=== PATIENT | male | born 1960 | race Caucasian/White ===

== ENCOUNTER 2019-09-20 12:04 | Outpatient (CLI) | payer MEDICARE, SELFPAY ==
--- NOTE | 2019-09-20 | XR_ITS ---
WS: [id number] LEFT SHOULDER: 3 VIEW(S) TECHNIQUE: Internal and external rotation with Y view. HISTORY: LEFT SHOULDER PAIN COMPARISON: None available. No fracture or dislocation or soft tissue abnormality. Mild narrowing of the AC joint. Partially calcified thoracic aorta. XR/XR shoulder LT min 2V* [id number] IMPRESSION: Mild AC joint arthritis.
== END 2019-09-20 12:05 | disposition home or self-care (01) ==
LOC: RADOUTREAD 14:45
PROVIDERS: Family Provider Family Medicine; Visit Provider Nurse Practitioner Family
DX: Z76.89 Persons encountering health services in other specified circumstances (principal)

== ENCOUNTER 2019-10-30 12:42 | Emergency (ER) | payer MEDICARE, MEDICAID, SELFPAY ==
[2019-10-30 12:48] VITALS: BP 171/81; PULSE 80; RESP 16; TEMP 36.5; O2SAT 96; BMI 34.2
--- NOTE | 2019-10-30 12:57 | CT_ITS ---
WS: [id number] CT HEAD TECHNIQUE: Noncontrast CT of the head obtained from the skullbase to the vertex. CLINICAL INFORMATION: headache COMPARISON: October 30, 2018 DLP: 1057.[address] scans at [facility] use at least one of these dose optimization techniques: automat ed exposure control; mA and/or kV adjustment per patient size (includes targeted exams where dose is matched to clinical indication); or iterative reconstruction. FINDINGS: No evidence of intracranial hemorrhage or mass effect. Ventricular system and basal cisterns are gutierrez nt. Mild small vessel changes with moderate parenchymal volume loss. Chronic lacunar infarct left lat eral basal ganglia. No extra-axial fluid collections. No evidence of mass or mass effect. Normal ruiz -white differentiation. Paranasal sinuses and mastoid air cells are well aerated. .Normal visualized soft tissues. CT/CT head wo con* [id number] IMPRESSION: 1. No evidence of intracranial hemorrhage or mass effect. 2. Mild small vessel changes. Moderate parenchymal volume loss. 3. No acute intracranial findings.
[2019-10-30 13:32] VITALS: O2SAT 96
--- NOTE | 2019-10-30 13:35 | W.ED.GENADLT ---
HPI - General Adult General: Chief complaint: Headache Stated complaint: H/A Time Seen by Provider: 10/30/19 13:24 History of Present Illness: HPI narrative: Patient comes in complaining about a headache today that started last night. Patient was sitting watching TV and just also got a pain that went throughout his head and stayed there. He took ibuprofen did not improve he checked his blood pressure and it was very high and he took a blood pressure medicine his blood pressure came back down. Has a history of migraines that he has been treated on for a long time. States he went to bed woke up with a headache not as bad. Blood pressures been doing better. Patient denies any neurological deficits. Patient does complain about nausea. MD complaint: Headache Onset (ago): hour(s) Location: head Radiation: non-radiation Severity: moderate and similar to prior episodes Severity scale (1-10): 6 Quality: aching Pain Consistency: constant Relieving factors: none Exacerbating factors: other (Light and sound) Associated symptoms: Reports headache(s) and nausea; Deny chest pain, dyspnea or rash Review of Systems Const: Denies: fever, chills or body aches Eyes: Denies: change in vision or blurry vision ENMT: Denies: throat pain or nasal congestion Card: Denies: chest pain or shortness of breath on exertion Resp: Denies: shortness of breath, productive cough or non-productive cough GI: Reports: nausea : Denies: difficulty urinating Musc: Denies: extremity pain Skin/Breast: Denies: rash Neuro: Reports: headache; Denies: numbness in extremities, weakness in extremities or slurred speech Psych: Denies: anxiety or depression Yeison/Lymph: Denies: easy bruising PFSH ED PFSH: Social History Smoking and tobacco status: never smoked Physical Exam Const: COMMON NORMALS: no apparent distress, average body habitus and oriented x3 HENMT: COMMON NORMALS: normocephalic HEAD & SCALP: normal to inspection and normocephalic FACE & SINUS: normal facial exam Eye: COMMON NORMALS: conjunctivae normal GENERAL EYE: normal appearance of both eyes CONJUNCTIVA: Yes conjunctivae normal Neck/C-Spine: COMMON NORMALS: no JVD Chest: COMMONS NORMALS: inspection of chest normal Resp: COMMON NORMALS: normal respiratory effort and clear to auscultation bilaterally AUSCULTATION: clear to auscultation bilaterally Cardio: COMMON NORMALS: no JVD, regular rate and regular rhythm RATE: regular rate RHYTHM: regular rhythm GI: COMMON NORMALS: normal to inspection, nondistended, normoactive bowel sounds Extremity: COMMON NORMALS: normal to inspection and full ROM Neuro: COMMON NORMALS: oriented x3 Course Vital Signs: Vital signs: Vital Signs Temperature 97.7 F 10/30/19 12:48 Pulse Rate 80 10/30/19 12:48 Respiratory Rate 16 10/30/19 12:48 Blood Pressure 171/81 10/30/19 12:48 Pulse Oximetry 96 10/30/19 13:32 MDM - General Adult MDM Narrative: Medical decision making narrative: Written prescription for Zofran 4 mg 1 every 8 hours as needed #10 no refills given for nausea and vomiting patient is take this for migraines and helped him. Lab Data: Labs: Lab Results 10/30/19 10/30/19 10/30/19 Range/Units 13:49 13:49 13:49 WBC 6.2 (4.0-10.0) 10^3/ uL RBC 4.55 (4.1-5.3) 10^6/u L Hgb 11.4 L (11.7-16.6) g/dL Hct 36.4 L (42.0-52.0) % MCV 80.0 (80-94) fL MCH 25.1 L (28.0-34.0) pg MCHC 31.3 (30.0-36.0) g/dL RDW 13.2 (12.1-15.1) % Plt Count 243 (130-400) 10^3/c mm MPV 10.1 (7.4-10.4) fL Neut % (Auto) 53.6 % Lymph % (Auto) 31.6 % [place] % (Auto) 8.4 % Eos % (Auto) 4.8 % Baso % (Auto) 1.1 % Neut # (Auto) 3.3 (1.8-7.7) 10^3/u L Lymph # (Auto) 2.0 (0.8-4.8) 10^3/u L [place] # (Auto) 0.5 (0.2-0.9) 10^3/u L Eos # (Auto) 0.3 (0.0-0.8) 10^3/u L Baso # (Auto) 0.1 (0.0-0.1) 10^3/u L Nucleated RBC % (a uto) 0 % Nucleated RBCs # 0.0 /100WBC PT 13.00 (10.5-13.3) SECO NDS INR 0.95 (0.8-1.2) Sodium 135 L (136-145) mmol/L Potassium 4.4 (3.5-5.1) mmol/L Chloride 96 L (98-107) mmol/L Carbon Dioxide 27 (22-29) mmol/L Anion Gap 16.4 (5-19) BUN 15 (8-23) mg/dL Creatinine 0.6 L (0.7-1.2) mg/dL GFR Calculation 137.0 H (90-130) mL/min Glucose 276 H (65-115) mg/dL Calculated Osmolal ity 286 (285-295) mOsm/k g Calcium 9.5 (8.5-10.5) mg/dL Total Bilirubin 0.2 (0.15-1.2) mg/dL AST 28 (0-40) U/L ALT 27 (0-41) U/L Alkaline Phosphata se 65 (40-130) IU/L Total Protein 7.0 (6.6-8.7) g/dL Albumin 4.0 (3.5-5.2) g/dL Globulin 3.0 (1.3-4.6) g/dL Discharge Plan Discharge Patient Disposition: Home, Self-Care Clinical Impression: Headache Qualifiers: Headache type: other vascular headache Qualified Code(s): G44.1 - Vascular headache, not elsewhere classified Condition: Stable Prescriptions: No Action carvedilol 25 mg tablet 25 mg PO BID RF: 0 benztropine 0.5 mg tablet 0.5 mg PO DAILY RF: 0 glipizide 10 mg tablet 10 mg PO BID RF: 0 isosorbide mononitrate 30 mg tablet extended release 24 hr 30 mg PO DAILY RF: 0 sertraline 100 mg tablet 100 mg PO DAILY RF: 0 pantoprazole 40 mg tablet,delayed release (DR/EC) 40 mg PO DAILY RF: 0 lisinopril 5 mg tablet 5 mg PO DAILY RF: 0 mirtazapine 15 mg tablet 15 mg PO DAILY RF: 0 gabapentin 100 mg capsule 100 mg PO DAILY RF: 0 metformin 500 mg tablet extended release 24 hr 500 mg PO BID RF: 0 risperidone 0.5 mg tablet 0.5 mg PO DAILY RF: 0 nortriptyline 50 mg capsule 50 mg PO DAILY RF: 0 Humalog KwikPen Insulin 100 unit/mL insulin pen See Rx Instructions .ROUTE .COMPLEX RF: 0 rosuvastatin 5 mg tablet 5 mg PO DAILY RF: 0 ProAir RespiClick 90 mcg/actuation aerosol powdr breath activated See Rx Instructions .ROUTE .COMPLEX RF: 0 Discharge Orders: Discharge Order (Routine); Ordered 10/30/19 Ordered By: Shabbir Doyle Referrals: Johnny Vargas MD [Family Provider] - Discharge Diet: Advance as tolerated Discharge Activity: Increase activity as tolerated Patient Instructions: Acute Headache (ED), Chronic Hypertension (ED) Activity Restrictions/Additional Instructions: Follow-up with medical provider as directed. Take medications as prescribed. Return to the ER or your medical provider if condition worsens. Please read and understand discharge instructions. If any questions ask please. Can increase carvedilol to 50 mg twice daily if needed until seen by Dr. Vargas to reassess blood pressure follow-up Dr. Vargas in 1 to 2 weeks. Coding Level of Care Code ED Swaging Machine Operator for Devonte Hamm Exam Comprehensive
[2019-10-30] MEDS: dexamethasone 4 mg/mL INJ IVP (13:56)
[2019-10-30] MEDS: sodium chloride 0.9% 250 ML 500 ML IV (13:56)
[2019-10-30] MEDS: diphenhydrAMINE 50 mg/mL SDV 1mL IVP (13:56)
[2019-10-30] MEDS: ondansetron 2 mg/ML SDV 2 mL 8 MG IVP (13:56)
[2019-10-30 14:04] LABS: Basophils # 0.1 10^3/uL (0.0-0.1); Basophils % 1.1 %; Eosinophils # 0.3 10^3/uL (0.0-0.8); Eosinophils % 4.8 %; Hematocrit 36.4 % (42.0-52.0); Hemoglobin 11.4 g/dL (11.7-16.6); Lymphocytes % 31.6 %; Mean Corpuscular HGB Conc 31.3 g/dL (30.0-36.0); Mean Corpuscular Hemoglobin 25.1 pg (28.0-34.0); Mean Platelet Volume 10.1 fL (7.4-10.4); Monocytes # 0.5 10^3/uL (0.2-0.9); Monocytes % 8.4 %; Neutrophils # 3.3 10^3/uL (1.8-7.7); Neutrophils % 53.6 %; Nucleated Red Blood Cells % 0 %; Platelet Count 243 10^3/cmm (130-400); Red Blood Count 4.55 10^6/uL (4.1-5.3); Red Cell Distribution Width 13.2 % (12.1-15.1); White Blood Count 6.2 10^3/uL (4.0-10.0)
[2019-10-30 14:17] LABS: INR 0.95 (0.8-1.2)
[2019-10-30 14:26] LABS: Alanine Aminotransferase 27 U/L (0-41); Alkaline Phosphatase 65 IU/L (40-130); Anion Gap 16.4 (5-19); Aspartate Amino Transferase 28 U/L (0-40); Blood Urea Nitrogen 15 mg/dL (8-23); Calcium 9.5 mg/dL (8.5-10.5); Carbon Dioxide 27 mmol/L (22-29); Chloride 96 mmol/L (98-107); Glucose 276 mg/dL (65-115); Osmolality Calculated 286 mOsm/kg (285-295); Potassium 4.4 mmol/L (3.5-5.1); Sodium 135 mmol/L (136-145); Total Bilirubin 0.2 mg/dL (0.15-1.2)
[2019-10-30] MEDS: ketorolac 30 mg/mL INJ IM (14:29)
[2019-10-30 15:37] VITALS: BP 166/96; PULSE 68; RESP 17; O2SAT 97
== END 2019-10-30 15:38 | disposition home or self-care (01) ==
PROVIDERS: Emergency Provider Nurse Practitioner Family; Family Provider Family Medicine
DX: R51 Headache (principal)
CPT/HCPCS: 12345; 36415; 70450; 80053; 85025; 85610; 96372; 96374; 96375; 99282; 99283; J1100; J1200; J1885; J2405; J7050

== ENCOUNTER → 2020-03-23 09:04 | Outpatient (BNVA) | payer MEDICARE, MEDICAID, SELFPAY | PROVIDERS: Family Provider Family Medicine; PCP Family Medicine; Visit Provider Internal Medicine Cardiovascular Disease | DX: I10 Essential (primary) hypertension (principal); E11.9 Type 2 diabetes mellitus without complications; G47.33 Obstructive sleep apnea (adult) (pediatric); K21.9 Gastro-esophageal reflux disease without esophagitis; E66.9 Obesity, unspecified | CPT/HCPCS: 80048; 83735; 83880 ==

== ENCOUNTER → 2020-10-23 14:23 | Outpatient (BNVA) | payer MEDICARE, MEDICAID, SELFPAY | PROVIDERS: Family Provider Family Medicine; PCP Family Medicine; Visit Provider Surgery | DX: Z86.010 Personal history of colon polyps (principal); Z11.52 Encounter for screening for COVID-19 | CPT/HCPCS: 87635 ==

== ENCOUNTER 2020-10-27 07:22 | Day surgery (SDC) | payer MEDICARE, MEDICAID, SELFPAY ==
[2020-10-23 13:58] VITALS: BMI 33.2
--- NOTE | 2020-10-27 07:46 | ANES.PREANE2 ---
Pre-Anesthetic Assessment Pre-Anesthetic Assessment: Height/Weight: Height 1.8 m Weight 107.955 kg Preop Diagnosis: screening colonoscopy Proposed Procedure: Operation Date: 10/27/20 09:00 Proposed Procedures p Colonoscopy 71252 z86.010(Not Applicable) - Jorge Li MD Social: Social History: No alcohol and No tobacco Exam: Pre-Anes Outpt Exam: alert, oriented x 3, clear to auscultation bilaterally and regular rate & rhythm (Occasional conducted irregular beats ) Airway: Submandibular: Other (Marginal/receeding mandible) Cervical ROM: Other (limited) MP: 4 Dentition: False History/ROS: No significant history except as noted Pulmonary: Pulmonary: Sleep apnea CV/HEM: CV/HEM: HTN : : None reported Hepatic: Hepatic: None reported GI: GI: GERD Comments: History of Colon CA s/p resection Metabolic: Metabolic: DM Neuropsych: Neuropsych: Anxiety Anesthetic Plan: ASA status: 3 Anesthesia: MAC PFSH Anesthesia PFSH: Medical History (Updated 09/16/20 @ 14:49 by Jorge Li MD) Asthma Mart's palsy Coronary artery disease Diabetes GERD (gastroesophageal reflux disease) History of colon polyps HTN (hypertension) Peripheral neuropathy Surgical History (Updated 09/15/20 @ 16:00 by Jorge Li MD) H/O colonoscopy History of right hemicolectomy Status post right inguinal hernia repair Family History (Updated 09/15/20 @ 15:08 by LEROY Sommer) Other CAD (coronary artery disease) Cancer Hypertension Denies family history of Anesthesia complication Bleeding disorder Social History Smoking and tobacco status: never smoked Alcohol intake: never Data Anesthesia Cardiac Studies: No Data to Display
[2020-10-27 08:01] VITALS: BP 158/73; PULSE 80; RESP 16; TEMP 36.4; O2SAT 98
[2020-10-27] MEDS: sodium chloride 0.9% 1,000 ML 30 ML IV (08:09)
[2020-10-27 08:38] LABS: Glucose Point of Care 180 mg/dL (70-110)
--- NOTE | 2020-10-27 09:35 | W.PM.OPSFHP ---
Same Day Surgery H&P Indication for Procedure/HPI DATE OF PROCEDURE: October 27, 2020 CHIEF COMPLAINT/INDICATIONFOR SURGICAL PROCEDURE: colonoscopy PREOP DIAGNOSIS: screening colonoscopy PLANNED PROCEDRUE: Operation Date: 10/27/20 09:00 Proposed Procedures p Colonoscopy 15167 z86.010(Not Applicable) - Jorge Li MD Medications/Allergies* Home Medications Medication Instructions Recorded Confirmed Type albuterol sulfate [ProAir See Rx Instructions .ROUTE .COMPLEX 10/30/19 10/27/20 History RespiClick] glipizide 10 mg PO BID 10/30/19 10/27/20 History insulin lispro [Humalog KwikPen See Rx Instructions .ROUTE .COMPLEX 10/30/19 10/27/20 History Insulin] isosorbide mononitrate 30 mg PO DAILY 10/30/19 10/27/20 History metformin 500 mg PO BID 10/30/19 10/27/20 History nortriptyline 50 mg PO DAILY 10/30/19 10/27/20 History pantoprazole 40 mg PO DAILY 10/30/19 10/27/20 History sertraline 100 mg PO DAILY 10/30/19 10/27/20 History gabapentin 100 mg capsule 100 mg PO TID cap 11/25/19 10/27/20 History insulin glargine See Rx Instructions .ROUTE .COMPLEX 03/16/20 10/27/20 History lisinopril 20 mg tablet 20 mg PO BID 03/16/20 10/27/20 History rosuvastatin 5 mg tablet 5 mg PO .every other day tab 04/21/20 10/27/20 History hydroxyzine HCl 25 mg PO BID PRN 09/15/20 10/27/20 History Allergies/Adverse Reactions Allergy/AdvReac Type Severity Reaction Status Date / Time alprazolam [From Xanax] Allergy ADR-Anxiety Verified 10/27/20 07:58 aspirin Allergy ALGY-Rash Verified 10/27/20 07:58 fentanyl Allergy ALGY-Rash Verified 10/27/20 07:58 Penicillins Allergy ALGY-Rash Verified 10/27/20 07:58 zolpidem [From Ambien] Allergy ADR-Anxiety Verified 10/27/20 07:58 Current Medications: Generic Name Dose Route Start Last Admin Trade Name Freq PRN Reason Stop Dose Admin Sodium Chloride 1,000 mls @ 30 mls/hr 10/27/20 07:30 10/27/20 08:09 Sodium Chloride 0.9% IV 10/28/20 07:29 30 mls/hr .Q24H LOTUS Administration Pertinent History/Comorbid Conditions* Medical History (Updated 09/16/20 @ 14:49 by Jorge Li MD) Asthma Mart's palsy Coronary artery disease Diabetes GERD (gastroesophageal reflux disease) History of colon polyps HTN (hypertension) Peripheral neuropathy Surgical History (Updated 09/15/20 @ 16:00 by Jorge Li MD) H/O colonoscopy History of right hemicolectomy Status post right inguinal hernia repair Family History (Updated 09/15/20 @ 15:08 by LEROY Sommer) CAD (coronary artery disease) Cancer Hypertension Denies family history of Anesthesia complication Bleeding disorder Social History Smoking and tobacco status: never smoked Alcohol intake: never Pertinent Exam Findings alert, oriented x 3 and regular rate & rhythm Recommendations Surgery/Procedure today Coding Level of Care Code Acute Grinder Operator External Tool for Devonte Hamm
[2020-10-27 10:05] VITALS: BP 120/64; PULSE 73; RESP 16; TEMP 36.4; O2SAT 96
[2020-10-27 10:20] VITALS: BP 113/67; PULSE 71; RESP 16; TEMP 36.6; O2SAT 98
--- NOTE | 2020-10-27 10:24 | P.PCN_ITS ---
PACU note Post-Anesthesia Exam: awake Disposition: discharged
--- NOTE | 2020-10-27 10:24 | PM.PACU ---
PACU note Post-Anesthesia Exam: awake Disposition: discharged
== END 2020-10-27 10:40 | disposition home or self-care (01) ==
PROVIDERS: PCP Family Medicine; Visit Provider Surgery
PROC: 0DJD8ZZ Inspection of Lower Intestinal Tract, Via Natural or Artificial Opening Endoscopic (ICD-10-PCS; CPT 45378; principal; 2020-10-27 09:00)
DX: Z12.11 Encounter for screening for malignant neoplasm of colon (principal); J45.909 Unspecified asthma, uncomplicated; I25.10 Atherosclerotic heart disease of native coronary artery without angina pectoris; K21.9 Gastro-esophageal reflux disease without esophagitis; I10 Essential (primary) hypertension; Z86.010 Personal history of colon polyps; E11.42 Type 2 diabetes mellitus with diabetic polyneuropathy; G47.30 Sleep apnea, unspecified; F41.9 Anxiety disorder, unspecified
CPT/HCPCS: 36416; 45378; 82962; 96360; 96361; J2704; J7030

== ENCOUNTER 2021-02-08 11:18 | Outpatient (CLI) | payer MEDICARE, MEDICAID, SELFPAY ==
[2021-02-08 12:46] LABS: Blood Urea Nitrogen 10 mg/dL (8-23)
--- NOTE | 2021-02-08 13:00 | CT_ITS ---
WS: [id number] CT ABDOMEN PELVIS TECHNIQUE: Contrast-enhanced CT of the abdomen and pelvis with coronal and sagittal reformatted image s. CLINICAL INFORMATION: K43.2 - Incisional hernia without obstruction or gangrene COMPARISON: None. DLP: 1947.[address] scans at [facility] use at least one of these dose optimization techniques: automat ed exposure control; mA and/or kV adjustment per patient size (includes targeted exams where dose is matched to clinical indication); or iterative reconstruction. FINDINGS: Diffuse fatty infiltration the liver. Prior cholecystectomy. Lung bases are well aerated. Normal sple en. Splenic artery calcification. Normal pancreas. Normal portal vein and splenic vein. Adrenal glands are normal. Normal renal parenchymal enhancement. No hydronephrosis. Bilateral renal c ysts largest on the right measuring 4.1 CM. Smaller bilateral renal cysts. Previously described low-attenuation splenic lesion along the undersurface of the spleen not seen tod ay. New enlarged lymph node aortocaval measuring 2.5 x 3.1 x 3.2 CM. This was not present previously. Again seen are prominent lymph nodes along the mesenteric root, which has progressed compared to pre vious with some hazy induration in the central mesentery. This can be seen with sclerosing mesenterit is. Lymphoma is an additional consideration. Bilobed periumbilical hernia with herniated bowel is new compared to previous with a small amount of herniated small bowel. No evidence of obstruction. Hernia mouth measures 4.6 and 4.1 cm. Normal sigmoid colon. No evidence of small or large bowel obstruction. Grade 1 anterolisthesis L5 on S1 with bilateral spondylolysis. This is unchanged. Stable fatty attenuation lesion in the anterior s uperior pelvis likely due to fat necrosis has decreased in size compared to previous. This measures 3 .4 x 2.9 cm today. Pain pump catheter. CT/CT abdomen pelvis w con* [id number] IMPRESSION: 1. Bilobed periumbilical incisional hernia with herniated small bowel. No evid ence of obstruction. 2. Enlarged lymph node along the aortocaval region is new from previous measur ing 2.5 x 3.1 x 3.2 CM. Additional enlarged lymph nodes in the central mesenter y progressed compared to previous with Jen mesentery. Findings are nonspecifi c but can be seen with sclerosing mesenteritis or lymphoma. Consider PET CT for further evaluation. 3. Diffuse fatty infiltration liver. Cholecystectomy clips. 4. Suspected fat necrosis in the anterior superior pelvis has decreased in siz e compared to previous. 5. Grade 1 anterolisthesis L5 on S1 with chronic spondylolysis.
[2021-02-08] MEDS: iodixanol 320 mg/mL 100mL Btl IV (13:02)
[2021-02-08] MEDS: iohexol 300 mg/mL 50 mL Btl PO (13:03)
== END 2021-02-08 11:19 | disposition home or self-care (01) ==
PROVIDERS: Radiology Neuroradiology; PCP Family Medicine; Visit Provider Surgery
DX: K43.2 Incisional hernia without obstruction or gangrene (principal); R59.0 Localized enlarged lymph nodes; K76.0 Fatty (change of) liver, not elsewhere classified; Z90.49 Acquired absence of other specified parts of digestive tract; M47.817 Spondylosis without myelopathy or radiculopathy, lumbosacral region
CPT/HCPCS: 74177; 82565; 84520; Q9967

== ENCOUNTER 2021-02-12 13:03 | Outpatient (CLI) | payer MEDICARE, MEDICAID, SELFPAY ==
--- NOTE | 2021-02-12 13:13 | XR_ITS ---
WS: [id number] Chest 2 views, 02/12/2021 Clinical Data: K43.2 - Incisional hernia without obstruction or gangrene Comparison: PA and lateral chest, 01/22/2019. Findings: No nodules, masses or effusions are seen. The heart is normal. The pulmonary vascularity is not increased. No pneumonia or pneumothorax is seen. The aortic arch and descending aorta shows mild calcification and tortuosity. There are clips in the right upper quadrant from a cholecystectomy. XR/XR chest 2V* [id number] Impression: Atherosclerosis.
== END 2021-02-12 13:04 | disposition home or self-care (01) ==
LOC: RAD 13:09
PROVIDERS: PCP Family Medicine; Visit Provider Surgery
DX: K43.2 Incisional hernia without obstruction or gangrene (principal); I70.90 Unspecified atherosclerosis
CPT/HCPCS: 71046

== ENCOUNTER 2021-02-26 08:43 | Outpatient (CLI) | payer MEDICARE, MEDICAID, SELFPAY ==
--- NOTE | 2021-02-26 08:52 | CT_ITS ---
WS: [id number] CT NECK WITH CONTRAST HISTORY: R59.1 - Generalized enlarged lymph nodes TECHNIQUE: Contiguous 5 mm axial images are performed through the neck with intravenous contrast. Sag ittal and coronal reformats are also submitted. All CT scans at use at least o ne of these dose optimization techniques: automated exposure control; mA and/or kV adjustment per pat ient size (includes targeted exams where dose is matched to clinical indication); or iterative recons truction. CONTRAST: CONTRAST: Visipaque 320; 75 mL IV. DLP: 589.99 mGy.cm COMPARISON: None available. Nasopharynx, oropharynx, hypopharynx and larynx are unremarkable. No soft tissue masses or abnormal e nhancement. Torus tubarius and fossa of Rosenmuller and parapharyngeal fat are normal. Small cervical chain lymph nodes are identified. Normal fatty hilum within these lymph nodes and no e nlargement. Negative thyroid gland. Intraparotid lymph nodes. Very mild anterior wedging of C3. No acute fracture lines. Ankylosis between the C2-3 facet joints. Visualized portions of the skull base demonstrate no abnormalities. Orbits and globes are within norm al limits. No soft tissue masses. No sinus disease. Lung apices are clear. There is extensive circumferential intimal thickening and calcification in the carotid arteries near the bifurcations. Greater than 60% stenosis bilaterally involving the ICAs. CT/CT neck w con* [id number] IMPRESSION: 1. No cervical chain lymphadenopathy. 2. Bilateral extracranial ICA high-grade stenoses. Stenosis estimated at great er than 60%. Recommend dedicated CT angiogram for more specific percent stenose s and evaluation of the carotid arteries.
--- NOTE | 2021-02-26 08:52 | CT_ITS ---
WS: [id number] CT CHEST WITH INTRAVENOUS CONTRAST HISTORY: R59.1 - Generalized enlarged lymph nodes TECHNIQUE: Contiguous 5 mm axial imaging performed on the thorax. Coronal and sagittal reformats are submitted. All CT scans at [facility] use at least one of these dose optimization techniq ues: automated exposure control; mA and/or kV adjustment per patient size (includes targeted exams wh ere dose is matched to clinical indication); or iterative reconstruction. CONTRAST: Visipaque 320; 95 mL IV. DLP: 980.37 mGy.cm COMPARISON: 08/23/2018 Lungs and central airway: Mild pulmonary hyperexpansion. No mass or nodule. No pneumonia. Normal vasc ulature. Subsegmental atelectasis in the RIGHT upper lobe. Pleura: Normal. No pleural effusion. Heart and pericardium: Normal size heart with no pericardial effusion. Mediastinum and [place]: No mediastinum or hilar adenopathy. Vessels: Mild atherosclerosis aorta. Normal size pulmonary artery. Chest wall and lower neck: No soft tissue masses. Upper abdomen: Pain pump generator noted over the LEFT lateral abdominal wall. Incompletely visualize d 2.7 cm cystic mass from the RIGHT kidney has been previously described. Adrenal glands are negative . Hepatic steatosis. Prior cholecystectomy. Similar appearance as on the prior study from 08/23/2018 of the pancreas. Osseous structures: Benign hemangioma at T1 and T4. CT/CT chest w con* [id number] IMPRESSION: 1. No lymphadenopathy within the thorax. 2. No mass or pulmonary nodule. 3. Prior cholecystectomy. 4. Hepatic steatosis.
[2021-02-26] MEDS: iodixanol 320 mg/mL 100mL Btl IV ×2 (09:36→09:37)
== END 2021-02-26 08:44 | disposition home or self-care (01) ==
PROVIDERS: PCP Family Medicine; Visit Provider Surgery
DX: R59.1 Generalized enlarged lymph nodes (principal); I65.23 Occlusion and stenosis of bilateral carotid arteries; Z90.49 Acquired absence of other specified parts of digestive tract; K76.0 Fatty (change of) liver, not elsewhere classified
CPT/HCPCS: 70491; 71260

== ENCOUNTER 2021-03-03 08:12 | Observation (INO) | payer MEDICARE, MEDICAID, SELFPAY ==
[2021-03-03] VITALS (46 sets, daily range): BP systolic 87–160; BP diastolic 50–81; PULSE 74–91; RESP 5–22; TEMP 36.3–36.8; O2SAT 90–96; BMI 32.1
--- NOTE | 2021-03-03 08:49 | ECG_ITS ---
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 Measurements Intervals [place] Rate: 77 P: 36 CA: 160 QRS: 49 QRSD: 91 T: 47 QT: 378 QTc: 428 Interpretive Statements SINUS RHYTHM ST ELEVATION, CONSIDER SEPTAL INJURY [MARKED ST ELEVATION W/O NORMALLY INFLECTED T WAVE IN V1/V2] ACUTE [place] Compared to ECG 01/16/2019 21:36:34 ST (T wave) deviation now present Ventricular premature complex(es) no longer present Electronically Signed On 03-04-2021 23:44:23 CDT by García Raman M.D. [id number] f
--- NOTE | 2021-03-03 08:49 | XR_ITS ---
WS: [id number] Portable AP upright chest, 03/03/2021 Clinical Data: chest pain Comparison: PA and lateral chest, 02/12/2021. Findings: No nodules, masses or effusions are seen. The heart is normal. The pulmonary vascularity is not increased. No pneumonia or pneumothorax is seen. The aortic arch shows minimal calcification and tortuosity. XR/XR chest 1V portable [id number] Impression:Atherosclerosis.
--- NOTE | 2021-03-03 08:49 | ED_ITS ---
HPI - General Adult General: Chief complaint: General Medical Stated complaint: low BP Time Seen by Provider: 03/03/21 08:55 History of Present Illness: HPI narrative: 60-year-old male who presents to the emergency room with complaints of chest pain that began around 5 AM this morning. He gets short of breath with it he still has some aching and discomfort is worse when he stands or walks better when he sits. Patient has a known history of diabetes mellitus history of hypertension. No known history of heart disease he previously had a sestamibi stress test in 2019 and an angiogram in 2013 both of which were reported to him as unremarkable. Onset (ago): hour(s) Location: chest Radiation: back and neck Severity: moderate Quality: aching Pain Consistency: constant Relieving factors: rest Exacerbating factors: movement (Exertion) Associated symptoms: Reports chest pain, dyspnea, nausea and short of breath; Deny confusion, cough, diaphoresis, decreased appetite, fevers/chills, headache(s), malaise, rash, palpitations, seizures, syncope, vomiting or weakness Treatments prior to arrival: none Review of Systems Const: Denies: malaise or diaphoresis ENMT: Denies: throat pain, ear or mastoid pain, nasal discharge or nasal congestion Card: Reports: chest pain; Denies: palpitations or syncope Resp: Reports: dyspnea GI: Reports: nausea; Denies: vomiting : Denies: flank pain, dysuria, urinary frequency or urinary urgency Skin/Breast: Denies: rash Neuro: Denies: headache(s) or confusion [facility] ED PFSH: Medical History Asthma Mart's palsy Coronary artery disease Diabetes GERD (gastroesophageal reflux disease) History of colon polyps HTN (hypertension) Peripheral neuropathy Surgical History H/O colonoscopy (10/27/20) 5 years History of right hemicolectomy Status post right inguinal hernia repair Family History Other CAD (coronary artery disease) Cancer Hypertension Denies family history of Anesthesia complication Bleeding disorder Social History Smoking and tobacco status: never smoked Alcohol intake: never Physical Exam Const: COMMON NORMALS: no acute distress GENERAL APPEARANCE: cooperative and comfortable ORIENTATION/CONSCIOUSNESS: Yes awake, Yes oriented to person, Yes oriented to place and Yes oriented to time HENMT: COMMON NORMALS: normocephalic, atraumatic and hearing grossly normal bilaterally HEAD & SCALP: normocephalic and atraumatic Neck/C-Spine: COMMON NORMALS: no JVD Resp: COMMON NORMALS: normal respiratory effort, No retractions, No use of accessory muscles and clear to auscultation bilaterally AUSCULTATION: clear to auscultation bilaterally Cardio: COMMON NORMALS: no JVD, regular rate, regular rhythm and No murmurs present (Cardio) RATE: regular rate RHYTHM: regular rhythm GI: COMMON NORMALS: Soft to palpation and No hepatosplenomegaly present AUSCULTATION: Yes normoactive bowel sounds PALPATION: Yes Soft to palpation, No Tenderness to palpation present (GI), No Guarding due to palpation present (GI) and Yes No hepatosplenomegaly present Extremity: COMMON NORMALS: normal to inspection, capillary refill normal, no clubbing, cyanosis or edema, no calf tenderness and no pedal edema Neuro: SENSORIUM/ORIENTATION: Yes oriented to person, Yes oriented to place and Yes oriented to time Skin: COMMON NORMALS: no rashes or lesions noted GENERAL SKIN EXAM: no rashes or lesions noted Course Vital Signs: Vital signs: Vital Signs Temperature 98.3 F 03/03/21 08:44 Pulse Rate 77 03/03/21 09:35 Respiratory Rate 17 03/03/21 09:35 Blood Pressure 107/61 03/03/21 09:35 Pulse Oximetry 96 03/03/21 09:35 MDM - General Adult MDM Narrative: Medical decision making narrative: I initially came in and see the patient EKG was done immediately after I seen him there is some ST elevation in V2 has a subtle suggestion of ST elevation in V1 but is not meet criteria V2 does have a millimeter of elevation he has upsloping changes in V3 4 5 and 6. No significant reciprocal changes. Patient is actually having pain he has pain with exertion relief at rest. In 2019 he had a normal sestamibi stress test 2013 he had a normal angiogram. I fax it immediately to Dr. Gan who is on- call for cardiology. We reviewed and discussed the case briefly he is going to come and see the patient in the emergency room he did not want us to activate a STEMI alert. Dr. Gan came and seen the patient in the emergency room and took the patient to the Data Integrity Specialist. Patient was prepped given Plavix and heparin per his recommendation. Lab Data: Attestation: I reviewed the patient's lab results. Labs: Lab Results 03/03/21 03/03/21 03/03/21 Range/Units 08:54 08:54 08:54 WBC 7.4 (4.0-10.0) 10^3/ uL RBC 4.45 (4.1-5.3) 10^6/u L Hgb 11.7 (11.7-16.6) g/dL Hct 36.1 L (42.0-52.0) % MCV 81.1 (80-94) fL MCH 26.3 L (28.0-34.0) pg MCHC 32.4 (30.0-36.0) g/dL RDW 12.4 (12.1-15.1) % Plt Count 275 (130-400) 10^3/c mm MPV 10.3 (7.4-10.4) fL Neut % (Auto) 55.8 % Lymph % (Auto) 29.3 % [place] % (Auto) 8.2 % Eos % (Auto) 4.7 % Baso % (Auto) 1.5 % Neut # (Auto) 4.13 (1.8-7.7) 10^3/u L Lymph # (Auto) 2.2 (0.8-4.8) 10^3/u L [place] # (Auto) 0.6 (0.2-0.9) 10^3/u L Eos # (Auto) 0.4 (0.0-0.8) 10^3/u L Baso # (Auto) 0.1 (0.0-0.1) 10^3/u L Nucleated RBC % (a uto) 0 % Nucleated RBCs # 0.0 /100WBC Sodium 137 (136-145) mmol/L Potassium 4.4 (3.5-5.1) mmol/L Chloride 96 L (98-107) mmol/L Carbon Dioxide 29 (22-29) mmol/L Anion Gap 16.4 (5-19) BUN 9 (8-23) mg/dL Creatinine 0.7 (0.7-1.2) mg/dL GFR Calculation 114.3 (90-130) mL/min Glucose 271 H (65-115) mg/dL Calculated Osmolal ity 292 (285-295) mOsm/k g Calcium 8.0 L (8.5-10.5) mg/dL Total Bilirubin 0.3 (0.15-1.2) mg/dL AST 11 (0-40) U/L ALT 11 (0-41) U/L Alkaline Phosphata se 65 (40-130) IU/L Troponin T Baselin e 16 H (0-15) ng/L Total Protein 5.8 L (6.6-8.7) g/dL Albumin 3.5 (3.5-5.2) g/dL Globulin 2.3 (1.3-4.6) g/dL Discharge Plan Discharge Patient Disposition: Admitted As Inpatient Admit Provider: García Raman Clinical Impression: Chest pain, Obesity, Diabetes, HTN (hypertension) Condition: Stable Coding Level of Care Code ED Radio Division Captain for Chg Fwd Exam Comprehensive
[2021-03-03] MEDS: sodium chloride 0.9% 1,000 ML 999 ML IV (09:01)
[2021-03-03] MEDS: nitroglycerin 1 gm/inch oint Pkt 0.5 INCH TOPICAL (09:01)
[2021-03-03 09:02] LABS: Basophils # 0.1 10^3/uL (0.0-0.1); Basophils % 1.5 %; Eosinophils # 0.4 10^3/uL (0.0-0.8); Eosinophils % 4.7 %; Hematocrit 36.1 % (42.0-52.0); Hemoglobin 11.7 g/dL (11.7-16.6); Lymphocytes # 2.2 10^3/uL (0.8-4.8); Lymphocytes % 29.3 %; Mean Corpuscular HGB Conc 32.4 g/dL (30.0-36.0); Mean Corpuscular Hemoglobin 26.3 pg (28.0-34.0); Mean Corpuscular Volume 81.1 fL (80-94); Mean Platelet Volume 10.3 fL (7.4-10.4); Monocytes # 0.6 10^3/uL (0.2-0.9); Monocytes % 8.2 %; Neutrophils # 4.13 10^3/uL (1.8-7.7); Neutrophils % 55.8 %; Nucleated Red Blood Cells % 0 %; Platelet Count 275 10^3/cmm (130-400); Red Blood Count 4.45 10^6/uL (4.1-5.3); Red Cell Distribution Width 12.4 % (12.1-15.1); White Blood Count 7.4 10^3/uL (4.0-10.0)
[2021-03-03 09:22] LABS: Alanine Aminotransferase 11 U/L (0-41); Albumin Level 3.5 g/dL (3.5-5.2); Alkaline Phosphatase 65 IU/L (40-130); Anion Gap 16.4 (5-19); Aspartate Amino Transferase 11 U/L (0-40); Blood Urea Nitrogen 9 mg/dL (8-23); Carbon Dioxide 29 mmol/L (22-29); Chloride 96 mmol/L (98-107); Globulin 2.3 g/dL (1.3-4.6); Glomerular Filtration Rate 114.3 mL/min (90-130); Glucose 271 mg/dL (65-115); Osmolality Calculated 292 mOsm/kg (285-295); Potassium 4.4 mmol/L (3.5-5.1); Sodium 137 mmol/L (136-145); Total Bilirubin 0.3 mg/dL (0.15-1.2); Total Protein 5.8 g/dL (6.6-8.7)
[2021-03-03 09:23] LABS: Troponin(5th) Baseline 16 ng/L (0-15)
--- NOTE | 2021-03-03 09:27 | XACV_ITS ---
Ht: 180 cm Wt: 104 kg BSA: 2.32 m2 Gender: Male : 1960 Any Known Allergies: Other Exam Priority: Routine Procedure(s): Procedure Description: Diagnostic procedure Procedure Description: Left Heart Catheterization Procedure Description: Left ventriculography Procedure Description: Coronary Angiography Diagnostic Cath Status: Urgent Diagnostic Findings * INDICATION: UNSTABLE ANGINA/DYNAMIC EKG CHANGES. * No disease noted in the Left Main, Left Anterior Descending, Right, or Circumflex coronary arteries. * Coronary angiography shows right dominance. Conclusions 1. Chest pain and dynamic EKG changes likely secondary to coronary artery spasms. 2. No disease noted in the Left Main, Left Anterior Descending, Right, or Circumflex coronary arteries. 3. Normal left ventricular systolic function. Ejection fraction of 65%. Recommendations * Transfer to CSU. * Aggressive risk factor modification. * Outpatient cardiology follow up in 4 weeks. Diagnostic RX Recommendation: medical therapy and/or counseling Anticoagulation: Heparin Ventriculography Ejection Fraction: 65.0 % Pressures Phase:Rest AO : 142 / 70 ( 30 ) @ 8:56:00 AM 98 / 66 ( 78 ) @ 8:57:00 AM LV : 157 / / 23 @ 9:01:00 AM 301 / 145 / 262 @ 9:02:00 AM Clinical Evaluation EBL: 5mL-10mL Procedural Details Pre-Procedure Time Out. Identified patient by full name and date of as verbalized by the patient/guarantor. Does the consent match the physician's order: N/A Emergent; Informed Consent not obtained due to time critical life threat. Accurate & Complete Informed Consent: N/A Emergent; Informed Consent not obtained due to time critical life threat. Inpatient/Outpatient History & Physical on Chart: N/A Emergent; Informed Consent not obtained due to time critical life threat. If H&P is completed, is and addenduem needed: N/A Emergent; Informed Consent not obtained due to time critical life threat; If yes, is the addendum complete: N/A Emergent; Informed Consent not obtained due to time critical life threat. Visualize and Verify Site with Patient/Guarantor: N/A. Relevant Radiology Images available: N/A Emergent; Informed Consent not obtained due to time critical life threat. Pre-op teaching completed and patient verbalized understanding. The risks, benefits, and alternatives of sedation and/or procedure were discussed by physician. The patient agrees to continue. Procedure started. PERRLA. Strong, equal hand feeder catcher bilaterally. Lungs clear x 5 lobes. IV Site on Arrival: 18 gauge in the left forearm. IV Site on Arrival: 20 gauge in the right hand. IV Fluids: 0.9% NaCl at KVO. 0 mL infused prior to cathode washer. Oxygen started at 2liters/min via nasal canula. right groin was prepped with chloroprep then draped in the usual sterile fashion. right radial was prepped with chloroprep then draped in the usual sterile fashion. Physician notified. Physician arrived. Current diagnosis: Unstable angina. Physician scrubbed in. Immediate Pre-Procedure Time Out. Correct Patient: Yes; Correct Procedure: Yes; Correct Site: Yes; Correct Patient Position: Yes; Correct Supplies: Yes; Dried Flammable Prep: Yes; Blood Products Available: No;. Lidocaine 1% infiltrated to the right radial. Arterial access obtained. Baseline sample Acquired. HR: 78 BPM. Equipment: 6F - Radial. ACIST Manifold Kit Model BT 2000. Cardiac Cath Pack. Heparinized Saline (2 units/mL), 1000 mL bag. A 5 italian TIG catheter in over wire. Multiple views taken of left coronary artery. Catheter redirected to the RCA. Multiple views taken of right coronary artery. Catheter out. A 5 italian Angled Pig catheter in over wire. EDP Sample taken: LV 157/1,23; HR: 80 BPM; SpO2: 97%. LV gram performed in ALVARES @ 10 mL/second for a total of 30 mL. EDP Sample taken: LV 301/145,262; HR: 78 BPM; SpO2: 98%. Pullback taken: LV Off; AO Off; Mean: , Peak to Peak: , SEP: ; HR: 78 BPM; SpO2: 98%. Catheter out. A TR Band was successful obtaining hemostatsis at the Right Radial artery insertion site. TR band placed. Hemostasis obtained. Post Procedure: Pulses reassessed and unchanged. PERRLA. Strong, equal hand feeder catcher bilaterally. Medication's Wasted: Lidocaine 1% = 18 mL. Medication's Wasted: Nitro = 49.8 mg. Medication's Wasted: Heparin = 2000 units. Medication's Wasted: Other = fentanyl 100 mcg. Total IV fluids: 37.7 mL. Fluoro: 2:30. Contrast type used: Omnipaque 300 mgI/mL, 500 mL bottle. [id number]. Post-op diagnosis: unstable angina. Complications: none. Estimated blood loss: 5mL-10mL. Procedure completed. Patient transferred by wheelchair to 1st floor. Access Site Site: Right Radial artery Sheath Size: 6 Fr Hemostasis Method: TR Band Hemostasis Success: Successful Procedure Medications Start: 9:46 AM Stop: 9:46 AM Medication: Solu-Medrol (methylprednisolone) Amount: 125 mg Route: I.V. Start: 9:46 AM Stop: 9:46 AM Medication: Benadryl Amount: 50 mg Route: I.V. Start: 9:46 AM Stop: 9:46 AM Medication: Versed Amount: 2 mg Route: I.V. Start: 9:55 AM Stop: 9:55 AM Medication: Heparin Amount: 4000 units Route: I.V. Start: 9:56 AM Stop: 9:56 AM Medication: Versed Amount: 1 mg Route: I.V. I, the attending physician, have reviewed and verified all procedure medications. Yes, all medications given per verbal order Report Signatures Finalized by García Raman MD on 03/11/2021 10:52 AM
[2021-03-03] MEDS: clopidogrel 300 mg Tablet PO (09:37)
[2021-03-03] MEDS: heparin 5,000 unit/mL INJ 1 mL 4000 UNIT IVP (09:37)
--- NOTE | 2021-03-03 09:44 | PM.HP ---
Providers/Chief Complaint Admitting Physician: García Raman MD Primary Care Provider: Johnny Vargas MD Chief Complaint: low BP History of Present Illness Guanakito Longo is a 60 year old male with past medical history of hypertension, diabetes mellitus, dyslipidemia, obstructive sleep apnea on CPAP, chronic pain, gastroesophageal reflux disease, history of chronic venous insufficiency and history of varicose veins and multiple other medical problems who presented to ER with 4-5 hours of severe chest pain. It is substernal, radiated to the neck. He is currently having chest pain. EKG showed borderline ST elevation in the inferior leads transiently. Given his ongoing chest pain and ekg changes, we will proceed with emergent cardiac catheterization. Patient has noted significantly low blood pressure readings today. Review of Systems Const: Denies: malaise or diaphoresis Eyes: Denies: change in vision ENMT: Denies: throat pain, ear or mastoid pain, nasal discharge or nasal congestion Card: Reports: chest pain; Denies: palpitations or syncope Resp: Reports: dyspnea GI: Reports: nausea; Denies: vomiting : Denies: flank pain, dysuria, urinary frequency or urinary urgency Skin/Breast: Denies: rash Neuro: Denies: headache(s) or confusion Medications/Allergies Home Medications Medication Instructions Recorded Confirmed Last Taken Type ProAir RespiClick 1 - 2 inh INHALATION Q4H PRN 10/30/19 03/03/21 10/26/20 History glipizide 10 mg PO BID 10/30/19 03/03/21 03/02/21 History isosorbide mononitrate 30 mg PO BEDTIME 10/30/19 03/03/21 03/02/21 History metformin 1,000 mg PO BID 10/30/19 03/03/21 03/02/21 History nortriptyline 50 mg PO BEDTIME 10/30/19 03/03/21 03/02/21 History pantoprazole 40 mg PO DAILY 10/30/19 03/03/21 10/26/20 History sertraline 100 mg PO QAM 10/30/19 03/03/21 03/02/21 History gabapentin 100 mg capsule 200 mg PO TID cap 11/25/19 03/03/21 10/26/20 History lisinopril 20 mg tablet 20 mg PO BID 03/16/20 03/03/21 03/02/21 History rosuvastatin 5 mg tablet 5 mg PO .every other day tab 04/21/20 03/03/21 03/02/21 History carvedilol 25 mg PO BID 03/03/21 03/03/21 03/02/21 History clopidogrel 75 mg PO BEDTIME 03/03/21 03/03/21 03/02/21 History furosemide 20 mg PO DAILY PRN 03/03/21 03/03/21 03/02/21 History hydroxyzine HCl 50 mg PO BID PRN 03/03/21 03/03/21 03/02/21 History ibuprofen 800 mg PO PRN 03/03/21 03/03/21 Unknown History insulin glargine [Lantus Solostar 53 unit SUBCUT BEDTIME 03/03/21 03/03/21 03/02/21 History U-100 Insulin] insulin lispro See Rx Instructions .ROUTE .COMPLEX 03/03/21 03/03/21 03/03/21 06:00 History 20 units multivitamin 1 tab PO DAILY 03/03/21 03/03/21 Unknown History Allergies Allergy/AdvReac Type Severity Reaction Status Date / Time Iodinated Contrast Media Allergy Unknown ALGY-Hives Verified 03/03/21 09:34 adhesive tape Allergy ALGY-Rash Verified 03/03/21 09:33 alprazolam [From Xanax] Allergy ADR-Anxiety Verified 03/03/21 09:33 aspirin Allergy ALGY-Rash Verified 03/03/21 09:33 fentanyl Allergy ALGY-Rash Verified 03/03/21 09:33 Penicillins Allergy ALGY-Rash Verified 03/03/21 09:33 zolpidem [From Ambien] Allergy ADR-Anxiety Verified 03/03/21 09:33 PFSH Acute PFSH: Medical History Asthma Mart's palsy Coronary artery disease Diabetes GERD (gastroesophageal reflux disease) History of colon polyps HTN (hypertension) Peripheral neuropathy Surgical History H/O colonoscopy (10/27/20) 5 years History of right hemicolectomy Status post right inguinal hernia repair Family History Other CAD (coronary artery disease) Cancer Hypertension Denies family history of Anesthesia complication Bleeding disorder Social History Smoking and tobacco status: never smoked Alcohol intake: never Vitals/I&O/Wt Last Vital Signs Temp 98.3 F 03/03/21 08:44 Pulse 77 03/03/21 09:35 Resp 17 03/03/21 09:35 BP 107/61 03/03/21 09:35 Pulse Ox 96 03/03/21 09:35 Weight last 48 hrs Weight 230 lb Physical Exam Const: COMMON NORMALS: patient oriented x3 and alert HENMT: COMMON NORMALS: normocephalic Eye: COMMON NORMALS: Equal, round and reactive pupils present Resp: COMMON NORMALS: normal respiratory effort and clear to auscultation bilaterally Cardio: COMMON NORMALS: regular rate, regular rhythm, S1 normal heart sound present and S2 normal heart sound present GI: COMMON NORMALS: Normal to inspection, nondistended, normoactive bowel sounds present Skin: COMMON NORMALS: no rashes or lesions noted Data : 03/03/21 08:54 03/03/21 08:54 A&P Assessment and plan (1) Unstable angina: Status: Acute (2) Diabetes: Status: Acute (3) HTN (hypertension): Status: Acute (4) GERD (gastroesophageal reflux disease): Status: Acute (5) NEDRA (obstructive sleep apnea): Status: Acute (6) Obesity: Status: Acute (7) Abdominal lymphadenopathy: Status: Acute Patient is describing typical chest pain symptoms with dynamic EKG changes. We will proceed with emergent cardiac catheterization with possible percutaneous coronary intervention. Aspirin, plavix and heparin given Order echocardiogram We will monitor his BP in the hospital to adjust BP meds Attestations Medical Necessity Statement*: Care expected to cross 2 midnights. Patient presented with unstable angina and may require coronary intervention Coding Level of Care Code Acute Chair Inspector for [facility] Fwd Diagnoses Unstable angina I20.0 Diabetes E11.9 HTN (hypertension) I10 GERD (gastroesophageal reflux disease) K21.9 NEDRA (obstructive sleep apnea) G47.33 Obesity E66.9 Abdominal lymphadenopathy R59.0
--- NOTE | 2021-03-03 10:49 | ECG_ITS ---
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 Measurements Intervals [place] Rate: 79 P: 35 AR: 156 QRS: 32 QRSD: 99 T: 42 QT: 382 QTc: 440 Interpretive Statements SINUS RHYTHM POSSIBLE RIGHT VENTRICULAR CONDUCTION DELAY [RSR (QR) IN V1/V2] Compared to ECG 03/03/2021 09:20:27 ST (T wave) deviation no longer present Electronically Signed On 03-03-2021 21:57:10 CDT by Sammie Reece M.D. [id number]
--- NOTE | 2021-03-03 13:00 | PC.NURSE ---
spoke with Dr rangel with patient concerns to be able to use home cpap device in hospital telephone instructions received to place order for home cpap use
--- NOTE | 2021-03-03 14:49 | ECG_ITS ---
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 Measurements Intervals [place] Rate: 79 P: 30 GA: 153 QRS: 45 QRSD: 96 T: 41 QT: 394 QTc: 452 Interpretive Statements SINUS RHYTHM WITH OCCASIONAL SUPRAVENTRICULAR PREMATURE COMPLEXES ST ELEVATION, CONSIDER SEPTAL INJURY [MARKED ST ELEVATION W/O NORMALLY INFLECTED T WAVE IN V1/V2] ACUTE AR Compared to ECG 03/03/2021 08:58:32 No significant changes Electronically Signed On 03-04-2021 23:54:03 CDT by García Raman M.D. [id number]
[2021-03-03 16:48] LABS: Glucose Point of Care 452 mg/dL (70-110)
[2021-03-03] MEDS: gabapentin 100 mg Capsule 200 MG PO ×2 (16:55→21:53)
--- NOTE | 2021-03-03 18:33 | ECG_ITS ---
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 Measurements Intervals [place] Rate: 87 P: 4 AK: 141 QRS: 20 QRSD: 98 T: 25 QT: 371 QTc: 448 Interpretive Statements SINUS RHYTHM Compared to ECG 03/03/2021 13:38:23 No significant changes Electronically Signed On 03-03-2021 21:36:16 CDT by Sammie Reece M.D. [id number]
[2021-03-03] MEDS: lisinopril 20 mg Tablet PO (18:37)
[2021-03-03 21:28] LABS: Glucose Point of Care 437 mg/dL (70-110)
[2021-03-03] MEDS: hyDROXYzine 25 mg Capsule 50 MG PO (21:53)
[2021-03-03] MEDS: insulin glargine 100 units/1 mL 53 UNIT SUBCUT (21:53)
[2021-03-03] MEDS: morphine 4 mg/mL SDV 1 mL 2 MG IVP (21:58)
[2021-03-03] MEDS: clopidogrel 75 mg Tablet PO (22:09)
[2021-03-03] MEDS: nortriptyline 25 mg Capsule 50 MG PO (22:09)
[2021-03-04 04:00] VITALS: BP 143/78; PULSE 87; RESP 14; TEMP 36.8; O2SAT 96
[2021-03-04 05:45] VITALS: PULSE 84
[2021-03-04 05:46] LABS: Basophils % 0.2 %; Eosinophils % 0.1 %; Hematocrit 36.3 % (42.0-52.0); Hemoglobin 11.6 g/dL (11.7-16.6); Lymphocytes # 1.2 10^3/uL (0.8-4.8); Lymphocytes % 11.3 %; Mean Corpuscular Hemoglobin 26.5 pg (28.0-34.0); Mean Corpuscular Volume 83.1 fL (80-94); Mean Platelet Volume 10.4 fL (7.4-10.4); Monocytes # 0.6 10^3/uL (0.2-0.9); Monocytes % 5.8 %; Neutrophils # 8.66 10^3/uL (1.8-7.7); Neutrophils % 82.2 %; Nucleated Red Blood Cells % 0 %; Platelet Count 252 10^3/cmm (130-400); Red Blood Count 4.37 10^6/uL (4.1-5.3); Red Cell Distribution Width 12.5 % (12.1-15.1); White Blood Count 10.5 10^3/uL (4.0-10.0)
[2021-03-04 06:04] LABS: Anion Gap 14.2 (5-19); Blood Urea Nitrogen 15 mg/dL (8-23); Carbon Dioxide 26 mmol/L (22-29); Chloride 98 mmol/L (98-107); Glomerular Filtration Rate 168.5 mL/min (90-130); Glucose 299 mg/dL (65-115); Osmolality Calculated 288 mOsm/kg (285-295); Potassium 5.2 mmol/L (3.5-5.1); Sodium 133 mmol/L (136-145)
[2021-03-04] MEDS: sertraline 100 mg Tablet PO (06:13)
[2021-03-04 06:47] LABS: Glucose Point of Care 316 mg/dL (70-110)
[2021-03-04 08:00] VITALS: BP 133/59; PULSE 85; RESP 12; O2SAT 95
[2021-03-04] MEDS: gabapentin 100 mg Capsule 200 MG PO (08:18)
[2021-03-04] MEDS: atorvastatin 40 mg Tablet 20 MG PO (08:18)
[2021-03-04] MEDS: lisinopril 20 mg Tablet PO (08:19)
[2021-03-04] MEDS: pantoprazole DR 40 mg Tablet PO (08:20)
--- NOTE | 2021-03-04 10:32 | PC.CHAP ---
Pastoral Care Encounter/Spiritual Assessment Type of Contact [] Declined varnisher visit [] Patient/Family/Request visit [] Outpatient visit [] Follow-up visit [] Physician referral [] Code/Alert [] Routine visit [] Staff referral [] Actively dying [] Patient sleeping [] Family support [] [] Out of room [] Palliative care [] [] Receiving care in room [] Pre-surgical visit [] Trauma [] Long length of stay [] ICU visit [x] Other: Isolation covid Relational/Emotional Strength [] Patient feels connected with others/family/visitors/staff [] Distress [] Loneliness/isolation [] Abandonment Spirituality of Patient [] Person of Melany [] Attends Adventism of their Melany [] Believes in Prayer [] Reads Bible or Amish materials [] There are Spiritual issues to be addressed Golf Tournament Consultant Interventions [] Prayer [] Active listening [] Non-anxious presence [] Spiritual/emotional support [] Crisis/trauma care [] Spiritual counseling [] Bereavement support [] Provided bereavement packet [] Provided Bible/devotional materials [] Provided toy/stuffed animal, coloring book to patient or family member [] Provided Communion [] Anointing/[place] [] Salvation [] Completed spiritual assessment [] Other: Impact on Illness or Injury [] Angry [] Fearful [] Anxious [] Often cries [] Exhaustion [] Unable to work [] Unable to attend rastafari [] Unable to walk/stand [] Unable to read [] Unable to drive [] Unable to eat/drink [] Unable to sleep [] Unable to be with family [] Patient intubated [] Other: Summary Isolation covid Time spent with patient 5 mins
[2021-03-04 10:51] LABS: Glucose Point of Care 403 mg/dL (70-110)
--- NOTE | 2021-03-04 11:43 | P.DS_ITS ---
Discharge Providers Date of Admission: 03/03/21 10:23 Date of Discharge: March 04, 2021 Attending Provider at Admission: García Raman M.D Attending Provider at Discharge: García Raman M.D Primary Care Provider: Johnny Vargas MD Diagnoses at Discharge Discharge Diagnosis (1) Unstable angina: Status: Resolved (2) Diabetes: Status: Acute (3) HTN (hypertension): Status: Acute (4) GERD (gastroesophageal reflux disease): Status: Acute (5) NEDRA (obstructive sleep apnea): Status: Acute (6) Obesity: Status: Acute (7) Abdominal lymphadenopathy: Status: Acute Reason for Visit Reason for Visit: low BP Brief History: 60 year old male with past medical history of hypertension, diabetes mellitus, dyslipidemia, obstructive sleep apnea on CPAP, chronic pain, gastroesophageal reflux disease, history of chronic venous insufficiency and history of varicose veins and multiple other medical problems who presented to ER with 4-5 hours of severe chest pain. It is substernal, radiated to the neck. He is currently having chest pain. EKG showed borderline ST elevation in the inferior leads transiently. He also had hypotension according to his mother before coming to the hospital. Hospital Course Hospital Course 60 year old male with past medical history of hypertension, diabetes mellitus, dyslipidemia, obstructive sleep apnea on CPAP, chronic pain, gastroesophageal reflux disease, history of chronic venous insufficiency and history of varicose veins and multiple other medical problems who presented to ER with 4-5 hours of severe chest pain. It is substernal, radiated to the neck. He is currently having chest pain. EKG showed borderline ST elevation in the inferior leads transiently. He also had hypotension according to his mother before coming to the hospital. He was emergently taken to the cardiac [facility]. Coronary angiogram did not reveal any significant coronary artery disease. Echo showed normal LV systolic function. Patient stayed in the hospital overnight. He did have a hyperglycemia secondary to Solu-Medrol that he needed for iodine allergy prophylaxis.It improved on day of discharge. Patient was noted to be hypotensive on a few occasions and even at home he has been staying hypotensive at times. We decreased his Coreg dose from 25 mg twice daily to 12.5 mg twice daily. Patient was discharged in a stable condition. Physical Exam Const: COMMON NORMALS: patient oriented x3 and alert HENMT: COMMON NORMALS: normocephalic Eye: COMMON NORMALS: Equal, round and reactive pupils present Chest: COMMONS NORMALS: normal inspection of the chest Resp: COMMON NORMALS: normal respiratory effort and clear to auscultation bilaterally Cardio: COMMON NORMALS: regular rate, regular rhythm, S1 normal heart sound present and S2 normal heart sound present GI: COMMON NORMALS: Normal to inspection, nondistended, normoactive bowel sounds present : COMMON NORMALS: Yes no CVA tenderness BLADDER/KIDNEY EXAM: Yes no CVA tenderness Back/Pelvis: COMMON NORMALS: no CVA tenderness Skin: COMMON NORMALS: no rashes or lesions noted Discharge Data Data Completed and Pending: Completed Studies During Hospitalization Category Date Time Status XR chest 1V melissa ble [id number] Stat Exams 03/03/21 08:49 Completed Pending at discharge Category Date Time Status [employer] request for service Urgent Exams 03/03/21 09:27 Taken CV. echo complete * [id number] Routine Ultrasound 03/04/21 21:54 Taken Labs from last 24 hours 03/04/21 03/04/21 03/04/21 10:48 06:44 05:28 WBC RBC Hgb Hct MCV MCH MCHC RDW Plt Count MPV Neut % (Auto) Lymph % (Auto) [place] % (Auto) Eos % (Auto) Baso % (Auto) Neut # (Auto) Lymph # (Auto) [place] # (Auto) Eos # (Auto) Baso # (Auto) Nucleated RBC % (a uto) Nucleated RBCs # Sodium 133 L Potassium 5.2 H Chloride 98 Carbon Dioxide 26 Anion Gap 14.2 BUN 15 Creatinine 0.5 L GFR Calculation 168.5 H Glucose 299 H POC Glucose 403 H 316 H Calculated Osmolal ity 288 Calcium 8.0 L 03/04/21 03/03/21 03/03/21 05:28 21:25 16:30 WBC 10.5 H RBC 4.37 Hgb 11.6 L Hct 36.3 L MCV 83.1 MCH 26.5 L MCHC 32.0 RDW 12.5 Plt Count 252 MPV 10.4 Neut % (Auto) 82.2 Lymph % (Auto) 11.3 [place] % (Auto) 5.8 Eos % (Auto) 0.1 Baso % (Auto) 0.2 Neut # (Auto) 8.66 H Lymph # (Auto) 1.2 [place] # (Auto) 0.6 Eos # (Auto) 0.0 Baso # (Auto) 0.0 Nucleated RBC % (a uto) 0 Nucleated RBCs # 0.0 Sodium Potassium Chloride Carbon Dioxide Anion Gap BUN Creatinine GFR Calculation Glucose POC Glucose 437 H 452 H Calculated Osmolal ity Calcium Vitals: Last Vital Signs Temp 98.2 F 03/04/21 04:00 Pulse 85 03/04/21 08:00 Resp 12 03/04/21 08:00 BP 133/59 03/04/21 08:00 Pulse Ox 95 03/04/21 08:00 Discharge Plan Discharge Patient Disposition: Home Condition: Stable Prescriptions: Continued lisinopril 20 mg tablet 20 mg PO BID RF: 0 glipizide 10 mg tablet 10 mg PO BID RF: 0 isosorbide mononitrate 30 mg tablet extended release 24 hr 30 mg PO BEDTIME RF: 0 sertraline 100 mg tablet 100 mg PO QAM RF: 0 pantoprazole 40 mg tablet,delayed release (DR/EC) 40 mg PO DAILY RF: 0 nortriptyline 50 mg capsule 50 mg PO BEDTIME RF: 0 ProAir RespiClick 90 mcg/actuation aerosol powdr breath activated 1 - 2 inh inhalation Q4H PRN (Reason: Shortness Of Breath) RF: 0 gabapentin 100 mg capsule 200 mg PO TID RF: 0 rosuvastatin 5 mg tablet 5 mg PO .every other day RF: 0 multivitamin Tablet 1 tab PO DAILY RF: 0 hydroxyzine HCl 50 mg tablet 50 mg PO BID PRN (Reason: Anxiety) RF: 0 clopidogrel 75 mg tablet 75 mg PO BEDTIME RF: 0 ibuprofen 200 mg Tablet 800 mg PO PRN RF: 0 insulin lispro 100 unit/mL insulin pen See Rx Instructions .ROUTE .COMPLEX RF: 0 Lantus Solostar U-100 Insulin 100 unit/mL (3 mL) insulin pen 53 unit SUBCUT BEDTIME RF: 0 furosemide 20 mg tablet 20 mg PO DAILY PRN (Reason: Edema) RF: 0 Changed carvedilol 25 mg tablet 12.5 mg PO BID Qty: 0 RF: 0 Held metformin 500 mg tablet extended release 24 hr 1,000 mg PO BID RF: 0 Hold Instructions: Resume on 03/06/21. Discharge Orders: Discharge Order (Routine); Ordered 03/04/21 Ordered By: García Raman Referrals: Mahogany Dickerson FNP [Nurse Practitioner] - 03/11/21 10:45 am (You have a post procedure followup with PETER Avelar at [facility] on March 11 at 10:45am) Sammie Reece MD [Physician] - 04/07/21 2:00 pm (You have a cardiology followup with Dr. Reece at [facility] on April 07 at 2:00pm) Discharge Diet: Diabetic Discharge Activity: Increase activity as tolerated Patient Instructions: Left Heart Catheterization (DC), Right Heart Catheterization (DC), Opioid Safety Activity Restrictions/Additional Instructions: Please do not lift more than 5 pounds of weight for the next 5 days Discharge Attestations Time Spent in Discharge Care*: greater than 30 min Quality Metrics Clinical Quality Measures During this hospital stay, did patient experience: None Coding Level of Care Code Acute Chg FW DC note Diagnoses Unstable angina I20.0 Diabetes E11.9 HTN (hypertension) I10 GERD (gastroesophageal reflux disease) K21.9 NEDRA (obstructive sleep apnea) G47.33 Obesity E66.9 Abdominal lymphadenopathy R59.0
[2021-03-04 11:53] VITALS: BP 133/67; PULSE 83; RESP 13; TEMP 36.7; O2SAT 96
[2021-03-04 13:46] VITALS: BP 133/67; PULSE 83; RESP 13; TEMP 36.7; O2SAT 96
--- NOTE | 2021-03-04 21:54 | USCV_ITS ---
Guanakito Longo Age: 60 Gender: M : 1960 Exam Date: 03/04/2021 11:22 Ordering Phys: García Raman M.D ([email or web address]) Technologist: Kathy Hooker Exam Location: [facility] [place]: STEMI BP: 133 / 59 HR: 85 Rhythm: Sinus Technical Quality: Fair MEASUREMENTS (Male / Female) Normal Values 2D ECHO LV Diastolic Diameter PLAX 4.0 cm 4.2 - 5.9 / 3.9 - 5.3 cm LV Systolic Diameter PLAX 2.5 cm LV Chamber Size 2.7 cm IVS Diastolic Thickness 1.3 cm 0.6 - 1.0 / 0.6 - 0.9 cm IVS Systolic Thickness 2.0 cm LVPW Diastolic Thickness 1.2 cm 0.6 - 1.0 / 0.6 - 0.9 cm LVPW Systolic Thickness 1.5 cm RV Chamber Size 3.3 cm LVOT Diameter 2.0 cm LV Ejection Fraction 2D Teich 68.1 % LV Ejection Fraction MOD 2C 53.5 % LV Ejection Fraction 2C AL 52.1 % LA Diameter 3.1 cm LA Width 2.7 cm LA Height 3.7 cm RA Width 2.5 cm RA Height 3.9 cm Aorta at Sinotubular Diameter 2.6 cm M-MODE Aortic Annulus Diameter 2.9 cm LA Ao Ratio MM 1.3 DOPPLER AV Peak Velocity 227.0 cm/s LVOT Peak Velocity 113.7 cm/s AV Area Cont Eq vti 2.1 cm squared AV Area Cont Eq pk 1.6 cm squared MV Area PHT 2.9 cm squared Mitral E to A Ratio 1.1 MV E' Velocity 60.0 cm/s Mitral E to MV E' Ratio 12.2 Mitral E to LV E' Lateral Ratio 11.0 Mitral E to LV E' Septal Ratio 13.9 TR Peak Velocity 173.3 cm/s TR Peak Gradient 12.0 mmHg TR Mean Velocity 127.8 cm/s TR Mean Gradient 7.7 mmHg TR Velocity Time Integral 46.7 cm TV Peak E Velocity 105.0 cm/s Right Atrial Pressure 3.0 mmHg Pulmonary Artery Systolic Pressu 15.0 mmHg PV Peak Velocity 81.0 cm/s RV Acceleration Time 0.2 s RV Ejection Time 0.4 s RV AcT/ET 0.6 FINDINGS Left Ventricle Normal left ventricular size. LV systolic function is normal with EF of 55-60%. No regional wall motion abnormalities. Diastolic function is normal Right Ventricle The right ventricle is normal in size and function. Right Atrium The right atrium is normal in size. Left Atrium The left atrium is normal in size. Mitral Valve Structurally normal mitral valve without significant stenosis or prolapse. There is no mitral regurgitation. Aortic Valve Not well visualized. No significant stenosis. There is no aortic regurgitation. Tricuspid Valve Not well visualized. Insufficient TR jet to calculate RVSP Pulmonic Valve Not well visualized Pericardium Normal pericardium without effusion. Aorta Normal ascending aorta dimension. CONCLUSIONS This is limited quality study because of poor ultrasonic windows. LV systolic function is normal with EF of 55-60% Diastolic function is normal Valvular structures are not well visualized however, no gross abnormalities Compared to prior echocardiogram from 11/22/2017, no significant changes are noted. García Raman MD (Electronically Signed) Final Date: 11 March 2021 10:41 S
== END 2021-03-04 14:23 | disposition home or self-care (01) ==
LOC: ER 08:23 → CCL 09:34 → CSU 10:24
PROVIDERS: Admitting Provider Internal Medicine; Emergency Provider Family Medicine; PCP Family Medicine; Visit Provider Internal Medicine
DX: I25.110 Atherosclerotic heart disease of native coronary artery with unstable angina pectoris (principal); E11.42 Type 2 diabetes mellitus with diabetic polyneuropathy; I10 Essential (primary) hypertension; K21.9 Gastro-esophageal reflux disease without esophagitis; G47.33 Obstructive sleep apnea (adult) (pediatric); E66.9 Obesity, unspecified; R59.0 Localized enlarged lymph nodes; Z68.32 Body mass index [BMI] 32.0-32.9, adult; Z79.4 Long term (current) use of insulin; Z90.49 Acquired absence of other specified parts of digestive tract
CPT/HCPCS: 36415; 36416; 71045; 80048; 80053; 82962; 84484; 85025; 93005; 93306; 93452; 96361; 96372; 96374; 96375; 99285; C1769; C1887; C1894; G0378; J1200; J1644; J1815 ×2; J2250; J2270; J2930; J3010; J3490; J7030; Q9967

== ENCOUNTER 2021-03-11 13:36 | Observation (INO) | payer MEDICARE, MEDICAID, SELFPAY ==
[2021-03-11] VITALS (8 sets, daily range): BP systolic 118–162; BP diastolic 62–73; PULSE 67–93; RESP 16–20; TEMP 36.4; O2SAT 95–99; BMI 32.9
--- NOTE | 2021-03-11 16:25 | CTR_ITS ---
PROCEDURE INFORMATION: Exam: CT Abdomen And Pelvis With Contrast Exam date and time: 03/11/2021 4:25 PM Age: 60 years old Clinical indication: Nausea; Abdominal pain; Prior surgery; Surgery type: Colon, appy, gb, morphine pump; Additional info: Abd pain TECHNIQUE: Imaging protocol: Computed tomography of the abdomen and pelvis with contrast. Radiation optimization: All CT scans at this facility use at least one of these dose optimization techniques: automated exposure control; mA and/or kV adjustment per patient size (includes targeted exams where dose is matched to clinical indication); or iterative reconstruction. Contrast material: VISI 320; Contrast volume: 95 ml; Contrast route: INTRAVENOUS (IV); COMPARISON: CT abdomen pelvis w con* [id number] 02/08/2021 1:03 PM RADIATION DOSE METRICS: Total DLP (mGy-cm): 1927.53 FINDINGS: Tubes, catheters and devices: Infusion pump in the left flank region with leads in the lumbar spinal canal. Liver: Normal. No mass. Gallbladder and bile ducts: Cholecystectomy. Pneumobilia, consistent with prior sphincterotomy. Pancreas: Normal. No ductal dilation. Spleen: Normal. No splenomegaly. Adrenal glands: Normal. No mass. Kidneys and ureters: Fluid density cysts in both kidneys, Hounsfield units less than 20. No follow-up imaging is recommended. 2 mm right and 2 mm left nonobstructing renal calculi. No ureteral calculus or hydronephrosis. Stomach and bowel: Partial resection of the proximal colon. The stomach and small bowel are unremarkable. No obstruction. Anterior laparotomy scar with small insertional hernias containing fat and nonobstructed loops of small bowel. Appendix: The appendix is absent. Intraperitoneal space: Stable region of fat necrosis or scarring in the lower anterior mesentery, consistent with prior surgery. Vasculature: Arterial calcifications. No aneurysm. Lymph nodes: Stable 3.0 cm retroperitoneal lymph node. Stable subcentimeter mesenteric lymph nodes. Urinary bladder: Unremarkable as visualized. Reproductive: Calcifications in a small prostate. Bones/joints: Chronic L5 pars fractures with grade 1 anterolisthesis. No acute fracture. Soft tissues: Unremarkable. Lungs: Multiple tiny parenchymal calcifications in the posterior lower lobes, unchanged. CT/CT abdomen pelvis w con* [id number] IMPRESSION: 1. No acute abnormality identified in the abdomen or pelvis. 2. Stable 3.0 cm retroperitoneal lymph node. This may be reactive but a neoplastic process such as lymphoma cannot be excluded. 3. Nonobstructing renal calculi. COMMENTS: Consistent with the [employer]'s Incidental Findings Committee white paper (J Am Moise Radiol 2018): Any incidental renal lesion less than 1 cm or classified as too small to characterize, or any incidental cystic renal lesion characterized as simple-appearing, is likely benign. No follow-up imaging is recommended for these lesions per consensus recommendations based on imaging criteria. Radiation Dose CTDIVOL = (mGy): DLP = 1927.53 (mGy-cm)
--- NOTE | 2021-03-11 16:38 | ED_ITS ---
Documented by User: Edenilson Fairchild DO 03/15/21 03:15 HPI - Abdominal Pain General: Chief Complaint: Abdominal Pain Stated Complaint: ABD PAIN/SENT BY PCP Time Seen by Provider: 03/11/21 15:55 History of Present Illness: HPI narrative: 60-year-old male presents emergency room complaining of right lower quadrant abdominal pain. He has a history of colon cancer and colon resection he recently had a colonoscopy which was normal. He also had a CT of the abdomen which showed a periaortic lymph node that was enlarged but there was no definitive diagnosis made to this point. That CT was done last month. Today presents with right lower quadrant abdominal pain that seems to be worsening is not any vomiting or diarrhea no hematochezia no hematemesis, cramps no dysuria urgency or frequency. MD elicited complaint: abdominal pain Onset (ago): hour(s) Pain Consistency: intermittent and colicky Location: RLQ Severity: moderate Quality: cramping Radiation: none Exacerbating factors: nothing Relieving factors: nothing Associated Symptoms: Reports bloating, GI cramping, nausea and poor appetite; Denies anorexia, belching, change in bowel habits, change in stool character, chills, coffee ground emesis, constipation, diarrhea, dyspepsia, dysuria, excessive flatus, fever(s), heartburn, hematochezia, hematuria, hematemesis, fecal incontinence, loose stools, melena, syncope and vomiting Review of Systems Const: Denies: fever(s) or chills ENMT: Denies: throat pain, ear or mastoid pain, nasal discharge or nasal congestion Card: Denies: syncope Resp: Denies: dyspnea, productive cough or non-productive cough GI: Reports: nausea, bloating and GI cramping; Denies: vomiting, hematemesis, coffee ground emesis, heartburn, diarrhea, constipation, belching, excessive flatus, fecal incontinence, change in bowel habits, change in stool character, hematochezia or melena : Denies: dysuria or hematuria Skin/Breast: Denies: rash or pruritus PFS ED PFSH: Medical History Asthma Mart's palsy Coronary artery disease Diabetes GERD (gastroesophageal reflux disease) History of colon polyps HTN (hypertension) Peripheral neuropathy Surgical History H/O colonoscopy (10/27/20) 5 years History of right hemicolectomy Status post right inguinal hernia repair Family History Other CAD (coronary artery disease) Cancer Hypertension Denies family history of Anesthesia complication Bleeding disorder Social History Alcohol intake: never Physical Exam Const: COMMON NORMALS: no acute distress GENERAL APPEARANCE: cooperative and comfortable ORIENTATION/CONSCIOUSNESS: Yes awake, Yes oriented to person, Yes oriented to place and Yes oriented to time HENMT: COMMON NORMALS: normocephalic, atraumatic and hearing grossly normal bilaterally HEAD & SCALP: normocephalic and atraumatic Neck/C-Spine: COMMON NORMALS: no JVD Resp: COMMON NORMALS: normal respiratory effort, No retractions, No use of accessory muscles and clear to auscultation bilaterally AUSCULTATION: clear to auscultation bilaterally Cardio: COMMON NORMALS: no JVD, regular rate, regular rhythm and No murmurs present (Cardio) RATE: regular rate RHYTHM: regular rhythm GI: COMMON NORMALS: Soft to palpation and No hepatosplenomegaly present AUSCULTATION: Yes normoactive bowel sounds PALPATION: Yes Soft to palpation, No Tenderness to palpation present (GI), No Guarding due to palpation present (GI) and Yes No hepatosplenomegaly present Extremity: COMMON NORMALS: normal to inspection, capillary refill normal, no clubbing, cyanosis or edema, no calf tenderness and no pedal edema Neuro: SENSORIUM/ORIENTATION: Yes oriented to person, Yes oriented to place and Yes oriented to time Skin: COMMON NORMALS: no rashes or lesions noted GENERAL SKIN EXAM: no rashes or lesions noted Course Vital Signs: Vital signs: Vital Signs Temperature 98.1 F 03/13/21 15:00 Pulse Rate 86 03/13/21 15:00 Respiratory Rate 18 03/13/21 15:00 Blood Pressure 181/72 03/13/21 15:00 Pulse Oximetry 90 03/13/21 15:00 MDM - Abdominal Pain MDM Narrative: Medical decision making narrative: Care turned over to Dr. Vincent at change of shift please see his notes for final diagnosis and disposition Lab Data: Labs: Lab Results 03/11/21 03/11/21 03/11/21 Range/Units 17:05 17:13 17:13 WBC 9.9 (4.0-10.0) 10^3/ uL RBC 4.54 (4.1-5.3) 10^6/u L Hgb 11.9 (11.7-16.6) g/dL Hct 37.3 L (42.0-52.0) % MCV 82.2 (80-94) fL MCH 26.2 L (28.0-34.0) pg MCHC 31.9 (30.0-36.0) g/dL RDW 12.6 (12.1-15.1) % Plt Count 265 (130-400) 10^3/c mm MPV 10.3 (7.4-10.4) fL Neut % (Auto) 56.2 % Lymph % (Auto) 33.1 % [place] % (Auto) 6.3 % Eos % (Auto) 3.0 % Baso % (Auto) 1.1 % Neut # (Auto) 5.58 (1.8-7.7) 10^3/u L Lymph # (Auto) 3.3 (0.8-4.8) 10^3/u L [place] # (Auto) 0.6 (0.2-0.9) 10^3/u L Eos # (Auto) 0.3 (0.0-0.8) 10^3/u L Baso # (Auto) 0.1 (0.0-0.1) 10^3/u L Nucleated RBC % (a uto) 0 % Nucleated RBCs # 0.0 /100WBC Sodium 134 L (136-145) mmol/L Potassium 4.3 (3.5-5.1) mmol/L Chloride 94 L (98-107) mmol/L Carbon Dioxide 26 (22-29) mmol/L Anion Gap 18.3 (5-19) BUN 11 (8-23) mg/dL Creatinine 0.6 L (0.7-1.2) mg/dL GFR Calculation 136.5 H (90-130) mL/min Glucose 305 H (65-115) mg/dL Calculated Osmolal ity 289 (285-295) mOsm/k g Lactic Acid (0.5-2.2) mmol/L Calcium 8.5 (8.5-10.5) mg/dL Total Bilirubin 0.2 (0.15-1.2) mg/dL AST 17 (0-40) U/L ALT 14 (0-41) U/L Alkaline Phosphata se 63 (40-130) IU/L Lactate Dehydrogen ase (135-225) U/L Creatine Kinase 37 L (39-308) U/L Total Protein 5.9 L (6.6-8.7) g/dL Albumin 3.5 (3.5-5.2) g/dL Globulin 2.4 (1.3-4.6) g/dL Lipase 37 (13-60) U/L Urine Color Yellow (Yellow) Urine Appearance Clear (CLEAR) Urine pH 5 (5-7) Ur Specific Gravit y 1.020 (1.005-1.030) Urine Protein Neg (Negative) Urine Glucose (UA) 2+ (Normal) Urine Ketones Negative (Negative) Urine Blood Neg (Negative) Urine Nitrate Negative (Negative) Urine Bilirubin Neg (Negative) Urine Urobilinogen Norm (Negative) mg/dL Ur Leukocyte Lauren ase Negative (Negative) 03/11/21 03/11/21 Range/Units 17:13 18:40 WBC (4.0-10.0) 10^3/ uL RBC (4.1-5.3) 10^6/u L Hgb (11.7-16.6) g/dL Hct (42.0-52.0) % MCV (80-94) fL MCH (28.0-34.0) pg MCHC (30.0-36.0) g/dL RDW (12.1-15.1) % Plt Count (130-400) 10^3/c mm MPV (7.4-10.4) fL Neut % (Auto) % Lymph % (Auto) % [place] % (Auto) % Eos % (Auto) % Baso % (Auto) % Neut # (Auto) (1.8-7.7) 10^3/u L Lymph # (Auto) (0.8-4.8) 10^3/u L [place] # (Auto) (0.2-0.9) 10^3/u L Eos # (Auto) (0.0-0.8) 10^3/u L Baso # (Auto) (0.0-0.1) 10^3/u L Nucleated RBC % (a uto) % Nucleated RBCs # /100WBC Sodium (136-145) mmol/L Potassium (3.5-5.1) mmol/L Chloride (98-107) mmol/L Carbon Dioxide (22-29) mmol/L Anion Gap (5-19) BUN (8-23) mg/dL Creatinine (0.7-1.2) mg/dL GFR Calculation (90-130) mL/min Glucose (65-115) mg/dL Calculated Osmolal ity (285-295) mOsm/k g Lactic Acid 3.6 H (0.5-2.2) mmol/L Calcium (8.5-10.5) mg/dL Total Bilirubin (0.15-1.2) mg/dL AST (0-40) U/L ALT (0-41) U/L Alkaline Phosphata se (40-130) IU/L Lactate Dehydrogen ase 96 L (135-225) U/L Creatine Kinase (39-308) U/L Total Protein (6.6-8.7) g/dL Albumin (3.5-5.2) g/dL Globulin (1.3-4.6) g/dL Lipase (13-60) U/L Urine Color (Yellow) Urine Appearance (CLEAR) Urine pH (5-7) Ur Specific Gravit y (1.005-1.030) Urine Protein (Negative) Urine Glucose (UA) (Normal) Urine Ketones (Negative) Urine Blood (Negative) Urine Nitrate (Negative) Urine Bilirubin (Negative) Urine Urobilinogen (Negative) mg/dL Ur Leukocyte Lauren ase (Negative) Discharge Plan Discharge Patient Disposition: Placed in Observation Admit Provider: Octavio Ross Clinical Impression: Abdominal pain, Diabetes, Elevated lactic acid level, Enlarged lymph node Discharge Diet: Advance as tolerated and Clear Liquid Discharge Activity: Increase activity as tolerated Coding Level of Care Code ED Clinical Staff Pharmacist for g Fwd Exam Comprehensive Documented by User: Stephen Vincent MD 03/11/21 20:28 HPI - Abdominal Pain General: Chief Complaint: Abdominal Pain Stated Complaint: ABD PAIN/SENT BY PCP Time Seen by Provider: 03/11/21 15:55 PFSH ED PFSH: Medical History Asthma Mart's palsy Coronary artery disease Diabetes GERD (gastroesophageal reflux disease) History of colon polyps HTN (hypertension) Peripheral neuropathy Surgical History H/O colonoscopy (10/27/20) 5 years History of right hemicolectomy Status post right inguinal hernia repair Family History Other CAD (coronary artery disease) Cancer Hypertension Denies family history of Anesthesia complication Bleeding disorder Social History Alcohol intake: never Course Reevaluation(s): Reevaluation #1: I did discuss at length with patient and family about concerns of abdominal pain with elevated lactate. Patient also has no enlarged lymph node. Patient is agreeable to admission to the hospital for further evaluation. Time: 20:26 Consultations: Consultation #1: I did discuss at length with . We did discuss options and concerns for possible bowel ischemia with elevated lactic acid lactate levels in light of patient's abdominal pain and age. He is agreeable to keep the patient in the hospital for further evaluation. He will see patient write additional orders. Time: 20:27 Vital Signs: Vital signs: Vital Signs Temperature 98.1 F 03/13/21 15:00 Pulse Rate 86 03/13/21 15:00 Respiratory Rate 18 03/13/21 15:00 Blood Pressure 181/72 03/13/21 15:00 Pulse Oximetry 90 03/13/21 15:00 MDM - Abdominal Pain MDM Narrative: Medical decision making narrative: I did discuss at length with . We did discuss options and concerns for possible bowel ischemia with elevated lactic acid lactate levels in light of patient's abdominal pain and age. He is agreeable to keep the patient in the hospital for further evaluation. He will see patient write additional orders. Differential Diagnosis: Differential diagnosis abdominal pain: Likely abdominal pain, acute appendicitis, calculus of kidney, constipation, diverticulitis, endometriosis, gastroenteritis, pancreatitis and small bowel obstruction Medical Records: Attestation: I reviewed the patient's medical records. Lab Data: Attestation: I reviewed the patient's lab results. Labs: Lab Results 03/11/21 03/11/21 03/11/21 Range/Units 17:05 17:13 17:13 WBC 9.9 (4.0-10.0) 10^3/ uL RBC 4.54 (4.1-5.3) 10^6/u L Hgb 11.9 (11.7-16.6) g/dL Hct 37.3 L (42.0-52.0) % MCV 82.2 (80-94) fL MCH 26.2 L (28.0-34.0) pg MCHC 31.9 (30.0-36.0) g/dL RDW 12.6 (12.1-15.1) % Plt Count 265 (130-400) 10^3/c mm MPV 10.3 (7.4-10.4) fL Neut % (Auto) 56.2 % Lymph % (Auto) 33.1 % [place] % (Auto) 6.3 % Eos % (Auto) 3.0 % Baso % (Auto) 1.1 % Neut # (Auto) 5.58 (1.8-7.7) 10^3/u L Lymph # (Auto) 3.3 (0.8-4.8) 10^3/u L [place] # (Auto) 0.6 (0.2-0.9) 10^3/u L Eos # (Auto) 0.3 (0.0-0.8) 10^3/u L Baso # (Auto) 0.1 (0.0-0.1) 10^3/u L Nucleated RBC % (a uto) 0 % Nucleated RBCs # 0.0 /100WBC Sodium 134 L (136-145) mmol/L Potassium 4.3 (3.5-5.1) mmol/L Chloride 94 L (98-107) mmol/L Carbon Dioxide 26 (22-29) mmol/L Anion Gap 18.3 (5-19) BUN 11 (8-23) mg/dL Creatinine 0.6 L (0.7-1.2) mg/dL GFR Calculation 136.5 H (90-130) mL/min Glucose 305 H (65-115) mg/dL Calculated Osmolal ity 289 (285-295) mOsm/k g Lactic Acid (0.5-2.2) mmol/L Calcium 8.5 (8.5-10.5) mg/dL Total Bilirubin 0.2 (0.15-1.2) mg/dL AST 17 (0-40) U/L ALT 14 (0-41) U/L Alkaline Phosphata se 63 (40-130) IU/L Lactate Dehydrogen ase (135-225) U/L Creatine Kinase 37 L (39-308) U/L Total Protein 5.9 L (6.6-8.7) g/dL Albumin 3.5 (3.5-5.2) g/dL Globulin 2.4 (1.3-4.6) g/dL Lipase 37 (13-60) U/L Urine Color Yellow (Yellow) Urine Appearance Clear (CLEAR) Urine pH 5 (5-7) Ur Specific Gravit y 1.020 (1.005-1.030) Urine Protein Neg (Negative) Urine Glucose (UA) 2+ (Normal) Urine Ketones Negative (Negative) Urine Blood Neg (Negative) Urine Nitrate Negative (Negative) Urine Bilirubin Neg (Negative) Urine Urobilinogen Norm (Negative) mg/dL Ur Leukocyte Lauren ase Negative (Negative) 03/11/21 03/11/21 Range/Units 17:13 18:40 WBC (4.0-10.0) 10^3/ uL RBC (4.1-5.3) 10^6/u L Hgb (11.7-16.6) g/dL Hct (42.0-52.0) % MCV (80-94) fL MCH (28.0-34.0) pg MCHC (30.0-36.0) g/dL RDW (12.1-15.1) % Plt Count (130-400) 10^3/c mm MPV (7.4-10.4) fL Neut % (Auto) % Lymph % (Auto) % [place] % (Auto) % Eos % (Auto) % Baso % (Auto) % Neut # (Auto) (1.8-7.7) 10^3/u L Lymph # (Auto) (0.8-4.8) 10^3/u L [place] # (Auto) (0.2-0.9) 10^3/u L Eos # (Auto) (0.0-0.8) 10^3/u L Baso # (Auto) (0.0-0.1) 10^3/u L Nucleated RBC % (a uto) % Nucleated RBCs # /100WBC Sodium (136-145) mmol/L Potassium (3.5-5.1) mmol/L Chloride (98-107) mmol/L Carbon Dioxide (22-29) mmol/L Anion Gap (5-19) BUN (8-23) mg/dL Creatinine (0.7-1.2) mg/dL GFR Calculation (90-130) mL/min Glucose (65-115) mg/dL Calculated Osmolal ity (285-295) mOsm/k g Lactic Acid 3.6 H (0.5-2.2) mmol/L Calcium (8.5-10.5) mg/dL Total Bilirubin (0.15-1.2) mg/dL AST (0-40) U/L ALT (0-41) U/L Alkaline Phosphata se (40-130) IU/L Lactate Dehydrogen ase 96 L (135-225) U/L Creatine Kinase (39-308) U/L Total Protein (6.6-8.7) g/dL Albumin (3.5-5.2) g/dL Globulin (1.3-4.6) g/dL Lipase (13-60) U/L Urine Color (Yellow) Urine Appearance (CLEAR) Urine pH (5-7) Ur Specific Gravit y (1.005-1.030) Urine Protein (Negative) Urine Glucose (UA) (Normal) Urine Ketones (Negative) Urine Blood (Negative) Urine Nitrate (Negative) Urine Bilirubin (Negative) Urine Urobilinogen (Negative) mg/dL Ur Leukocyte Lauren ase (Negative) Imaging Data ^: CT Abd/Pel: Attestation: I personally reviewed and interpreted this imaging study as follows: Radiologist's impression: IMPRESSION: 1. No acute abnormality identified in the abdomen or pelvis. 2. Stable 3.0 cm retroperitoneal lymph node. This may be reactive but a neoplastic process such as lymphoma cannot be excluded. 3. Nonobstructing renal calculi. Discharge Plan Discharge Patient Disposition: Placed in Observation Admit Provider: Octavio Ross Clinical Impression: Abdominal pain, Diabetes, Elevated lactic acid level, Enlarged lymph node Discharge Diet: Advance as tolerated and Clear Liquid Discharge Activity: Increase activity as tolerated Coding Level of Care Code ED Clinical Staff Pharmacist for Chg Fwd Exam Comprehensive
[2021-03-11 17:21] LABS: Basophils # 0.1 10^3/uL (0.0-0.1); Basophils % 1.1 %; Eosinophils # 0.3 10^3/uL (0.0-0.8); Hematocrit 37.3 % (42.0-52.0); Hemoglobin 11.9 g/dL (11.7-16.6); Lymphocytes # 3.3 10^3/uL (0.8-4.8); Lymphocytes % 33.1 %; Mean Corpuscular HGB Conc 31.9 g/dL (30.0-36.0); Mean Corpuscular Hemoglobin 26.2 pg (28.0-34.0); Mean Corpuscular Volume 82.2 fL (80-94); Mean Platelet Volume 10.3 fL (7.4-10.4); Monocytes # 0.6 10^3/uL (0.2-0.9); Monocytes % 6.3 %; Neutrophils # 5.58 10^3/uL (1.8-7.7); Neutrophils % 56.2 %; Nucleated Red Blood Cells % 0 %; Platelet Count 265 10^3/cmm (130-400); Red Blood Count 4.54 10^6/uL (4.1-5.3); Red Cell Distribution Width 12.6 % (12.1-15.1); White Blood Count 9.9 10^3/uL (4.0-10.0)
[2021-03-11] MEDS: diphenhydrAMINE 50 mg/mL SDV 1mL IVP (17:36)
[2021-03-11] MEDS: hydrocortisone 100 mg/2 mL SDV IVP (17:36)
[2021-03-11 17:59] LABS: Alanine Aminotransferase 14 U/L (0-41); Albumin Level 3.5 g/dL (3.5-5.2); Alkaline Phosphatase 63 IU/L (40-130); Anion Gap 18.3 (5-19); Aspartate Amino Transferase 17 U/L (0-40); Blood Urea Nitrogen 11 mg/dL (8-23); Calcium 8.5 mg/dL (8.5-10.5); Carbon Dioxide 26 mmol/L (22-29); Chloride 94 mmol/L (98-107); Creatine Phosphokinase 37 U/L (39-308); Globulin 2.4 g/dL (1.3-4.6); Glomerular Filtration Rate 136.5 mL/min (90-130); Glucose 305 mg/dL (65-115); Lipase 37 U/L (13-60); Osmolality Calculated 289 mOsm/kg (285-295); Potassium 4.3 mmol/L (3.5-5.1); Sodium 134 mmol/L (136-145); Total Bilirubin 0.2 mg/dL (0.15-1.2); Total Protein 5.9 g/dL (6.6-8.7)
[2021-03-11] MEDS: iodixanol 320 mg/mL 100mL Btl IV (18:07)
[2021-03-11 18:21] LABS: Add Urine Microscopic? NO; Charge for UA Resulting for Rev
[2021-03-11 18:26] LABS: Bilirubin Urine Neg (Negative); Blood Urine Neg (Negative); Glucose Urine UA 2+ (Normal); Ketones Urine Negative (Negative); Leukocyte Esterase Urine Negative (Negative); Nitrate Urine Negative (Negative); Protein Urine Neg (Negative); Urine Appearance Clear (CLEAR); Urine Color Yellow (Yellow); Urobilinogen Urine Norm (Negative); pH Urine 5 (5-7)
[2021-03-11 19:12] LABS: Lactic Sepsis W/Reflex 3.6 mmol/L (0.5-2.2)
[2021-03-11] MEDS: sodium chloride 0.9% 500 ML IV (19:26)
[2021-03-11] MEDS: morphine 4 mg/mL SDV 1 mL 2 MG IVP (19:43)
[2021-03-11] MEDS: ondansetron 2 mg/ML SDV 2 mL 4 MG IVP (19:43)
[2021-03-11 20:08] LABS: Lactate Dehydrogenase 96 U/L (135-225)
[2021-03-11 20:34] LABS: Reflex Lactate Order REFLEX LACTIC ORDERD
[2021-03-11 21:32] LABS: Lactic Acid level (Lactate) 2.7 mmol/L (0.5-2.2)
--- NOTE | 2021-03-11 21:36 | P.HP_ITS ---
Providers/Chief Complaint Primary Care Provider: Johnny Vargas MD Chief Complaint: ABD PAIN/SENT BY PCP History of Present Illness 60-year-old male with past medical history significant for hypertension, dyslipidemia, diabetes mellitus, gastroesophageal reflux disease, obstructive sleep apnea on CPAP, chronic venous insufficiency, peripheral neuropathy, colon cancer status post right hemicolectomy who presented to the hospital with abdominal pain.Patient stated that this has been ongoing for the past month. Associated with nausea however no emesis. Was seen by surgery for this in the past and noted to have incisional hernia.Denied constipation. No bloody bowel movements. No fever, chills. Denies chest pain or shortness of breath. Noted a poor appetite with decreased oral intake. Laboratory workup on arrival showed a WBC of 9.9, hemoglobin of 11.9, hematocrit 37.3 and a platelet count of 265. Sodium 134, potassium 4.3, chloride 94, bicarb 26, BUN 11 and creatinine of 0.6. LFTs were within normal limits. Creatinine kinase of 37. LDH of 96. Lactic acid of 3.6. Vital signs showed a blood pressure 127/62, heart rate of 71, respiratory rate of 18, temperature of 97.5? with oxygen saturation of 97% on room air. CT of abdomen pelvis was performed which did not show any evidence of acute intra-abdominal pathology. Noted to have a stable 3.0 cm retroperitoneal lymph node and nonobstructive renal calculi. Patient was given 500 cc bolus, morphine 2 mg IV x1, hydrocortisone 100 mg IV x1, and admitted to the hospital. Review of Systems General: Reports: 10 or more systems reviewed and unremarkable except in HPI and below Medications/Allergies Home Medications Medication Instructions Recorded Confirmed Last Taken Type ProAir RespiClick 1 - 2 inh INHALATION Q4H PRN 10/30/19 03/11/21 03/10/21 History glipizide 10 mg PO BID 10/30/19 03/11/21 03/11/21 History isosorbide mononitrate 30 mg PO BEDTIME 10/30/19 03/11/21 03/10/21 History metformin 1,000 mg PO BID 10/30/19 03/11/21 03/11/21 History nortriptyline 50 mg PO BEDTIME 10/30/19 03/11/21 03/10/21 History pantoprazole 40 mg PO DAILY 10/30/19 03/11/21 03/11/21 History sertraline 100 mg PO DAILY 10/30/19 03/11/21 03/11/21 History gabapentin 100 mg capsule 200 mg PO TID cap 11/25/19 03/11/21 03/11/21 History rosuvastatin 5 mg tablet 5 mg PO Q2D tab 04/21/20 03/11/21 03/10/21 History Lantus Solostar U-100 Insulin 53 unit SUBCUT BEDTIME 03/03/21 03/11/21 03/10/21 History clopidogrel 75 mg PO BEDTIME 03/03/21 03/11/21 03/10/21 History furosemide 20 mg PO DAILY PRN 03/03/21 03/11/21 03/11/21 History hydroxyzine HCl 50 mg PO BID PRN 03/03/21 03/11/21 03/10/21 History ibuprofen 800 mg PO PRN 03/03/21 03/11/21 03/10/21 History insulin lispro See Rx Instructions .ROUTE .COMPLEX 03/03/21 03/11/21 03/11/21 History multivitamin 1 tab PO DAILY 03/03/21 03/11/21 03/11/21 History carvedilol 12.5 mg PO BID #0 tab 03/04/21 03/11/21 03/09/21 Rx lisinopril 20 mg tablet 10 mg PO BID tab 03/11/21 03/11/21 03/11/21 History Allergies Allergy/AdvReac Type Severity Reaction Status Date / Time Iodinated Contrast Media Allergy Unknown ALGY-Hives Verified 03/11/21 11:00 adhesive tape Allergy ALGY-Rash Verified 03/11/21 11:00 alprazolam [From Xanax] Allergy ADR-Anxiety Verified 03/11/21 11:00 aspirin Allergy ALGY-Rash Verified 03/11/21 11:00 fentanyl Allergy ALGY-Rash Verified 03/11/21 11:00 Penicillins Allergy ALGY-Rash Verified 03/11/21 11:00 zolpidem [From Ambien] Allergy ADR-Anxiety Verified 03/11/21 11:00 PFSH Acute PFSH: Medical History Asthma Mart's palsy Coronary artery disease Diabetes GERD (gastroesophageal reflux disease) History of colon polyps HTN (hypertension) Peripheral neuropathy Surgical History H/O colonoscopy (10/27/20) 5 years History of right hemicolectomy Status post right inguinal hernia repair Family History Other CAD (coronary artery disease) Cancer Hypertension Denies family history of Anesthesia complication Bleeding disorder Social History Alcohol intake: never Vitals/I&O/Wt Last Vital Signs Temp 97.5 F L 03/11/21 13:48 Pulse 71 03/11/21 19:27 Resp 18 03/11/21 19:43 BP 127/62 03/11/21 19:27 Pulse Ox 97 03/11/21 19:43 Weight last 48 hrs Weight 107.048 kg Physical Exam Narrative: EXAM NARRATIVE: General- alert awake HEENT- grossly unremarkable CVS- normal sinus rhythm Chest- nonlabored respiration Abdomen mild tenderness to palpation diffusely Extremities- no edema Data : 03/11/21 17:13 03/11/21 17:13 A&P Assessment and plan (1) Abdominal pain: Possibly due to prior incisional hernia -no evidence of incarceration CT abdomen pelvis- no acute abnormality May consider General surgery consultation Clear liquid diet -NPO benign Status: Acute (2) Elevated lactic acid level: Concern for possible ischemic colitis however no evidence on CT Denied bloody bowel movements Continue IV fluids at 75 cc/hour Repeat lactic acid in a.m. Status: Acute (3) HTN (hypertension): verify home meds and resume Status: Acute (4) Diabetes: sliding scale insulin Status: Acute (5) GERD (gastroesophageal reflux disease): PPI Status: Acute (6) NEDRA (obstructive sleep apnea): CPAP q.h.s. Status: Acute Attestations Medical Necessity Statement*: anticipate less than 2 midnight stay in hospital for evaluation and treatment of abdominal pain with lactic acidosis Time Spent in Patient Care: Greater than 35 minutes Coding Level of Care Code Acute [place] [facility] for [facility] Fwd Diagnoses Abdominal pain R10.9 Elevated lactic acid level R79.89 HTN (hypertension) I10 Diabetes E11.9 GERD (gastroesophageal reflux disease) K21.9 NEDRA (obstructive sleep apnea) G47.33
[2021-03-11] MEDS: heparin 5,000 unit/mL INJ 1 mL 5000 UNIT SUBCUT (21:53)
[2021-03-11] MEDS: sodium chloride 0.9% 1,000 ML 75 ML IV (21:53)
[2021-03-11] MEDS: atorvastatin 40 mg Tablet 20 MG PO (23:48)
[2021-03-11] MEDS: HYDROcodone-acetaminophen 5-325 mg Tablet 1 TAB PO (23:49)
[2021-03-12] VITALS (9 sets, daily range): BP systolic 125–149; BP diastolic 65–82; PULSE 85–89; RESP 16; TEMP 36.2–37; O2SAT 94–97
[2021-03-12] MEDS: morphine 4 mg/mL SDV 1 mL 2 MG IVP ×3 (00:55→09:17)
[2021-03-12] MEDS: ondansetron 2 mg/ML SDV 2 mL 4 MG IVP ×2 (00:58→09:17)
[2021-03-12 06:41] LABS: Glucose Point of Care 204 mg/dL (70-110)
[2021-03-12 08:45] LABS: Basophils # 0.1 10^3/uL (0.0-0.1); Basophils % 1.2 %; Eosinophils # 0.1 10^3/uL (0.0-0.8); Eosinophils % 1.8 %; Hematocrit 34.9 % (42.0-52.0); Hemoglobin 11.1 g/dL (11.7-16.6); Lymphocytes % 38.2 %; Mean Corpuscular HGB Conc 31.8 g/dL (30.0-36.0); Mean Corpuscular Hemoglobin 26.2 pg (28.0-34.0); Mean Corpuscular Volume 82.3 fL (80-94); Mean Platelet Volume 10.2 fL (7.4-10.4); Monocytes # 0.5 10^3/uL (0.2-0.9); Monocytes % 6.7 %; Neutrophils % 51.7 %; Nucleated Red Blood Cells % 0 %; Platelet Count 258 10^3/cmm (130-400); Red Blood Count 4.24 10^6/uL (4.1-5.3); Red Cell Distribution Width 12.5 % (12.1-15.1); White Blood Count 7.7 10^3/uL (4.0-10.0)
[2021-03-12 09:06] LABS: Lactic Sepsis W/Reflex 2.4 mmol/L (0.5-2.2)
[2021-03-12 09:07] LABS: Alanine Aminotransferase 13 U/L (0-41); Albumin Level 3.3 g/dL (3.5-5.2); Alkaline Phosphatase 55 IU/L (40-130); Anion Gap 15.1 (5-19); Aspartate Amino Transferase 13 U/L (0-40); Blood Urea Nitrogen 10 mg/dL (8-23); Calcium 7.8 mg/dL (8.5-10.5); Carbon Dioxide 27 mmol/L (22-29); Chloride 98 mmol/L (98-107); Globulin 2.6 g/dL (1.3-4.6); Glomerular Filtration Rate 168.5 mL/min (90-130); Glucose 190 mg/dL (65-115); Osmolality Calculated 286 mOsm/kg (285-295); Potassium 4.1 mmol/L (3.5-5.1); Sodium 136 mmol/L (136-145); Total Bilirubin 0.3 mg/dL (0.15-1.2); Total Protein 5.9 g/dL (6.6-8.7)
[2021-03-12] MEDS: gabapentin 100 mg Capsule 200 MG PO ×3 (09:16→21:34)
[2021-03-12] MEDS: heparin 5,000 unit/mL INJ 1 mL 5000 UNIT SUBCUT ×2 (09:16→21:32)
[2021-03-12] MEDS: sertraline 100 mg Tablet PO (09:16)
[2021-03-12] MEDS: pantoprazole DR 40 mg Tablet PO (09:16)
[2021-03-12 10:17] LABS: Reflex Lactate Order REFLEX LACTIC ORDERD
[2021-03-12] MEDS: TRAMadol 50 mg Tablet PO ×2 (11:15→21:41)
[2021-03-12] MEDS: sodium chloride 0.9% 1,000 ML 75 ML IV (11:16)
--- NOTE | 2021-03-12 11:17 | PC.NURSE ---
Morphine Pump Patient reports having an implanted morphine pump. He states that it is filled about every three months and it was filled last month. Dr. Iglesias at the pain clinic in [place] is who manages this pump. Patient unsure of the dosage administered through pump. Notified physician of pain pump.
[2021-03-12 11:30] LABS: Glucose Point of Care 145 mg/dL (70-110)
[2021-03-12 12:20] LABS: Lactic Acid level (Lactate) 1.5 mmol/L (0.5-2.2)
[2021-03-12 13:50] LABS: Glucose Point of Care 126 mg/dL (70-110)
[2021-03-12 17:09] LABS: Glucose Point of Care 162 mg/dL (70-110)
--- NOTE | 2021-03-12 18:24 | PC.NURSE ---
Shift Summary Patient complained of pain early in shift, medicated per orders, and no complaints otherwise. Patient did endorse that he has implanted morphine pump. Was allowed clear liquid with dinner, took medications orally with sip of water per verbal orders of Dr. Knott. Patient to be NPO for 12 hours prior to ultrasound.
--- NOTE | 2021-03-12 19:08 | PC.NURSE ---
Fall Patient's reports that she fell in room and hurt her back. This nurse offered to take her to ER to be assessed, to which she declines. Updated charge nurse and supervisor tan room of floor as well.
--- NOTE | 2021-03-12 20:03 | P.PN_ITS ---
Subjective Subjective: Interval history: He still having abdominal pain 5/10, about mid lower abdomen, slightly towards the right not very well localized. He has had some symptoms for about a month, but more severe pain is a more recent development from just the other day. He is feeling hungry. He is having a headache, but he states also has history of chronic migraines. He denies cough, shortness of breath, muscle aches, chills. He has had no nausea or vomiting. No diarrhea. Vitals/I&O/Wt Last Vital Signs Temp 98.2 F 03/12/21 19:35 Pulse 89 03/12/21 19:35 Resp 16 03/12/21 19:35 BP 146/70 03/12/21 19:35 Pulse Ox 94 03/12/21 19:35 03/12/21 03/12/21 03/12/21 06:59 14:59 22:59 Intake Total 500 / 500 1150 / 1150 Output Total 700 / 700 550 / 550 Balance -200 / -200 600 / 600 Weight last 48 hrs Weight 107.048 kg Physical Exam Const: COMMON NORMALS: no acute distress and patient oriented x3 HENMT: COMMON NORMALS: oropharynx normal Neck/C-Spine: COMMON NORMALS: no JVD Resp: COMMON NORMALS: normal respiratory effort and clear to auscultation bilaterally AUSCULTATION: clear to auscultation bilaterally Cardio: COMMON NORMALS: no JVD, regular rhythm, S1 normal heart sound present, S2 normal heart sound present and No murmurs present (Cardio) RHYTHM: regular rhythm HEART SOUNDS: S1 normal heart sound present and S2 normal heart sound present GI: COMMON NORMALS: Normal to inspection, nondistended, normoactive bowel sounds present and Soft to palpation PALPATION: Yes Soft to palpation and Yes Tenderness to palpation present (GI) (lower mid and RLQ) Extremity: COMMON NORMALS: no joint enlargement and no pedal edema Neuro: COMMON NORMALS: patient oriented x3 and moves all extremities Skin: COMMON NORMALS: no rashes or lesions noted GENERAL SKIN EXAM: no rashes or lesions noted Data : 03/12/21 08:08 03/12/21 08:08 A&P Assessment and plan (1) Abdominal pain: Persistent abdominal pain, 5/10 currently. Localized in the lower abdomen mid and somewhat to the right. Not particularly well localized. He does report history of pancreatitis, although discussed with him lipase currently is normal. He has history of incisional hernia, small incisional hernia noted on CT containing fat and nonobstructed loops of small bowel. Lactic acidosis rec hecked and has resolved with gentlest hydration. Discussed with him additional considerations for his pain. Discussed with him noted pneumobilia, but he does report with history of pancreatitis, chol ecystitis many years ago, this would be anticipated. He has no symptoms in right upper quadrant. Liver parameters are entirely normal. Discussed with him lower possibility of bowel ischemia, although this also seems likely with resolution of lactic acidosis, lack of other abnormal symptoms. He is also not appearing septic/toxic. We are obtaining additional assessment by SMA duplex ultrasound. He does report some discomfort with eating recently, although it is not consistent. Previously no discomfort with food either. Discussed with him lower possibility of Metformin induced lactic acidosis with abdominal discomfort. However, again given lactic acidosis with resolution, abdominal tenderness/pain persistent, this seems also less likely. Hold metformin for now. Continue gentle IV hydration. Discussed also finding of stable region of fat necrosis or scarring in the lower anterior mesentery noted on CT. 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 Discussed this is not a common condition, associated with inflammation. We requested CRP. Given buildup over a month, this appears to be the most likely explanation of his symptoms as we are otherwise not seeing bowel obstruction, signs of bowel ischemia. He is wanting to try some oral intake, and so prior to changing to n.p.o. for ultrasound in the morning, he will have clear liquids for dinner. He will let us know if he is having any intolerance. Discussed with him in case we are not seeing further evidence of low-grade bowel ischemia, if he is tolerating oral intake, and no other concerning developments, consideration may be given to trial of treatment for mesenteric panniculitis. Discussed with him there is no set recommendation for treatment. We discussed various agents including steroids, NSAIDs, azathioprine, cyclophosphamide, thalidomide and others. Discussed colchicine, and he would be agreeable to trial of colchicine to see if it may help his symptoms if we are not coming up with any additional concerning findings. Discussed with him also finding of stable retroperitoneal lymph node. He does report some night sweats. He is going to be evaluated by Dr. Apple in office with regards to this. There has been no change in size from CT abdomen pelvis from a month ago. Status: Acute (2) Elevated lactic acid level: Resolved. As above. Continue IV fluids at 75 cc/hour No sign of liver cirrhosis on imaging. Status: Acute (3) HTN (hypertension): verify home meds and resume Status: Acute (4) Diabetes: Sliding scale insulin Status: Acute (5) GERD (gastroesophageal reflux disease): PPI Status: Acute (6) NEDRA (obstructive sleep apnea): CPAP q.h.s. Status: Acute Attestations Medical Necessity Statement*: Continue hospitalization for additional assessment of persistent abdominal pain, lactic acidosis at presentation. 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
[2021-03-12 21:47] LABS: Glucose Point of Care 185 mg/dL (70-110)
[2021-03-13] VITALS: BP 159/85; PULSE 91; RESP 14; TEMP 36.4; O2SAT 97
[2021-03-13] MEDS: sodium chloride 0.9% 1,000 ML 75 ML IV ×2 (00:17→11:31)
[2021-03-13 02:16] LABS: Glucose Point of Care 290 mg/dL (70-110)
[2021-03-13 04:00] VITALS: BP 160/79; PULSE 95; RESP 16; TEMP 37.1; O2SAT 97
[2021-03-13 06:12] LABS: Glucose Point of Care 221 mg/dL (70-110)
--- NOTE | 2021-03-13 07:00 | USR_ITS ---
PROCEDURE INFORMATION: Exam: US Abdomen; Limited Exam date and time: 03/13/2021 7:00 AM Age: 60 years old Clinical indication: Abdominal pain; Patient HX: Surgery history: Colon resection, cholecystectomy, appendectomy; Additional info: Mesenteric vessels, (too gassy for sma/ mesenteric exam) TECHNIQUE: Imaging protocol: US abdomen. Real time ultrasound with image documentation. Limited exam focused on the region of clinical interest. COMPARISON: US [facility] Abdomen 04/05/2019 9:08 AM FINDINGS: Targeted ultrasound was performed for evaluation of the mesenteric vessels. Very limited exam due to overlying bowel gas. The aorta and mesenteric arteries are are essentially not visualized, not significant for evaluation of patency or size. US/US abdomen limited 30400 IMPRESSION: Limited/inconclusive exam, as discussed in detail above.
[2021-03-13 07:30] LABS: Basophils # 0.1 10^3/uL (0.0-0.1); Basophils % 0.9 %; Eosinophils # 0.1 10^3/uL (0.0-0.8); Eosinophils % 1.2 %; Hematocrit 36.5 % (42.0-52.0); Hemoglobin 11.6 g/dL (11.7-16.6); Lymphocytes # 1.8 10^3/uL (0.8-4.8); Mean Corpuscular HGB Conc 31.8 g/dL (30.0-36.0); Mean Corpuscular Hemoglobin 26.5 pg (28.0-34.0); Mean Corpuscular Volume 83.5 fL (80-94); Monocytes # 0.4 10^3/uL (0.2-0.9); Monocytes % 5.7 %; Neutrophils # 4.19 10^3/uL (1.8-7.7); Neutrophils % 64.7 %; Nucleated Red Blood Cells % 0 %; Platelet Count 222 10^3/cmm (130-400); Red Blood Count 4.37 10^6/uL (4.1-5.3); Red Cell Distribution Width 12.2 % (12.1-15.1); White Blood Count 6.5 10^3/uL (4.0-10.0)
[2021-03-13 07:47] LABS: Alanine Aminotransferase 17 U/L (0-41); Albumin Level 3.2 g/dL (3.5-5.2); Alkaline Phosphatase 61 IU/L (40-130); Anion Gap 14.3 (5-19); Aspartate Amino Transferase 15 U/L (0-40); Blood Urea Nitrogen 6 mg/dL (8-23); Calcium 7.5 mg/dL (8.5-10.5); Carbon Dioxide 25 mmol/L (22-29); Chloride 100 mmol/L (98-107); Globulin 2.5 g/dL (1.3-4.6); Glucose 225 mg/dL (65-115); Osmolality Calculated 285 mOsm/kg (285-295); Potassium 4.3 mmol/L (3.5-5.1); Sodium 135 mmol/L (136-145); Total Bilirubin 0.3 mg/dL (0.15-1.2); Total Protein 5.7 g/dL (6.6-8.7)
[2021-03-13 08:00] VITALS: BP 167/73; PULSE 82; RESP 18; TEMP 37.4; O2SAT 93
[2021-03-13] MEDS: sertraline 100 mg Tablet PO (08:41)
[2021-03-13] MEDS: gabapentin 100 mg Capsule 200 MG PO ×2 (08:42→14:11)
[2021-03-13] MEDS: pantoprazole DR 40 mg Tablet PO (08:42)
[2021-03-13] MEDS: heparin 5,000 unit/mL INJ 1 mL 5000 UNIT SUBCUT (08:45)
[2021-03-13 11:16] LABS: Glucose Point of Care 186 mg/dL (70-110)
[2021-03-13] MEDS: TRAMadol 50 mg Tablet PO (11:34)
[2021-03-13 12:00] VITALS: BP 181/72; PULSE 86; RESP 18; TEMP 36.7; O2SAT 90
--- NOTE | 2021-03-13 14:00 | P.DS_ITS ---
Discharge Providers Date of Admission: 03/11/21 20:28 Date of Discharge: March 13, 2021 Attending Provider at Admission: Octavio Ross Attending Provider at Discharge: Ambrosio Knott Primary Care Provider: Johnny Vargas MD Diagnoses at Discharge Discharge Diagnosis (1) Abdominal pain: Status: Acute (2) Elevated lactic acid level: Status: Acute (3) HTN (hypertension): Status: Acute (4) Diabetes: Status: Acute (5) GERD (gastroesophageal reflux disease): Status: Acute (6) NEDRA (obstructive sleep apnea): Status: Acute Reason for Visit Reason for Visit: ABD PAIN/SENT BY PCP Hospital Course Hospital Course Very pleasant 60-year-old gentleman with history of diabetes, HTN, HLD, GERD, history of pancreatitis, history of pancreatic insufficiency, history of cholecystectomy, ERCP, NEDRA on CPAP, venous insufficiency, peripheral neuropathy, history of colon cancer status post right hemicolectomy with abdominal hernia follow-up with general surgery, as well as with retroperitoneal lymph node pending additional evaluation with oncology, was observed in the hospital due to abdominal pain, located in the central lower abdomen at the center and slightly to the right of midline. He has had pain for about a month, and last several days preceding admission pain has been getting worse. On presentation noted to have lactic acidosis, lactic acid 3.6, which resolved with gentle hydration down to 1.5. He was assessed by CT abdomen pelvis with finding of no acute abnormality, stable 3 cm retroperitoneal lymph node, nonobstructing renal calculi. Also reported pneumobilia, corresponding to his history of cholecystectomy and ERCP secondary to recurrent pancreatitis many years ago. Also noted anterior laparotomy scar with small incisional hernias containing fat and nonobstructed loops of small bowel. Imaging also noted stable region of fat necrosis or scarring in the lower anterior mesentery consistent with prior surgery. He was initially maintained on bowel rest, subsequently tolerated trial of clear liquids. He had normal bowel movement in the hospital. He has remained afebrile, without leukocytosis. Has shown no signs of hypotension, or other toxic symptoms to suggest sepsis. He has had some ongoing mild to moderate abdominal pain in the described location. He does take NSAIDs at home, and does report occasional discomfort in the epigastrium, although not currently. Has not taken ibuprofen for several days. He was continued on PPI. Encouraged for now to discontinue ibuprofen. His lipase was normal. He does describe having soft/loose stools, greasy, floating in the toilet, with pieces of undigested food. He used to take pancrelipase in the past, but this was discontinued previously as he was told he no longer needed it. Due to malabsorption, he will be started on additionally on pancrelipase at this time. We discussed with him additional causes. He does not appear to have symptoms or signs of acute bowel ischemia. Duplex ultrasound of mesenteric vessels was obtained to assess more closely for possible bowel angina with chronic ischemia, however, was a poor quality study. He was observed in the hospital additional night, during which time his vital signs and condition did not change. His pain overall is better. He is tolerating oral intake. There does not appear to be any obstruction as per imaging and symptoms. As per discussion he does not appear to have acute bowel ischemia and we discussed the seriousness of this condition. We discussed with him possibility of a degree of chronic bowel ischemia, although symptoms are not entirely suggestive. He is agreeable to pursue additional imaging by CT angiogram of abdomen pelvis early next week. He is referred for this. We also discussed with him finding of fat necrosis/scarring in the mesentery. 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 Discussed that we would like to rule out some of the additional conditions first with additional imaging. He is also asked to follow-up with his surgeon. We discussed regarding deconditionin g, as well as that there is no set recommended treatment. A number of different medications have been used in the past which we had discussed. He is considering a course of therapy with colchicine, which sometimes has been used up to 6 months until resolution of symptoms. He is given prescription for this, although was not initiated until he additionally discussed this the condition with his primary provider and surgeon. He knows to seek medical care in case of any worsening of his condition, any progression of abdominal pain, any other concerning GI symptoms that may indicate bowel obstruction or ischemia. On the lower chance that his lactic acidosis may have been related to Metformin, this medication is asked to be discontinued. Physical Exam Const: COMMON NORMALS: no acute distress and patient oriented x3 HENMT: COMMON NORMALS: oropharynx normal Neck/C-Spine: COMMON NORMALS: no JVD Resp: COMMON NORMALS: normal respiratory effort and clear to auscultation bilaterally AUSCULTATION: clear to auscultation bilaterally Cardio: COMMON NORMALS: no JVD, regular rhythm, S1 normal heart sound present, S2 normal heart sound present and No murmurs present (Cardio) RHYTHM: regular rhythm HEART SOUNDS: S1 normal heart sound present and S2 normal heart sound present GI: COMMON NORMALS: Normal to inspection, nondistended, normoactive bowel sounds present and Soft to palpation PALPATION: Yes Soft to palpation and Yes Tenderness to palpation present (GI) (mild lower mid and RLQ) Extremity: COMMON NORMALS: no joint enlargement and no pedal edema Neuro: COMMON NORMALS: patient oriented x3 and moves all extremities Skin: COMMON NORMALS: no rashes or lesions noted GENERAL SKIN EXAM: no rashes or lesions noted Discharge Data Data Completed and Pending: Completed Studies During Hospitalization Category Date Time Status CT abdomen pelvis w con* [id number] Stat Cat Scan 03/11/21 16:25 Completed [place] abdomen lim[place] d [id number] Routine Ultrasound 03/13/21 07:00 Completed Pending at discharge Category Date Time Status Complete Blood Co unt w/Auto AM LABS Lab 03/14/21 04:00 Ordered Comprehensive Met abolic Panel AM LA BS Lab 03/14/21 04:00 Ordered Labs from last 24 hours 03/13/21 03/13/21 03/13/21 11:12 07:15 07:15 WBC 6.5 RBC 4.37 Hgb 11.6 L Hct 36.5 L MCV 83.5 MCH 26.5 L MCHC 31.8 RDW 12.2 Plt Count 222 MPV 10.0 Neut % (Auto) 64.7 Lymph % (Auto) 27.0 Grainger % (Auto) 5.7 Eos % (Auto) 1.2 Baso % (Auto) 0.9 Neut # (Auto) 4.19 Lymph # (Auto) 1.8 Grainger # (Auto) 0.4 Eos # (Auto) 0.1 Baso # (Auto) 0.1 Nucleated RBC % (a uto) 0 Nucleated RBCs # 0.0 Sodium 135 L Potassium 4.3 Chloride 100 Carbon Dioxide 25 Anion Gap 14.3 BUN 6 L Creatinine 0.4 L GFR Calculation 218.0 H Glucose 225 H POC Glucose 186 H Calculated Osmolal ity 285 Calcium 7.5 L Total Bilirubin 0.3 AST 15 ALT 17 Alkaline Phosphata se 61 C-Reactive Protein Total Protein 5.7 L Albumin 3.2 L Globulin 2.5 03/13/21 03/12/21 03/12/21 06:00 21:39 16:59 WBC RBC Hgb Hct MCV MCH MCHC RDW Plt Count MPV Neut % (Auto) Lymph % (Auto) Grainger % (Auto) Eos % (Auto) Baso % (Auto) Neut # (Auto) Lymph # (Auto) Grainger # (Auto) Eos # (Auto) Baso # (Auto) Nucleated RBC % (a uto) Nucleated RBCs # Sodium Potassium Chloride Carbon Dioxide Anion Gap BUN Creatinine GFR Calculation Glucose POC Glucose 221 H 185 H 162 H Calculated Osmolal ity Calcium Total Bilirubin AST ALT Alkaline Phosphata se C-Reactive Protein Total Protein Albumin Globulin 03/12/21 03/11/21 08:08 22:56 WBC RBC Hgb Hct MCV MCH MCHC RDW Plt Count MPV Neut % (Auto) Lymph % (Auto) Grainger % (Auto) Eos % (Auto) Baso % (Auto) Neut # (Auto) Lymph # (Auto) Grainger # (Auto) Eos # (Auto) Baso # (Auto) Nucleated RBC % (a uto) Nucleated RBCs # Sodium Potassium Chloride Carbon Dioxide Anion Gap BUN Creatinine GFR Calculation Glucose POC Glucose 290 H Calculated Osmolal ity Calcium Total Bilirubin AST ALT Alkaline Phosphata se C-Reactive Protein 10.0 H Total Protein Albumin Globulin Vitals: Last Vital Signs Temp 98.1 F 03/13/21 12:00 Pulse 86 03/13/21 12:00 Resp 18 03/13/21 12:00 BP 181/72 03/13/21 12:00 Pulse Ox 90 03/13/21 12:00 Discharge Plan Discharge Patient Disposition: Home Condition: Stable Prescriptions: New colchicine 0.6 mg tablet 0.9 mg PO DAILY Qty: 45 RF: 6 Creon 36,000-114,000- 180,000 unit capsule,delayed release(DR/EC) 2 cap PO TID Qty: 90 RF: 3 Continued lisinopril 20 mg tablet 10 mg PO BID RF: 0 glipizide 10 mg tablet 10 mg PO BID RF: 0 isosorbide mononitrate 30 mg tablet extended release 24 hr 30 mg PO BEDTIME RF: 0 sertraline 100 mg tablet 100 mg PO DAILY RF: 0 nortriptyline 50 mg capsule 50 mg PO BEDTIME RF: 0 ProAir RespiClick 90 mcg/actuation aerosol powdr breath activated 1 - 2 inh inhalation Q4H PRN (Reason: Shortness Of Breath) RF: 0 gabapentin 100 mg capsule 200 mg PO TID RF: 0 rosuvastatin 5 mg tablet 5 mg PO Q2D RF: 0 multivitamin Tablet 1 tab PO DAILY RF: 0 hydroxyzine HCl 50 mg tablet 50 mg PO BID PRN (Reason: Anxiety) RF: 0 clopidogrel 75 mg tablet 75 mg PO BEDTIME RF: 0 insulin lispro 100 unit/mL insulin pen See Rx Instructions .ROUTE .COMPLEX RF: 0 Lantus Solostar U-100 Insulin 100 unit/mL (3 mL) insulin pen 53 unit SUBCUT BEDTIME RF: 0 furosemide 20 mg tablet 20 mg PO DAILY PRN (Reason: Edema) RF: 0 carvedilol 25 mg tablet 12.5 mg PO BID Qty: 0 RF: 0 Hold Instructions: hypotension Changed pantoprazole 40 mg tablet,delayed release (DR/EC) 40 mg PO BIDWM 60 Days Qty: 0 RF: 0 Discontinued metformin 500 mg tablet extended release 24 hr 1,000 mg PO BID RF: 0 Hold Instructions: Resume on 03/06/21. ibuprofen 200 mg Tablet 800 mg PO PRN RF: 0 Discharge Orders: Discharge Order (Routine); Ordered 03/13/21 Ordered By: Ambrosio Knott Other Ambulatory Orders: CT angio abdomen pelvis [id number] (Routine) Timeframe: 2 Days Facility: [facility] - Location: [facility] Ordered By: Ambrosio Knott Referrals: Jorge Li MD [Physician] - 1 week Johnny Vargas MD [Primary Care Provider] - 4-7 days Discharge Diet: Advance as tolerated and Clear Liquid Discharge Activity: Increase activity as tolerated Patient Instructions: Colchicine (By mouth), Pancrelipase (By mouth) Activity Restrictions/Additional Instructions: Advance diet slowly from clear liquids. Please stop Metformin, in case your symptoms are related to Metformin induced lactic acidosis. Lactic acid level elevation noted on presentation has resolved. Please follow-up with surgery in office with regards to hernia. There is a possibility that your pain is related to mesenteric panniculitis. CRP is noted moderately elevated. You are given prescription for colchicine therapy, sometimes this may be given for up to 6 months. Please discuss with your primary doctor as well as surgeon regarding this therapy. Please have your primary doctor following up your blood counts to ensure there is no bone marrow suppression. Please follow-up with CT angiogram of your abdomen next week to assess for any chronic narrowing of the blood vessels supplying your intestines. Please follow-up with oncology in office with regards to retroperitoneal lymph node which is enlarged, although we are not thinking that your abdominal symptoms are related to it currently. Please resume taking pancrelipase due to pancreatic insufficiency. Take 72,000 unit lipase just before meals, half of that dose with snacks. Please discuss with your primary doctor and surgery doctor regarding noted air in bile ducts incidentally noted on CT of the abdomen pelvis, possibly related to your prior ERCP. In case you experience severe abdominal pain, vomiting, fever, inability to have bowel movements, or other concerning symptoms, please seek medical attention. Discharge Attestations Time Spent in Discharge Care*: greater than 30 min Quality Metrics Clinical Quality Measures During this hospital stay, did patient experience: None Coding Level of Care Code Acute Chg FW DC note Diagnoses Abdominal pain R10.9 Elevated lactic acid level R79.89 HTN (hypertension) I10 Diabetes E11.9 GERD (gastroesophageal reflux disease) K21.9 NEDRA (obstructive sleep apnea) G47.33
[2021-03-13 15:00] VITALS: BP 181/72; PULSE 86; RESP 18; TEMP 36.7; O2SAT 90
== END 2021-03-13 15:01 | disposition home or self-care (01) ==
LOC: ER 20:28 → MEDSURG 22:12
PROVIDERS: Admitting Provider Hospitalist; Emergency Provider Family Medicine; PCP Family Medicine; Visit Provider Internal Medicine
DX: R10.9 Unspecified abdominal pain (principal); R79.89 Other specified abnormal findings of blood chemistry; I10 Essential (primary) hypertension; K21.9 Gastro-esophageal reflux disease without esophagitis; G47.33 Obstructive sleep apnea (adult) (pediatric); E78.5 Hyperlipidemia, unspecified; Z90.49 Acquired absence of other specified parts of digestive tract; Z79.4 Long term (current) use of insulin; I25.10 Atherosclerotic heart disease of native coronary artery without angina pectoris; E11.42 Type 2 diabetes mellitus with diabetic polyneuropathy; Z82.49 Family history of ischemic heart disease and other diseases of the circulatory system; Z83.3 Family history of diabetes mellitus
CPT/HCPCS: 36415; 36416; 74177; 76705; 80048; 80053; 81003; 82550; 82962; 83605; 83615; 83690; 85025; 86140; 96361; 96372; 96374; 96375; 96376; 99285; G0378; J1200; J1644; J1720; J1815; J2270; J2405; J7030; J7040; Q9967

== ENCOUNTER 2021-03-16 12:24 | Outpatient (CLI) | payer MEDICARE, MEDICAID, SELFPAY ==
[2021-03-16 13:26] LABS: Basophils # 0.1 10^3/uL (0.0-0.1); Basophils % 1.1 %; Eosinophils # 0.3 10^3/uL (0.0-0.8); Eosinophils % 4.9 %; Hemoglobin 11.5 g/dL (11.7-16.6); Lymphocytes # 1.9 10^3/uL (0.8-4.8); Lymphocytes % 29.9 %; Mean Corpuscular HGB Conc 31.9 g/dL (30.0-36.0); Mean Corpuscular Hemoglobin 26.1 pg (28.0-34.0); Mean Corpuscular Volume 81.8 fL (80-94); Monocytes # 0.5 10^3/uL (0.2-0.9); Monocytes % 7.1 %; Neutrophils # 3.65 10^3/uL (1.8-7.7); Neutrophils % 56.2 %; Nucleated Red Blood Cells % 0 %; Platelet Count 285 10^3/cmm (130-400); Red Cell Distribution Width 12.3 % (12.1-15.1); White Blood Count 6.5 10^3/uL (4.0-10.0)
[2021-03-16 13:57] LABS: Alanine Aminotransferase 15 U/L (0-41); Albumin Level 3.3 g/dL (3.5-5.2); Alkaline Phosphatase 62 IU/L (40-130); Anion Gap 16.1 (5-19); Aspartate Amino Transferase 13 U/L (0-40); Blood Urea Nitrogen 3 mg/dL (8-23); Calcium 8.1 mg/dL (8.5-10.5); Carbon Dioxide 26 mmol/L (22-29); Chloride 96 mmol/L (98-107); Globulin 2.8 g/dL (1.3-4.6); Glucose 295 mg/dL (65-115); Lactate Dehydrogenase 76 U/L (135-225); Osmolality Calculated 285 mOsm/kg (285-295); Potassium 4.1 mmol/L (3.5-5.1); Sodium 134 mmol/L (136-145); Total Bilirubin 0.3 mg/dL (0.15-1.2); Total Protein 6.1 g/dL (6.6-8.7)
--- NOTE | 2021-03-16 15:22 | ONC CON_ITS ---
Dr. Apple New Patient Note Patient: Guanakito Longo Unit #: [id number]: [id number] Dicatated By: Maria M Apple M.D.Date of Visit: Mar 16, 2021 Onc MED New Patient/Consult Referring Physician: Dr. VITALIY RODNEY M.D. History of Present Illness: Mr. Guanakito Longo, is a 60-year-old gentleman with a history of chronic epigastric pain due to chronic pancreatitis for which he has morphine pump placed in, also has history of right hemicolectomy for colon polyps, patient was recently evaluated by surgery for abdominal pain due to hernia around the incision so CT scan of abdomen pelvis was ordered which was done on March 11, 2021 which showed no acute abnormality seen in abdomen pelvis, stable 3 cm retroperitoneal lymph node and nonobstructive renal calculi, CT scan of neck and chest done on February 26, 2021 showed no cervical lymphadenopathy or mediastinal lymphadenopathy or pulmonary mass. His CT scan of abdomen pelvis done on March 29, 2019 showed numerous enlarged mesenteric lymph nodes along the mesenteric root, were present on the prior exam done in August 2018, largest being 12 mm, findings are nonspecific but suspicious for mesenteric adenitis. Minimal edema involving pancreatic head with trace inflammatory stranding. Interval enlargement of low-attenuation lesion in the undersurface of spleen measuring 16 mm compared to 8 mm in August 2018, no mention of retroperitoneal lymph node. Patient denies any weight loss rather weight gain, denies any recurrent fever but off and on night sweats, patient is also diabetic. Denies any peripheral lymphadenopathy denies any abdominal fullness. Denies any hematuria or dysuria denies any melena or hematochezia, denies any hemoptysis or hematemesis denies any jaundice, Denies smoking or alcohol use Past Medical History: Mr. Longo's medical history consists of asthma, Mart's palsy, coronary artery disease, gastroesophageal reflux disease, history of colon polyps, hypertension, peripheral neuropathy, and type II diabetes. Past Surgical History: Mr. Longo's surgical/procedural history consists of appendectomy, cholecystectomy, colonoscopy, hernia repair - inguinal, PAIN PUMP IMPLANTATION, right hemicolectomy, covid vaccine #2 in 2020, and covid vaccine #1 in 2020. Medications: Albuterol Sulfate (108 (90 base) mcg/act) Aerosol Powder, Breath Activated Inhalation 8x/d PRN, Carvedilol (12.5 mg) Tablet Oral b.i.d., Clopidogrel Bisulfate (75 mg) Tablet Oral at bedtime, Daily Multiple Vitamins Tablet Oral daily, Furosemide (20 mg) Tablet Oral daily, Gabapentin (100 mg) Capsule Oral t.i.d., glipiZIDE (10 mg) Tablet Oral b.i.d., hydrOXYzine HCl (50 mg) Tablet Oral b.i.d. PRN, Ibuprofen Tablet Oral PRN, Insulin Lispro (1 Unit Dial) Subcutaneous, Isosorbide Mononitrate ER (30 mg) Tablet SR 24 HR Oral at bedtime, Lantus SoloStar 53 Units Subcutaneous at bedtime, Lisinopril (20 mg) Tablet Oral b.i.d., Nortriptyline HCl (50 mg) Capsule Oral at bedtime, Pantoprazole Sodium (40 mg) Tablet, enteric coated Oral daily, Rosuvastatin Calcium Tablet Oral, Sertraline HCl (100 mg) Tablet Oral daily Allergies: ALPRAZolam, Aspirin, fentaNYL, Iodinated Contrast Media, Penicillins, and Zolpidem Tartrate. Social History: Mr. Longo is single. Mr. Longo has never smoked. He has no history of drinking. Family History: Mr. Longo's mother is alive. Mr. Longo has 3 brothers: 3 alive. Review Of Symptoms: Review of Systems is not available for this patient. Vital Signs: Performed on Mar 16, 2021 14:37: 5, 4, 33.03 (HIGH), 2.27 sq.m, 71 in, 95 % (LOW), 87 /min, 18 /min, 131/81 mm(hg), 97.6 F (LOW), and 236.8 lbs (HIGH). Performance Status: 0 - Fully active, able to carry on all predisease activities without restrictions. (ECOG) Physical Examination: ENMT - No visible edema rash or cyanosis, Or cervical or axillary lymphadenopathy, Respiratory - Lungs are clear to auscultation, Cardiovascular - Regular rate and rhythm of heart, Abdomen - Soft, bowel sounds present, Extremities - Trace edema bilaterally. Lab/Imaging: Most recent lab results are not available for this patient. Impression: Solitary retroperitoneal lymph node size about [address] scan of abdomen pelvis done on March 11, 2021, etiology unclear could be lymphoproliferative disorder versus reactive versus germ cell tumor versus other primary CT scan of neck chest done on February 26, 2021 showed no evidence of cervical or mediastinal lymphadenopathy or other mass History of chronic pancreatitis/epigastric pain, now has morphine pump for more than 20 years Diabetes Abdominal incisional hernia History of multiple colon polyps status post colonoscopy multiple times status post right hemicolectomy for colon polyp Plan: Discussed with patient regarding his labs white blood count 6.5 hemoglobin 11.5 hematocrit 36 platelets 285,000 CMP within normal limit except glucose 295, LDL 76 Clinically, patient is doing well with no new signs symptoms, no B symptoms except off-and-on night sweats which could be due to recurrent hypoglycemia or lymphoproliferative disorder but less likely or underlying infection. As far as incidental finding of solitary retroperitoneal lymph node is concerned, etiology could be due to lymphoproliferative disorder, reactive, germ cell tumor, other primary. His CT scan of abdomen done in March 2019 showed no evidence of retroperitoneal lymphadenopathy but mesenteric lymphadenopathy consistent with mesenteric adenitis. As per patient earlier this year he went to [facility] for his morphine pump fill up, at that time CT scan of abdomen was done, and at that time nobody mention about mass in his retroperitoneal area. At this point will obtain CT scan of abdomen pelvis done in [facility] in recent past if that shows retroperitoneal mass and when compared to recently done CT scan of chest abdomen pelvis shows no change in size or any new lymphadenopathy, then will consider follow-up CT scan of abdomen pelvis in 2 months and monitor retroperitoneal mass for change in size. On the other hand if CT scan done in [facility] showed no retroperitoneal mass or lymphadenopathy, then will consider CT PET scan and if it shows uptake in retroperitoneal lymph node, then will consider CT-guided biopsy. Mild anemia, will monitor Signed By: Maria M Apple M.D. <<Signature on File>>
== END 2021-03-16 12:25 | disposition home or self-care (01) ==
PROVIDERS: PCP Family Medicine; Visit Provider Internal Medicine Hematology & Oncology
DX: R59.0 Localized enlarged lymph nodes (principal); K86.1 Other chronic pancreatitis; E11.9 Type 2 diabetes mellitus without complications; K43.2 Incisional hernia without obstruction or gangrene; Z86.010 Personal history of colon polyps; Z79.899 Other long term (current) drug therapy
CPT/HCPCS: 36415; 80053; 83615; 85025; 99204

== ENCOUNTER 2021-03-22 13:42 | Outpatient (CLI) | payer MEDICARE, MEDICAID, SELFPAY ==
--- NOTE | 2021-03-22 13:53 | CT_ITS ---
WS: [id number] CTA ABDOMEN PELVIS TECHNIQUE: Noncontrast plus contrast enhanced CTA of the abdominal aorta with coronal and sagittal re formatted images and additional MIP Images. CLINICAL INFORMATION: CHRONIC/WORSE ABDOMINAL PAIN COMPARISON: 03/11/2021 and 02/08/2021 DLP: [id number] scans at [facility] use at least one of these dose optimization techniques: automat ed exposure control; mA and/or kV adjustment per patient size (includes targeted exams where dose is matched to clinical indication); or iterative reconstruction. FINDINGS: Lung bases are well aerated. Celiac and SMA are patent. Mild to moderate stenosis at the SMA origin w ith calcification. SMA remains patent. Renal arteries are patent. Inferior mesenteric artery is paten t. Moderate aortic calcification. No aneurysm. Biiliac calcification. Diffuse fatty infiltration the liver. Cholecystectomy clips. Fluid distended stomach with air-fluid l evels. No evidence of high-grade small or large bowel obstruction. Stable 2.9 x 2.9 cm aortocaval lym ph node. Adrenal glands are normal. No hydronephrosis in either kidney. Bilateral renal cysts. Bilobe d Periumbilical hernias containing herniated loops of nonobstructed small bowel is unchanged in appea timothy. Fat necrosis in the upper pelvis is unchanged. Sigmoid constipation. Grade 1 anterolisthesis L 5 on S1 with chronic spondylolysis. No other significant changes from previous. CT/CT angio abdomen pelvis 61826 IMPRESSION: 1. Celiac and SMA are patent. ERICA is patent. Mild to moderate stenosis at the SMA origin without evidence of flow-limiting stenosis. 2. Normal caliber abdominal aorta. 3. Aortic calcification. 4. No other significant changes from previous. 5. Diffuse fatty infiltration the liver. 6. Sigmoid constipation. 7. Stable enlarged aortocaval lymph node measuring 2.9 x 2.9 CCM. 8. Stable fat necrosis in the upper pelvis. 9. Stable bilobed periumbilical hernia containing loops of small bowel without evidence of obstruction.
[2021-03-22] MEDS: iodixanol 320 mg/mL 100mL Btl IV (14:27)
--- NOTE | 2021-04-02 13:24 | PC.SOCIAL ---
patient called to follow up on CT scan done on 03/22/[address] Vargas office and request he follow up with patient after review. Asked patient to discuss results with primary care provider and let him know results were faxed. Confirmation received that fax was sent successfully. Patient will be seeing Dr Apple as well. Both Dr Vargas and Dr Apple have access to our EHR.
== END 2021-03-22 13:43 | disposition home or self-care (01) ==
PROVIDERS: PCP Family Medicine; Visit Provider Internal Medicine
DX: R10.9 Unspecified abdominal pain (principal); K42.9 Umbilical hernia without obstruction or gangrene; M79.89 Other specified soft tissue disorders; R59.9 Enlarged lymph nodes, unspecified; K59.00 Constipation, unspecified; I70.0 Atherosclerosis of aorta
CPT/HCPCS: 74174

== ENCOUNTER 2021-04-28 14:35 | Outpatient (CLI) | payer MEDICARE, MEDICAID, SELFPAY ==
[2021-04-28 15:36] LABS: Basophils # 0.1 10^3/uL (0.0-0.1); Basophils % 1.3 %; Eosinophils # 0.3 10^3/uL (0.0-0.8); Eosinophils % 4.8 %; Hematocrit 37.6 % (42.0-52.0); Lymphocytes # 2.1 10^3/uL (0.8-4.8); Lymphocytes % 32.7 %; Mean Corpuscular HGB Conc 31.9 g/dL (30.0-36.0); Mean Corpuscular Volume 81.4 fl (80-94); Mean Platelet Volume 9.9 fL (7.4-10.4); Monocytes # 0.4 10^3/uL (0.2-0.9); Monocytes % 5.9 %; Neutrophils # 3.51 10^3/uL (1.8-7.7); Neutrophils % 54.8 %; Nucleated Red Blood Cells % 0 %; Platelet Count 291 10^3/cmm (130-400); Red Blood Count 4.62 10^6/uL (4.1-5.3); Red Cell Distribution Width 12.4 % (12.1-15.1); White Blood Count 6.4 10^3/uL (4.0-10.0)
[2021-04-28 16:18] LABS: Alanine Aminotransferase 16 U/L (0-41); Albumin Level 3.8 g/dL (3.5-5.2); Alkaline Phosphatase 75 IU/L (40-130); Anion Gap 17.2 (5-19); Aspartate Amino Transferase 19 U/L (0-40); Blood Urea Nitrogen 9 mg/dL (8-23); Calcium 9.1 mg/dL (8.5-10.5); Carbon Dioxide 27 mmol/L (22-29); Chloride 92 mmol/L (98-107); Globulin 3.1 g/dL (1.3-4.6); Glomerular Filtration Rate 136.5 mL/min (90-130); Glucose 293 mg/dL (65-115); Osmolality Calculated 283 mOsm/kg (285-295); Potassium 4.2 mmol/L (3.5-5.1); Sodium 132 mmol/L (136-145); Total Bilirubin 0.2 mg/dL (0.15-1.2); Total Protein 6.9 g/dL (6.6-8.7)
== END 2021-04-28 14:36 | disposition home or self-care (01) ==
LOC: ONCMED 14:44
PROVIDERS: PCP Family Medicine; Visit Provider Internal Medicine Hematology & Oncology
DX: R10.9 Unspecified abdominal pain (principal); Z79.899 Other long term (current) drug therapy
CPT/HCPCS: 36415; 80053; 85025

== ENCOUNTER 2021-04-29 05:59 | Outpatient (CLI) | payer MEDICARE, MEDICAID, SELFPAY ==
--- NOTE | 2021-04-30 08:59 | ONC FU_ITS ---
Dr. Apple follow up note Patient: Guanakito Longo Unit #: [id number]: [id number] Dicatated By: Maria M Apple M.D.Date of Visit:Apr 29, 2021 Onc Med Follow-up/Prog Note History of Present Illness: Mr. Guanakito Longo, is a 60-year-old gentleman with a history of chronic epigastric pain due to chronic pancreatitis for which he has morphine pump placed in, also has history of right hemicolectomy for colon polyps, patient was recently evaluated by surgery for abdominal pain due to hernia around the incision so CT scan of abdomen pelvis was ordered which was done on March 11, 2021 which showed no acute abnormality seen in abdomen pelvis, stable 3 cm retroperitoneal lymph node and nonobstructive renal calculi, CT scan of neck and chest done on February 26, 2021 showed no cervical lymphadenopathy or mediastinal lymphadenopathy or pulmonary mass. His CT scan of abdomen pelvis done on March 29, 2019 showed numerous enlarged mesenteric lymph nodes along the mesenteric root, were present on the prior exam done in August 2018, largest being 12 mm, findings are nonspecific but suspicious for mesenteric adenitis. Minimal edema involving pancreatic head with trace inflammatory stranding. Interval enlargement of low-attenuation lesion in the undersurface of spleen measuring 16 mm compared to 8 mm in August 2018, no mention of retroperitoneal lymph node. Patient denies any weight loss rather weight gain, denies any recurrent fever but off and on night sweats, patient is also diabetic. Denies any peripheral lymphadenopathy denies any abdominal fullness. Denies any hematuria or dysuria denies any melena or hematochezia, denies any hemoptysis or hematemesis denies any jaundice, Denies smoking or alcohol use CT PET scan done on April 13, 2021 shows mesenteric and retroperitoneal lymphadenopathy, dominant lymph node in retroperitoneal size about 3 cm with SUV of 7.85. A cluster of hypermetabolic mesenteric lymph nodes with SUV of 5.78 no hypermetabolic lymph node noted within the pelvis but there is a predominantly fat attenuation lesion within the upper pelvis has peripheral groundglass-like soft tissue attenuation size about 5.5 x 4.6 cm with peripheral enhancement with SUV of 3.4 could be acute inflammation or lymphoma or liposarcoma. No mediastinal lymphadenopathy Ventral abdominal hernia Came for follow-up, denies any specific complaints, no night sweats, no weight loss, no recurrent fever, no peripheral lymphadenopathy, no generalized weakness and fatigue, patient is awaiting ventral abdominal hernia repair, Medications: Albuterol Sulfate (108 (90 base) mcg/act) Aerosol Powder, Breath Activated Inhalation 8x/d PRN, Carvedilol (12.5 mg) Tablet Oral b.i.d., Clopidogrel Bisulfate (75 mg) Tablet Oral at bedtime, Daily Multiple Vitamins Tablet Oral daily, Furosemide (20 mg) Tablet Oral daily, Gabapentin (100 mg) Capsule Oral t.i.d., glipiZIDE (10 mg) Tablet Oral b.i.d., hydrOXYzine HCl (50 mg) Tablet Oral b.i.d. PRN, Ibuprofen Tablet Oral PRN, Insulin Lispro (1 Unit Dial) Subcutaneous, Isosorbide Mononitrate ER (30 mg) Tablet SR 24 HR Oral at bedtime, Lantus SoloStar 53 Units Subcutaneous at bedtime, Lisinopril (20 mg) Tablet Oral b.i.d., Nortriptyline HCl (50 mg) Capsule Oral at bedtime, Pantoprazole Sodium (40 mg) Tablet, enteric coated Oral daily, Rosuvastatin Calcium Tablet Oral, Sertraline HCl (100 mg) Tablet Oral daily Allergies: ALPRAZolam, Aspirin, fentaNYL, Iodinated Contrast Media, Penicillins, and Zolpidem Tartrate. Review of Systems: Review of Systems is not available for this patient. Vital Signs: Performed on Apr 29, 2021 10:39 Height - 71.00 in Weight - 236.0 lbs (LOW) BSA - 2.26 sq.m BMI - 32.92 (HIGH) Temperature - 97.2 F (LOW) Pulse - 96 /min Respiration - 18 /min BP - 148/81 mm(hg) (HIGH) O2 Sat - 99 % Pain - 5 Performance Status: 0 - Fully active, able to carry on all predisease activities without restrictions. (ECOG) Physical Examination: ENMT - No mouth sores, no thrush, no cervical lymphadenopathy, Respiratory - Lungs are clear to auscultation, Cardiovascular - Regular rate and rhythm of heart, Abdomen - Soft, bowel sounds present, Extremities - No visible edema. Lab/Imaging: Most recent lab results are not available for this patient. Impression: Solitary retroperitoneal lymph node size about [address] scan of abdomen pelvis done on March 11, 2021, etiology unclear could be lymphoproliferative disorder versus reactive versus germ cell tumor versus other primary CT scan of neck chest done on February 26, 2021 showed no evidence of cervical or mediastinal lymphadenopathy or other mass CT PET scan done on April 13, 2021 shows mesenteric and retroperitoneal lymphadenopathy, dominant lymph node in retroperitoneal size about 3 cm with SUV of 7.85. A cluster of hypermetabolic mesenteric lymph nodes with SUV of 5.78 no hypermetabolic lymph node noted within the pelvis but there is a predominantly fat attenuation lesion within the upper pelvis has peripheral groundglass-like soft tissue attenuation size about 5.5 x 4.6 cm with peripheral enhancement with SUV of 3.4 could be acute inflammation or lymphoma or liposarcoma. No mediastinal lymphadenopathy Ventral abdominal hernia History of chronic pancreatitis/epigastric pain, now has morphine pump for more than 20 years Diabetes Abdominal incisional hernia History of multiple colon polyps status post colonoscopy multiple times status post right hemicolectomy for colon polyp Plan: Discussed with patient regarding his labs white blood count 6.4 hemoglobin 12 g hematocrit 37.6 platelets 291,000 CMP within normal limits except glucose 293 CT PET scan done on April 13, 2021 shows mesenteric and retroperitoneal lymphadenopathy, dominant lymph node in retroperitoneal size about 3 cm with SUV of 7.85. A cluster of hypermetabolic mesenteric lymph nodes with SUV of 5.78 no hypermetabolic lymph node noted within the pelvis but there is a predominantly fat attenuation lesion within the upper pelvis has peripheral groundglass-like soft tissue attenuation size about 5.5 x 4.6 cm with peripheral enhancement with SUV of 3.4 could be acute inflammation or lymphoma or liposarcoma. No mediastinal lymphadenopathy Ventral abdominal hernia Clinically, patient doing well with no new signs symptom, no B symptoms his lab work-up is within normal range except hyperglycemia, as far as retroperitoneal/mesenteric lymphadenopathy is concerned seen on CT scan and CT PET scan is a concern, it appears patient may have lymphoproliferative disorder like lymphoma probably low-grade but patient has no symptoms and lab work-up is within normal range, At this point, as ventral abdominal hernia repair is under consideration, if possible, at that time retroperitoneal lymph node or mesenteric lymph node can be biopsied, will discuss with Dr. Li on the other hand if it is difficult technically or more invasive in that case we can follow him with a follow-up CT scan in 3 months and if there is a change in size of existing lymph nodes or appearance of new lymphadenopathy, or patient develops B symptoms, may consider lymph node biopsy. We will also request Dr. Li to get biopsy from upper pelvic mass seen on CT PET scan again it could be lipoma or inflammatory or lymphoma as mentioned in CT PET scan report. Patient will return to clinic in 3 months with CBC CMP LDH and CT scan of abdomen pelvis unless retroperitoneal or mesenteric lymph node biopsy is done or soft tissue mass in upper pelvis shows abnormality then we will see him earlier Signed By: Maria M Apple M.D. <<Signature on File>>
== END 2021-04-29 06:00 | disposition home or self-care (01) ==
PROVIDERS: PCP Family Medicine; Visit Provider Internal Medicine Hematology & Oncology
DX: K43.9 Ventral hernia without obstruction or gangrene (principal); E11.9 Type 2 diabetes mellitus without complications; Z86.010 Personal history of colon polyps; Z79.899 Other long term (current) drug therapy; Z79.4 Long term (current) use of insulin
CPT/HCPCS: 99214

== ENCOUNTER → 2021-04-30 09:58 | Outpatient (BNVA) | payer MEDICARE, MEDICAID, SELFPAY | PROVIDERS: PCP Family Medicine; Visit Provider Surgery | DX: Z20.822 Contact with and (suspected) exposure to COVID-19 (principal) | CPT/HCPCS: 87635 ==

== ENCOUNTER 2021-05-06 18:22 | Observation (INO) | payer MEDICARE, MEDICAID, SELFPAY ==
[2021-05-05 09:35] VITALS: BMI 32.9
[2021-05-06] VITALS (24 sets, daily range): BP systolic 134–193; BP diastolic 62–81; PULSE 82–97; RESP 15–23; TEMP 36.3–37.2; O2SAT 88–99
--- NOTE | 2021-05-06 10:54 | W.PM.OPSFHP ---
Same Day Surgery H&P Indication for Procedure/HPI DATE OF PROCEDURE: May 06, 2021 CHIEF COMPLAINT/INDICATIONFOR SURGICAL PROCEDURE: incisional hernia repair PREOP DIAGNOSIS: incisional hernia PLANNED PROCEDRUE: Operation Date: 05/06/21 12:00 Proposed Procedures p Laparoscopic Incisional Hernia Repair w/ Mesh 54784 K43.2(Not Applicable) - Jorge Li MD Medications/Allergies* Home Medications Medication Instructions Recorded Confirmed Type ProAir RespiClick 1 - 2 inh INHALATION Q4H PRN 10/30/19 05/05/21 History glipizide 10 mg PO BID 10/30/19 05/05/21 History isosorbide mononitrate 30 mg PO BEDTIME 10/30/19 05/05/21 History nortriptyline 50 mg PO BEDTIME 10/30/19 05/05/21 History sertraline 100 mg PO DAILY 10/30/19 05/05/21 History gabapentin 100 mg capsule 200 mg PO TID cap 11/25/19 05/05/21 History rosuvastatin 5 mg tablet 5 mg PO Q2D tab 04/21/20 05/05/21 History clopidogrel 75 mg PO BEDTIME 03/03/21 05/05/21 History furosemide 20 mg PO DAILY PRN 03/03/21 05/05/21 History hydroxyzine HCl 50 mg PO BID PRN 03/03/21 05/05/21 History insulin lispro See Rx Instructions .ROUTE .COMPLEX 03/03/21 05/05/21 History multivitamin 1 tab PO DAILY 03/03/21 05/05/21 History insulin glargine 100 unit/mL (3 50 unit SUBCUT BEDTIME ml 04/07/21 05/05/21 History mL) subcutaneous pen Allergies/Adverse Reactions Allergy/AdvReac Type Severity Reaction Status Date / Time Iodinated Contrast Media Allergy Unknown ALGY-Hives Verified 05/05/21 09:28 adhesive tape Allergy ALGY-Rash Verified 05/05/21 09:28 alprazolam [From Xanax] Allergy ADR-Anxiety Verified 05/05/21 09:28 aspirin Allergy ALGY-Rash Verified 05/05/21 09:28 fentanyl Allergy ALGY-Rash Verified 05/05/21 09:28 Penicillins Allergy ALGY-Rash Verified 05/05/21 09:28 zolpidem [From Ambien] Allergy ADR-Anxiety Verified 05/05/21 09:28 Pertinent History/Comorbid Conditions* Medical History (Updated 04/09/21 @ 07:51 by Sammie Reece MD) Asthma Mart's palsy Coronary artery disease Diabetes Diabetes GERD (gastroesophageal reflux disease) History of colon polyps HTN (hypertension) NEDRA (obstructive sleep apnea) Peripheral neuropathy Surgical History (Updated 10/27/20 @ 10:03 by Jorge Li MD) H/O colonoscopy (10/27/20) 5 years History of right hemicolectomy Status post right inguinal hernia repair Family History (Updated 09/15/20 @ 15:08 by LEROY Sommer) CAD (coronary artery disease) Cancer Hypertension Denies family history of Anesthesia complication Bleeding disorder Social History Alcohol intake: never Pertinent Exam Findings alert, oriented x 3 and regular rate & rhythm Recommendations Surgery/Procedure today Coding Level of Care Code Acute Commutator Inspector for Devonte Hamm
[2021-05-06] MEDS: sodium chloride 0.9% 1,000 ML 30 ML IV (11:20)
[2021-05-06 11:21] LABS: Glucose Point of Care 245 mg/dL (70-110)
[2021-05-06] MEDS: insulin regular-human 100 units/1 mL 10 UNIT IVP (11:41)
[2021-05-06] MEDS: HYDROmorphone 1 mg/mL INJ 1 mL 0.5 MG IVP ×3 (11:57→15:34)
--- NOTE | 2021-05-06 12:07 | ANES.PREANE2 ---
Pre-Anesthetic Assessment Pre-Anesthetic Assessment: Height/Weight: Height 1.8 m Weight 107.048 kg Temp Pulse Resp BP Pulse Ox 97.3 F L 82 18 157/79 97 05/06/21 10:45 05/06/21 10:45 05/06/21 11:57 05/06/21 10:45 05/06/21 11:57 Preop Diagnosis: incisional hernia Proposed Procedure: Operation Date: 05/06/21 12:00 Proposed Procedures p Laparoscopic Incisional Hernia Repair w/ Mesh 27582 K43.2(Not Applicable) - Jorge Li MD Was Beta Asha taken within 24 hours: N/A Was Clonidine taken within 24 hours: N/A Last intake: Intake Last Liquid Date 05/05/21 Last Liquid Time 23:55 Last Solid Date 05/05/21 Last Solid Time 21:00 Social: Social History: No alcohol and No tobacco Exam: Pre-Anes Outpt Exam: alert, oriented x 3, clear to auscultation bilaterally and regular rate & rhythm Airway: Submandibular: WNL Cervical ROM: WNL MP: 2 Dentition: False CV/HEM: CV/HEM: HTN GI: GI: GERD Metabolic: Metabolic: DM and Morbid obesity Musc/skel: Musc/skel: Lower Back Pain Comments: Chronic pain/opioid--pain pump Neuropsych: Neuropsych: Anxiety Anesthetic Plan: ASA status: 3 Anesthesia: General Risk of > 500 ml blood loss (7ml/kg in children): No Meds/Allergies Current Medications: Current Medications Generic Name Dose Route Start Last Admin Trade Name Freq PRN Reason Stop Dose Admin Sodium Chloride 1,000 mls @ 30 ml s/hr 05/06/21 10:45 05/06/21 11:20 Sodium Chloride 0.9% IV 05/07/21 10:44 30 mls/hr .Q24H LOTUS Administration PFSH Anesthesia PFSH: Medical History Asthma Mart's palsy Coronary artery disease Diabetes Diabetes GERD (gastroesophageal reflux disease) History of colon polyps HTN (hypertension) NEDRA (obstructive sleep apnea) Peripheral neuropathy Surgical History H/O colonoscopy (10/27/20) 5 years History of right hemicolectomy Status post right inguinal hernia repair Family History Other CAD (coronary artery disease) Cancer Hypertension Denies family history of Anesthesia complication Bleeding disorder Social History Alcohol intake: never Data Anesthesia Other Labs: Laboratory Results - last 48 hr 05/06/21 11:18 POC Glucose 245 H Cardiac Studies: Echocardiogram 03/04/21
[2021-05-06] MEDS: vancomycin 1,000 MG in sodium chloride 0.9% 250 ML 250 MG IV (12:37)
[2021-05-06 12:38] LABS: Glucose Point of Care 199 mg/dL (70-110)
--- NOTE | 2021-05-06 15:00 | P.OP_ITS ---
Operative Report Date of procedure: May 06, 2021 Pre-op Diagnosis: 1. Incisional hernia status post right hemicolectomy 2. Abdominal lymphadenopathy Post-op Diagnosis: 1. Incisional hernia status post right hemicolectomy with [place] cheese defects measuring 15 x 7 cm 2. Abdominal lymphadenopathy 3. 8 x 7 cm abdominal wall mass Procedure Done: 1. Laparoscopic lysis of adhesions 2. Laparoscopic repair of incisional hernia with proceed mesh measuring 25 x 20 cm 3. Excision of intra-abdominal mass Specimens removed/disposition: Intra-abdominal mass Surgeon: Jorge Li Anesthesia: General Condition: stable Disposition: PACU Procedure: The patient was taken to the Operating Room and was intubated under general anesthesia after the antibiotic had been administered. The abdomen was prepped and draped in a sterile manner. Using a 15 blade, a 2-cm incision was made in the left upper quadrant in the anterior axillary line and pneumoperitoneum was created using Verres needle. A 10 mm Ehsan port was placed and 15 mm of pneumoperitoneum was created after a 10 mm 30? scope had been introduced. 5 mm port was placed at the level of the umbilicus under direct visualization. The small bowel and the omentum was adherent to the abdominal wall in the right, left upper quadrant and midline. Using LigaSure and laparoscopic scissors lysis of adhesions was performed for 1 hour to take down the multiple small bowel loops as well as colon adherent to the abdominal wall as well as the omentum until all the hernia defects on the anterior abdominal wall was identified. There were multiple [place] cheese defects along the prior laparotomy scar and the total length of the defect measured 15 x 7 cm. This was marked using spinal needle. On the inferior aspect of the palm laparotomy scar there was a mass adherent to the abdominal wall which measured about 8 x 7 cm. This was taken down from adjacent omental additions as well as abdominal wall using LigaSure. 25 x 20 cm Proceed mesh was selected and 4 separate 2-0 Westby-Ed sutures were placed at the 4 corners of the mesh. Grannie needle was passed through the stab incisions and used to grasp the free ends of the Westby-De sutures which were then used to pull the mesh up against the abdominal wall; 5 mm SecurStraps were placed 1 cm apart along the edge of the mesh to hold it against the abdominal wall. At the end of this, it was noted that the mesh was well positioned over the hernial defect. 20 cc of saline mixed with 20cc of Exparel mixed with 20cc of 0.5% Marcaine was infiltrated in the midclavicular line under laparoscopic visualization for a TAP block. The intra-abdominal mass was placed within an Endo Catch bag. All ports were removed under direct visualization and there was no bleeding noted from the port sites. The left upper quadrant incision was extended using electrocautery and the mass was removed. The internal oblique muscles were approximated using running 3-0 Vicryl suture and external oblique aponeurosis was approximated at this port site using figure of eight 0 Vicryl sutures. The subcutaneous tissue was approximated using 3-0 Vicryl sutures. The skin at all 5 port sites was closed using subcuticular 4-0 Monocryl suture. The stab incisions and the port sites were covered with Dermabond. Abdominal binder was placed at the end of the procedure and the patient was extubated and transferred to recovery room in stable condition..
--- NOTE | 2021-05-06 15:32 | SUR.PHASEI ---
1509 PT AWAKES TO VOICE ON ARRIVAL TO PACU PT MOANS AND HOLDS ABD, VSS ABD LARGE WITH 4 SITES WITH DERMABOND AND 4 NEEDLE SITES ABD BINDER IN PLACE, IV PATENT SEE PAIN MED GIVEN BY PNEUMATIC DRUM SANDER AT BEDSIDE, PT SATS UP TO 95% WITH 8L MASK 1524 AWAKES AND C/O OF SEVERY PAIN OF 10 HOB UP SLIGHTLY, PT ALERT AND ORIENTED SEE PAIN MED GIVEN
--- NOTE | 2021-05-06 15:41 | SUR.PHASEI ---
PT STILL COMPLAINS OF PAIN OF 10 SEE MEDS REPEATED, VSS ABD REMAINS SOFT WITH DRESSING D/I
[2021-05-06] MEDS: oxyCODONE-APAP 5-325 mg Tablet 1 TAB PO ×2 (16:27→23:20)
--- NOTE | 2021-05-06 16:47 | ANE.PACU2 ---
Inpatient post-anesthesia follow up: Airway intact: Yes Vital signs: Temperature 99 F Pulse Rate 87 Respiratory Rate 20 Blood Pressure 171/66 Pulse Oximetry 95 Oxygen Delivery Me thod Nasal Cannula Oxygen Flow Rate 3 Fraction of Inspir ed Oxygen Hydration adequate: Yes Nausea and vomiting: No Pain level: 4 Mental status: Baseline
--- NOTE | 2021-05-06 17:13 | SUR.PHASEII ---
1630: patient crying. patient states he does not think he can go home like this. States his pain is 10/10. patients elderly mother is only person at home with him to help him, also states she does not think she can care for him by herself. call in to for admit orders. 1700: bed requested for patient on floor. geraldine parmar says the floor is not taking any more patients until animal trainer. 1710: repositioned patient. head of bed raised slightly.
--- NOTE | 2021-05-06 17:54 | SUR.PHASEII ---
1754: patient off nasal cannula for room air trial. O2 drops to 88-90% on room air.
--- NOTE | 2021-05-06 18:16 | SUR.PHASEII ---
report called to zakiya. will take patient to room 276 soon.
--- NOTE | 2021-05-06 18:56 | SUR.PHASEII ---
1840: patient transported to [facility]. patient on 2l o2, abd binder in place. patient awake and alert. transferred from [facility] to floor bed by slide board with help from holly.
[2021-05-06 19:00] LABS: Glucose Point of Care 314 mg/dL (70-110)
[2021-05-06] MEDS: sennosides-docusate Tablet 1 TAB PO (19:40)
[2021-05-06] MEDS: atorvastatin 40 mg Tablet 20 MG PO (19:40)
[2021-05-06] MEDS: pantoprazole DR 40 mg Tablet PO (19:40)
[2021-05-06] MEDS: lisinopril 10 mg Tablet PO (19:40)
[2021-05-06] MEDS: ketorolac 30 mg/mL INJ 15 MG IVP (19:40)
[2021-05-06] MEDS: lactated ringers 1,000 ML 100 ML IV (19:41)
[2021-05-06] MEDS: isosorbide mononitrate ER 30 mg Tablet PO (20:18)
[2021-05-06] MEDS: clopidogrel 75 mg Tablet PO (20:18)
[2021-05-06] MEDS: gabapentin 100 mg Capsule 200 MG PO (20:18)
[2021-05-06 21:09] LABS: Glucose Point of Care 316 mg/dL (70-110)
[2021-05-07] VITALS (9 sets, daily range): BP systolic 101–129; BP diastolic 55–68; PULSE 84–95; RESP 16–18; TEMP 36.6–36.9; O2SAT 93–98
[2021-05-07] MEDS: ketorolac 30 mg/mL INJ 15 MG IVP ×3 (00:07→12:25)
[2021-05-07 02:55] LABS: Basophils % 0.3 %; Eosinophils % 0.1 %; Hematocrit 33.7 % (42.0-52.0); Hemoglobin 10.6 g/dL (11.7-16.6); Lymphocytes # 1.1 10^3/uL (0.8-4.8); Lymphocytes % 11.3 %; Mean Corpuscular HGB Conc 31.5 g/dL (30.0-36.0); Mean Corpuscular Hemoglobin 25.9 pg (28.0-34.0); Mean Corpuscular Volume 82.4 fl (80-94); Mean Platelet Volume 9.4 fL (7.4-10.4); Monocytes # 0.8 10^3/uL (0.2-0.9); Monocytes % 9.1 %; Neutrophils # 7.31 10^3/uL (1.8-7.7); Neutrophils % 78.9 %; Nucleated Red Blood Cells % 0 %; Platelet Count 293 10^3/cmm (130-400); Red Blood Count 4.09 10^6/uL (4.1-5.3); Red Cell Distribution Width 12.9 % (12.1-15.1); White Blood Count 9.3 10^3/uL (4.0-10.0)
[2021-05-07 03:18] LABS: Anion Gap 13.5 (5-19); Blood Urea Nitrogen 13 mg/dL (8-23); Calcium 7.7 mg/dL (8.5-10.5); Carbon Dioxide 27 mmol/L (22-29); Chloride 97 mmol/L (98-107); Glomerular Filtration Rate 136.5 mL/min (90-130); Glucose 285 mg/dL (65-115); Osmolality Calculated 284 mOsm/kg (285-295); Potassium 5.5 mmol/L (3.5-5.1); Sodium 132 mmol/L (136-145)
[2021-05-07] MEDS: morphine 4 mg/mL SDV 1 mL 3 MG IVP ×2 (04:40→10:58)
[2021-05-07] MEDS: lactated ringers 1,000 ML 100 ML IV (05:48)
--- NOTE | 2021-05-07 06:25 | PC.NURSE ---
Patient AAOx4, calm and pleasant, c/o pain throughout night relieved by oral and IV pain medications per OCT. Abdomen remains distended and tender. No new events. Patient OOBTC and sitting up to use urinal. Abd binder in place, incisions clean and dry with glue intact. Report and handoff to oncoming nurse at shift change.
[2021-05-07 06:38] LABS: Glucose Point of Care 269 mg/dL (70-110)
[2021-05-07] MEDS: colchicine 0.6 mg Tablet 0.9 MG PO (08:34)
[2021-05-07] MEDS: sennosides-docusate Tablet 1 TAB PO (08:35)
[2021-05-07] MEDS: gabapentin 100 mg Capsule 200 MG PO (08:35)
[2021-05-07] MEDS: sertraline 100 mg Tablet PO (08:35)
[2021-05-07] MEDS: pantoprazole DR 40 mg Tablet PO (08:36)
[2021-05-07] MEDS: lisinopril 10 mg Tablet PO (08:36)
[2021-05-07] MEDS: oxyCODONE-APAP 5-325 mg Tablet 1 TAB PO (08:40)
[2021-05-07 11:16] LABS: Glucose Point of Care 313 mg/dL (70-110)
--- NOTE | 2021-05-07 13:27 | PM.DCS ---
Discharge Providers Date of Admission: 05/06/21 18:22 Date of Discharge: May 07, 2021 Attending Provider at Admission: Jorge Li MD Attending Provider at Discharge: Jorge Li MD Primary Care Provider: Johnny Vargas MD Reason for Visit Reason for Visit: lap poss open incisional hernia Hospital Course Hospital Course This is a 60-year-old male who underwent laparoscopic repair of incisional hernia. Patient had significant pain postprocedure and was admitted overnight for pain control. This morning his vital signs are stable, he is ambulating, his pain is controlled with oral pain medications. His incision is clean dry and intact. Physical Exam Narrative: EXAM NARRATIVE: Abdomen: Soft, tender, nondistended, incision clean dry and intact Discharge Data Data Completed and Pending: Pending at discharge Category Date Time Status ES surgery / GI i mages Routine Exams 05/06/21 10:47 Taken Pathology: Surgic al [PTH] Routine Pth 05/06/21 15:13 Received Labs from last 24 hours 05/07/21 05/07/21 05/07/21 11:14 06:24 02:40 WBC RBC Hgb Hct MCV MCH MCHC RDW Plt Count MPV Neut % (Auto) Lymph % (Auto) Villalba % (Auto) Eos % (Auto) Baso % (Auto) Neut # (Auto) Lymph # (Auto) Villalba # (Auto) Eos # (Auto) Baso # (Auto) Nucleated RBC % (a uto) Nucleated RBCs # Sodium 132 L Potassium 5.5 H Chloride 97 L Carbon Dioxide 27 Anion Gap 13.5 BUN 13 Creatinine 0.6 L GFR Calculation 136.5 H Glucose 285 H POC Glucose 313 H 269 H Calculated Osmolal ity 284 L Calcium 7.7 L 05/07/21 05/06/21 05/06/21 02:40 21:02 18:54 WBC 9.3 RBC 4.09 L Hgb 10.6 L Hct 33.7 L MCV 82.4 MCH 25.9 L MCHC 31.5 RDW 12.9 Plt Count 293 MPV 9.4 Neut % (Auto) 78.9 Lymph % (Auto) 11.3 Villalba % (Auto) 9.1 Eos % (Auto) 0.1 Baso % (Auto) 0.3 Neut # (Auto) 7.31 Lymph # (Auto) 1.1 Villalba # (Auto) 0.8 Eos # (Auto) 0.0 Baso # (Auto) 0.0 Nucleated RBC % (a uto) 0 Nucleated RBCs # 0.0 Sodium Potassium Chloride Carbon Dioxide Anion Gap BUN Creatinine GFR Calculation Glucose POC Glucose 316 H 314 H Calculated Osmolal ity Calcium Vitals: Last Vital Signs Temp 97.8 F 05/07/21 11:23 Pulse 91 05/07/21 11:23 Resp 16 05/07/21 11:23 BP 108/55 05/07/21 11:23 Pulse Ox 93 05/07/21 11:23 Discharge Plan Discharge Patient Disposition: Home Condition: Stable Prescriptions: New Zofran 4 mg tablet 4 mg PO Q6H PRN (Reason: nausea and vomiting) Qty: 20 RF: 0 Senna with Docusate Sodium 8.6-50 mg tablet 1 tab-cap PO BID Qty: 30 RF: 0 Percocet 5-325 mg tablet 1 tab PO Q6H PRN (Reason: pain) Qty: 20 RF: 0 Continued tramadol 50 mg tablet 50 mg PO Q8H PRN (Reason: pain) Qty: 30 RF: 0 lisinopril 10 mg tablet 10 mg PO BID Qty: 180 RF: 2 glipizide 10 mg tablet 10 mg PO BID RF: 0 isosorbide mononitrate 30 mg tablet extended release 24 hr 30 mg PO BEDTIME RF: 0 sertraline 100 mg tablet 100 mg PO DAILY RF: 0 nortriptyline 50 mg capsule 50 mg PO BEDTIME RF: 0 ProAir RespiClick 90 mcg/actuation aerosol powdr breath activated 1 - 2 inh inhalation Q4H PRN (Reason: Shortness Of Breath) RF: 0 gabapentin 100 mg capsule 200 mg PO TID RF: 0 rosuvastatin 5 mg tablet 5 mg PO Q2D RF: 0 multivitamin Tablet 1 tab PO DAILY RF: 0 hydroxyzine HCl 50 mg tablet 50 mg PO BID PRN (Reason: Anxiety) RF: 0 insulin lispro 100 unit/mL insulin pen See Rx Instructions .ROUTE .COMPLEX RF: 0 furosemide 20 mg tablet 20 mg PO DAILY PRN (Reason: Edema) RF: 0 Lantus Solostar U-100 Insulin 100 unit/mL (3 mL) insulin pen 50 unit SUBCUT BEDTIME RF: 0 pantoprazole 40 mg tablet,delayed release (DR/EC) 40 mg PO BIDWM 60 Days Qty: 0 RF: 0 colchicine 0.6 mg tablet 0.9 mg PO DAILY Qty: 45 RF: 6 Creon 36,000-114,000- 180,000 unit capsule,delayed release(DR/EC) 2 cap PO TID Qty: 90 RF: 3 Held clopidogrel 75 mg tablet 75 mg PO BEDTIME RF: 0 Hold Instructions: Resume on 05/09/21. Discharge Orders: Discharge Order (Routine); Ordered 05/07/21 Ordered By: Jorge Li Other Ambulatory Orders: DME: Walker (Order) Location: None Selected Ordered By: Jorge Li Referrals: Jorge Li MD [Physician] - 05/21/21 9:15 am Activity Restrictions/Additional Instructions: Diet Advance to normal diet as tolerated, increase fluid intake as much as possible. Activity Avoid strenuous activity for 2 weeks but continue with daily activities including walking as tolerated. Do not lift more than 10 pounds for 2 weeks Return to work/school You can return to work/ school whenever you feel ready as long as you don?t have to lift more than 10 pounds at work. If you have paperwork that needs to be completed for time off from work, please contact my office Driving You can resume driving once you stop using narcotic pain medications, and transition to non-opioid pain medications like Tylenol, Motrin, Aleve, etc. Medications Pain Take opioid pain medications as prescribed and transition to non-opioid pain medications like Tylenol, Motrin, Aleve etc. over the next few days. The goal of the pain medications is to make the pain bearable and not to be pain free since you recently had surgery. Resume all home medications after surgery as per the medication reconciliation list Nausea Nausea is common after surgery, take nausea medications as needed and stay on a liquid bland diet until nausea resolves. Constipation The combination of surgery, anesthesia and pain medications can result in constipation. Take stool softeners as prescribed. If you do not have a bowel movement in 3 days, please take an [id number] laxative like MiraLAX to address the constipation. Shower It is ok to shower but avoid getting the wound wet for 48 hours after surgery. Do not soak in bathtub, swimming pool or hot tub for 2 weeks. Wound care If glue has been used on your incisions after surgery, the glue on the incision will peel slowly over the next two weeks. The stitches used are dissolvable and will not need to be removed. Do not apply antibiotics or other medications on the incision Problems with the wound: you can develop some redness around the incision from bruising after surgery. If there is increasing pain, redness, tenderness around the incision with or without drainage, please contact my office to rule out an infection. Sometimes the skin at the incisions can separate, resulting in reopening of the wound. Cover the wound with antibiotic cream and sterile dressings and contact my office. Contact physician Call the office at [phone] during office hours or go the Emergency Room ?Fever to 100.4 or greater ?Shaking chills ?Pain that increases over time ?Redness, warmth, or pus draining from incision sites ?Persistent nausea or inability to take in liquids Discharge Attestations Time Spent in Discharge Care*: less than 30 min Quality Metrics Clinical Quality Measures During this hospital stay, did patient experience: None Coding Level of Care Code Acute Noel JORGE VORA note
--- NOTE | 2021-05-07 15:13 | PC.NURSE ---
patient verbalizes understanding of discharge instructions, home medications, and follow up appointments.
--- NOTE | 2021-05-10 12:18 | PC.SOCIAL ---
discharge follow up made. spoke with patient. new medications picked up from the pharmacy and patient is taking as prescribed. denies nausea. patient reports pain medications aren't working as well as he would like, advised patient to add motrin to see if that would help with pain control. patient is aware of follow up appointment with Dr. Li. Patient is advancing diet as tolerated. went over lifting restrictions and wound care.
== END 2021-05-07 15:14 | disposition home or self-care (01) ==
LOC: MEDSURG 18:24
PROVIDERS: Admitting Provider Surgery; PCP Family Medicine; Visit Provider Surgery
PROC: 0WQF4ZZ Repair Abdominal Wall, Percutaneous Endoscopic Approach (ICD-10-PCS; CPT 22901; principal; 2021-05-06 12:00)
DX: K43.2 Incisional hernia without obstruction or gangrene (principal); Z90.49 Acquired absence of other specified parts of digestive tract; Z98.890 Other specified postprocedural states; R59.0 Localized enlarged lymph nodes; R19.00 Intra-abdominal and pelvic swelling, mass and lump, unspecified site
CPT/HCPCS: 22901; 49654; 36415; 36416; 80048; 82962; 85025; 88302; 94664; 96365; 96372; 97161; 97530; C9290; G0378; J1100; J1170; J1815; J1885; J2270; J2405; J2704; J2710; J3010; J3370; J3490; J7030; J7050

== ENCOUNTER 2021-07-28 11:53 | Outpatient (CLI) | payer MEDICARE, MEDICAID, SELFPAY ==
--- NOTE | 2021-07-28 12:02 | CT_ITS ---
WS: [id number] CT HEAD TECHNIQUE: Noncontrast and contrast-enhanced CT of the head. CLINICAL INFORMATION: R 6TH NERVE PALSY COMPARISON: October 30, 2019 DLP: 1465.[address] scans at [facility] use at least one of these dose optimization techniques: automated e xposure control; mA and/or kV adjustment per patient size (includes targeted exams where dose is matc hed to clinical indication); or iterative reconstruction. FINDINGS: No evidence of intracranial hemorrhage or mass effect. Ventricular system and basal cisterns are gutierrez nt. Chronic lacunar infarcts left basal ganglia unchanged. Mild small vessel changes. Moderate parenc hymal volume loss unchanged. No abnormal intracranial enhancement. No enhancing lesions. Paranasal sinuses and mastoid air cells well aerated. CT/CT head wo/w con [id number] IMPRESSION: 1. No evidence of abnormal intracranial enhancement. 2. Mild small vessel changes with moderate parenchymal volume loss unchanged. 3. Tiny chronic lacunar infarct left lateral basal ganglia unchanged. 4. No other significant findings and no significant changes from previous.
[2021-07-28] MEDS: iodixanol 320 mg/mL 100mL Btl IV (12:52)
== END 2021-07-28 11:54 | disposition home or self-care (01) ==
LOC: RAD 11:54
PROVIDERS: PCP Family Medicine; Visit Provider Family Medicine
DX: H49.21 Sixth [abducent] nerve palsy, right eye (principal); H53.2 Diplopia; I63.9 Cerebral infarction, unspecified
CPT/HCPCS: 70470

== ENCOUNTER 2021-07-30 09:10 | Outpatient (CLI) | payer MEDICARE, MEDICAID, SELFPAY ==
--- NOTE | 2021-07-30 09:17 | CT_ITS ---
WS: [id number] Exam: CT abdomen pelvis w con* [id number] Date/Time of Exam: 07/30/2021 9:22 AM Reason For Exam: LOCALIZED ENLARGED LYMPH NODES DLP: 1192.[address] scans at [facility] use at least one of these dose optimization techniques: automated e xposure control; mA and/or kV adjustment per patient size (includes targeted exams where dose is matc hed to clinical indication); or iterative reconstruction. Comparison 03/22/2021. Lower lung zones are clear. Fatty liver noted. The stomach is distended with fluid and food debris. T he spleen and pancreas are unremarkable. Stable appearing enlarged anterior periaortic lymph node is identified. This measures approximately 3.2 x 3 cm. No other lymphadenopathy in the abdomen or pelvis . Normal adrenal glands. Bilateral renal cysts are noted. There may be a pinpoint nonobstructing ston e in the right kidney. No renal obstruction. The abdominal aorta is normal in caliber. The portal vei n and IVC are patent. Small bowel loops are normal in caliber. Moderate amount retained stool in the colon. No other large bowel abnormality seen. No sign of acute appendix. There are 2 small central ve ntral hernias noted. One of the hernias contains a single loop of unobstructed bowel. There is a new small left-sided ventral hernia containing omental fat. No mass or adenopathy in the pelvis. Intact urinary bladder. No destructive bone lesions are seen. A neurostimulator pack is noted along the left flank region with leads extending into the thoracic spinal canal. CT/CT abdomen pelvis w con* [id number] IMPRESSION: 1. Stable-appearing single enlarged anterior periaortic lymph node. No new lymp hadenopathy or mass in the abdomen or pelvis. 2. Total of 3 small ventral hernias. See above discussion. 3. Constipation, fatty liver, renal cysts.
[2021-07-30] MEDS: iodixanol 320 mg/mL 100mL Btl IV (11:16)
[2021-07-30] MEDS: iohexol 300 mg/mL 50 mL Btl PO (11:17)
== END 2021-07-30 09:11 | disposition home or self-care (01) ==
PROVIDERS: PCP Family Medicine; Visit Provider Internal Medicine Hematology & Oncology
DX: R59.0 Localized enlarged lymph nodes (principal); K59.00 Constipation, unspecified; K76.0 Fatty (change of) liver, not elsewhere classified; Q61.02 Congenital multiple renal cysts; K43.9 Ventral hernia without obstruction or gangrene
CPT/HCPCS: 74177; Q9967

== ENCOUNTER 2021-08-02 14:49 | Outpatient (CLI) | payer MEDICARE, MEDICAID, SELFPAY ==
[2021-08-02 15:29] LABS: Basophils # 0.1 10^3/uL (0.0-0.1); Basophils % 0.8 %; Eosinophils # 0.5 10^3/uL (0.0-0.8); Eosinophils % 6.5 %; Hematocrit 35.8 % (42.0-52.0); Hemoglobin 11.4 g/dL (11.7-16.6); Lymphocytes # 2.2 10^3/uL (0.8-4.8); Lymphocytes % 28.4 %; Mean Corpuscular HGB Conc 31.8 g/dL (30.0-36.0); Mean Corpuscular Hemoglobin 25.5 pg (28.0-34.0); Mean Corpuscular Volume 80.1 fl (80-94); Mean Platelet Volume 9.8 fL (7.4-10.4); Monocytes # 0.5 10^3/uL (0.2-0.9); Monocytes % 6.1 %; Neutrophils # 4.42 10^3/uL (1.8-7.7); Neutrophils % 57.8 %; Nucleated Red Blood Cells % 0 %; Platelet Count 308 10^3/cmm (130-400); Red Blood Count 4.47 10^6/uL (4.1-5.3); Red Cell Distribution Width 13.1 % (12.1-15.1); White Blood Count 7.7 10^3/uL (4.0-10.0)
[2021-08-02 15:40] LABS: Alanine Aminotransferase 17 U/L (0-41); Albumin Level 3.7 g/dL (3.5-5.2); Alkaline Phosphatase 56 IU/L (40-130); Aspartate Amino Transferase 12 U/L (0-40); Blood Urea Nitrogen 12 mg/dL (8-23); Calcium 8.8 mg/dL (8.5-10.5); Carbon Dioxide 25 mmol/L (22-29); Chloride 94 mmol/L (98-107); Globulin 2.5 g/dL (1.3-4.6); Glomerular Filtration Rate 168.5 mL/min (90-130); Glucose 233 mg/dL (65-115); Lactate Dehydrogenase 73 U/L (135-225); Osmolality Calculated 279 mOsm/kg (285-295); Sodium 131 mmol/L (136-145); Total Bilirubin 0.2 mg/dL (0.15-1.2); Total Protein 6.2 g/dL (6.6-8.7)
--- NOTE | 2021-08-02 17:01 | ONC FU_ITS ---
Dr. Apple follow up note Patient: Guanakito Longo Unit #: [id number]: [id number] Dicatated By: Maria M Apple M.D.Date of Visit:Aug 02, 2021 Onc Med Follow-up/Prog Note History of Present Illness: Mr. Guanakito Longo, is a 60-year-old gentleman with a history of chronic epigastric pain due to chronic pancreatitis for which he has morphine pump placed in, also has history of right hemicolectomy for colon polyps, patient was recently evaluated by surgery for abdominal pain due to hernia around the incision so CT scan of abdomen pelvis was ordered which was done on March 11, 2021 which showed no acute abnormality seen in abdomen pelvis, stable 3 cm retroperitoneal lymph node and nonobstructive renal calculi, CT scan of neck and chest done on February 26, 2021 showed no cervical lymphadenopathy or mediastinal lymphadenopathy or pulmonary mass. His CT scan of abdomen pelvis done on March 29, 2019 showed numerous enlarged mesenteric lymph nodes along the mesenteric root, were present on the prior exam done in August 2018, largest being 12 mm, findings are nonspecific but suspicious for mesenteric adenitis. Minimal edema involving pancreatic head with trace inflammatory stranding. Interval enlargement of low-attenuation lesion in the undersurface of spleen measuring 16 mm compared to 8 mm in August 2018, no mention of retroperitoneal lymph node. Patient denies any weight loss rather weight gain, denies any recurrent fever but off and on night sweats, patient is also diabetic. Denies any peripheral lymphadenopathy denies any abdominal fullness. Denies any hematuria or dysuria denies any melena or hematochezia, denies any hemoptysis or hematemesis denies any jaundice, Denies smoking or alcohol use CT PET scan done on April 13, 2021 shows mesenteric and retroperitoneal lymphadenopathy, dominant lymph node in retroperitoneal size about 3 cm with SUV of 7.85. A cluster of hypermetabolic mesenteric lymph nodes with SUV of 5.78 no hypermetabolic lymph node noted within the pelvis but there is a predominantly fat attenuation lesion within the upper pelvis has peripheral groundglass-like soft tissue attenuation size about 5.5 x 4.6 cm with peripheral enhancement with SUV of 3.4 could be acute inflammation or lymphoma or liposarcoma. No mediastinal lymphadenopathy Ventral abdominal hernia Follow-up CT scan of the abdomen pelvis done on July 30, 2021 shows stable appearing single enlarged anterior periaortic lymph node. Size about 3.2 x 3 cm, no new lymphadenopathy or mass in abdominal pelvis. Came for follow-up, denies any specific complaints, no fever chills, no nausea or vomiting, no diarrhea constipation, no night sweats, no weight loss, no peripheral lymphadenopathy, no recurrent fever, no abdominal fullness, no abdominal pain Medications: Albuterol Sulfate (108 (90 base) mcg/act) Aerosol Powder, Breath Activated Inhalation 8x/d PRN, Carvedilol (12.5 mg) Tablet Oral b.i.d., Clopidogrel Bisulfate (75 mg) Tablet Oral at bedtime, Daily Multiple Vitamins Tablet Oral daily, Furosemide (20 mg) Tablet Oral daily, Gabapentin (100 mg) Capsule Oral t.i.d., glipiZIDE (10 mg) Tablet Oral b.i.d., hydrOXYzine HCl (50 mg) Tablet Oral b.i.d. PRN, Ibuprofen Tablet Oral PRN, Insulin Lispro (1 Unit Dial) Subcutaneous, Isosorbide Mononitrate ER (30 mg) Tablet SR 24 HR Oral at bedtime, Lantus SoloStar 53 Units Subcutaneous at bedtime, Lisinopril (20 mg) Tablet Oral b.i.d., Nortriptyline HCl (50 mg) Capsule Oral at bedtime, Pantoprazole Sodium (40 mg) Tablet, enteric coated Oral daily, Rosuvastatin Calcium Tablet Oral, Sertraline HCl (100 mg) Tablet Oral daily Allergies: ALPRAZolam, Aspirin, fentaNYL, Iodinated Contrast Media, Penicillins, and Zolpidem Tartrate. Review of Systems: Review of Systems is not available for this patient. Vital Signs: Performed on Aug 02, 2021 16:38 Height - 71.00 in Weight - 239.2 lbs (HIGH) BSA - 2.28 sq.m BMI - 33.36 (HIGH) Temperature - 97.3 F (LOW) Pulse - 83 /min Respiration - 18 /min BP - 160/81 mm(hg) (HIGH) O2 Sat - 97 % Pain - 0 Fatigue - 6 Performance Status: 0 - Fully active, able to carry on all predisease activities without restrictions. (ECOG) Physical Examination: ENMT - No mouth sores, no thrush, no jaundice, No peripheral lymphadenopathy, Respiratory - Lungs are clear to auscultation, Cardiovascular - Regular rate and rhythm of heart, Abdomen - Soft, bowel sounds present, Extremities - No visible edema. Lab/Imaging: Most recent lab results are not available for this patient. Impression: Solitary retroperitoneal lymph node size about [address] scan of abdomen pelvis done on March 11, 2021, etiology unclear could be lymphoproliferative disorder versus reactive versus germ cell tumor versus other primary CT scan of neck chest done on February 26, 2021 showed no evidence of cervical or mediastinal lymphadenopathy or other mass History of chronic pancreatitis/epigastric pain, now has morphine pump for more than 20 years Diabetes Abdominal incisional hernia History of multiple colon polyps status post colonoscopy multiple times status post right hemicolectomy for colon polyp Plan: Discussed with patient regarding his labs white blood count 7.7 hemoglobin 11.4 g compared to 12 g earlier medical 35.8 platelets 308,000 CMP within normal limits, except sodium 131 and LDH 73 and follow-up CT scan of abdomen pelvis done on July 30, 2021 shows stable appearing single and large anterior periaortic lymph node, site 3.2 x 3 cm and no new lymphadenopathy or mass identified. Clinically, patient is doing well with no new signs symptoms, no B symptoms, his lab work-up is within normal ranges LDH is also within normal range his follow-up CT scan of abdomen pelvis shows no change in single large anterior periaortic lymph node and no new lymphadenopathy seen, At this point, we will continue to monitor and he will return to clinic in 6 months with CBC CMP, LDH and follow-up CT scan of abdomen pelvis. Patient was advised to call us in case he has recurrent night sweats, or weight loss or recurrent fever without obvious infection or peripheral lymphadenopathy or abdominal fullness or pain. Signed By: Maria M Apple M.D. <<Signature on File>>
== END 2021-08-02 14:50 | disposition home or self-care (01) ==
LOC: ONCMED 14:52
PROVIDERS: PCP Family Medicine; Visit Provider Internal Medicine Hematology & Oncology
DX: R59.0 Localized enlarged lymph nodes (principal); E11.9 Type 2 diabetes mellitus without complications; K43.2 Incisional hernia without obstruction or gangrene; Z86.010 Personal history of colon polyps; Z86.39 Personal history of other endocrine, nutritional and metabolic disease; Z79.899 Other long term (current) drug therapy; Z96.89 Presence of other specified functional implants
CPT/HCPCS: 36415; 80053; 83615; 85025; 99214

== ENCOUNTER → 2021-10-26 13:39 | Outpatient (BNVA) | payer MEDICARE, MEDICAID, SELFPAY | PROVIDERS: PCP Family Medicine; Visit Provider Surgery | DX: Z20.822 Contact with and (suspected) exposure to COVID-19 (principal) | CPT/HCPCS: 87635 ==

== ENCOUNTER 2021-11-01 08:57 | Day surgery (SDC) | payer MEDICARE, MEDICAID, SELFPAY ==
[2021-10-29 13:13] VITALS: BMI 32.8
[2021-11-01] VITALS (11 sets, daily range): BP systolic 155–185; BP diastolic 58–82; PULSE 79–90; RESP 12–20; TEMP 36.2–37.2; O2SAT 90–100
--- NOTE | 2021-11-01 09:06 | W.PM.OPSFHP ---
Same Day Surgery H&P Indication for Procedure/HPI DATE OF PROCEDURE: November 01, 2021 CHIEF COMPLAINT/INDICATIONFOR SURGICAL PROCEDURE: incisional heria repair PREOP DIAGNOSIS: incisional hernia PLANNED PROCEDURE: Operation Date: 11/01/21 11:05 Proposed Procedures p Open Incisional Hernia Repair [id number](Not Applicable) - Jorge Li MD Medications/Allergies* Home Medications Medication Instructions Recorded Confirmed Type albuterol sulfate 90 mcg/actuation 1 - 2 inh INHALATION Q4H PRN 10/30/19 10/29/21 History breath activated powder inhaler (ProAir RespiClick) glipizide 10 mg tablet 10 mg PO BID 10/30/19 10/29/21 History isosorbide mononitrate 30 mg 30 mg PO BEDTIME 10/30/19 10/29/21 History tablet,extended release 24 hr nortriptyline 50 mg capsule 50 mg PO BEDTIME 10/30/19 10/29/21 History sertraline 100 mg tablet 100 mg PO DAILY 10/30/19 10/29/21 History gabapentin 100 mg capsule 200 mg PO TID cap 11/25/19 10/29/21 History rosuvastatin 5 mg tablet 5 mg PO Q2D tab 04/21/20 10/29/21 History clopidogrel 75 mg tablet 75 mg PO BEDTIME 03/03/21 10/29/21 History furosemide 20 mg tablet 20 mg PO DAILY PRN 03/03/21 10/29/21 History hydroxyzine HCl 50 mg tablet 50 mg PO BID PRN 03/03/21 10/29/21 History insulin lispro 100 unit/mL See Rx Instructions .ROUTE .COMPLEX 03/03/21 10/29/21 History subcutaneous pen multivitamin 1 tab PO DAILY 03/03/21 10/29/21 History Morphine pain pump CONTINUOUS INTRATHECAL INFUSION 06/09/21 10/22/21 History insulin glargine 100 unit/mL (3 57 unit SUBCUT BEDTIME ml 08/25/21 10/29/21 History mL) subcutaneous pen (Lantus Solostar U-100 Insulin) Allergies/Adverse Reactions Allergy/AdvReac Type Severity Reaction Status Date / Time Iodinated Contrast Media Allergy Unknown ALGY-Hives Verified 10/29/21 13:05 adhesive tape Allergy ALGY-Rash Verified 10/29/21 13:05 alprazolam [From Xanax] Allergy ADR-Anxiety Verified 10/29/21 13:05 aspirin Allergy ALGY-Rash Verified 10/29/21 13:05 fentanyl Allergy ALGY-Rash Verified 10/29/21 13:05 Penicillins Allergy ALGY-Rash Verified 10/29/21 13:05 zolpidem [From Ambien] Allergy ADR-Anxiety Verified 10/29/21 13:05 Pertinent History/Comorbid Conditions* Medical History (Updated 04/09/21 @ 07:51 by Sammie Reece MD) Asthma Mart's palsy Coronary artery disease Diabetes Diabetes GERD (gastroesophageal reflux disease) History of colon polyps HTN (hypertension) NEDRA (obstructive sleep apnea) Peripheral neuropathy Surgical History (Updated 10/22/21 @ 15:38 by Jorge Li MD) H/O colonoscopy (10/27/20) 5 years History of esophagogastroduodenoscopy History of incisional hernia repair (05/06/21) With excision of abdominal wall mass History of right hemicolectomy Status post right inguinal hernia repair Family History (Updated 09/15/20 @ 15:08 by Mari Barker RN) CAD (coronary artery disease) Cancer Hypertension Denies family history of Anesthesia complication Bleeding disorder Social History Smoking and tobacco status: never smoked Alcohol intake: never Pertinent Exam Findings alert, oriented x 3 and regular rate & rhythm Recommendations Surgery/Procedure today Coding Level of Care Code Acute Hematology Oncology Consultant for Devonte Hamm
[2021-11-01] MEDS: sodium chloride 0.9% 1,000 ML 30 ML IV (09:37)
[2021-11-01 09:50] LABS: Glucose Point of Care 255 mg/dL (70-110)
[2021-11-01] MEDS: vancomycin 1,000 MG in sodium chloride 0.9% 250 ML 250 MG IV (09:54)
[2021-11-01] MEDS: insulin regular-human 100 units/1 mL 10 UNIT IVP (10:00)
--- NOTE | 2021-11-01 10:06 | ANES.PREANE2 ---
Pre-Anesthetic Assessment Height/Weight: Height 1.8 m Weight 106.594 kg Temp Pulse Resp BP Pulse Ox 98.0 F 83 16 168/82 96 11/01/21 09:15 11/01/21 09:15 11/01/21 09:15 11/01/21 09:15 11/01/21 09:15 Preop Diagnosis: incisional hernia Operation Date: 11/01/21 11:05 Proposed Procedures p Open Incisional Hernia Repair [id number](Not Applicable) - Jorge Li MD Familial anesthetic complications: None Was Beta Asha taken within 24 hours: N/A Was Clonidine taken within 24 hours: N/A Last intake: Intake Last Liquid Date 10/31/21 Last Liquid Time 23:00 Last Solid Date 10/31/21 Last Solid Time 23:00 Social No alcohol and No tobacco Exam alert, oriented x 3, clear to auscultation bilaterally and regular rate & rhythm Airway Mallampati: Class II Dentition: false Pulmonary Sleep Apnea (cpap) CV/HEM Hypertension GI Gastroesophageal Reflux Disease Metabolic Diabetes Mellitus [facility] chronic pain Anesthetic Plan ASA status: 3 Anesthesia: General Medications/Allergies Home Medications Medication Instructions Recorded Confirmed Last Taken Type albuterol sulfate 90 mcg/actuation 1 - 2 inh INHALATION Q4H PRN 10/30/19 10/29/21 03/10/21 History breath activated powder inhaler (ProAir RespiClick) glipizide 10 mg tablet 10 mg PO BID 10/30/19 11/01/21 10/31/21 History isosorbide mononitrate 30 mg 30 mg PO BEDTIME 10/30/19 11/01/21 10/30/21 History tablet,extended release 24 hr nortriptyline 50 mg capsule 50 mg PO BEDTIME 10/30/19 11/01/21 10/30/21 History sertraline 100 mg tablet 100 mg PO DAILY 10/30/19 10/29/21 05/05/21 History gabapentin 100 mg capsule 200 mg PO TID cap 11/25/19 11/01/21 10/31/21 History rosuvastatin 5 mg tablet 5 mg PO Q2D tab 04/21/20 10/29/21 05/05/21 History clopidogrel 75 mg tablet 75 mg PO BEDTIME 03/03/21 11/01/21 10/26/21 History furosemide 20 mg tablet 20 mg PO DAILY PRN 03/03/21 11/01/21 10/31/21 History hydroxyzine HCl 50 mg tablet 50 mg PO BID PRN 03/03/21 11/01/21 10/30/21 History insulin lispro 100 unit/mL See Rx Instructions .ROUTE .COMPLEX 03/03/21 11/01/21 10/31/21 20:00 History subcutaneous pen multivitamin 1 tab PO DAILY 03/03/21 11/01/21 10/31/21 History pvodfw-[id number]-eztuvpg 2 cap PO TID #90 cap 03/13/21 11/01/21 10/31/21 Rx 36,000-114,000-180,000 unit capsule,delay rel (Creon) pantoprazole 40 mg tablet,delayed 40 mg PO BIDWM 60 Days #0 tab 03/13/21 10/29/21 05/05/21 Rx release lisinopril 10 mg tablet 10 mg PO BID #180 tab 04/07/21 11/01/21 11/01/21 07:30 Rx ondansetron HCl 4 mg tablet 4 mg PO Q6H PRN #20 tab 05/06/21 11/01/21 1 Week Ago Rx (Zofran) ~10/25/21 sennosides 8.6 mg-docusate sodium 1 tab-cap PO BID #30 tab 05/06/21 10/29/21 Unknown Rx 50 mg tablet (Senna with Docusate Sodium) Morphine pain pump CONTINUOUS INTRATHECAL INFUSION 06/09/21 10/22/21 11/01/21 History insulin glargine 100 unit/mL (3 57 unit SUBCUT BEDTIME ml 08/25/21 11/01/21 10/31/21 23:00 History mL) subcutaneous pen (Lantus 26 Solostar U-100 Insulin) hydrocodone 5 mg-acetaminophen 325 1 tab PO Q6H PRN #20 tab 11/01/21 Unknown Rx mg tablet Allergies Allergy/AdvReac Type Severity Reaction Status Date / Time Iodinated Contrast Media Allergy Unknown ALGY-Hives Verified 10/29/21 13:05 adhesive tape Allergy ALGY-Rash Verified 10/29/21 13:05 aspirin Allergy ALGY-Rash Verified 10/29/21 13:05 fentanyl Allergy ALGY-Rash, Verified 11/01/21 09:15 vomit Penicillins Allergy ALGY-Rash, Verified 11/01/21 09:15 breathing difficulty alprazolam [From Xanax] AdvReac ADR-Anxiety Verified 11/01/21 09:15 zolpidem [From Ambien] AdvReac ADR-Anxiety Verified 11/01/21 09:15 Current Medications Generic Name Dose Route Start Last Admin Trade Name Freq PRN Reason Stop Dose Admin Sodium Chloride 1,000 mls @ 30 mls/hr 11/01/21 09:15 11/01/21 09:37 Sodium Chloride 0.9% IV 11/02/21 09:14 30 mls/hr .Q24H LOTUS Administration PFSH Anesthesia Medical History Asthma Mart's palsy Coronary artery disease Diabetes Diabetes GERD (gastroesophageal reflux disease) History of colon polyps HTN (hypertension) NEDRA (obstructive sleep apnea) Peripheral neuropathy Surgical History (Updated 11/01/21 @ 10:06 by Jorge Li MD) H/O colonoscopy (10/27/20) 5 years History of esophagogastroduodenoscopy History of incisional hernia repair (05/06/21) With excision of abdominal wall mass History of incisional hernia repair (11/01/21) open with mesh History of right hemicolectomy Status post right inguinal hernia repair Family History Other CAD (coronary artery disease) Cancer Hypertension Denies family history of Anesthesia complication Bleeding disorder Social History Smoking and tobacco status: never smoked Alcohol intake: never Data Anesthesia Cardiac Studies: Echocardiogram 03/04/21
[2021-11-01 10:37] LABS: Glucose Point of Care 212 mg/dL (70-110)
[2021-11-01 10:59] LABS: Potassium 4.1 mmol/L (3.5-5.1)
--- NOTE | 2021-11-01 12:46 | PM.OP ---
Operative Report Date of procedure: November 01, 2021 Pre-op diagnosis: Port site incarcerated incisional hernia in the left upper quadrant Post-op diagnosis: Port site incarcerated incisional hernia in the left upper quadrant containing omentum Procedure done: Open repair of incarcerated incisional hernia with placement of preperitoneal 4.[address] mesh Pathology: none sent Surgeon: Jorge Li Anesthesia: General Condition: stable Disposition: PACU Procedure: The patient was taken to the operating room and intubated under general anesthesia after IV antibiotic had been administered. The abdomen was prepped and draped in a sterile manner. Using a 15 blade a 5 cm incision was made over the existing scar in the left upper quadrant, subcutaneous tissue was divided using electrocautery. The hernia sac was dissected free from the surrounding subcutaneous tissues using electrocautery and the omentum within the hernia sac was reduced. The defect measured about 5 x 3 cm. A 4.[address] mesh was introduced into the preperitoneal space and secured with 0 Vicryl suture. The external oblique aponeurosis was closed using interrupted #1 Prolene suture. The subcutaneous tissues were approximated using running 3-0 Vicryl suture and skin was closed using a running subcuticular 4-0 Monocryl suture and Dermabond. 20 cc of 0.5% Marcaine was infiltrated around the incision. The patient was extubated and transferred recovery room in stable condition.
[2021-11-01] MEDS: HYDROmorphone 1 mg/mL INJ 1 mL 0.5 MG IVP (12:53)
[2021-11-01] MEDS: ondansetron 2 mg/ML SDV 2 mL 4 MG IVP (13:40)
--- NOTE | 2021-11-01 13:48 | ANE.PACU2 ---
Inpatient post-anesthesia follow up: Airway intact: Yes Vital signs: Temperature 97.2 F Pulse Rate 79 Respiratory Rate 16 Blood Pressure 185/82 Pulse Oximetry 90 Oxygen Delivery Me thod Room Air Oxygen Flow Rate 3 Fraction of Inspir ed Oxygen Hydration adequate: Yes Nausea and vomiting: No Pain level: 3 Mental status: Baseline
[2021-11-01] MEDS: HYDROcodone-acetaminophen 5-325 mg Tablet 1 TAB PO (13:59)
== END 2021-11-01 14:50 | disposition home or self-care (01) ==
PROVIDERS: Anesthesiology; PCP Family Medicine; Visit Provider Surgery
PROC: (CPT 49561; principal; 2021-11-01 10:55)
DX: K43.0 Incisional hernia with obstruction, without gangrene (principal); I10 Essential (primary) hypertension; G47.30 Sleep apnea, unspecified; K21.9 Gastro-esophageal reflux disease without esophagitis; G89.29 Other chronic pain; Z79.4 Long term (current) use of insulin; J45.909 Unspecified asthma, uncomplicated; I25.10 Atherosclerotic heart disease of native coronary artery without angina pectoris; G47.33 Obstructive sleep apnea (adult) (pediatric); E11.42 Type 2 diabetes mellitus with diabetic polyneuropathy
CPT/HCPCS: 49561; 49568; 36416; 82962; 84132; J1100; J1170; J1200; J1815; J2250; J2405; J2704; J3010; J3370; J3490; J7030; J7050

== ENCOUNTER → 2021-12-14 10:58 | Outpatient (BNVA) | payer MEDICARE, MEDICAID, SELFPAY | PROVIDERS: PCP Family Medicine; Visit Provider Surgery | DX: Z98.890 Other specified postprocedural states (principal); Z87.19 Personal history of other diseases of the digestive system ==

== ENCOUNTER → 2022-02-15 07:53 | Outpatient (BNVA) | payer MEDICARE, MEDICAID, SELFPAY | PROVIDERS: PCP Family Medicine; Visit Provider Podiatrist Foot & Ankle Surgery | DX: E11.42 Type 2 diabetes mellitus with diabetic polyneuropathy (principal); L60.3 Nail dystrophy; M20.41 Other hammer toe(s) (acquired), right foot; M20.42 Other hammer toe(s) (acquired), left foot; M21.41 Flat foot [pes planus] (acquired), right foot; M21.42 Flat foot [pes planus] (acquired), left foot; Z79.4 Long term (current) use of insulin | CPT/HCPCS: 11721; 99203; 99204 ==

== ENCOUNTER 2022-03-04 14:21 | Outpatient (CLI) | payer MEDICARE, MEDICAID, SELFPAY ==
--- NOTE | 2022-03-04 15:01 | CT_ITS ---
WS: [id number] CT ABDOMEN PELVIS TECHNIQUE: Noncontrast CT of the abdomen and pelvis with coronal and sagittal reformatted images. CLINICAL INFORMATION: LOCALIZED ENLARGED LYMPH NODES COMPARISON: CT abdomen pelvis 07/30/2021 and 04/13/2021 PET/CT DLP: 1317.[address] scans at [facility] use at least one of these dose optimization techniques: automated e xposure control; mA and/or kV adjustment per patient size (includes targeted exams where dose is matc hed to clinical indication); or iterative reconstruction. FINDINGS: Lung bases are well aerated. Previously described preaortic lymph node has decreased in size today me asuring 1.4 x 1.5 cm compared to 3.2 x 2.5 cm previous. No other lymphadenopathy. Noncontrast liver is normal. Cholecystectomy clips. Normal noncontrast spleen. Normal GE junction. Ad renal glands are normal. Splenic artery calcification. Adrenal glands are normal. No hydronephrosis i n either kidney. RIGHT renal cyst measuring 4.4 CM. No hydronephrosis in either kidney. Normal caliber abdominal aorta. Aortic calcification. Fat-containing LEFT lateral ventral abdominal w all hernia with herniated omental fat. Induration in this area is new from previous likely representi ng an omental infarct. This area measures approximately 3.7 CM. Previously described umbilical and pe riumbilical hernia are otherwise unchanged. Grade 1 anterolisthesis L5 on S1 with chronic spondylolysis. Partially visualized spinal stimulator. CT/CT abdomen pelvis wo con [id number] IMPRESSION: 1. Previously described preaortic lymph node is decreased in size today measur ing 1.5 x 1.4 CM. No other lymphadenopathy. 2. Prior cholecystectomy. 3. Bilateral renal cysts largest in the RIGHT measuring 4.4 CM. 4. LEFT lateral ventral abdominal wall spigelian hernia containing omental fat with small amount of fluid. Associated induration in this area today suspiciou s for omental infarct or fat necrosis may be due to interval repair. Recommend correlation with LEFT abdominal pain. 5. Previously described umbilical and periumbilical hernias are similar in srini earance. 6. Grade 1 anterolisthesis L5 on S1 with bilateral spondylolysis.
[2022-03-04] MEDS: barium sulfate 450 mL Oral Susp PO (16:06)
== END 2022-03-04 14:22 | disposition home or self-care (01) ==
PROVIDERS: PCP Family Medicine; Visit Provider Internal Medicine Hematology & Oncology
DX: R59.0 Localized enlarged lymph nodes (principal); Z90.49 Acquired absence of other specified parts of digestive tract; Q61.02 Congenital multiple renal cysts; K43.9 Ventral hernia without obstruction or gangrene
CPT/HCPCS: 74176

== ENCOUNTER 2022-03-07 12:16 | Oncology outpatient (recurring) (ONCR) | payer MEDICARE, MEDICAID, SELFPAY ==
[2022-03-07 13:05] LABS: Basophils # 0.1 10^3/uL (0.0-0.1); Eosinophils # 0.2 10^3/uL (0.0-0.8); Eosinophils % 3.2 %; Hemoglobin 11.6 g/dL (11.7-16.6); Lymphocytes # 1.8 10^3/uL (0.8-4.8); Lymphocytes % 24.3 %; Mean Corpuscular HGB Conc 34.1 g/dL (30.0-36.0); Mean Corpuscular Hemoglobin 26.5 pg (28.0-34.0); Mean Corpuscular Volume 77.6 fl (80-94); Mean Platelet Volume 10.4 fL (7.4-10.4); Monocytes # 0.4 10^3/uL (0.2-0.9); Monocytes % 4.9 %; Neutrophils # 4.77 10^3/uL (1.8-7.7); Neutrophils % 66.2 %; Nucleated Red Blood Cells % 0 %; Platelet Count 274 10^3/cmm (130-400); Red Blood Count 4.38 10^6/uL (4.1-5.3); Red Cell Distribution Width 12.5 % (12.1-15.1); White Blood Count 7.2 10^3/uL (4.0-10.0)
[2022-03-07 14:52] LABS: Alanine Aminotransferase 12 U/L (0-41); Albumin Level 3.8 g/dL (3.5-5.2); Alkaline Phosphatase 68 IU/L (40-130); Anion Gap 15.3 (5-19); Aspartate Amino Transferase 12 U/L (0-40); Blood Urea Nitrogen 11 mg/dL (8-23); Calcium 9.1 mg/dL (8.5-10.5); Carbon Dioxide 27 mmol/L (22-29); Chloride 99 mmol/L (98-107); Globulin 2.7 g/dL (1.3-4.6); Glomerular Filtration Rate 167.9 mL/min (90-130); Glucose 195 mg/dL (65-115); Lactate Dehydrogenase 56 U/L (135-225); Osmolality Calculated 289 mOsm/kg (285-295); Potassium 4.3 mmol/L (3.5-5.1); Sodium 137 mmol/L (136-145); Total Bilirubin 0.3 mg/dL (0.15-1.2); Total Protein 6.5 g/dL (6.6-8.7)
== END 2022-03-20 23:59 | disposition home or self-care (01) ==
PROVIDERS: Internal Medicine Hematology & Oncology; PCP Family Medicine; Visit Provider Nurse Practitioner Family
DX: R59.0 Localized enlarged lymph nodes (principal); Z87.19 Personal history of other diseases of the digestive system; G89.29 Other chronic pain; R10.13 Epigastric pain; Z79.891 Long term (current) use of opiate analgesic; E11.9 Type 2 diabetes mellitus without complications; K43.2 Incisional hernia without obstruction or gangrene; Z86.010 Personal history of colon polyps; Z90.49 Acquired absence of other specified parts of digestive tract
CPT/HCPCS: 36415; 80053; 83615; 85025; 99214

== ENCOUNTER → 2022-03-15 08:37 | Outpatient (BNVA) | payer MEDICARE, MEDICAID, SELFPAY | PROVIDERS: PCP Family Medicine; Visit Provider Surgery | DX: Z98.890 Other specified postprocedural states (principal); Z87.19 Personal history of other diseases of the digestive system | CPT/HCPCS: 99214 ==

== ENCOUNTER → 2022-04-15 11:12 | Outpatient (BNVA) | payer MEDICARE, MEDICAID, SELFPAY | PROVIDERS: PCP Family Medicine; Visit Provider Internal Medicine Cardiovascular Disease | DX: I10 Essential (primary) hypertension (principal); E11.9 Type 2 diabetes mellitus without complications; Z79.84 Long term (current) use of oral hypoglycemic drugs | CPT/HCPCS: 99214 ==

== ENCOUNTER → 2022-05-24 10:08 | Outpatient (BNVA) | payer MEDICARE, SELFPAY | PROVIDERS: PCP Family Medicine; Visit Provider Podiatrist Foot & Ankle Surgery | DX: E11.42 Type 2 diabetes mellitus with diabetic polyneuropathy (principal); L60.3 Nail dystrophy; M20.41 Other hammer toe(s) (acquired), right foot; M20.42 Other hammer toe(s) (acquired), left foot; M21.41 Flat foot [pes planus] (acquired), right foot; Z79.4 Long term (current) use of insulin; M21.42 Flat foot [pes planus] (acquired), left foot | CPT/HCPCS: 11721 ==

== ENCOUNTER 2022-08-02 14:08 | Emergency (ER) | payer MEDICARE, MEDICAID, SELFPAY ==
[2022-08-02] VITALS (8 sets, daily range): BP systolic 133–139; BP diastolic 68–72; PULSE 76–87; RESP 13–17; TEMP 36.5; O2SAT 93–98; BMI 34.2
--- NOTE | 2022-08-02 15:02 | XR_ITS ---
WS: [id number] Portable AP upright chest, 08/02/2022 Clinical Data: ams Comparison: Portable chest, 03/03/2021 Findings: No nodules, masses or effusions are seen. The heart is normal. The pulmonary vascularity is not increased. No pneumonia or pneumothorax is seen. The aortic arch shows mild tortuosity Monitor l lauri are on the chest wall. XR/XR chest 1V portable [id number] Impression: Atherosclerosis.
--- NOTE | 2022-08-02 15:04 | CTR_ITS ---
PROCEDURE INFORMATION: Exam: CT Head Without Contrast Exam date and time: 08/02/2022 3:43 PM Age: 61 years old Clinical indication: Altered mental status/memory loss; Confusion or disorientation; Additional info: AMS TECHNIQUE: Imaging protocol: Computed tomography of the head without contrast. Radiation optimization: All CT scans at this facility use at least one of these dose optimization techniques: automated exposure control; mA and/or kV adjustment per patient size (includes targeted exams where dose is matched to clinical indication); or iterative reconstruction. COMPARISON: CT head wo/w con [id number] 07/28/2021 12:52 PM RADIATION DOSE METRICS: Total DLP (mGy-cm): 1313.88 FINDINGS: Brain: Normal. No hemorrhage. No space-occupying masses or areas of mass effect. No edema or midline shift. Evidence of cerebral volume loss with prominence of cortical sulci, unchanged. Cerebral ventricles: No ventriculomegaly or interval changes. Paranasal sinuses: Visualized sinuses are unremarkable. No fluid levels. Mastoid air cells: Visualized mastoid air cells are well aerated. Bones/joints: Unremarkable. Soft tissues: Unremarkable. CT/CT head wo con* [id number] IMPRESSION: No acute intracranial abnormalities.
--- NOTE | 2022-08-02 15:40 | W.ED.NEUROSD ---
HPI - Neuro Symptoms/Deficit General: Chief Complaint: Neuro Symptoms/Deficit Stated Complaint: Slurred speech, confusion, dizziness Time Seen by Provider: 08/02/22 15:40 Source: patient Mode of arrival: ambulatory History of Present Illness: 61-year-old male presents emergency room complaining of weakness difficulty walking confusion and generally malaise. Is been going on for the last couple of weeks. He has had this before and had acute kidney injury is concerned about a recurrence of this. He has not had any fever sweats or chills. No difficulty speech swallowing or vision. Onset (ago): week(s) (1) Location: speech, dysarthria, ataxia and altered History of same: Yes Severity: mild Relieving factors: none Exacerbating factors: none Associated symptoms: Deny chest pain, cough, diaphoresis, fevers/chills, headache(s), anorexia, malaise, nausea, seizures, short of breath, syncope, tingling, vertigo, vomiting or weakness Treatments Prior to Arrival: none Review of Systems Const: Denies: fever(s), chills, malaise or diaphoresis ENMT: Denies: throat pain, ear or mastoid pain, nasal discharge or nasal congestion Card: Denies: chest pain or syncope Resp: Denies: dyspnea, productive cough or non-productive cough GI: Denies: abdominal pain, nausea or vomiting : Denies: flank pain, dysuria, urinary frequency or urinary urgency Musc: Denies: neck pain or back pain Skin/Breast: Denies: rash or pruritus Neuro: Denies: headache(s) or vertigo PFSH ED PFSH: Medical History Asthma Mart's palsy Coronary artery disease Diabetes Diabetes GERD (gastroesophageal reflux disease) History of colon polyps HTN (hypertension) NEDRA (obstructive sleep apnea) Peripheral neuropathy Surgical History H/O colonoscopy (10/27/20) 5 years History of esophagogastroduodenoscopy History of incisional hernia repair (05/06/21) With excision of abdominal wall mass History of incisional hernia repair (11/01/21) open with mesh History of right hemicolectomy Status post right inguinal hernia repair Family History Other CAD (coronary artery disease) Cancer Hypertension Denies family history of Anesthesia complication Bleeding disorder Social History Smoking and tobacco status: never smoked Alcohol intake: never Physical Exam Const: COMMON NORMALS: no acute distress GENERAL APPEARANCE: cooperative and comfortable ORIENTATION/CONSCIOUSNESS: Yes awake, Yes oriented to person, Yes oriented to place and Yes oriented to time HENMT: COMMON NORMALS: normocephalic, atraumatic and hearing grossly normal bilaterally HEAD & SCALP: normocephalic and atraumatic Resp: COMMON NORMALS: normal respiratory effort, No retractions, No use of accessory muscles and clear to auscultation bilaterally AUSCULTATION: clear to auscultation bilaterally Cardio: COMMON NORMALS: regular rate, regular rhythm and No murmurs present (Cardio) RATE: regular rate RHYTHM: regular rhythm GI: COMMON NORMALS: Soft to palpation and No hepatosplenomegaly present AUSCULTATION: Yes normoactive bowel sounds PALPATION: Yes Soft to palpation, No Tenderness to palpation present (GI), No Guarding due to palpation present (GI) and Yes No hepatosplenomegaly present Extremity: COMMON NORMALS: normal to inspection, capillary refill normal, no clubbing, cyanosis or edema, no calf tenderness and no pedal edema Neuro: SENSORIUM/ORIENTATION: Yes oriented to person, Yes oriented to place and Yes oriented to time Skin: COMMON NORMALS: no rashes or lesions noted GENERAL SKIN EXAM: no rashes or lesions noted Course Vital Signs: Vital signs: Vital Signs Temperature 97.7 F 08/02/22 14:15 Pulse Rate 77 08/02/22 17:45 Respiratory Rate 13 08/02/22 16:45 Blood Pressure 133/68 08/02/22 17:45 Pulse Oximetry 96 08/02/22 17:45 Oxygen Delivery Me thod 08/02/22 16:26 MDM - Neuro Symptoms/Deficit Medical Decision Making Patient has NIH score of 0 at this point. He does have a pain pump that may be contributing to this he has had problems with it in the past he has a follow-up appointment scheduled with the pain clinic to evaluate this. At this point he does not have anything acute to require admission he does have some cognitive and memory losses this may be also due to the chronic narcotic use. Overall neurologically and is equator noted definitively positive findings we will discharge patient home have him follow-up with his primary care and pain clinics. Medical Records I reviewed the patient's medical records. Lab Data I reviewed the patient's lab results. 08/02/22 16:10 08/02/22 16:10 Radiology Impressions Chest X-Ray 08/02/22 15:02 Impression: Atherosclerosis. Head CT 08/02/22 15:04 IMPRESSION: No acute intracranial abnormalities. Laboratory Results WBC 6.8 10^3/uL (4.0-10.0) 08/02/22 16:10 RBC 3.97 10^6/uL (4.1-5.3) L 08/02/22 16:10 Hgb 10.4 g/dL (11.7-16.6) L 08/02/22 16:10 Hct 32.7 % (42.0-52.0) L 08/02/22 16:10 MCV 82.4 fl (80-94) 08/02/22 16:10 MCH 26.2 pg (28.0-34.0) L 08/02/22 16:10 MCHC 31.8 g/dL (30.0-36.0) 08/02/22 16:10 RDW 13.6 % (12.1-15.1) 08/02/22 16:10 Plt Count 215 10^3/cmm (130-400) 08/02/22 16:10 MPV 9.6 fL (7.4-10.4) 08/02/22 16:10 Neut % (Auto) 57.4 % 08/02/22 16:10 Lymph % (Auto) 30.0 % 08/02/22 16:10 [place] % (Auto) 6.9 % 08/02/22 16:10 Eos % (Auto) 4.7 % 08/02/22 16:10 Baso % (Auto) 0.9 % 08/02/22 16:10 Neut # (Auto) 3.90 10^3/uL (1.8-7.7) 08/02/22 16:10 Lymph # (Auto) 2.0 10^3/uL (0.8-4.8) 08/02/22 16:10 [place] # (Auto) 0.5 10^3/uL (0.2-0.9) 08/02/22 16:10 Eos # (Auto) 0.3 10^3/uL (0.0-0.8) 08/02/22 16:10 Baso # (Auto) 0.1 10^3/uL (0.0-0.1) 08/02/22 16:10 Nucleated RBC % (auto) 0 % 08/02/22 16:10 Nucleated RBCs # 0.0 /100WBC 08/02/22 16:10 Sodium 139 mmol/L (136-145) 08/02/22 16:10 Potassium 4.2 mmol/L (3.5-5.1) 08/02/22 16:10 Chloride 103 mmol/L (98-107) 08/02/22 16:10 Carbon Dioxide 25 mmol/L (22-29) 08/02/22 16:10 Anion Gap 15.2 (5-19) 08/02/22 16:10 BUN 12 mg/dL (8-23) 08/02/22 16:10 Creatinine 0.6 mg/dL (0.7-1.2) L 08/02/22 16:10 GFR Calculation 136.1 mL/min (90-130) H 08/02/22 16:10 Glucose 126 mg/dL (65-115) H 08/02/22 16:10 Calculated Osmolality 289 mOsm/kg (285-295) 08/02/22 16:10 Calcium 8.6 mg/dL (8.5-10.5) 08/02/22 16:10 Total Bilirubin 0.2 mg/dL (0.15-1.2) 08/02/22 16:10 AST 14 U/L (0-40) 08/02/22 16:10 ALT 14 U/L (0-41) 08/02/22 16:10 Alkaline Phosphatase 60 U/L (40-130) 08/02/22 16:10 Ammonia 44 umol/L (16-60) 08/02/22 16:10 Total Protein 6.0 g/dL (6.6-8.7) L 08/02/22 16:10 Albumin 3.6 g/dL (3.5-5.2) 08/02/22 16:10 Globulin 2.4 g/dL (1.3-4.6) 08/02/22 16:10 TSH 0.82 uIU/mL (0.27-4.20) 08/02/22 16:10 Urine Color Yellow (Yellow) 08/02/22 17:20 Urine Appearance Clear (CLEAR) 08/02/22 17:20 Urine pH 5 (5-7) 08/02/22 17:20 Ur Specific [place] 1.015 (1.005-1.030) 08/02/22 17:20 Urine Protein Neg (Negative) 08/02/22 17:20 Urine Glucose (UA) Norm (Normal) 08/02/22 17:20 Urine Ketones Negative (Negative) 08/02/22 17:20 Urine Blood Neg (Negative) 08/02/22 17:20 Urine Nitrate Negative (Negative) 08/02/22 17:20 Urine Bilirubin Neg (Negative) 08/02/22 17:20 Urine Urobilinogen Norm mg/dL (Negative) 08/02/22 17:20 Ur Leukocyte Esterase Negative (Negative) 08/02/22 17:20 Salicylates < 0.3 mg/dL (3-10) L 08/02/22 16:10 Urine Opiates Screen Positive ng/mL (Negative) H 08/02/22 17:20 Acetaminophen < 5.0 ug/mL (10-30) L 08/02/22 16:10 Ur Barbiturates Screen Negative ng/mL (Negative) 08/02/22 17:20 Ur Phencyclidine Scrn Negative ng/mL (Negative) 08/02/22 17:20 Ur Amphetamines Screen Negative ng/mL (Negative) 08/02/22 17:20 U Benzodiazepines Scrn Negative ng/mL (Negative) 08/02/22 17:20 Urine Cocaine Screen Negative ng/mL (Negative) 08/02/22 17:20 U Marijuana (THC) Screen Negative ng/mL (Negative) 08/02/22 17:20 Ethyl Alcohol < 10 mg/dL (0-10) 08/02/22 16:10 Discharge Plan Discharge Patient Disposition: Home Clinical Impression: Memory deficit Condition: Stable Prescriptions: No Action Morphine pain pump See Rx Instructions .ROUTE .COMPLEX Rx Instructions: via continuous intrathecal infusion as directed (DME) Diabetic Shoes with 3 sets of insoles See Rx Instructions .Route .MEDSUPPLY Qty: 1 0RF Rx Instructions: As directed by HOME lisinopril 10 mg tablet 10 mg PO BID Qty: 180 2RF furosemide 20 mg tablet 20 mg PO DAILY PRN (Reason: Edema) Qty: 100 3RF glipizide 10 mg tablet 10 mg PO BID isosorbide mononitrate 30 mg tablet extended release 24 hr 30 mg PO BEDTIME sertraline 100 mg tablet 100 mg PO DAILY nortriptyline 50 mg capsule 50 mg PO BEDTIME ProAir RespiClick 90 mcg/actuation aerosol powdr breath activated 1 - 2 inh inhalation Q4H PRN (Reason: Shortness Of Breath) gabapentin 100 mg capsule 200 mg PO TID rosuvastatin 5 mg tablet 5 mg PO Q2D multivitamin Tablet 1 tab PO DAILY hydroxyzine HCl 50 mg tablet 50 mg PO BID PRN (Reason: Anxiety) clopidogrel 75 mg tablet 75 mg PO BEDTIME Hold Instructions: Resume on 05/09/21. insulin lispro 100 unit/mL insulin pen See Rx Instructions .ROUTE .COMPLEX Rx Instructions: INJECT 20 UNITS WITH MEALS PLUS LOW DOSE SLIDING SCALE MAX OF 87 UNITS PER DAY. Lantus Solostar U-100 Insulin 100 unit/mL (3 mL) insulin pen 57 unit SUBCUT BEDTIME Creon 36,000-114,000- 180,000 unit capsule,delayed release(DR/EC) 2 cap PO TID Qty: 90 3RF Rx Instructions: administer with meals. 1 cap if snacks docusate sodium [Colace] 100 mg capsule 100 mg PO BID Qty: 30 0RF Senna with Docusate Sodium 8.6-50 mg tablet 1 tab-cap PO BID PRN (Reason: Constipation) pantoprazole 40 mg tablet,delayed release (DR/EC) 40 mg PO BID clonidine HCl 0.1 mg tablet 0.1 mg PO Q8H PRN (Reason: Blood Pressure) fluoxetine 20 mg tablet 20 mg PO DAILY metformin 500 mg tablet extended release 24 hr 1,000 mg PO BID Discharge Orders: Discharge ED (Routine); Ordered 08/02/22 Ordered By: Edenilson Fairchild Referrals: Johnny Vargas MD [Primary Care Provider] - Discharge Diet: Usual diet Discharge Activity: Resume usual activity Patient Instructions: Opioid Safety, Pain Management Activity Restrictions/Additional Instructions: You are seen today for memory deficit and confusion. Your CT of your head is unremarkable your neuro exam was normal. We will make arrangements for you to have an outpatient MRI and follow-up with neurology. Coding Level of Care Code ED [place] Apprentice for Devonte Hamm
--- NOTE | 2022-08-02 15:55 | ECG_ITS ---
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 Measurements Intervals [place] Rate: 80 P: 35 IA: 172 QRS: 14 QRSD: 105 T: 5 QT: 371 QTc: 428 Interpretive Statements SINUS RHYTHM POSSIBLE RIGHT VENTRICULAR CONDUCTION DELAY [RSR (QR) IN V1/V2] Compared to ECG 03/03/2021 18:35:21 No significant changes Electronically Signed On 08-03-2022 0:04:35 BLIND STITCH MACHINE OPERATOR by Rhys Yusuf M.D. [id number]
[2022-08-02 16:18] LABS: Basophils # 0.1 10^3/uL (0.0-0.1); Basophils % 0.9 %; Eosinophils # 0.3 10^3/uL (0.0-0.8); Eosinophils % 4.7 %; Hematocrit 32.7 % (42.0-52.0); Hemoglobin 10.4 g/dL (11.7-16.6); Mean Corpuscular HGB Conc 31.8 g/dL (30.0-36.0); Mean Corpuscular Hemoglobin 26.2 pg (28.0-34.0); Mean Corpuscular Volume 82.4 fl (80-94); Mean Platelet Volume 9.6 fL (7.4-10.4); Monocytes # 0.5 10^3/uL (0.2-0.9); Monocytes % 6.9 %; Neutrophils % 57.4 %; Nucleated Red Blood Cells % 0 %; Platelet Count 215 10^3/cmm (130-400); Red Blood Count 3.97 10^6/uL (4.1-5.3); Red Cell Distribution Width 13.6 % (12.1-15.1); White Blood Count 6.8 10^3/uL (4.0-10.0)
[2022-08-02 16:37] LABS: Ammonia 44 umol/L (16-60)
[2022-08-02 16:50] LABS: Alanine Aminotransferase 14 U/L (0-41); Albumin Level 3.6 g/dL (3.5-5.2); Alkaline Phosphatase 60 U/L (40-130); Anion Gap 15.2 (5-19); Aspartate Amino Transferase 14 U/L (0-40); Blood Urea Nitrogen 12 mg/dL (8-23); Calcium 8.6 mg/dL (8.5-10.5); Carbon Dioxide 25 mmol/L (22-29); Chloride 103 mmol/L (98-107); Creatinine Clr Calc Pharmacy 159.7607; Globulin 2.4 g/dL (1.3-4.6); Glomerular Filtration Rate 136.1 mL/min (90-130); Glucose 126 mg/dL (65-115); Osmolality Calculated 289 mOsm/kg (285-295); Potassium 4.2 mmol/L (3.5-5.1); Sodium 139 mmol/L (136-145); Thyroid Stimulating Hormone 0.82 uIU/mL (0.27-4.20); Total Bilirubin 0.2 mg/dL (0.15-1.2)
[2022-08-02 16:56] LABS: Acetaminophen < 5.0 ug/mL (10-30); Alcohol Level < 10 mg/dL (0-10); Salicylate < 0.3 mg/dL (3-10)
[2022-08-02 17:37] LABS: Add Urine Microscopic? NO; Charge for UA Resulting for Rev
[2022-08-02 17:45] LABS: Bilirubin Urine Neg (Negative); Blood Urine Neg (Negative); Glucose Urine UA Norm (Normal); Ketones Urine Negative (Negative); Leukocyte Esterase Urine Negative (Negative); Nitrate Urine Negative (Negative); Protein Urine Neg (Negative); Specific Gravity, Urine 1.015 (1.005-1.030); Urine Appearance Clear (CLEAR); Urine Color Yellow (Yellow); Urobilinogen Urine Norm (Negative); pH Urine 5 (5-7)
[2022-08-02 17:51] LABS: Amphetamines Screen Urine Negative (Negative); Barbiturates Screen Urine Negative (Negative); Benzodiazepines Screen Urine Negative (Negative); Cocaine Screen Urine Negative (Negative); Opiate Screen Urine Positive (Negative); PCP Screen Urine Negative (Negative); THC Screen Urine Negative (Negative)
--- NOTE | 2022-08-03 14:58 | DCPLANNER ---
Addendum entered by Yareli Morrow 11/07/22 08:32: Patient had a follow up appointment scheduled with neurology - patient did attend appointment. Addendum entered by Yareli Morrow 08/09/22 12:55: Patient has a follow up appointment scheduled for September at 11:[address] Melvin at neurology. Clinic will call patient with appointment information. Original Note: ct manager had message to schedule an outpatient MRI for patient. ct manager faxed signed order to centralized scheduling, who will call patient with appointment information. ct manager sent patients primary care physician notification that an MRI was ordered from the ER physician. ct manager had message to schedule a follow up appointment for patient with neurology. ct manager sent patients information to the front office staff at neurology. Patients information will be printed and reviewed. Clinic will call patient with appointment information.
== END 2022-08-02 18:14 | disposition home or self-care (01) ==
PROVIDERS: Emergency Medicine; Emergency Provider Family Medicine; PCP Family Medicine
DX: R41.3 Other amnesia (principal); Z79.84 Long term (current) use of oral hypoglycemic drugs; Z79.02 Long term (current) use of antithrombotics/antiplatelets; Z79.4 Long term (current) use of insulin; I25.10 Atherosclerotic heart disease of native coronary artery without angina pectoris; E11.9 Type 2 diabetes mellitus without complications; I10 Essential (primary) hypertension
CPT/HCPCS: 70450; 71045; 80053; 80306; 80307; 81003; 82140; 84443; 85025; 93005; 99285

== ENCOUNTER → 2022-09-27 10:53 | Outpatient (BNVA) | payer MEDICARE, MEDICAID, SELFPAY | PROVIDERS: PCP Family Medicine; Visit Provider Podiatrist Foot & Ankle Surgery | DX: E11.8 Type 2 diabetes mellitus with unspecified complications (principal); E11.42 Type 2 diabetes mellitus with diabetic polyneuropathy; L60.3 Nail dystrophy; M20.41 Other hammer toe(s) (acquired), right foot; M20.42 Other hammer toe(s) (acquired), left foot; Z79.4 Long term (current) use of insulin; Z79.84 Long term (current) use of oral hypoglycemic drugs; M21.40 Flat foot [pes planus] (acquired), unspecified foot | CPT/HCPCS: 11721 ==

== ENCOUNTER → 2022-09-29 10:48 | Outpatient (BNVA) | payer MEDICARE, MEDICAID, SELFPAY | PROVIDERS: PCP Family Medicine; Visit Provider Specialist | DX: R41.3 Other amnesia (principal); R56.9 Unspecified convulsions; G43.901 Migraine, unspecified, not intractable, with status migrainosus; Z96.89 Presence of other specified functional implants; Z79.891 Long term (current) use of opiate analgesic; E11.42 Type 2 diabetes mellitus with diabetic polyneuropathy; Z79.4 Long term (current) use of insulin; Z79.84 Long term (current) use of oral hypoglycemic drugs | CPT/HCPCS: 99204 ==

== ENCOUNTER 2022-10-28 11:13 | Outpatient (CLI) | payer MEDICARE, MEDICAID, SELFPAY ==
--- NOTE | 2022-10-28 11:30 | CT_ITS ---
WS: [id number] CT ABDOMEN PELVIS TECHNIQUE: Noncontrast CT of the abdomen and pelvis with coronal and sagittal reformatted images. CLINICAL INFORMATION: Follow up COMPARISON: CT March 04, 2022 DLP: 1103.[address] scans at [facility] use at least one of these dose optimization techniques: automated e xposure control; mA and/or kV adjustment per patient size (includes targeted exams where dose is matc hed to clinical indication); or iterative reconstruction. FINDINGS: Lung bases are well aerated. Hepatomegaly. Noncontrast liver otherwise normal. Cholecystect jose clips. Noncontrast spleen is normal. Normal GE junction. Adrenal glands are normal. No hydronephr osis in either kidney. RIGHT renal exophytic cortical cyst measuring 4.5 cm is unchanged. Small LEFT renal cyst.Previously described preaortic lymph node is unchanged measuring 1.5 x 1.4 cm. Normal sigmoid colon. No evidence of high-grade small or large bowel obstruction. Splenic artery calc ification. Normal caliber abdominal aorta. Aortic calcification. Fat-containing LEFT lateral ventral abdominal wall hernia with herniated omental fat. Slightly improv ed previously described omental infarct or fat necrosis in this area. Previously described umbilical and periumbilical hernias are otherwise unchanged. Grade 1 anterolisthesis L5 on S1 with chronic spon dylolysis. Partially visualized spinal stimulator. Prominent lymph nodes along the mesenteric root with slight haziness in the central mesenteric fat co mpatible with Bushra mesentery. This can be seen with sclerosing mesenteritis and has been associate d with lymphoma. This is similar to the prior studies.. CT/CT abdomen pelvis wo con [id number] IMPRESSION: 1. Previously described preaortic lymph node is unchanged today measuring 1.5 x 1.4 CM. 2. Stable bushra mesentery with a few prominent mesenteric lymph nodes along th e mesenteric root 3. Prior cholecystectomy. 4. Stable bilateral renal cysts largest exophytic RIGHT cortical measuring 4.4 CM. 5. LEFT lateral ventral abdominal wall spigelian hernia containing omental fat with small amount of induration likely omental infarct or fat necrosis slightl y decreased compared to previous. No herniated bowel. 6. Previously described umbilical and periumbilical hernias are similar in srini earance 7. Grade 1 anterolisthesis L5 on S1 with bilateral spondylolysis.
== END 2022-10-28 11:14 | disposition home or self-care (01) ==
LOC: RAD 11:17
PROVIDERS: PCP Family Medicine; Visit Provider Internal Medicine Hematology & Oncology
DX: G43.711 Chronic migraine without aura, intractable, with status migrainosus (principal); G31.84 Mild cognitive impairment of uncertain or unknown etiology; R56.9 Unspecified convulsions; R59.0 Localized enlarged lymph nodes; M47.817 Spondylosis without myelopathy or radiculopathy, lumbosacral region; K42.9 Umbilical hernia without obstruction or gangrene; K43.9 Ventral hernia without obstruction or gangrene; Q61.02 Congenital multiple renal cysts; Z90.49 Acquired absence of other specified parts of digestive tract
CPT/HCPCS: 74176; 99213

== ENCOUNTER → 2022-11-01 12:45 | Outpatient (BNVA) | payer MEDICARE, MEDICAID, SELFPAY | PROVIDERS: PCP Family Medicine; Visit Provider Specialist | DX: G31.84 Mild cognitive impairment of uncertain or unknown etiology (principal); R56.9 Unspecified convulsions | CPT/HCPCS: 95812; 95816 ==

== ENCOUNTER 2022-11-07 13:57 | Oncology outpatient (recurring) (ONCR) | payer MEDICARE, MEDICAID, SELFPAY ==
[2022-11-07 14:38] LABS: Basophils # 0.1 10^3/uL (0.0-0.1); Basophils % 0.7 %; Eosinophils # 0.4 10^3/uL (0.0-0.8); Hemoglobin 10.9 g/dL (11.7-16.6); Lymphocytes # 2.4 10^3/uL (0.8-4.8); Lymphocytes % 29.8 %; Mean Corpuscular HGB Conc 31.1 g/dL (30.0-36.0); Mean Corpuscular Volume 83.3 fl (80-94); Mean Platelet Volume 9.6 fL (7.4-10.4); Monocytes # 0.6 10^3/uL (0.2-0.9); Monocytes % 7.7 %; Neutrophils # 4.51 10^3/uL (1.8-7.7); Neutrophils % 56.3 %; Nucleated Red Blood Cells % 0 %; Platelet Count 249 10^3/cmm (130-400); Red Cell Distribution Width 13.7 % (12.1-15.1)
[2022-11-07 14:53] LABS: Alanine Aminotransferase 14 U/L (0-41); Albumin Level 3.8 g/dL (3.5-5.2); Alkaline Phosphatase 54 U/L (40-130); Aspartate Amino Transferase 14 U/L (0-40); Blood Urea Nitrogen 19 mg/dL (8-23); Calcium 8.6 mg/dL (8.5-10.5); Carbon Dioxide 30 mmol/L (22-29); Chloride 96 mmol/L (98-107); Globulin 2.5 g/dL (1.3-4.6); Glomerular Filtration Rate 113.5 mL/min (90-130); Glucose 215 mg/dL (65-115); Osmolality Calculated 291 mOsm/kg (285-295); Sodium 136 mmol/L (136-145); Total Bilirubin 0.3 mg/dL (0.15-1.2); Total Protein 6.3 g/dL (6.6-8.7)
[2022-11-07 15:09] LABS: Anion Gap 14.5 (5-19); Lactate Dehydrogenase 99 U/L (135-225); Potassium 4.5 mmol/L (3.5-5.1)
[2022-11-08 10:37] LABS: Ferritin 46 ng/mL (30-400); Iron 45 ug/dL (59-158); Percent Saturation 12.7 % (20-50); Total Iron Binding Capacity 353 mcg/dl; Unsaturated Iron Binding 308 ug/dL (112-347)
== END 2022-11-18 23:59 | disposition home or self-care (01) ==
LOC: ONCMED 13:57
PROVIDERS: PCP Family Medicine; Visit Provider Internal Medicine Hematology & Oncology
DX: R59.0 Localized enlarged lymph nodes (principal); K43.9 Ventral hernia without obstruction or gangrene
CPT/HCPCS: 80053; 82728; 83540; 83550; 83615; 85025; 99214

== ENCOUNTER → 2022-12-13 13:42 | Outpatient (BNVA) | payer MEDICARE, MEDICAID, SELFPAY | PROVIDERS: PCP Family Medicine; Visit Provider Podiatrist Foot & Ankle Surgery | DX: E11.8 Type 2 diabetes mellitus with unspecified complications (principal); E11.42 Type 2 diabetes mellitus with diabetic polyneuropathy; L60.3 Nail dystrophy; M20.41 Other hammer toe(s) (acquired), right foot; M20.42 Other hammer toe(s) (acquired), left foot; M21.41 Flat foot [pes planus] (acquired), right foot; M21.42 Flat foot [pes planus] (acquired), left foot; L84 Corns and callosities; Z79.84 Long term (current) use of oral hypoglycemic drugs; Z79.4 Long term (current) use of insulin | CPT/HCPCS: 11055; 11721 ==

== ENCOUNTER 2022-12-22 11:42 | Oncology outpatient (recurring) (ONCR) | payer MEDICARE, MEDICAID, SELFPAY ==
[2022-12-22 12:00] LABS: Basophils # 0.1 10^3/uL (0.0-0.1); Eosinophils # 0.3 10^3/uL (0.0-0.8); Eosinophils % 3.8 %; Hemoglobin 10.4 g/dL (11.7-16.6); Lymphocytes # 2.3 10^3/uL (0.8-4.8); Lymphocytes % 32.7 %; Mean Corpuscular HGB Conc 31.5 g/dL (30.0-36.0); Mean Corpuscular Hemoglobin 26.7 pg (28.0-34.0); Mean Corpuscular Volume 84.6 fl (80-94); Mean Platelet Volume 9.7 fL (7.4-10.4); Monocytes # 0.5 10^3/uL (0.2-0.9); Monocytes % 7.1 %; Neutrophils # 3.93 10^3/uL (1.8-7.7); Neutrophils % 54.8 %; Nucleated Red Blood Cells % 0 %; Platelet Count 246 10^3/cmm (130-400); Red Cell Distribution Width 13.1 % (12.1-15.1); White Blood Count 7.2 10^3/uL (4.0-10.0)
[2022-12-22 12:15] LABS: Ferritin 67 ng/mL (30-400); Iron 38 ug/dL (59-158); Percent Saturation 11.4 % (20-50); Total Iron Binding Capacity 333 mcg/dl; Unsaturated Iron Binding 295 ug/dL (112-347)
== END 2023-01-18 23:59 | disposition home or self-care (01) ==
PROVIDERS: PCP Family Medicine; Visit Provider Internal Medicine Hematology & Oncology
DX: D50.9 Iron deficiency anemia, unspecified (principal); R59.0 Localized enlarged lymph nodes; Z87.19 Personal history of other diseases of the digestive system; Z79.891 Long term (current) use of opiate analgesic; Z86.010 Personal history of colon polyps; Z90.49 Acquired absence of other specified parts of digestive tract; K43.9 Ventral hernia without obstruction or gangrene; G89.29 Other chronic pain; R10.13 Epigastric pain; E11.9 Type 2 diabetes mellitus without complications; K43.2 Incisional hernia without obstruction or gangrene
CPT/HCPCS: 36415; 82728; 83540; 83550; 85025; 99213

== ENCOUNTER → 2023-01-04 10:02 | Outpatient (BNVA) | payer MEDICARE, MEDICAID, SELFPAY | PROVIDERS: PCP Family Medicine; Visit Provider Specialist | DX: G31.84 Mild cognitive impairment of uncertain or unknown etiology (principal); G43.711 Chronic migraine without aura, intractable, with status migrainosus; R59.0 Localized enlarged lymph nodes; D50.9 Iron deficiency anemia, unspecified; R11.0 Nausea | CPT/HCPCS: 99214 ==

== ENCOUNTER → 2023-01-13 09:52 | Outpatient (BNVA) | payer MEDICARE, MEDICAID, SELFPAY | PROVIDERS: PCP Family Medicine; Visit Provider Internal Medicine Cardiovascular Disease | DX: I10 Essential (primary) hypertension (principal); E11.9 Type 2 diabetes mellitus without complications; Z79.4 Long term (current) use of insulin | CPT/HCPCS: 99214 ==

== ENCOUNTER 2023-01-30 14:00 | Oncology outpatient (recurring) (ONCR) | payer MEDICARE, MEDICAID, SELFPAY ==
[2023-01-19] MEDS: iron sucrose 200 MG in sodium chloride 0.9% (100 ml) 100 ML 220 MG IV (14:51)
[2023-01-19] MEDS: sodium chloride 0.9% 250 ML 100 ML IV (14:51)
[2023-01-19 15:45] VITALS: BP 143/72; PULSE 85; TEMP 37; O2SAT 96
[2023-01-23 14:00] VITALS: BP 109/53; PULSE 79; RESP 16; TEMP 36.6; O2SAT 95
[2023-01-23] MEDS: sodium chloride 0.9% 250 ML 75 ML IV (14:22)
[2023-01-23] MEDS: iron sucrose 200 MG in sodium chloride 0.9% (100 ml) 100 ML 220 MG IV (14:23)
[2023-01-23 14:31] VITALS: BP 157/94; PULSE 75; RESP 16; TEMP 35.6; O2SAT 100
[2023-01-23 15:00] VITALS: BP 125/65; PULSE 81; RESP 20; TEMP 36; O2SAT 98
[2023-01-25 14:30] VITALS: BP 172/77; PULSE 90; RESP 16; TEMP 36.8; O2SAT 98
[2023-01-25] MEDS: iron sucrose 200 MG in sodium chloride 0.9% (100 ml) 100 ML 220 MG IV (14:30)
[2023-01-25] MEDS: sodium chloride 0.9% 250 ML 75 ML IV (14:30)
[2023-01-25 15:30] VITALS: BP 148/72; PULSE 83; RESP 16; TEMP 36.9; O2SAT 95
[2023-01-27 09:50] VITALS: BP 133/67; PULSE 84; RESP 18; TEMP 36.8; O2SAT 97
[2023-01-27 10:13] LABS: Basophils # 0.1 10^3/uL (0.0-0.1); Basophils % 0.7 %; Eosinophils # 0.4 10^3/uL (0.0-0.8); Eosinophils % 4.7 %; Hematocrit 32.6 % (42.0-52.0); Hemoglobin 10.1 g/dL (11.7-16.6); Lymphocytes # 2.1 10^3/uL (0.8-4.8); Lymphocytes % 28.4 %; Mean Corpuscular Hemoglobin 26.4 pg (28.0-34.0); Mean Corpuscular Volume 85.1 fl (80-94); Mean Platelet Volume 9.7 fL (7.4-10.4); Monocytes # 0.5 10^3/uL (0.2-0.9); Monocytes % 7.2 %; Neutrophils # 4.29 10^3/uL (1.8-7.7); Neutrophils % 58.1 %; Nucleated Red Blood Cells % 0 %; Platelet Count 222 10^3/cmm (130-400); Red Blood Count 3.83 10^6/uL (4.1-5.3); Red Cell Distribution Width 13.8 % (12.1-15.1); White Blood Count 7.4 10^3/uL (4.0-10.0)
[2023-01-27] MEDS: sodium chloride 0.9% 250 ML 75 ML IV (10:17)
[2023-01-27] MEDS: iron sucrose 200 MG in sodium chloride 0.9% (100 ml) 100 ML 220 MG IV (10:18)
[2023-01-27 10:39] LABS: Ferritin 352 ng/mL (30-400); Iron 35 ug/dL (59-158); Percent Saturation 12.5 % (20-50); Total Iron Binding Capacity 280 mcg/dl; Unsaturated Iron Binding 245 ug/dL (112-347)
[2023-01-27 11:15] VITALS: BP 173/68; PULSE 85; RESP 16; TEMP 36.9; O2SAT 96
[2023-01-30 14:00] VITALS: BP 166/71; PULSE 89; RESP 16; TEMP 36.7; O2SAT 96
[2023-01-30] MEDS: iron sucrose 200 MG in sodium chloride 0.9% (100 ml) 100 ML 220 MG IV (14:23)
[2023-01-30 15:03] VITALS: BP 164/76; PULSE 91; RESP 16; TEMP 36.9; O2SAT 96
== END 2023-02-17 23:59 | disposition home or self-care (01) ==
PROVIDERS: Nurse Practitioner Family; PCP Family Medicine; Visit Provider Internal Medicine Hematology & Oncology
DX: D50.9 Iron deficiency anemia, unspecified (principal)
CPT/HCPCS: 82728; 83540; 83550; 85025; 96365; J1756; J7050

== ENCOUNTER 2023-02-28 09:49 | Oncology outpatient (recurring) (ONCR) | payer MEDICARE, MEDICAID, SELFPAY ==
[2023-02-28 10:17] VITALS: BP 166/79; PULSE 87; RESP 16; TEMP 36.6; O2SAT 95
[2023-02-28 10:27] LABS: Basophils # 0.1 10^3/uL (0.0-0.1); Basophils % 1.2 %; Eosinophils # 0.4 10^3/uL (0.0-0.8); Eosinophils % 5.1 %; Hematocrit 34.1 % (42.0-52.0); Lymphocytes # 2.1 10^3/uL (0.8-4.8); Lymphocytes % 28.9 %; Mean Corpuscular HGB Conc 32.3 g/dL (30.0-36.0); Mean Corpuscular Hemoglobin 26.5 pg (28.0-34.0); Mean Corpuscular Volume 82.2 fl (80-94); Mean Platelet Volume 9.3 fL (7.4-10.4); Monocytes # 0.5 10^3/uL (0.2-0.9); Monocytes % 6.9 %; Neutrophils # 4.15 10^3/uL (1.8-7.7); Neutrophils % 57.5 %; Nucleated Red Blood Cells % 0 %; Platelet Count 245 10^3/cmm (130-400); Red Blood Count 4.15 10^6/uL (4.1-5.3); Red Cell Distribution Width 13.8 % (12.1-15.1); White Blood Count 7.2 10^3/uL (4.0-10.0)
[2023-02-28 10:55] LABS: Ferritin 326 ng/mL (30-400); Iron 45 ug/dL (59-158); Percent Saturation 15.8 % (20-50); Total Iron Binding Capacity 284 mcg/dl; Unsaturated Iron Binding 239 ug/dL (112-347)
== END 2023-03-20 23:59 | disposition home or self-care (01) ==
PROVIDERS: PCP Family Medicine; Visit Provider Internal Medicine Hematology & Oncology
DX: D50.9 Iron deficiency anemia, unspecified (principal); R59.0 Localized enlarged lymph nodes; Z86.010 Personal history of colon polyps; Z79.899 Other long term (current) drug therapy
CPT/HCPCS: 36415; 82728; 83540; 83550; 85025; 99214

== ENCOUNTER → 2023-03-13 12:59 | Outpatient (BNVA) | payer MEDICARE, MEDICAID, SELFPAY | PROVIDERS: PCP Family Medicine; Visit Provider Podiatrist Foot & Ankle Surgery | DX: E11.8 Type 2 diabetes mellitus with unspecified complications (principal); E11.42 Type 2 diabetes mellitus with diabetic polyneuropathy; L60.3 Nail dystrophy; M20.41 Other hammer toe(s) (acquired), right foot; M20.42 Other hammer toe(s) (acquired), left foot; L84 Corns and callosities; M21.41 Flat foot [pes planus] (acquired), right foot; M21.42 Flat foot [pes planus] (acquired), left foot; Z79.4 Long term (current) use of insulin; Z79.84 Long term (current) use of oral hypoglycemic drugs | CPT/HCPCS: 11055; 11721 ==

== ENCOUNTER → 2023-03-16 07:37 | Outpatient (BNVA) | payer MEDICARE, MEDICAID, SELFPAY | PROVIDERS: PCP Family Medicine; Referring Provider Family Medicine; Visit Provider Specialist | DX: R56.9 Unspecified convulsions (principal); R41.3 Other amnesia | CPT/HCPCS: 95812; 95816 ==

== ENCOUNTER → 2023-03-21 10:50 | Outpatient (BNVA) | payer MEDICARE, MEDICAID, SELFPAY | PROVIDERS: PCP Family Medicine; Visit Provider Internal Medicine Cardiovascular Disease | DX: R55 Syncope and collapse (principal); I47.29 Other ventricular tachycardia; R00.1 Bradycardia, unspecified | CPT/HCPCS: 93270 ==

== ENCOUNTER → 2023-04-14 11:06 | Outpatient (BNVA) | payer MEDICARE, MEDICAID, SELFPAY | PROVIDERS: PCP Family Medicine; Visit Provider Nurse Practitioner Family | DX: I11.0 Hypertensive heart disease with heart failure (principal); I50.9 Heart failure, unspecified; I47.29 Other ventricular tachycardia | CPT/HCPCS: 36415; 80048; 83880; 99214 ==

== ENCOUNTER 2023-04-17 13:37 | Outpatient (CLI) | payer MEDICARE, MEDICAID, SELFPAY ==
--- NOTE | 2023-04-17 13:45 | USCV_ITS ---
Guanakito Longo Age: 62 Gender: M : 1960 Exam Date: 04/17/2023 14:05 Ordering Phys: Mahogany Dickerson Technologist: Deborah Vidal Exam Location: [facility] [place] Indication: non sustainedd v tach, SOB BP: 130 / 64 HR: 79 Rhythm: Sinus Technical Quality: Fair MEASUREMENTS (Male / Female) Normal Values 2D ECHO LV Diastolic Diameter PLAX 4.4 cm 4.2 - 5.9 / 3.9 - 5.3 cm LV Systolic Diameter PLAX 3.3 cm IVS Diastolic Thickness 0.8 cm 0.6 - 1.0 / 0.6 - 0.9 cm IVS Systolic Thickness 1.4 cm LVPW Diastolic Thickness 1.1 cm 0.6 - 1.0 / 0.6 - 0.9 cm LVPW Systolic Thickness 0.7 cm LVOT Diameter 2.0 cm LV Ejection Fraction 2D Teich 50.7 % LV Ejection Fraction MOD 2C 39.1 % LV Ejection Fraction 2C AL 39.4 % LA Diameter 4.2 cm LA Width 3.7 cm LA Height 5.2 cm RA Width 3.3 cm Aorta at Sinotubular Diameter 2.6 cm IVC Diameter 1.1 cm M-MODE Aortic Annulus Diameter 2.8 cm LA Ao Ratio MM 1.4 MV E Point Septal Separation 0.4 cm DOPPLER AV Peak Velocity 227.0 cm/s LVOT Peak Velocity 113.0 cm/s AV Area Cont Eq vti 2.2 cm squared AV Area Cont Eq pk 1.6 cm squared MV Peak Velocity 120.0 cm/s MV Area PHT 2.3 cm squared Mitral E to A Ratio 0.9 MV E' Velocity 54.0 cm/s Mitral E to MV E' Ratio 13.8 Mitral E to LV E' Lateral Ratio 13.8 Mitral E to LV E' Septal Ratio 13.8 TR Peak Velocity 133.8 cm/s TR Peak Gradient 7.2 mmHg Right Atrial Pressure 5.0 mmHg Pulmonary Artery Systolic Pressu 12.2 mmHg PV Peak Velocity 119.0 cm/s RV Acceleration Time 0.2 s RV Ejection Time 0.3 s RV AcT/ET 0.6 FINDINGS Left Ventricle Normal left ventricular size and systolic function, EF 65 %. No regional wall motion abnormalities. Grade I/IV diastolic dysfunction (abnormal relaxation filling pattern), normal to mildly elevated filling pressures. Right Ventricle The right ventricle is normal in size and function. Right Atrium The right atrium is normal in size. Left Atrium Mildly increased left atrial size. Mitral Valve Mild mitral annular calcification. Aortic Valve Thickened aortic valve. Tricuspid Valve No gross abnormalities noted Pulmonic Valve Pulmonic valve not well visualized. Pericardium Normal pericardium without effusion. Aorta Normal ascending aorta dimension. IVC Normal inferior vena cava. CONCLUSIONS Normal left ventricular size and systolic function, EF 65 %. No regional wall motion abnormalities. Grade I/IV diastolic dysfunction (abnormal relaxation filling pattern), normal to mildly elevated filling pressures. Mildly increased left atrial size. Mild mitral annular calcification. Thickened aortic valve. There is no pericardial effusion. There are no intracardiac masses. Compared to the study from 03/04/2021, there may not be a significant change Dr Rhys Yusuf MD [facility] (Electronically Signed) Final Date: 19 April 2023 10:01 S
== END 2023-04-17 13:38 | disposition home or self-care (01) ==
PROVIDERS: PCP Family Medicine; Visit Provider Nurse Practitioner Family
DX: I50.9 Heart failure, unspecified (principal); I47.29 Other ventricular tachycardia; R06.02 Shortness of breath; I51.89 Other ill-defined heart diseases; I51.7 Cardiomegaly; I34.81 Nonrheumatic mitral (valve) annulus calcification; I35.8 Other nonrheumatic aortic valve disorders
CPT/HCPCS: 36415; 80048; 83880; 93306

== ENCOUNTER 2023-05-01 09:04 | Outpatient (CLI) | payer MEDICARE, MEDICAID, SELFPAY ==
--- NOTE | 2023-05-01 09:00 | CT_ITS ---
WS: [id number] CT CHEST, ABDOMEN AND PELVIS WITH CONTRAST HISTORY: Follow-up colon cancer TECHNIQUE: Contiguous 5 mm axial imaging performed through the chest, abdomen and pelvis with IV cont rast, oral contrast has been provided. Coronal and sagittal reformats chest. Coronal and sagittal ref ormats through the abdomen and pelvis. All CT scans at [facility] use at least one of these d ose optimization techniques: automated exposure control; mA and/or kV adjustment per patient size (in cludes targeted exams where dose is matched to clinical indication); or iterative reconstruction. CONTRAST: Omnipaque 350; 100 mL IV. Patient premedicated. IV contrast allergy. DLP: 3034.10 mGy.cm COMPARISON: 10/28/2022, 03/04/[address]: No pulmonary mass or nodule. No pneumonia. No mediastinal or hilar adenopathy. Normal size heart. Mild atherosclerosis aorta. Mild gynecomastia. No destructive bone lesions. Abdomen CT: Normal liver. No metastatic disease. Normal portal vein. Prior cholecystectomy. No bile d uct dilatation. Normal pancreas. No pancreatic duct dilatation. Spleen is measuring 13.9 cm in length . No adrenal mass. Bilateral renal cysts. The largest associated with the RIGHT kidney measures 4.9 x 4.4 cm. No solid mass. Moderate atherosclerotic plaque abdominal aorta. Heavy calcification at the o rigin of the celiac axis and SMA. Component of stenosis likely involving the SMA. Stomach is well distended with oral contrast. Mild soft tissue thickening at the antrum and stomach i s probably peristalsis. No obstructive pattern. Prior appendectomy. Tortuous colon from constipation. Mild central mesenteric tethering and misting with a few small lymph nodes is similar to the prior [facility]. Associated preaortic lymph node at 10 mm is stable. Small mesenteric lymph nodes have slightly i mproved. There is less central mesenteric stranding. Again noted is a stable LEFT spigelian hernia. No herniation of GI tract. No adenopathy. No ascites. Pelvic CT: No free fluid. Negative urinary bladder. Pain pump within the LEFT lateral abdominal wall. IMPRESSION: 1. No evidence for metastatic disease to the lungs, liver or adrenal glands. 2. Prior cholecystectomy and appendectomy. 3. LEFT lateral abdominal wall spigelian hernia, stable. 4. No ascites or adenopathy. 5. Central mesenteric misting with lymph nodes and a preaortic lymph node has slightly improved. Lymp h nodes have slightly decreased in size.
[2023-05-01] MEDS: iohexol 350 mg/mL 500 mL Btl (per mL) PO (09:44)
[2023-05-01] MEDS: iohexol 350 mg/mL 500 mL Btl (per mL) IV (11:17)
== END 2023-05-01 09:05 | disposition home or self-care (01) ==
PROVIDERS: PCP Family Medicine; Visit Provider Internal Medicine Hematology & Oncology
DX: R59.0 Localized enlarged lymph nodes (principal); Q61.02 Congenital multiple renal cysts; K43.9 Ventral hernia without obstruction or gangrene
CPT/HCPCS: 71260; 74177; Q9967

== ENCOUNTER 2023-05-03 11:37 | Oncology outpatient (recurring) (ONCR) | payer MEDICARE, MEDICAID, SELFPAY ==
[2023-05-03 11:49] VITALS: BP 156/73; PULSE 88; RESP 18; TEMP 36.3; O2SAT 95
[2023-05-03 12:05] LABS: Basophils # 0.1 10^3/uL (0.0-0.1); Basophils % 1.2 %; Eosinophils # 0.3 10^3/uL (0.0-0.8); Eosinophils % 3.5 %; Hematocrit 37.8 % (37-53); Lymphocytes # 2.8 10^3/uL (0.8-4.8); Mean Corpuscular HGB Conc 32.5 g/dL (30-55); Mean Corpuscular Hemoglobin 27.2 pg (27-33); Mean Corpuscular Volume 83.4 fl (82-101); Mean Platelet Volume 9.6 fL (7.4-10.4); Monocytes # 0.6 10^3/uL (0.2-0.9); Monocytes % 7.2 %; Neutrophils # 4.44 10^3/uL (1.8-7.7); Neutrophils % 53.5 %; Nucleated Red Blood Cells % 0 %; Platelet Count 276 10^3/cmm (157-399); Red Blood Count 4.53 10^6/uL (3.85-5.65); Red Cell Distribution Width 13.2 % (12.1-15.1)
[2023-05-03 12:23] LABS: Alanine Aminotransferase 13 U/L (0-41); Albumin Level 3.7 g/dL (3.5-5.2); Alkaline Phosphatase 64 U/L (40-130); Anion Gap 13.8 (5-19); Aspartate Amino Transferase 15 U/L (0-40); Blood Urea Nitrogen 24 mg/dL (8-23); Calcium 8.8 mg/dL (8.5-10.5); Carbon Dioxide 27 mmol/L (22-29); Chloride 98 mmol/L (98-107); Ferritin 222 ng/mL (30-400); Globulin 3.1 g/dL (1.3-4.6); Glomerular Filtration Rate 113.5 mL/min (90-130); Glucose 264 mg/dL (65-115); Iron 41 ug/dL (59-158); Osmolality Calculated 293 mOsm/kg (285-295); Potassium 3.8 mmol/L (3.5-5.1); Sodium 135 mmol/L (136-145); Total Bilirubin 0.3 mg/dL (0.15-1.2); Total Iron Binding Capacity 291 mcg/dl; Total Protein 6.8 g/dL (6.6-8.7); Unsaturated Iron Binding 250 ug/dL (112-347)
== END 2023-05-20 23:59 | disposition home or self-care (01) ==
PROVIDERS: Internal Medicine Medical Oncology; PCP Family Medicine; Visit Provider Internal Medicine Hematology & Oncology
DX: D50.9 Iron deficiency anemia, unspecified (principal); R59.0 Localized enlarged lymph nodes
CPT/HCPCS: 36415; 80053; 82728; 83540; 83550; 85025; 99215

== ENCOUNTER 2023-05-05 09:29 | Outpatient (CLI) | payer MEDICARE, MEDICAID, SELFPAY ==
--- NOTE | 2023-05-05 | ECG_ITS ---
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 Interpretive Statements NAME OF STUDY: LEXISCAN SESTAMIBI STRESS TEST INDICATION: New onset chf. nsvt, PROCEDURE: At the baseline, the EKG revealed normal sinus rhythm with a features of right ventricular conduction delay. The baseline heart was 73 bpm with a blood pressue of 160/71 mm of Hg Lexiscan was infused over a period of 20 seconds. A total of 0.4 milligrams of Lexiscan was infused. The stress phase was continued for a total of 5 minutes. Heart rate at the end of the stress phase was 86 bpm with a blood pressure 195/90 mm of Hg. The EKG at the peak infusion revealed no significant changes. Sestamibi was injected 20 seconds after the Lexiscan infusion. Heart rate at the end of the recovery phase was 82 bpm with a blood pressure of 170/78 mm of Hg. CONCLUSION: 1. No significant EKG changes with the LexiScan infusion 2. No LexiScan induced chest pain or cardiac arrhythmia 3. Normal blood pressure and heart rate response 4. Sestamibi/sestamibi perfusion scan pending; see separate report. Electronically Signed On 05-06-2023 18:59:15 CDT by Rhys Yusuf M.D. [id number]
[2023-05-05 10:10] VITALS: BMI 34.4
--- NOTE | 2023-05-05 10:11 | NMCV_ITS ---
NM hermila perf SPECT r/s* [id number] Guanakito Longo Age: 62 Gender: M : 1960 Exam Date: 05/05/2023 11:13 Ordering Phys: Mahogany Dickerson Technologist: MINI Harvey Exam Location: [facility] Indications: HEART FAILURE, VENTRICULAR TACHYCARDIA STRESS TEST Please [facility] IMAGE PROTOCOL Rest/Stress 1 Lexiscan Day Radiopharmaceutical Dose (mCi) Administration Site Administered by Rest: Tc-99m 11.0 IV MINI Harvey Sestamibi Stress:Tc-99m 33.0 IV MINI Suarez Sestamibi Rest: 05-May-2023 60 Discovery 630 Stress: 05-May-2023 30 Discovery 630 0.4mg Lexiscan. Supine position only as patient was unable to lay prone. SPECT RESULTS Technical Quality: Excellent Raw Data Analysis: Normal Image Corrections: No attenuation or motion correction applied Summed Stress Score: 1 Summed Rest Score: 0 Summed Difference Score: 1 PERFUSION FINDINGS Myocardial perfusion imaging revealing a very small area of slightly decreased tracer uptake in the apical inferior wall region with no significant reversibility. FUNCTIONAL RESULTS (calculated via Gated SPECT) Stress Image LV EF (%): 88 Stress EDV (mL):84 TID: 0.98 Stress ESV (mL):10 FUNCTIONAL FINDINGS: Segmental wall motion analysis revealing no gross wall motion abnormalities IMPRESSIONS 1. Myocardial perfusion imaging revealing a small area of slightly decreased persistent tracer uptake in the apical inferior region, most likely a present attenuation artifact. 2. Normal LV ejection fraction of 88%. 3. LV wall motion analysis revealing no gross wall motion abnormalities. 4. Normal LV volume Low probability for coronary ischemia, based on the above findings Compared to the study from 08/24/2018, there may not be a significant change. Dr Rhys Yusuf MD [facility] (Electronically Signed) Final Date: 05 May 2023 18:21 S
[2023-05-05] MEDS: regadenoson 0.4 Mg/5 ml Syringe IVP (11:50)
[2023-05-05] MEDS: ondansetron 2 mg/ML SDV 2 mL 4 MG IVP (12:02)
[2023-05-05 12:10] VITALS: BP 170/78; PULSE 83
== END 2023-05-05 09:30 | disposition home or self-care (01) ==
LOC: CDL 09:30
PROVIDERS: PCP Family Medicine; Visit Provider Nurse Practitioner Family
DX: I50.9 Heart failure, unspecified (principal); I47.29 Other ventricular tachycardia
CPT/HCPCS: 36415; 78452; 93017; 96374; 96375; 99214; A9500; J2405; J2785

== ENCOUNTER → 2023-05-08 12:47 | Outpatient (BNVA) | payer MEDICARE, MEDICAID, SELFPAY | PROVIDERS: PCP Family Medicine; Referring Provider Internal Medicine Medical Oncology; Visit Provider Surgery | DX: K46.9 Unspecified abdominal hernia without obstruction or gangrene (principal) | CPT/HCPCS: 99203; 99214 ==

== ENCOUNTER → 2023-05-19 10:57 | Outpatient (BNVA) | payer MEDICARE, MEDICAID, SELFPAY | PROVIDERS: PCP Family Medicine; Visit Provider Nurse Practitioner Family | DX: I50.9 Heart failure, unspecified (principal); I87.2 Venous insufficiency (chronic) (peripheral) | CPT/HCPCS: 99214 ==

== ENCOUNTER 2023-06-02 12:57 | Outpatient (CLI) | payer MEDICARE, MEDICAID, SELFPAY ==
--- NOTE | 2023-06-02 13:00 | USCV_ITS ---
Guanakito Longo Age: 62 Gender: M : 1960 Exam Date: 06/02/2023 14:01 Ordering Phys: Mahogany Dickerson Technologist: CT [place] [facility] [place]: HISTORY: PROCEDURES: FINDINGS: The veins were found to be easily compressible with spontaneous blood flow. Non pulsatile flow pattern. No significant venous reflux were noted on the right side On the left side, venous reflux were noted at the proximal , mid and below-knee segments of the greater saphenous vein. The reflux time was 1.06, 1.23 and 3.67 seconds respectively. There venous diameter at these levels were 0.37, 0.44 and 0.33 respectively. The venous segments were at 1.6, 1.3 and 1.08 cm deep ,respectively from the surface. CONCLUSIONS 1. No significant venous reflux evidence of deep vein thrombosis, in the above-mentioned identifiable veins. 2. Significant venous reflux of greater than 500 ms were noted at the proximal, mid and below-knee segments of the greater saphenous vein on the left side. The reflux time, venous dimensions and depth from the surface are as mentioned above. 3. No significant venous reflux on the right side. Dr Rhys Yusuf MD [facility] (Electronically Signed) Final Date: 02 June 2023 20:19 S
== END 2023-06-02 12:58 | disposition home or self-care (01) ==
LOC: RAD 12:57
PROVIDERS: PCP Family Medicine; Visit Provider Nurse Practitioner Family
DX: I87.2 Venous insufficiency (chronic) (peripheral) (principal)
CPT/HCPCS: 93970

== ENCOUNTER → 2023-06-19 10:38 | Outpatient (BNVA) | payer MEDICARE, MEDICAID, SELFPAY | PROVIDERS: PCP Family Medicine; Visit Provider Podiatrist Foot & Ankle Surgery | DX: E11.42 Type 2 diabetes mellitus with diabetic polyneuropathy (principal); L60.3 Nail dystrophy; L84 Corns and callosities; Z79.4 Long term (current) use of insulin; Z79.84 Long term (current) use of oral hypoglycemic drugs | CPT/HCPCS: 11055; 11721 ==

== ENCOUNTER → 2023-07-04 10:13 | Outpatient (BNVA) | payer MEDICARE, MEDICAID, SELFPAY | PROVIDERS: PCP Family Medicine; Visit Provider Specialist | DX: G31.84 Mild cognitive impairment of uncertain or unknown etiology (principal); G43.901 Migraine, unspecified, not intractable, with status migrainosus | CPT/HCPCS: 96116; 99203; 99214 ==

== ENCOUNTER 2023-07-07 08:54 | Oncology outpatient (recurring) (ONCR) | payer MEDICARE, MEDICAID, SELFPAY ==
[2023-07-07 09:12] LABS: Basophils # 0.1 10^3/uL (0.0-0.1); Basophils % 1.2 %; Eosinophils # 0.3 10^3/uL (0.0-0.8); Eosinophils % 4.6 %; Lymphocytes % 33.6 %; Mean Corpuscular HGB Conc 32.1 g/dL (30-55); Mean Corpuscular Volume 84.2 fl (82-101); Mean Platelet Volume 9.9 fL (7.4-10.4); Monocytes # 0.5 10^3/uL (0.2-0.9); Monocytes % 7.6 %; Neutrophils # 3.11 10^3/uL (1.8-7.7); Neutrophils % 52.8 %; Nucleated Red Blood Cells % 0 %; Platelet Count 245 10^3/cmm (157-399); Red Blood Count 4.63 10^6/uL (3.85-5.65); Red Cell Distribution Width 12.4 % (12.1-15.1); White Blood Count 5.89 10^3/uL (3.29-11.43)
[2023-07-07 09:24] VITALS: BP 173/72; PULSE 84; RESP 16; TEMP 36.7; O2SAT 95
[2023-07-07 09:30] LABS: Ferritin 184 ng/mL (30-400); Iron 48 ug/dL (59-158); Percent Saturation 16.3 % (20-50); Total Iron Binding Capacity 294 mcg/dl; Unsaturated Iron Binding 246 ug/dL (112-347)
== END 2023-07-20 23:59 | disposition home or self-care (01) ==
PROVIDERS: Internal Medicine Medical Oncology; PCP Family Medicine; Visit Provider Internal Medicine Medical Oncology
DX: D50.9 Iron deficiency anemia, unspecified (principal); R59.0 Localized enlarged lymph nodes; K40.90 Unilateral inguinal hernia, without obstruction or gangrene, not specified as recurrent; Z98.890 Other specified postprocedural states; Z87.19 Personal history of other diseases of the digestive system; Z79.899 Other long term (current) drug therapy
CPT/HCPCS: 36415; 82728; 83540; 83550; 85025; 99214

== ENCOUNTER 2023-07-17 20:00 | Outpatient (CLI) | payer MEDICARE, MEDICAID, SELFPAY | END 2023-07-17 20:01 | disposition home or self-care (01) | LOC: SLEEP 07-18 09:03 | PROVIDERS: PCP Family Medicine; Visit Provider Family Medicine | DX: G47.33 Obstructive sleep apnea (adult) (pediatric) (principal); G47.10 Hypersomnia, unspecified | CPT/HCPCS: 95811 ==

== ENCOUNTER 2023-08-01 05:56 | Day surgery (SDC) | payer MEDICARE, MEDICAID, SELFPAY ==
--- NOTE | 2023-08-01 06:27 | USCV_ITS ---
Guanakito Longo Age: 62 Gender: M : 1960 Exam Date: 08/01/2023 07:20 Ordering Phys: Magdi Diaz MD (Andy) ([email or web address]) Technologist: William Thompson [place] [facility] [place]ication: venous insuff PROCEDURES: The distance of the catheter tip to the inferior epigastric vein was measured. FINDINGS: The catheter tip was found to be 3.04 cm from the inferior epigastric vein The saphenofemoral junction was found to be patent CONCLUSIONS 1. Patent inferior epigastric vein 2. The 3.046 cm from the catheter tip was found to be 3.04 cm from the inferior epigastric vein 3. The saphenofemoral junction appears to be patent Dr Rhys Yusuf MD [facility] (Electronically Signed) Final Date: 01 August 2023 13:13 S
[2023-08-01 06:32] VITALS: BP 148/88; PULSE 78; RESP 18; TEMP 36.1; O2SAT 97; BMI 35.1
--- NOTE | 2023-08-01 06:35 | W.PM.OPSUD ---
Surgery/Procedure H&P Update DATE OF PROCEDURE: August 01, 2023 DATE H&P PERFORMED: 07/04/23 H&P UPDATE INFORMATION: I have reviewed H&P completed within last 30 days, I have examined patient prior to procedure and Changes to prior documentation as noted here CHANGES TO PREVIOUS DOCUMENTATION: Mr. Longo was concerned about anxiety with procedure. I did discuss that we frequent utilize oral diazepam though I had noted anxiety with Xanax. He states this was more associated with with possible sleepwalking . He does not describe any rash or breathing difficulties with anxiolytics and did request diazepam. I also carefully discussed with him that even with successful RF catheter ablation of the left greater saphenous vein, long-term compression would still be beneficial and he still may have further varicose issues which may require future interventions. He stated understanding and wishes to proceed. PREOP DIAGNOSIS: Left greater saphenous vein insufficiency PLANNED PROCEDURE: Operation Date: 08/01/23 07:00 Proposed Procedures p venous ablation left leg [id number],I83.813(Left) - Magdi Diaz MD
[2023-08-01] MEDS: diazePAM 5 mg Tablet 10 MG PO (06:42)
[2023-08-01 06:56] LABS: Glucose Point of Care 209 mg/dL (70-110)
[2023-08-01] MEDS: lidocaine 1% INJ 10 mL (per mL) 2 ML INTRADERMA (07:35)
--- NOTE | 2023-08-01 08:15 | P.OP_ITS ---
Operative Report Date of procedure: August 01, 2023 Pre-op diagnosis: Left greater saphenous vein reflux Post-op diagnosis: same Procedure done: Radiofrequency ablation left greater saphenous vein Implants: None Pathology: none sent Surgeon: Magdi Diaz MD Anesthesia: Local Complications: None Condition: stable Disposition: same day Brief History: Mr. Longo is a pleasant 62-year-old gentleman referred to our service for longstanding bilateral lower extremity edema left greater than right and documented venous incompetence with reflux. He does have improvement with compression. Symptoms have been longstanding. Due to his symptomatology and documented reflux by duplex, left greater saphenous vein ablation has been recommended. Rationale for this was carefully discussed. Details and risks of procedure were Reviewed. Appropriate consents have been reviewed and signed. Procedure: The insufficient left greater saphenous vein was verified by ultrasound and diagrammed on the overlying skin. The varicose tributary veins and suitable access sites were identified and mapped. The affected left lower extremity was prepped and draped in the usual sterile fashion. Appropriate timeout was completed and confirmed by all members present. Mr. Longo was placed in reverse Trendelenburg position. Tumescent was instilled in the skin overlying the access site for local anesthesia. The vein was accessed in the proximal left lower leg using ultrasound guidance. Using the Seldinger technique, a guidewire was introduced through the needle, which was then exchanged over the guidewire for a 7F sheath. The RF catheter was placed on the sterile field, flushed and wiped down, prepared, and connected by a sterile cable. The patient was placed in Trendelenburg position. After RF catheter position was verified by ultrasound, tumescent anesthesia was infiltrated, under ultrasound guidance, precisely into the perivenous compartment along the entire length of vein. After the RF catheter position was again confirmed with ultrasound imaging, and under direct external compression along the length of the heating element, RF energy was applied. The vein was segmentally ablated until the treatment length is completed. Device temperature was maintained at 120 +/- degrees C with an initial power level of 40W dropping to below 20W for each treatment. Total vein length treated was 40 cm. Vein diameter was 0.4 cm. Total cycles of RF was 40. Ablation time was 5 minutes and 22 seconds Repeat ultrasound of the left greater saphenous veinwas performed, confirming successful treatment. Confirmation of the inferior epigastric vein was confirme d. The catheter and sheath were withdrawn and hemostasis established with direct pressure. After assuring hemostasis, the skin incision over the saphenous vein was closed with a bandage and graduated compression stocking was applied from the level of the foot to the most proximal length of the thigh. I did chromosomal disorders counselor with his mother at completion of the procedure.
[2023-08-01 08:23] VITALS: BP 126/61; PULSE 77; RESP 18; TEMP 36.4; O2SAT 95
[2023-08-01 08:40] VITALS: BP 114/58; PULSE 79; RESP 18; O2SAT 99
[2023-08-01 09:00] VITALS: BP 119/65; PULSE 74; RESP 18; O2SAT 96
== END 2023-08-01 09:30 | disposition home or self-care (01) ==
PROVIDERS: PCP Family Medicine; Visit Provider Thoracic Surgery (Cardiothoracic Vascular Surgery)
DX: I83.813 Varicose veins of bilateral lower extremities with pain (principal)
CPT/HCPCS: 36416; 36475; 82962; C1887; J7040

== ENCOUNTER 2023-08-08 11:32 | Outpatient (CLI) | payer MEDICARE, MEDICAID, SELFPAY ==
--- NOTE | 2023-08-08 12:00 | USCV_ITS ---
Guanakito Longo Age: 62 Gender: M : 1960 Exam Date: 08/08/2023 11:53 Ordering Phys: Magdi Diaz MD (Andy) ([email or web address] [place] Technologist: MERRY [place] [facility] [place]ication: S/P LEFT GSV ABLATION DONE 1WK AGO HISTORY: S/P LEFT GSV ABLATION DONE 1 WEEK AGO PROCEDURES: Venous duplex imaging was performed in only the left lower extremity. The following venous structures were evaluated: common femoral vein, profunda vein, proximal portion of the greater saphenous vein, superficial femoral vein, and the popliteal vein. In addition, the posterior tibial and peroneal trunk were evaluated. Serial compression, augmentation maneuvers, and spectral Doppler flow evaluation were performed. FINDINGS: No evidence of DVT seen in any vessel visualized at this time. Left GSV compressible 1.6cm from the JX. Non-compressible prox- knee. Surgical site at [facility] CONCLUSIONS No evidence of left lower extremity DVT. Left GSV compressible 1.6cm from junction GSV ablation non compressible extending from proximal to the knee Artie Rivera MD (Electronically Signed) Final Date: 08 August 2023 16:23 S
== END 2023-08-08 11:33 | disposition home or self-care (01) ==
LOC: RAD 11:32
PROVIDERS: PCP Family Medicine; Visit Provider Thoracic Surgery (Cardiothoracic Vascular Surgery)
DX: I83.813 Varicose veins of bilateral lower extremities with pain; Z98.890 Other specified postprocedural states
CPT/HCPCS: 93971

== ENCOUNTER → 2023-08-24 08:44 | Outpatient (BNVA) | payer MEDICARE, MEDICAID, SELFPAY | PROVIDERS: PCP Family Medicine; Visit Provider Thoracic Surgery (Cardiothoracic Vascular Surgery) | DX: I87.2 Venous insufficiency (chronic) (peripheral) (principal) | CPT/HCPCS: 99212 ==

== ENCOUNTER 2023-09-25 12:42 | Oncology outpatient (recurring) (ONCR) | payer MEDICARE, MEDICAID, SELFPAY ==
[2023-09-25 13:16] LABS: Basophils # 0.1 10^3/uL (0.0-0.1); Basophils % 1.1 %; Eosinophils # 0.3 10^3/uL (0.0-0.8); Lymphocytes # 1.9 10^3/uL (0.8-4.8); Lymphocytes % 35.4 %; Mean Corpuscular HGB Conc 33.2 g/dL (30-55); Mean Corpuscular Hemoglobin 27.2 pg (27-33); Mean Corpuscular Volume 81.7 fl (82-101); Monocytes # 0.3 10^3/uL (0.2-0.9); Monocytes % 6.5 %; Neutrophils % 51.6 %; Nucleated Red Blood Cells % 0 %; Platelet Count 227 10^3/cmm (157-399); Red Blood Count 4.53 10^6/uL (3.85-5.65); Red Cell Distribution Width 12.3 % (12.1-15.1); White Blood Count 5.23 10^3/uL (3.29-11.43)
[2023-09-25 13:36] LABS: Alanine Aminotransferase 13 U/L (0-41); Albumin Level 3.8 g/dL (3.5-5.2); Alkaline Phosphatase 67 U/L (40-130); Anion Gap 16.1 (5-19); Aspartate Amino Transferase 11 U/L (0-40); Blood Urea Nitrogen 16 mg/dL (8-23); Calcium 8.8 mg/dL (8.5-10.5); Carbon Dioxide 23 mmol/L (22-29); Chloride 97 mmol/L (98-107); Ferritin 200 ng/mL (30-400); Globulin 3.3 g/dL (1.3-4.6); Glomerular Filtration Rate 135.2 mL/min (90-130); Glucose 408 mg/dL (65-115); Iron 81 ug/dL (59-158); Lactate Dehydrogenase 63 U/L (135-225); Osmolality Calculated 292 mOsm/kg (285-295); Percent Saturation 29.4 % (20-50); Potassium 4.1 mmol/L (3.5-5.1); Sodium 132 mmol/L (136-145); Total Bilirubin 0.3 mg/dL (0.15-1.2); Total Iron Binding Capacity 275 mcg/dl; Total Protein 7.1 g/dL (6.6-8.7); Unsaturated Iron Binding 194 ug/dL (112-347)
== END 2023-10-19 23:59 | disposition home or self-care (01) ==
PROVIDERS: PCP Family Medicine; Visit Provider Internal Medicine Medical Oncology
DX: D50.9 Iron deficiency anemia, unspecified (principal); Z79.899 Other long term (current) drug therapy
CPT/HCPCS: 36415; 80053; 82728; 83540; 83550; 83615; 85025; 99214

== ENCOUNTER → 2023-10-17 09:29 | Outpatient (BNVA) | payer MEDICARE, MEDICAID, SELFPAY | PROVIDERS: PCP Family Medicine; Visit Provider Podiatrist Foot & Ankle Surgery | DX: E11.42 Type 2 diabetes mellitus with diabetic polyneuropathy (principal); L60.3 Nail dystrophy; L84 Corns and callosities; Z79.84 Long term (current) use of oral hypoglycemic drugs; Z79.4 Long term (current) use of insulin | CPT/HCPCS: 11055; 11721 ==

== ENCOUNTER → 2023-10-23 13:32 | Outpatient (BNVA) | payer MEDICARE, MEDICAID, SELFPAY | PROVIDERS: PCP Family Medicine; Visit Provider Thoracic Surgery (Cardiothoracic Vascular Surgery) | DX: I87.2 Venous insufficiency (chronic) (peripheral) (principal) | CPT/HCPCS: 99024 ==

== ENCOUNTER → 2023-11-07 08:56 | Outpatient (BNVA) | payer MEDICARE, MEDICAID, SELFPAY | PROVIDERS: PCP Family Medicine; Referring Provider Family Medicine; Visit Provider Specialist | DX: G47.10 Hypersomnia, unspecified (principal); G43.901 Migraine, unspecified, not intractable, with status migrainosus; R41.3 Other amnesia; R56.9 Unspecified convulsions | CPT/HCPCS: 99214 ==

== ENCOUNTER 2023-11-28 13:55 | Outpatient (CLI) | payer MEDICARE, MEDICAID, SELFPAY ==
--- NOTE | 2023-11-28 14:06 | CT_ITS ---
WS: [id number] CT ABDOMEN AND PELVIS WITH CONTRAST HISTORY: CHRONIC pancreatitis, history of colon cancer. TECHNIQUE: Imaging performed of the abdomen and pelvis with IV contrast. Single phase imaging of the abdomen. Coronal and sagittal reformats are submitted. All CT scans at [facility] use at [address] one of these dose optimization techniques: automated exposure control; mA and/or kV adjustment per patient size (includes targeted exams where dose is matched to clinical indication); or iterative re construction. IV CONTRAST: Omnipaque 350; 100 mL IV. Oral contrast: None. DLP: 869.56 mGy.cm COMPARISON: PET/CT 04/13/2021, prior CT abdomen and pelvis 05/01/2023 and 10/28/2022 Lower thorax: Lung bases are clear. Heart is normal size. No hiatal hernia. Liver/biliary system: Normal size with no intrahepatic dilatation. Gallbladder: Prior cholecystectomy. Normal common bile duct at 8.9 mm. Pancreas: Mildly atrophic pancreas. There is air within the pancreatic duct. There is no evidence for acute pancreatitis. The pancreatic duct appears mildly ectatic. Pancreatic head is poorly visualized due to the adjacent soft tissue structures. Spleen: Normal size spleen. No mass or infarct. Adrenal glands: Normal. Right kidney: Normal size kidney. Large exophytic cyst measures 4.3 x 4.8 cm. There is a smaller mild ly complex cyst from the medial kidney measuring 1.1 x 0.9 cm. Similar in size to the prior study. Left kidney: Mildly complex cyst from the medial kidney has slightly increased in size since 3. Hounsfield units are slightly elevated. Cyst measures 2.4 x 1.7 cm. Aorta: Moderate atherosclerosis with no aneurysm. Lymphadenopathy: No increase in size of the preaortic lymph node just below the SMA. Lymph node measu res 0.9 cm in diameter. Free fluid: None. GI tract: Stomach is markedly distended with fluid. There is a nodular soft tissue component near the pylorus and proximal duodenum. There is a protrusion of soft tissue into the lumen of the pylorus. V ct poor differentiation between the pancreatic head and this nodular component extending into the st omach and the duodenum. This area needs to be further evaluated for a possible obstructing neoplasm. Mild wall thickening measures up to 1.3 cm. The nodular component inseparable from the pancreatic hea d and extending into the lumen of the duodenum and stomach is 1.9 x 1.6 cm. Abdominal wall: Mild thinning of the abdominal wall musculature. LEFT lateral abdominal wall hernia c ontaining fat. Pelvis: No free fluid or adenopathy within the pelvis. Negative urinary bladder. Bones: Grade 1 anterolisthesis of L5. Bilateral pars defects at L5. IMPRESSION: 1. Marked fluid distention of the stomach. There is a lobulated soft tissue mass in the region of th e pylorus and proximal duodenum which is inseparable from the pancreatic head. With the distended sto mach this may be an obstructing mass causing outlet obstruction. This area needs to be further evalua shayy by endoscopy. The nodular component extending into the lumen of the pylorus is 1.9 x 1.6 cm. 2. Pancreatic head is poorly defined due to the adjacent soft tissue structures. There is air within the pancreatic duct. May be reflux of air related to the cholecystectomy. No pneumobilia. 3. Bilateral renal cystic masses. Low-attenuation mass from the medial lower pole LEFT kidney is not a simple cyst. This can be followed up on additional imaging studies. This would not likely be visua lized by ultrasound. 4. Prior cholecystectomy and appendectomy. 5. No new or increasing adenopathy. 6. LEFT lateral abdominal wall Spigelian hernia. 7. Grade 1 anterolisthesis of L5 with bilateral spondylolysis. Notified Johnny Vargas MD at 11/29/2023 8:27 AM.
[2023-11-28] MEDS: iohexol 350 mg/mL 500 mL Btl (per mL) IV (15:14)
== END 2023-11-28 13:56 | disposition home or self-care (01) ==
LOC: RAD 13:55
PROVIDERS: PCP Family Medicine; Visit Provider Family Medicine
DX: K86.1 Other chronic pancreatitis (principal); N28.89 Other specified disorders of kidney and ureter; K43.9 Ventral hernia without obstruction or gangrene; M43.16 Spondylolisthesis, lumbar region; M47.816 Spondylosis without myelopathy or radiculopathy, lumbar region
CPT/HCPCS: 74177; Q9967

== ENCOUNTER 2023-12-11 02:32 | Emergency (ER) | payer MEDICARE, MEDICAID, SELFPAY ==
[2023-12-11 02:36] VITALS: BP 176/83; PULSE 93; RESP 16; TEMP 36.7; O2SAT 96; BMI 34.0
--- NOTE | 2023-12-11 02:45 | ED_ITS ---
HPI - Recheck/Abnormal Lab/Rx 2 General: Chief Complaint: Recheck/Abnormal Lab/Rx Stated Complaint: Low blood sugar, took 2 doses of insulin Time Seen by Provider: 12/11/23 02:36 History of Present Illness: Patient presents to the ER after accidentally taking double of his insulin. Patient said he took his normal dose of 50 units of Lantus and 25 units of short acting then he fell asleep when he woke up he forgot that he took his earlier dose so he took a dose again. Patient said his sugars dropping even with him trying to eat as many sandwiches and cookies and drink sugary drinks. He said dropped about 30 points in the last 10 minutes and his monitors been going off is dropping fast. Patient has no other complaints at this time. Patient is also on glipizide twice daily. Review of Systems 2 General: Reports: 10 or more systems reviewed and unremarkable except in HPI and below PFSH ED 2 PFSH: Medical History Chronic venous insufficiency Diabetes History of colon polyps NEDRA (obstructive sleep apnea) Coronary artery disease HTN (hypertension) Diabetes Peripheral neuropathy Asthma GERD (gastroesophageal reflux disease) Mart's palsy Surgical History History of incisional hernia repair (11/01/21) open with mesh History of esophagogastroduodenoscopy History of incisional hernia repair (05/06/21) With excision of abdominal wall mass Status post right inguinal hernia repair History of right hemicolectomy H/O colonoscopy (10/27/20) 5 years Family History Other CAD (coronary artery disease) Cancer Hypertension Denies family history of Anesthesia complication Bleeding disorder Social History Smoking and tobacco/nicotine status: never used tobacco/nicotine Alcohol intake: never Substance/Drug Use: never Physical Exam 2 Const: COMMON NORMALS: no acute distress, average body habitus, patient oriented x3, no limitations, healthy appearing, alert and well nourished HENMT: COMMON NORMALS: normocephalic, atraumatic, hearing grossly normal bilaterally, external ears normal, Normal external nose present, moist oral mucous membranes and oropharynx normal HEAD & SCALP: normocephalic and atraumatic NOSE: Normal external nose present EXTERNAL EAR: Yes external ears normal Neck/C-Spine: COMMON NORMALS: no JVD Chest: COMMONS NORMALS: normal inspection of the chest and normal palpation of entire chest wall Resp: COMMON NORMALS: normal respiratory effort, No retractions, No use of accessory muscles and clear to auscultation bilaterally AUSCULTATION: clear to auscultation bilaterally Cardio: COMMON NORMALS: no JVD, regular rate, regular rhythm, S1 normal heart sound present, S2 normal heart sound present, No gallops present (Cardio), No clicks present (Cardio), No murmurs present (Cardio) and No rub (Cardio) R ATE: regular rate RHYTHM: regular rhythm HEART SOUNDS: S1 normal heart sound present and S2 normal heart sound present GI: COMMON NORMALS: Normal to inspection, nondistended, normoactive bowel sounds present, Soft to palpation, non-tender, No hepatosplenomegaly present and no masses PALPATION: Yes Soft to palpation and Yes No hepatosplenomegaly present Neuro: COMMON NORMALS: patient oriented x3 SENSORIUM/ORIENTATION: Yes alert Course 2 Vital Signs: Vital signs: Vital Signs Temperature 98.0 F 12/11/23 02:36 Pulse Rate 89 12/11/23 04:03 Respiratory Rate 16 12/11/23 04:03 Blood Pressure 145/70 12/11/23 04:03 Pulse Oximetry 96 12/11/23 04:03 Oxygen Delivery Me thod Room Air 12/11/23 02:36 MDM - Recheck/Abnormal Lab/Rx Medical Decision Making Patient accidentally double dosed his insulin. When patient arrived he had already gorge himself for not being able to eat anymore. His blood sugar is 153, he was given 250 mL of D10 and had patient had serial Accu-Cheks, he stabilized at about 250 and then 1 hour later he was about to 60. Patient does have a continuous glucose monitor that he wears. Patient will be discharged home. Differential Diagnosis Unlikely encounter for medication refill, encounter for wound recheck, encounter for recheck of burn, encounter for removal of sutures or warfarin-induced coagulopathy Medical Records I reviewed the patient's medical records. Lab Data I reviewed the patient's lab results. 12/11/23 02:55 12/11/23 02:55 Laboratory Results WBC 7.93 10^3/uL (3.29-11.43) 12/11/23 02:55 RBC 4.26 10^6/uL (3.85-5.65) 12/11/23 02:55 Hgb 11.90 g/dL (11.27-16.99) 12/11/23 02:55 Hct 35.8 % (37-53) L 12/11/23 02:55 MCV 84.0 fl (82-101) 12/11/23 02:55 MCH 27.9 pg (27-33) 12/11/23 02:55 MCHC 33.2 g/dL (30-55) 12/11/23 02:55 RDW 12.7 % (12.1-15.1) 12/11/23 02:55 Plt Count 267 10^3/cmm (157-399) 12/11/23 02:55 MPV 9.8 fL (7.4-10.4) 12/11/23 02:55 Neut % (Auto) 55.7 % 12/11/23 02:55 Lymph % (Auto) 31.8 % 12/11/23 02:55 Gove % (Auto) 7.2 % 12/11/23 02:55 Eos % (Auto) 3.9 % 12/11/23 02:55 Baso % (Auto) 1.1 % 12/11/23 02:55 Neut # (Auto) 4.42 10^3/uL (1.8-7.7) 12/11/23 02:55 Lymph # (Auto) 2.5 10^3/uL (0.8-4.8) 12/11/23 02:55 Gove # (Auto) 0.6 10^3/uL (0.2-0.9) 12/11/23 02:55 Eos # (Auto) 0.3 10^3/uL (0.0-0.8) 12/11/23 02:55 Baso # (Auto) 0.1 10^3/uL (0.0-0.1) 12/11/23 02:55 Nucleated RBC % (auto) 0 % 12/11/23 02:55 Nucleated RBCs # 0.0 /100WBC 12/11/23 02:55 Sodium 138 mmol/L (136-145) 12/11/23 02:55 Potassium 3.7 mmol/L (3.5-5.1) 12/11/23 02:55 Chloride 104 mmol/L (98-107) 12/11/23 02:55 Carbon Dioxide 23 mmol/L (22-29) 12/11/23 02:55 Anion Gap 14.7 (5-19) 12/11/23 02:55 BUN 14 mg/dL (8-23) 12/11/23 02:55 Creatinine 0.6 mg/dL (0.7-1.2) L 12/11/23 02:55 GFR Calculation 135.2 mL/min (90-130) H 12/11/23 02:55 Glucose 161 mg/dL (65-115) H 12/11/23 02:55 POC Glucose 269 mg/dL (70-110) H 12/11/23 03:31 Calculated Osmolality 290 mOsm/kg (285-295) 12/11/23 02:55 Calcium 8.9 mg/dL (8.5-10.5) 12/11/23 02:55 Total Bilirubin 0.3 mg/dL (0.15-1.2) 12/11/23 02:55 AST 14 U/L (0-40) 12/11/23 02:55 ALT 15 U/L (0-41) 12/11/23 02:55 Alkaline Phosphatase 68 U/L (40-130) 12/11/23 02:55 Total Protein 7.1 g/dL (6.6-8.7) 12/11/23 02:55 Albumin 3.9 g/dL (3.5-5.2) 12/11/23 02:55 Globulin 3.2 g/dL (1.3-4.6) 12/11/23 02:55 No radiology studies performed this visit Discharge Plan Discharge Patient Disposition: Home Clinical Impression: Accidental medication error Qualifiers: Encounter type: initial encounter Qualified Code(s): T50.901A - Poisoning by unspecified drugs, medicaments and biological substances, accidental (unintentional), initial encounter Condition: Stable Prescriptions: No Action Morphine pain pump See Rx Instructions .ROUTE .COMPLEX Rx Instructions: via continuous intrathecal infusion as directed ondansetron HCl 4 mg tablet 4 mg PO Q8H PRN (Reason: Nausea) vitamin B complex [B Complex-Vitamin B12] Tablet 1 tab PO DAILY (DME) Diabetic shoes with Accomodative Insert See Rx Instructions .Route .MEDSUPPLY Qty: 1 0RF Rx Instructions: As directed ferrous sulfate 325 mg (65 mg iron) tablet 325 mg PO DAILY Qty: 30 12RF galantamine 4 mg tablet 4 mg PO BID Qty: 60 3RF Rx Instructions: administer with AM and PM meals 340B Emgality Pen 120 mg/mL pen injector 120 mg SUBCUT Q30D Qty: 1 3RF nortriptyline 25 mg capsule 25 mg PO DAILY Qty: 60 5RF Rx Instructions: 1-2 at night for sleep topiramate 100 mg tablet 100 mg PO DAILY Qty: 90 2RF Rx Instructions: 1/2 - 1 daily lisinopril 10 mg tablet 10 mg PO BID Qty: 180 2RF diphenhydramine HCl 50 mg tablet 50 mg PO .COMPLEX Qty: 1 0RF Rx Instructions: 50 mg orally; 1 hour prior to contrast administration furosemide 20 mg tablet 20 mg PO BID Qty: 180 3RF Rx Instructions: Take 1 tab in AM, 1 tab at 2PM metoprolol tartrate 25 mg tablet 12.5 mg PO BID Qty: 30 1RF glipizide 10 mg tablet 10 mg PO BID isosorbide mononitrate 30 mg tablet extended release 24 hr 30 mg PO BEDTIME sertraline [Zoloft] 100 mg tablet 100 mg PO DAILY ProAir RespiClick 90 mcg/actuation aerosol powdr breath activated 1 - 2 inh inhalation Q4H PRN (Reason: Shortness Of Breath) gabapentin 100 mg capsule 200 mg PO TID rosuvastatin 5 mg tablet 5 mg PO Q2D multivitamin Tablet 1 tab PO DAILY hydroxyzine HCl 50 mg tablet 50 mg PO BID PRN (Reason: Anxiety) clopidogrel [Plavix] 75 mg tablet 75 mg PO BEDTIME Hold Instructions: Resume on 11/04/21. insulin lispro [Humalog KwikPen Insulin] 100 unit/mL insulin pen See Rx Instructions .ROUTE .COMPLEX Rx Instructions: INJECT 20 UNITS WITH MEALS PLUS LOW DOSE SLIDING SCALE MAX OF 87 UNITS PER DAY. Lantus Solostar U-100 Insulin 100 unit/mL (3 mL) insulin pen 57 unit SUBCUT BEDTIME Patient Comments: took 26units at 2000 Creon 36,000-114,000- 180,000 unit capsule,delayed release(DR/EC) 2 cap PO TID Qty: 90 3RF Rx Instructions: administer with meals. 1 cap if snacks docusate sodium [Colace] 100 mg capsule 100 mg PO BID Qty: 30 0RF pantoprazole 40 mg tablet,delayed release (DR/EC) 40 mg PO BID clonidine HCl 0.1 mg tablet 0.1 mg PO Q8H PRN (Reason: Blood Pressure) metformin 500 mg tablet extended release 24 hr 1,000 mg PO BID Discharge Orders: Discharge ED (Routine); Ordered 12/11/23 Ordered By: Arias Bunn Referrals: Johnny Vargas MD [Primary Care Provider] - 1 week Patient Instructions: Medication Safety Activity Restrictions/Additional Instructions: Please keep close tabs on your glucose level. It appears she had been stabilized here in the ER however you did take more of your long-acting medicine than needed so this may be a problem for the next 24 hours. If you get where you cannot control this or feel you need extra help please feel free to return to the ER. 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
[2023-12-11 02:48] LABS: Glucose Point of Care 153 mg/dL (70-110)
[2023-12-11] MEDS: dextrose 10% 250 ML 1000 ML IV (02:54)
[2023-12-11 02:59] LABS: Basophils # 0.1 10^3/uL (0.0-0.1); Basophils % 1.1 %; Eosinophils # 0.3 10^3/uL (0.0-0.8); Eosinophils % 3.9 %; Hematocrit 35.8 % (37-53); Lymphocytes # 2.5 10^3/uL (0.8-4.8); Lymphocytes % 31.8 %; Mean Corpuscular HGB Conc 33.2 g/dL (30-55); Mean Corpuscular Hemoglobin 27.9 pg (27-33); Mean Platelet Volume 9.8 fL (7.4-10.4); Monocytes # 0.6 10^3/uL (0.2-0.9); Monocytes % 7.2 %; Neutrophils # 4.42 10^3/uL (1.8-7.7); Neutrophils % 55.7 %; Nucleated Red Blood Cells % 0 %; Platelet Count 267 10^3/cmm (157-399); Red Blood Count 4.26 10^6/uL (3.85-5.65); Red Cell Distribution Width 12.7 % (12.1-15.1); White Blood Count 7.93 10^3/uL (3.29-11.43)
[2023-12-11 03:02] VITALS: BP 165/82; PULSE 85; RESP 18; O2SAT 95
[2023-12-11] MEDS: ondansetron 2 mg/ML SDV 2 mL 4 MG IVP (03:05)
[2023-12-11 03:21] LABS: Alanine Aminotransferase 15 U/L (0-41); Albumin Level 3.9 g/dL (3.5-5.2); Alkaline Phosphatase 68 U/L (40-130); Anion Gap 14.7 (5-19); Aspartate Amino Transferase 14 U/L (0-40); Blood Urea Nitrogen 14 mg/dL (8-23); Calcium 8.9 mg/dL (8.5-10.5); Carbon Dioxide 23 mmol/L (22-29); Chloride 104 mmol/L (98-107); Creatinine Clr Calc Pharmacy 116.4724; Globulin 3.2 g/dL (1.3-4.6); Glomerular Filtration Rate 135.2 mL/min (90-130); Glucose 161 mg/dL (65-115); Osmolality Calculated 290 mOsm/kg (285-295); Potassium 3.7 mmol/L (3.5-5.1); Sodium 138 mmol/L (136-145); Total Bilirubin 0.3 mg/dL (0.15-1.2); Total Protein 7.1 g/dL (6.6-8.7)
[2023-12-11 03:33] LABS: Glucose Point of Care 269 mg/dL (70-110)
[2023-12-11 03:36] VITALS: BP 138/69; PULSE 92; RESP 19; O2SAT 97
[2023-12-11 04:03] VITALS: BP 145/70; PULSE 89; RESP 16; O2SAT 96
[2023-12-11 04:29] LABS: Glucose Point of Care 286 mg/dL (70-110)
[2023-12-11 04:30] VITALS: BP 145/69; PULSE 85; RESP 14; O2SAT 96
== END 2023-12-11 04:39 | disposition home or self-care (01) ==
PROVIDERS: Emergency Provider Emergency Medicine; PCP Family Medicine
DX: T38.3X1A Poisoning by insulin and oral hypoglycemic [antidiabetic] drugs, accidental (unintentional), initial encounter (principal); Z79.4 Long term (current) use of insulin; Z79.02 Long term (current) use of antithrombotics/antiplatelets; Z79.84 Long term (current) use of oral hypoglycemic drugs; I25.10 Atherosclerotic heart disease of native coronary artery without angina pectoris; I10 Essential (primary) hypertension; E11.42 Type 2 diabetes mellitus with diabetic polyneuropathy
CPT/HCPCS: 36416; 80053; 82962; 85025; 96361; 96374; 99284; J2405; J7799

== ENCOUNTER → 2023-12-20 09:15 | Outpatient (BNVA) | payer MEDICARE, MEDICAID, SELFPAY | PROVIDERS: PCP Family Medicine; Visit Provider Specialist | DX: G43.711 Chronic migraine without aura, intractable, with status migrainosus (principal); G31.84 Mild cognitive impairment of uncertain or unknown etiology | CPT/HCPCS: 99214 ==

== ENCOUNTER → 2024-01-10 13:57 | Outpatient (BNVA) | payer MEDICARE, MEDICAID, SELFPAY | PROVIDERS: PCP Family Medicine; Visit Provider Podiatrist Foot & Ankle Surgery | DX: E11.42 Type 2 diabetes mellitus with diabetic polyneuropathy (principal); L60.3 Nail dystrophy; L84 Corns and callosities; Z79.4 Long term (current) use of insulin; Z79.84 Long term (current) use of oral hypoglycemic drugs | CPT/HCPCS: 11055; 11721 ==

== ENCOUNTER → 2024-02-12 16:38 | Outpatient (BNVA) | payer MEDICARE, SELFPAY | PROVIDERS: PCP Family Medicine; Visit Provider Internal Medicine Cardiovascular Disease | DX: R06.02 Shortness of breath (principal) | CPT/HCPCS: 36415; 80048; 83880; 99215 ==

== ENCOUNTER → 2024-04-10 13:52 | Outpatient (BNVA) | payer MEDICARE, SELFPAY | PROVIDERS: PCP Family Medicine; Visit Provider Podiatrist Foot & Ankle Surgery | DX: E11.42 Type 2 diabetes mellitus with diabetic polyneuropathy (principal); L60.3 Nail dystrophy; L84 Corns and callosities; M21.41 Flat foot [pes planus] (acquired), right foot; M21.42 Flat foot [pes planus] (acquired), left foot; Z79.4 Long term (current) use of insulin; Z79.84 Long term (current) use of oral hypoglycemic drugs | CPT/HCPCS: 11055; 11721 ==

== ENCOUNTER 2024-04-23 14:06 | Emergency (ER) | payer MEDICARE, SELFPAY ==
[2024-04-23] VITALS (7 sets, daily range): BP systolic 150–190; BP diastolic 65–87; PULSE 77–84; RESP 13–17; TEMP 36.5; O2SAT 92–94; BMI 34.4
--- NOTE | 2024-04-23 14:36 | XR_ITS ---
WS: [id number] Examination: XR chest 1V portable [id number] Reason for Exam: chest pain Date: 04/23/2024 Comparison: 04/17/2024 Findings: The heart is not enlarged. The mediastinum is not widened on this rotated film There is no pulmonary edema or pleural effusion. There is no dense consolidation. XR/XR chest 1V portable [id number] IMPRESSION: There is no failure or consolidation seen.
--- NOTE | 2024-04-23 14:36 | CT_ITS ---
WS: [id number] Examination: CT abdomen pelvis wo con [id number] Reason for Exam: upper abdominal pain/vomiting Date: 04/23/2024 Comparison: 11/28/2023 DLP: 1112.[address] scans at [facility] use at least one of these dose optimization techniques: automated e xposure control; mA and/or kV adjustment per patient size (includes targeted exams where dose is matc hed to clinical indication); or iterative reconstruction. Findings: The heart is normal in size. There is coronary artery calcification. There is no pleural effusion. The liver is normal in size. The gallbladder has been removed. Air is seen within the common bile oskar t and left biliary tree which does not appear dilated. The spleen appears normal in size. There is no adrenal mass. There are nonobstructing renal calculi. Bilateral cysts are again identifie d. The aorta is normal in size with extensive atherosclerotic calcification. The pancreas is not grossly enlarged but not well delineated on this noncontrast study.. Air is seen throughout the pancreatic duct. There are L5 pars defects with grade 1 anterolisthesis at L4-5. Pain pump catheters are identified. There is no small bowel obstruction. Surgical changes to the right colon are identified. There is a m oderate stool burden. There is no free air. There is no free fluid. Scattered mesenteric lymph nodes with mild increased density within the mesenteric fat is again noted . There is a stable 43 by 34 x 21 mm soft tissue nodular density identified in a lateral wall hernia. Previous anterior abdominal wall hernia repair is identified with prominent thinning of the musculatu re. CT/CT abdomen pelvis wo con [id number] Impression: Coronary artery calcification is identified. There has been a cholecystectomy. Air is seen within the biliary tree and pancr eatic duct. There are bilateral nonobstructing renal calculi and cysts. There is no small bowel obstruction. There is no free fluid or free air.. Extensive atherosclerosis and vascular calcifications noted. Again a lateral left abdominal wall hernia containing fat is noted. It also con tains a similar-appearing soft tissue nodular density. Scattered mesenteric lymph nodes are identified with bushra mesentery again note d.
--- NOTE | 2024-04-23 14:37 | ED_ITS ---
HPI - Recheck/Abnormal Lab/Rx General: Chief Complaint: Recheck/Abnormal Lab/Rx Stated Complaint: HTN Time Seen by Provider: 04/23/24 14:14 Related Data Home Medications Medication Instructions Recorded Confirmed albuterol sulfate 90 mcg/actuation 1 - 2 inh inhalation Q4H PRN 10/30/19 04/10/24 breath activated powder inhaler Shortness Of Breath (ProAir RespiClick) glipizide 10 mg tablet 10 mg PO BID 10/30/19 04/10/24 isosorbide mononitrate 30 mg 30 mg PO BEDTIME 10/30/19 04/10/24 tablet,extended release 24 hr sertraline 100 mg tablet (Zoloft) 100 mg PO DAILY 10/30/19 04/10/24 gabapentin 100 mg capsule 200 mg PO TID 11/25/19 04/10/24 rosuvastatin 5 mg tablet 5 mg PO Q2D 04/21/20 04/10/24 clopidogrel 75 mg tablet (Plavix) 75 mg PO BEDTIME 03/03/21 04/10/24 hydroxyzine HCl 50 mg tablet 50 mg PO BID PRN Anxiety 03/03/21 04/10/24 insulin lispro 100 unit/mL See Rx Instructions .Route .COMPLEX 03/03/21 04/10/24 subcutaneous pen (Humalog KwikPen (U-100) Insulin) multivitamin 1 tab PO DAILY 03/03/21 04/10/24 Morphine pain pump See Rx Instructions .Route .COMPLEX 06/09/21 04/10/24 insulin glargine 100 unit/mL (3 57 unit SUBCUT BEDTIME 08/25/21 04/10/24 mL) subcutaneous pen (Lantus Solostar U-100 Insulin) clonidine HCl 0.1 mg tablet 0.1 mg PO Q8H PRN Blood Pressure 08/02/22 04/10/24 metformin 500 mg tablet,extended 1,000 mg PO BID 08/02/22 04/10/24 release 24 hr pantoprazole 40 mg tablet,delayed 40 mg PO BID 08/02/22 04/10/24 release vitamin B complex (B 1 tab PO DAILY 12/22/22 04/10/24 Complex-Vitamin B12 tablet) ondansetron HCl 4 mg tablet 4 mg PO Q8H PRN Nausea 05/26/23 08/21/24 Previous Rx's Medication Instructions Recorded [id number] 2 cap PO TID #90 caps 03/13/21 36,000-114,000-180,000 unit capsule,delay rel (Creon) docusate sodium 100 mg capsule 100 mg PO BID #30 caps 11/01/21 (Colace) lisinopril 10 mg tablet 10 mg PO BID #180 tabs 12/06/21 diphenhydramine HCl 50 mg tablet 50 mg PO .COMPLEX allergy symptoms 04/27/23 #1 tab furosemide 20 mg tablet 20 mg PO BID Edema #180 tabs 07/17/23 metoprolol tartrate 25 mg tablet 12.5 mg (1/2 x 25 mg) PO BID #30 08/07/23 tabs ferrous sulfate 325 mg (65 mg 325 mg PO DAILY #30 tabs 09/25/23 iron) tablet nortriptyline 25 mg capsule 25 mg PO DAILY #60 caps 11/07/23 galantamine 4 mg tablet 4 mg PO BID #180 tabs 12/20/23 topiramate 100 mg tablet 100 mg PO DAILY #90 tabs 12/20/23 galcanezumab-gnlm 120 mg/mL See Rx Instructions .Route 02/27/24 subcutaneous pen injector .COMPLEX #1 mL (Emgality Pen) Diabetic shoes with CUSTOM #1 ea 04/10/24 Accomodative Insert Allergies Allergy/AdvReac Type Severity Reaction Status Date / Time Iodinated Contrast Media Allergy Unknown ALGY-Hives Verified 04/10/24 13:58 adhesive tape Allergy ALGY-Rash Verified 04/10/24 13:58 aspirin Allergy ALGY-Rash Verified 04/10/24 13:58 fentanyl Allergy ALGY-Rash, Verified 04/10/24 13:58 vomit Penicillins Allergy ALGY-Rash, Verified 04/10/24 13:58 breathing difficulty alprazolam [From Xanax] AdvReac ADR-Anxiety Verified 04/10/24 13:58 zolpidem [From Ambien] AdvReac ADR-Anxiety Verified 04/10/24 13:58 PFSH ED PFSH: Medical History Chronic venous insufficiency Diabetes History of colon polyps NEDRA (obstructive sleep apnea) Coronary artery disease HTN (hypertension) Diabetes Peripheral neuropathy Asthma GERD (gastroesophageal reflux disease) Mart's palsy Surgical History History of incisional hernia repair (11/01/21) open with mesh History of esophagogastroduodenoscopy History of incisional hernia repair (05/06/21) With excision of abdominal wall mass Status post right inguinal hernia repair History of right hemicolectomy H/O colonoscopy (10/27/20) 5 years Family History Other CAD (coronary artery disease) Cancer Hypertension Denies family history of Anesthesia complication Bleeding disorder Social History Smoking and tobacco/nicotine status: unknown if used tobacco/nicotine Alcohol intake: never Substance/Drug Use: never Course Vital Signs: Vital signs: Vital Signs Temperature 97.7 F 04/23/24 14:13 Pulse Rate 77 04/23/24 14:36 Respiratory Rate 13 04/23/24 14:36 Blood Pressure 160/69 04/23/24 14:36 Pulse Oximetry 94 04/23/24 14:36 Oxygen Delivery Me thod Room Air 04/23/24 14:36 Discharge Plan Discharge Condition: Stable Prescriptions: No Action Morphine pain pump See Rx Instructions .ROUTE .COMPLEX Rx Instructions: via continuous intrathecal infusion as directed ondansetron HCl 4 mg tablet 4 mg PO Q8H PRN (Reason: Nausea) vitamin B complex [B Complex-Vitamin B12] Tablet 1 tab PO DAILY galantamine 4 mg tablet 4 mg PO BID Qty: 180 3RF Rx Instructions: administer with AM and PM meals 340B topiramate 100 mg tablet 100 mg PO DAILY Qty: 90 3RF Rx Instructions: 1/2 - 1 daily (DME) Diabetic shoes with CUSTOM Accomodative Insert See Rx Instructions .Route .MEDSUPPLY Qty: 1 0RF Rx Instructions: As directed by HOME ferrous sulfate 325 mg (65 mg iron) tablet 325 mg PO DAILY Qty: 30 12RF nortriptyline 25 mg capsule 25 mg PO DAILY Qty: 60 5RF Rx Instructions: 1-2 at night for sleep lisinopril 10 mg tablet 10 mg PO BID Qty: 180 2RF diphenhydramine HCl 50 mg tablet 50 mg PO .COMPLEX Qty: 1 0RF Rx Instructions: 50 mg orally; 1 hour prior to contrast administration furosemide 20 mg tablet 20 mg PO BID Qty: 180 3RF Rx Instructions: Take 1 tab in AM, 1 tab at 2PM metoprolol tartrate 25 mg tablet 12.5 mg PO BID Qty: 30 1RF Emgality Pen 120 mg/mL pen injector See Rx Instructions .ROUTE .COMPLEX Qty: 1 3RF Dose Instruction: INJECT 120 MG SUB-Q ONCE Rx Instructions: INJECT 120 MG SUB-Q ONCE glipizide 10 mg tablet 10 mg PO BID isosorbide mononitrate 30 mg tablet extended release 24 hr 30 mg PO BEDTIME sertraline [Zoloft] 100 mg tablet 100 mg PO DAILY ProAir RespiClick 90 mcg/actuation aerosol powdr breath activated 1 - 2 inh inhalation Q4H PRN (Reason: Shortness Of Breath) gabapentin 100 mg capsule 200 mg PO TID rosuvastatin 5 mg tablet 5 mg PO Q2D multivitamin Tablet 1 tab PO DAILY hydroxyzine HCl 50 mg tablet 50 mg PO BID PRN (Reason: Anxiety) clopidogrel [Plavix] 75 mg tablet 75 mg PO BEDTIME Hold Instructions: Resume on 11/04/21. insulin lispro [Humalog KwikPen Insulin] 100 unit/mL insulin pen See Rx Instructions .ROUTE .COMPLEX Rx Instructions: INJECT 20 UNITS WITH MEALS PLUS LOW DOSE SLIDING SCALE MAX OF 87 UNITS PER DAY. Lantus Solostar U-100 Insulin 100 unit/mL (3 mL) insulin pen 57 unit SUBCUT BEDTIME Patient Comments: took 26units at 2000 Creon 36,000-114,000- 180,000 unit capsule,delayed release(DR/EC) 2 cap PO TID Qty: 90 3RF Rx Instructions: administer with meals. 1 cap if snacks docusate sodium [Colace] 100 mg capsule 100 mg PO BID Qty: 30 0RF pantoprazole 40 mg tablet,delayed release (DR/EC) 40 mg PO BID clonidine HCl 0.1 mg tablet 0.1 mg PO Q8H PRN (Reason: Blood Pressure) metformin 500 mg tablet extended release 24 hr 1,000 mg PO BID Referrals: Johnny Vargas MD [Primary Care Provider] - Coding Level of Care Code ED Pleating Supervisor for Noelg Hansel
--- NOTE | 2024-04-23 14:37 | ED_ITS ---
HPI - Abdominal Pain 2 General: Chief Complaint: Recheck/Abnormal Lab/Rx Stated Complaint: HTN Time Seen by Provider: 04/23/24 14:14 Source: patient and family Mode of arrival: EMS Limitations: no limitations History of Present Illness: Patient is a 63-year-old male presents to ED today along with family via EMS for evaluation of not feeling well . PMH significant for diabetes, obstructive sleep apnea, coronary artery disease, hypertension, neuropathy, colon polyp/previous partial colectomy, GERD. Patient states he woke up this morning feeling nauseous and later during the day began vomiting. No hematemesis. States he got dizzy and noticed his blood pressure was yonathan high . He was complaining of mild pain to his upper abdomen and chest but states this has improved since this morning. He is not having any shortness of breath or difficulty breathing. He has not noticed any changes to his bowel movements. Denies poor food exposures. MD elicited complaint: abdominal pain and other (chest pain) Pertinent past history: none Onset (ago): hour(s) Pain Consistency: constant Location: Chest and Epigastric Severity: moderate Radiation: none Migration to: no migration Exacerbating factors: nothing Relieving factors: nothing Associated Symptoms: Reports nausea and vomiting; Denies change in bowel habits, chills, constipation, diarrhea, dysuria, fever(s), hematochezia, hematemesis, melena and syncope Related Data Home Medications Medication Instructions Recorded Confirmed albuterol sulfate 90 mcg/actuation 1 - 2 inh inhalation Q4H PRN 10/30/19 04/10/24 breath activated powder inhaler Shortness Of Breath (ProAir RespiClick) glipizide 10 mg tablet 10 mg PO BID 10/30/19 04/10/24 isosorbide mononitrate 30 mg 30 mg PO BEDTIME 10/30/19 04/10/24 tablet,extended release 24 hr sertraline 100 mg tablet (Zoloft) 100 mg PO DAILY 10/30/19 04/10/24 gabapentin 100 mg capsule 200 mg PO TID 11/25/19 04/10/24 rosuvastatin 5 mg tablet 5 mg PO Q2D 04/21/20 04/10/24 clopidogrel 75 mg tablet (Plavix) 75 mg PO BEDTIME 03/03/21 04/10/24 hydroxyzine HCl 50 mg tablet 50 mg PO BID PRN Anxiety 03/03/21 04/10/24 insulin lispro 100 unit/mL See Rx Instructions .Route .COMPLEX 03/03/21 04/10/24 subcutaneous pen (Humalog KwikPen (U-100) Insulin) multivitamin 1 tab PO DAILY 03/03/21 04/10/24 Morphine pain pump See Rx Instructions .Route .COMPLEX 06/09/21 04/10/24 insulin glargine 100 unit/mL (3 57 unit SUBCUT BEDTIME 08/25/21 04/10/24 mL) subcutaneous pen (Lantus Solostar U-100 Insulin) clonidine HCl 0.1 mg tablet 0.1 mg PO Q8H PRN Blood Pressure 08/02/22 04/10/24 metformin 500 mg tablet,extended 1,000 mg PO BID 08/02/22 04/10/24 release 24 hr pantoprazole 40 mg tablet,delayed 40 mg PO BID 08/02/22 04/10/24 release vitamin B complex (B 1 tab PO DAILY 12/22/22 04/10/24 Complex-Vitamin B12 tablet) ondansetron HCl 4 mg tablet 4 mg PO Q8H PRN Nausea 01/13/23 04/10/24 Previous Rx's Medication Instructions Recorded svfbbj-zjwhpmpi-vwfrkzo 2 cap PO TID #90 caps 03/13/21 36,000-114,000-180,000 unit capsule,delay rel (Creon) docusate sodium 100 mg capsule 100 mg PO BID #30 caps 11/01/21 (Colace) lisinopril 10 mg tablet 10 mg PO BID #180 tabs 12/06/21 diphenhydramine HCl 50 mg tablet 50 mg PO .COMPLEX allergy symptoms 04/27/23 #1 tab furosemide 20 mg tablet 20 mg PO BID Edema #180 tabs 07/17/23 metoprolol tartrate 25 mg tablet 12.5 mg (1/2 x 25 mg) PO BID #30 08/07/23 tabs ferrous sulfate 325 mg (65 mg 325 mg PO DAILY #30 tabs 09/25/23 iron) tablet nortriptyline 25 mg capsule 25 mg PO DAILY #60 caps 11/07/23 galantamine 4 mg tablet 4 mg PO BID #180 tabs 12/20/23 topiramate 100 mg tablet 100 mg PO DAILY #90 tabs 12/20/23 galcanezumab-gnlm 120 mg/mL See Rx Instructions .Route 02/27/24 subcutaneous pen injector .COMPLEX #1 mL (Emgality Pen) Diabetic shoes with CUSTOM #1 ea 04/10/24 Accomodative Insert Allergies Allergy/AdvReac Type Severity Reaction Status Date / Time Iodinated Contrast Media Allergy Unknown ALGY-Hives Verified 04/10/24 13:58 adhesive tape Allergy ALGY-Rash Verified 04/10/24 13:58 aspirin Allergy ALGY-Rash Verified 04/10/24 13:58 fentanyl Allergy ALGY-Rash, Verified 04/10/24 13:58 vomit Penicillins Allergy ALGY-Rash, Verified 04/10/24 13:58 breathing difficulty alprazolam [From Xanax] AdvReac ADR-Anxiety Verified 04/10/24 13:58 zolpidem [From Ambien] AdvReac ADR-Anxiety Verified 04/10/24 13:58 Review of Systems 2 Const: Reports: malaise; Denies: fever(s), chills, body aches or fatigue Eyes: Denies: change in vision or blurry vision Card: Reports: chest pain; Denies: palpitations, irregular heart rhythm, lightheadedness, syncope or dyspnea on exertion Resp: Denies: dyspnea, productive cough or pain on inspiration GI: Reports: abdominal pain, nausea and vomiting; Denies: hematemesis, diarrhea, constipation, change in bowel habits, hematochezia or melena : Denies: flank pain, difficulty urinating, dysuria, urinary urgency or urinary hesitancy Musc: Denies: neck pain, back pain, extremity pain, extremity swelling or joint pain Skin/Breast: Denies: rash Neuro: Denies: headache(s), numbness in extremities, weakness in extremities, sensory changes or dizziness PFSH ED 2 PFSH: Medical History Chronic venous insufficiency Diabetes History of colon polyps NEDRA (obstructive sleep apnea) Coronary artery disease HTN (hypertension) Diabetes Peripheral neuropathy Asthma GERD (gastroesophageal reflux disease) Mart's palsy Surgical History History of incisional hernia repair (11/01/21) open with mesh History of esophagogastroduodenoscopy History of incisional hernia repair (05/06/21) With excision of abdominal wall mass Status post right inguinal hernia repair History of right hemicolectomy H/O colonoscopy (10/27/20) 5 years Family History Other CAD (coronary artery disease) Cancer Hypertension Denies family history of Anesthesia complication Bleeding disorder Social History Smoking and tobacco/nicotine status: unknown if used tobacco/nicotine Alcohol intake: never Substance/Drug Use: never Physical Exam 2 Const: COMMON NORMALS: patient oriented x3, no limitations and alert G ENERAL APPEARANCE: cooperative and ill appearing NUTRITIONAL APPEARANCE: o verweight ORIENTATION/CONSCIOUSNESS: Yes awake, Yes oriented to person, Yes oriented to place and Yes oriented to time HENMT: COMMON NORMALS: normocephalic and atraumatic HEAD & SCALP: normal to inspection, normocephalic and atraumatic Eye: GENERAL EYE: appearance normal, both eyes and all related structures Neck/C-Spine: COMMON NORMALS: full ROM, no lymphadenopathy and no meningeal signs Chest: COMMONS NORMALS: normal inspection of the chest and normal palpation of entire chest wall Resp: COMMON NORMALS: normal respiratory effort and clear to auscultation bilaterally AUSCULTATION: clear to auscultation bilaterally Cardio: COMMON NORMALS: regular rate and regular rhythm RATE: regular rate RHYTHM: regular rhythm GI: COMMON NORMALS: Normal to inspection, nondistended, normoactive bowel sounds present, Soft to palpation, No hepatosplenomegaly present and no masses INSPECTION: Yes normal to inspection PALPATION: Yes Soft to palpation, Yes Tenderness to palpation present (GI) (epigastric) and Yes No hepatosplenomegaly present : COMMON NORMALS: Yes no CVA tenderness BLADDER/KIDNEY EXAM: Yes no CVA tenderness Back/Pelvis: COMMON NORMALS: no CVA tenderness and thoracic and lumbar spine normal to inspection Extremity: GENERAL: Yes normal exam except as noted Neuro: OMAYRA COMA SCALE: document GCS findings Omayra coma scale eye opening: Spontaneous [place] coma scale verbal response: Orientated [place] coma scale motor response: Obey commands Omayra coma scale total score: 15 COMMON NORMALS: patient oriented x3 SENSORIUM/ORIENTATION: Yes alert, Yes oriented to person, Yes oriented to place and Yes oriented to time MENINGEAL SIGNS: Y es no meningeal signs Skin: COMMON NORMALS: no rashes or lesions noted GENERAL SKIN EXAM: no rashes or lesions noted Course 2 Vital Signs: Vital signs: Vital Signs Temperature 97.7 F 04/23/24 14:13 Pulse Rate 80 04/23/24 16:00 Respiratory Rate 17 04/23/24 15:30 Blood Pressure 150/71 04/23/24 16:00 Pulse Oximetry 93 04/23/24 16:00 Oxygen Delivery Me thod Room Air 04/23/24 16:00 MDM - Abdominal Pain Medical Decision Making Patient feels better after nausea medications given here. Blood pressure is down to 150s/70s. Blood work overall is unremarkable. White count is normal. Chemistry overall is unremarkable. Mild elevation to his lactate at 2.5. His baseline troponin is normal. EKG is nonischemic. Serum ketones are negative. CT scan showing multiple incidental findings. COVID PCR obtained and pending at time of discharge. He has follow-up with his PCP Dr. Vargas already scheduled for tomorrow. Return to ED precautions given. Medical Records I reviewed the patient's medical records. Lab Data I reviewed the patient's lab results. 04/23/24 14:56 04/23/24 14:56 Labs/Radiology: Radiology Impressions Abdomen/Pelvis CT 04/23/24 14:36 Impression: Coronary artery calcification is identified. There has been a cholecystectomy. Air is seen within the biliary tree and pancreatic duct. There are bilateral nonobstructing renal calculi and cysts. There is no small bowel obstruction. There is no free fluid or free air.. Extensive atherosclerosis and vascular calcifications noted. Again a lateral left abdominal wall hernia containing fat is noted. It also contains a similar-appearing soft tissue nodular density. Scattered mesenteric lymph nodes are identified with bushra mesentery again noted. Chest X-Ray 04/23/24 14:36 IMPRESSION: There is no failure or consolidation seen. Laboratory Results WBC 7.03 10^3/uL (3.29-11.43) 04/23/24 14:56 RBC 4.31 10^6/uL (3.85-5.65) 04/23/24 14:56 Hgb 11.90 g/dL (11.27-16.99) 04/23/24 14:56 Hct 36.7 % (37-53) L 04/23/24 14:56 MCV 85.2 fl (82-101) 04/23/24 14:56 MCH 27.6 pg (27-33) 04/23/24 14:56 MCHC 32.4 g/dL (30-55) 04/23/24 14:56 RDW 11.9 % (12.1-15.1) L 04/23/24 14:56 Plt Count 206 10^3/cmm (157-399) 04/23/24 14:56 MPV 9.8 fL (7.4-10.4) 04/23/24 14:56 Neut % (Auto) 76.3 % 04/23/24 14:56 Lymph % (Auto) 14.8 % 04/23/24 14:56 [place] % (Auto) 5.7 % 04/23/24 14:56 Eos % (Auto) 1.8 % 04/23/24 14:56 Baso % (Auto) 1.0 % 04/23/24 14:56 Neut # (Auto) 5.36 10^3/uL (1.8-7.7) 04/23/24 14:56 Lymph # (Auto) 1.0 10^3/uL (0.8-4.8) 04/23/24 14:56 [place] # (Auto) 0.4 10^3/uL (0.2-0.9) 04/23/24 14:56 Eos # (Auto) 0.1 10^3/uL (0.0-0.8) 04/23/24 14:56 Baso # (Auto) 0.1 10^3/uL (0.0-0.1) 04/23/24 14:56 Nucleated RBC % (auto) 0 % 04/23/24 14:56 Nucleated RBCs # 0.0 /100WBC 04/23/24 14:56 Sodium 137 mmol/L (136-145) 04/23/24 14:56 Potassium 4.0 mmol/L (3.5-5.1) 04/23/24 14:56 Chloride 97 mmol/L (98-107) L 04/23/24 14:56 Carbon Dioxide 27 mmol/L (22-29) 04/23/24 14:56 Anion Gap 17.0 (5-19) 04/23/24 14:56 BUN 22 mg/dL (8-23) 04/23/24 14:56 Creatinine 0.7 mg/dL (0.7-1.2) 04/23/24 14:56 GFR Calculation 113.2 mL/min (90-130) 04/23/24 14:56 Glucose 177 mg/dL (65-115) H 04/23/24 14:56 Calculated Osmolality 292 mOsm/kg (285-295) 04/23/24 14:56 Lactic Acid 2.5 mmol/L (0.5-2.2) H 04/23/24 14:56 Calcium 9.0 mg/dL (8.5-10.5) 04/23/24 14:56 Total Bilirubin 0.3 mg/dL (0.15-1.2) 04/23/24 14:56 AST 16 U/L (0-40) 04/23/24 14:56 ALT 17 U/L (0-41) 04/23/24 14:56 Alkaline Phosphatase 64 U/L (40-130) 04/23/24 14:56 Troponin T Baseline 15 ng/L (0-15) 04/23/24 14:56 Total Protein 6.9 g/dL (6.6-8.7) 04/23/24 14:56 Albumin 4.0 g/dL (3.5-5.2) 04/23/24 14:56 Globulin 2.9 g/dL (1.3-4.6) 04/23/24 14:56 Serum Ketones Negative (Negative) 04/23/24 14:58 All radiology interpretation(s) finalized by discharge Discharge Plan Discharge Patient Disposition: Home Clinical Impression: Feeling unwell Nausea & vomiting Qualifiers: Vomiting type: unspecified Qualified Code(s): R11.2 - Nausea with vomiting, unspecified Condition: Stable Prescriptions: No Action Morphine pain pump See Rx Instructions .ROUTE .COMPLEX Rx Instructions: via continuous intrathecal infusion as directed ondansetron HCl 4 mg tablet 4 mg PO Q8H PRN (Reason: Nausea) vitamin B complex [B Complex-Vitamin B12] Tablet 1 tab PO DAILY galantamine 4 mg tablet 4 mg PO BID Qty: 180 3RF Rx Instructions: administer with AM and PM meals 340B topiramate 100 mg tablet 100 mg PO DAILY Qty: 90 3RF Rx Instructions: 1/2 - 1 daily (DME) Diabetic shoes with CUSTOM Accomodative Insert See Rx Instructions .Route .MEDSUPPLY Qty: 1 0RF Rx Instructions: As directed by HOME ferrous sulfate 325 mg (65 mg iron) tablet 325 mg PO DAILY Qty: 30 12RF nortriptyline 25 mg capsule 25 mg PO DAILY Qty: 60 5RF Rx Instructions: 1-2 at night for sleep lisinopril 10 mg tablet 10 mg PO BID Qty: 180 2RF diphenhydramine HCl 50 mg tablet 50 mg PO .COMPLEX Qty: 1 0RF Rx Instructions: 50 mg orally; 1 hour prior to contrast administration furosemide 20 mg tablet 20 mg PO BID Qty: 180 3RF Rx Instructions: Take 1 tab in AM, 1 tab at 2PM metoprolol tartrate 25 mg tablet 12.5 mg PO BID Qty: 30 1RF Emgality Pen 120 mg/mL pen injector See Rx Instructions .ROUTE .COMPLEX Qty: 1 3RF Dose Instruction: INJECT 120 MG SUB-Q ONCE Rx Instructions: INJECT 120 MG SUB-Q ONCE glipizide 10 mg tablet 10 mg PO BID isosorbide mononitrate 30 mg tablet extended release 24 hr 30 mg PO BEDTIME sertraline [Zoloft] 100 mg tablet 100 mg PO DAILY ProAir RespiClick 90 mcg/actuation aerosol powdr breath activated 1 - 2 inh inhalation Q4H PRN (Reason: Shortness Of Breath) gabapentin 100 mg capsule 200 mg PO TID rosuvastatin 5 mg tablet 5 mg PO Q2D multivitamin Tablet 1 tab PO DAILY hydroxyzine HCl 50 mg tablet 50 mg PO BID PRN (Reason: Anxiety) clopidogrel [Plavix] 75 mg tablet 75 mg PO BEDTIME Hold Instructions: Resume on 11/04/21. insulin lispro [Humalog KwikPen Insulin] 100 unit/mL insulin pen See Rx Instructions .ROUTE .COMPLEX Rx Instructions: INJECT 20 UNITS WITH MEALS PLUS LOW DOSE SLIDING SCALE MAX OF 87 UNITS PER DAY. Lantus Solostar U-100 Insulin 100 unit/mL (3 mL) insulin pen 57 unit SUBCUT BEDTIME Patient Comments: took 26units at 2000 Creon 36,000-114,000- 180,000 unit capsule,delayed release(DR/EC) 2 cap PO TID Qty: 90 3RF Rx Instructions: administer with meals. 1 cap if snacks docusate sodium [Colace] 100 mg capsule 100 mg PO BID Qty: 30 0RF pantoprazole 40 mg tablet,delayed release (DR/EC) 40 mg PO BID clonidine HCl 0.1 mg tablet 0.1 mg PO Q8H PRN (Reason: Blood Pressure) metformin 500 mg tablet extended release 24 hr 1,000 mg PO BID Discharge Orders: Discharge ED (Routine); Ordered 04/23/24 Ordered By: Malka Cano Referrals: Johnny Vargas MD [Primary Care Provider] - Activity Restrictions/Additional Instructions: As we discussed, please follow-up with Dr. Vargas as scheduled tomorrow. You may return to the emergency department for worsening chest pain, shortness of breath, difficulty breathing, severe abdominal pain, fevers, yellowing to your skin or eyes, severe headache or visual changes, repetitive episodes of vomiting, bloody vomit, or any other concerns you may have. I hope you begin to feel better soon. Coding Level of Care Code ED Cable Strander for Devonte Hamm
[2024-04-23] MEDS: sodium chloride 0.9% 1,000 ML 999 ML IV (14:58)
[2024-04-23] MEDS: ondansetron 2 mg/ML SDV 2 mL 4 MG IVP (14:59)
[2024-04-23 15:04] LABS: Basophils # 0.1 10^3/uL (0.0-0.1); Eosinophils # 0.1 10^3/uL (0.0-0.8); Eosinophils % 1.8 %; Hematocrit 36.7 % (37-53); Lymphocytes % 14.8 %; Mean Corpuscular HGB Conc 32.4 g/dL (30-55); Mean Corpuscular Hemoglobin 27.6 pg (27-33); Mean Corpuscular Volume 85.2 fl (82-101); Mean Platelet Volume 9.8 fL (7.4-10.4); Monocytes # 0.4 10^3/uL (0.2-0.9); Monocytes % 5.7 %; Neutrophils # 5.36 10^3/uL (1.8-7.7); Neutrophils % 76.3 %; Nucleated Red Blood Cells % 0 %; Platelet Count 206 10^3/cmm (157-399); Red Blood Count 4.31 10^6/uL (3.85-5.65); Red Cell Distribution Width 11.9 % (12.1-15.1); White Blood Count 7.03 10^3/uL (3.29-11.43)
[2024-04-23 15:17] LABS: Ketone (Acetest) Serum Negative (Negative)
[2024-04-23 15:25] LABS: Lactic Sepsis W/Reflex 2.5 mmol/L (0.5-2.2)
[2024-04-23 15:26] LABS: Alanine Aminotransferase 17 U/L (0-41); Alkaline Phosphatase 64 U/L (40-130); Aspartate Amino Transferase 16 U/L (0-40); Blood Urea Nitrogen 22 mg/dL (8-23); Carbon Dioxide 27 mmol/L (22-29); Chloride 97 mmol/L (98-107); Creatinine Clr Calc Pharmacy 117.1807; Globulin 2.9 g/dL (1.3-4.6); Glomerular Filtration Rate 113.2 mL/min (90-130); Glucose 177 mg/dL (65-115); Osmolality Calculated 292 mOsm/kg (285-295); Sodium 137 mmol/L (136-145); Total Bilirubin 0.3 mg/dL (0.15-1.2); Total Protein 6.9 g/dL (6.6-8.7)
[2024-04-23] MEDS: enalaprilat 2.5 mg/2 mL SDV 0.625 MG IVP (15:32)
--- NOTE | 2024-04-23 15:34 | ECG_ITS ---
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 Measurements Intervals [place] Rate: 80 P: 31 DC: 161 QRS: 57 QRSD: 134 T: 55 QT: 385 QTc: 445 Interpretive Statements SINUS RHYTHM RIGHT BUNDLE BRANCH BLOCK [120+ ms QRS DURATION, UPRIGHT V1, 40+ ms S IN I/aVL/V4/V5/V6] Compared to ECG 08/02/2022 15:55:55 Right bundle-branch block now present Electronically Signed On 04-23-2024 16:39:56 CDT by García Ramna M.D. [id number]
[2024-04-23 15:47] LABS: Troponin(5th) Baseline 15 ng/L (0-15)
[2024-04-23 16:48] LABS: Reflex Lactate Order REFLEX LACTIC ORDERD
[2024-04-23 18:14] LABS: Adenovirus Not Detected (NOT DETECT); Chlamydia Pneumoniae Not Detected (NOT DETECT); Coronavirus 229E,HKU1,NL63,OC4 Not Detected (NOT DETECT); Human Metapneumovirus Not Detected (NOT DETECT); Human Rhinovirus/Enterovirus Not Detected (NOT DETECT); Influenza A Not Detected (NOT DETECT); Influenza A H1 Not Detected (NOT DETECT); Influenza A H1-2009 Not Detected (NOT DETECT); Influenza A H3 Not Detected (NOT DETECT); Influenza B Not Detected (NOT DETECT); Mycoplasma Pneumoniae Not Detected (NOT DETECT); Parainfluenza Virus Type 1 Not Detected (NOT DETECT); Parainfluenza Virus Type 2 Not Detected (NOT DETECT); Parainfluenza Virus Type 3 Not Detected (NOT DETECT); Parainfluenza Virus Type 4 Not Detected (NOT DETECT); Respiratory Syncytial Virus A Not Detected (NOT DETECT); Respiratory Syncytial Virus B Not Detected (NOT DETECT); SARS-COV-2 Not Detected (NOT DETECT)
== END 2024-04-23 16:39 | disposition home or self-care (01) ==
PROVIDERS: Emergency Provider Physician Assistant; PCP Family Medicine
DX: R11.2 Nausea with vomiting, unspecified (principal); Z79.84 Long term (current) use of oral hypoglycemic drugs; Z79.02 Long term (current) use of antithrombotics/antiplatelets; Z79.4 Long term (current) use of insulin; I25.10 Atherosclerotic heart disease of native coronary artery without angina pectoris; E11.42 Type 2 diabetes mellitus with diabetic polyneuropathy; I10 Essential (primary) hypertension; Z11.52 Encounter for screening for COVID-19
CPT/HCPCS: 71045; 74176; 80053; 82009; 83605; 84484; 85025; 87635; 93005; 96374; 96375; 99285; J2405; J7030

== ENCOUNTER → 2024-05-13 09:08 | Outpatient (BNVA) | payer MEDICARE, SELFPAY | PROVIDERS: PCP Family Medicine; Visit Provider Specialist | DX: G45.9 Transient cerebral ischemic attack, unspecified (principal); I10 Essential (primary) hypertension; G43.711 Chronic migraine without aura, intractable, with status migrainosus; G31.84 Mild cognitive impairment of uncertain or unknown etiology | CPT/HCPCS: 99214 ==

== ENCOUNTER 2024-05-28 13:59 | Outpatient (CLI) | payer MEDICARE, SELFPAY ==
--- NOTE | 2024-05-28 14:04 | USCV_ITS ---
Guanakito Longo Age: 63 Gender: M : 1960 Exam Date: 05/28/2024 14:17 Ordering Phys: Johnny Vargas MD Technologist: MERRY [place] [facility] [place]: [place] BP: 163 / 79 HR: 80 Rhythm: Sinus Technical Quality: Adequate MEASUREMENTS (Male / Female) Normal Values 2D ECHO LV Diastolic Diameter PLAX 4.8 cm 4.2 - 5.9 / 3.9 - 5.3 cm IVS Diastolic Thickness 1.2 cm 0.6 - 1.0 / 0.6 - 0.9 cm IVS Systolic Thickness 2.1 cm LVPW Diastolic Thickness 1.7 cm 0.6 - 1.0 / 0.6 - 0.9 cm LVPW Systolic Thickness 2.4 cm LVOT Diameter 2.0 cm LV Ejection Fraction 2D Teich 62.0 % LV Ejection Fraction MOD 4C 72.6 % LV Ejection Fraction MOD 2C 51.6 % LV Ejection Fraction 2C AL 51.9 % LA Diameter 3.5 cm RA Systolic Volume 4C AL 24.6 ml RA Systolic Volume 4C MOD 23.5 ml LA Sys Volume AL 48.9 cm cubed LA Sys Volume Index AL 20.5 cm cubed/m squared Aorta at Sinotubular Diameter 2.0 cm M-MODE LA Ao Ratio MM 1.1 AV Cusp Separation MM 1.5 cm DOPPLER AV Peak Velocity 240.8 cm/s LVOT Peak Velocity 114.0 cm/s AV Area Cont Eq vti 1.8 cm squared AV Area Cont Eq pk 1.4 cm squared MV Peak Velocity 131.0 cm/s MV Area PHT 2.1 cm squared Mitral E to A Ratio 0.8 TR Peak Velocity 203.0 cm/s TR Peak Gradient 16.5 mmHg TR Mean Velocity 162.0 cm/s TR Mean Gradient 11.2 mmHg TR Velocity Time Integral 61.9 cm TV Peak E Velocity 89.0 cm/s Right Atrial Pressure 3.0 mmHg Pulmonary Artery Systolic Pressu 19.5 mmHg PV Peak Velocity 127.0 cm/s RV Ejection Time 0.3 s FINDINGS Left Ventricle Normal LV size and ejection fraction of 72%.mild left ventricular hypertrophy. Grade I/IV diastolic dysfunction (abnormal relaxation filling pattern), normal to mildly elevated filling pressures. Right Ventricle The right ventricle is normal in size and function. Right Atrium The right atrium is normal in size. Left Atrium The left atrium is normal in size. Mitral Valve No gross abnormalities noted Aortic Valve Mild aortic valve stenosis, mean gradient 13.5 mmHg, ROYAL 1.8 cm squared. Tricuspid Valve Trace tricuspid valve regurgitation. Pulmonic Valve Pulmonic valve not well visualized. Pericardium Normal pericardium without effusion. Aorta Normal ascending aorta dimension. IVC Inferior vena cava not visualized. CONCLUSIONS Normal LV size and ejection fraction of 72%.mild left ventricular hypertrophy. Grade I/IV diastolic dysfunction (abnormal relaxation filling pattern), normal to mildly elevated filling pressures. Mild aortic valve stenosis, mean gradient 13.5 mmHg, ROYAL 1.8 cm squared. Trace tricuspid valve regurgitation. There is no pericardial effusion. There are no intracardiac masses. Compared to the study from 04/17/2023, there is slight worsening of the aortic valve stenosis Dr Rhys Yusuf MD FAC (Electronically Signed) Final Date: 28 May 2024 21:53 S
== END 2024-05-28 14:00 | disposition home or self-care (01) ==
LOC: RAD 14:00
PROVIDERS: PCP Family Medicine; Visit Provider Family Medicine
DX: I50.30 Unspecified diastolic (congestive) heart failure (principal)
CPT/HCPCS: 93306

== ENCOUNTER 2024-06-14 14:43 | Outpatient (CLI) | payer MEDICARE, SELFPAY ==
--- NOTE | 2024-06-14 15:00 | USCV_ITS ---
Guanakito Longo Age: 63 Gender: M : 1960 Exam Date: 06/14/2024 14:59 Ordering Phys: Leena Melvin MD Technologist: USR Exam Location: [facility] [place] Indication: Dizziness Risk Factors: Previous Vascular Surgery: Right Brachial BP: / Left Brachial BP: / Right Left Velocity (cm/s) Spectral Plaque Velocity (cm/s) Spectral Plaque Syst/Diast Broadening Syst/Diast Broadening 153.90/21.20 Prox CCA 120.80/ 13.20 139.80/12.30 Mid CCA 112.80/ 22.90 92.00/ 14.00 Distal CCA 80.10 / 12.60 56.90/ 14.90 Prox ICA 163.90/ 38.40 196.40/47.20 Mid ICA 148.80/ 34.50 141.60/47.40 Distal ICA 114.10/ 24.40 135.90 ECA 164.20 2.10 ICA/CCA 2.00 Antegrade Vertebral Antegrade 52.80/ 12.40 cm/s 66.60/ 15.60 cm/s Tri Subclavian Tri 169.0 135.2 0 0 CONCLUSIONS Right mid ICA stenosis 50-69%. Proximal ICA is patent, Recommend CTA in further evaluation. Moderate atheromatous plaque right carotid bulb/ICA. Left ICA stenosis 50-69%. Moderate atheromatous plaque left carotid bulb/ICA. Intimal thickening in the common carotid arteries and internal carotid arteries bilaterally. Normal antegrade Doppler flow noted in the right vertebral artery. Normal antegrade Doppler flow noted in the left vertebral artery. Artie Rivera MD (Electronically Signed) Final Date: 14 June 2024 16:03 S
== END 2024-06-14 14:44 | disposition home or self-care (01) ==
LOC: RAD 14:43
PROVIDERS: PCP Family Medicine; Visit Provider Specialist
DX: I65.23 Occlusion and stenosis of bilateral carotid arteries (principal); I10 Essential (primary) hypertension
CPT/HCPCS: 93880

== ENCOUNTER → 2024-06-19 13:18 | Outpatient (BNVA) | payer MEDICARE, SELFPAY | PROVIDERS: PCP Family Medicine; Visit Provider Specialist | DX: E11.9 Type 2 diabetes mellitus without complications (principal); I10 Essential (primary) hypertension; G43.711 Chronic migraine without aura, intractable, with status migrainosus; G31.84 Mild cognitive impairment of uncertain or unknown etiology; G45.9 Transient cerebral ischemic attack, unspecified | CPT/HCPCS: 99214 ==

== ENCOUNTER 2024-07-12 14:15 | Emergency (ER) | payer MEDICARE, SELFPAY ==
[2024-07-12] VITALS (8 sets, daily range): BP systolic 160–203; BP diastolic 72–85; PULSE 65–86; RESP 12–20; TEMP 36.6; O2SAT 92–97; BMI 33.7
--- NOTE | 2024-07-12 14:43 | ECG_ITS ---
[facility] Test Date: 2024-07-12 Pat Name: Guanakito Longo Department: Room: Gender: Male Statistical Analyst: : 1960 Requested By: Edenilson Davidson Order Number: [id number] Vladimir MD: García Raman M.D. Measurements Intervals [place] Rate: 69 P: 0 LA: 0 QRS: 25 QRSD: 105 T: 30 QT: 376 QTc: 404 Interpretive Statements SUPRAVENTRICULAR RHYTHM LOW QRS VOLTAGE IN PRECORDIAL LEADS [QRS DEFLECTION < 1.0 mV IN CHEST LEADS] POSSIBLE RIGHT VENTRICULAR CONDUCTION DELAY [RSR (QR) IN V1/V2] ABNORMAL RHYTHM ECG Compared to ECG 04/23/2024 15:34:45 Supraventricular rhythm now present Low QRS voltage now present Sinus rhythm no longer present Right bundle-branch block no longer present Electronically Signed On 07-13-2024 10:22:15 BARGE MASTER by García Raman M.D. [id number]
--- NOTE | 2024-07-12 16:20 | XRR_ITS ---
PROCEDURE INFORMATION: Exam: XR Chest Exam date and time: 07/12/2024 5:25 PM Age: 63 years old Clinical indication: Pain; Chest pressure; Additional info: Chest pain TECHNIQUE: Imaging protocol: Radiologic exam of the chest. Views: 1 view. COMPARISON: CR XR chest 1V portable [id number] 04/23/2024 2:40 PM FINDINGS: Lungs: No infiltrate or consolidation. No pulmonary vascular congestion. Minimal left basilar atelectasis or scar. Pleural spaces: No pleural effusion or pneumothorax. Heart/Mediastinum: No cardiomegaly. Vasculature: Mild calcification thoracic aorta. Bones/joints: Visualized osseous structures show no acute abnormality. XR/XR chest 1V portable [id number] IMPRESSION: Minimal left basilar atelectasis or scar. No acute cardiopulmonary abnormality.
[2024-07-12 16:27] LABS: Basophils # 0.1 10^3/uL (0.0-0.1); Basophils % 0.7 %; Eosinophils # 0.2 10^3/uL (0.0-0.8); Eosinophils % 2.1 %; Hematocrit 37.5 % (37-53); Lymphocytes # 1.4 10^3/uL (0.8-4.8); Lymphocytes % 16.9 %; Mean Corpuscular HGB Conc 32.5 g/dL (30-55); Mean Corpuscular Hemoglobin 27.1 pg (27-33); Mean Corpuscular Volume 83.1 fl (82-101); Mean Platelet Volume 10.8 fL (7.4-10.4); Monocytes # 0.4 10^3/uL (0.2-0.9); Neutrophils # 6.27 10^3/uL (1.8-7.7); Neutrophils % 74.9 %; Nucleated Red Blood Cells % 0 %; Platelet Count 218 10^3/cmm (157-399); Red Blood Count 4.51 10^6/uL (3.85-5.65); Red Cell Distribution Width 12.2 % (12.1-15.1); White Blood Count 8.38 10^3/uL (3.29-11.43)
[2024-07-12 16:40] LABS: Alanine Aminotransferase 9 U/L (0-41); Alkaline Phosphatase 66 U/L (40-130); Aspartate Amino Transferase 11 U/L (0-40); Blood Urea Nitrogen 12 mg/dL (8-23); Calcium 9.1 mg/dL (8.5-10.5); Carbon Dioxide 25 mmol/L (22-29); Chloride 100 mmol/L (98-107); Creatinine Clr Calc Pharmacy 115.9995; Globulin 2.6 g/dL (1.3-4.6); Glomerular Filtration Rate 135.2 mL/min (90-130); Glucose 214 mg/dL (65-115); Lipase 53 U/L (13-60); Osmolality Calculated 292 mOsm/kg (285-295); Sodium 138 mmol/L (136-145); Total Bilirubin 0.4 mg/dL (0.15-1.2); Total Protein 6.6 g/dL (6.6-8.7)
[2024-07-12 16:41] LABS: Troponin(5th) Baseline 15 ng/L (0-15)
[2024-07-12 16:42] LABS: Slide Review Slide Review Perform
--- NOTE | 2024-07-12 17:48 | CTR_ITS ---
PROCEDURE INFORMATION: Exam: CT Abdomen And Pelvis With Contrast Exam date and time: 07/12/2024 6:49 PM Age: 63 years old Clinical indication: Abdominal pain; Prior surgery; Surgery date: 6+ months; Surgery type: Gb. RT hemicolectomy. Appy. Inguinal hernia. Pain pump. Patient HX: C/O epigastric pain. History of recurrent pancreatitis and colon cancer. ; Additional info: Abd pain TECHNIQUE: Imaging protocol: Computed tomography of the abdomen and pelvis with contrast. Radiation optimization: All CT scans at this facility use at least one of these dose optimization techniques: automated exposure control; mA and/or kV adjustment per patient size (includes targeted exams where dose is matched to clinical indication); or iterative reconstruction. Contrast material: OMNI 350; Contrast volume: 80 ml; Contrast route: INTRAVENOUS (IV); COMPARISON: CT abdomen pelvis wo con [id number] 04/23/2024 3:07 PM RADIATION DOSE METRICS: Total DLP (mGy-cm): 1077.04 FINDINGS: Lungs: No infiltrate or effusion is seen within the visualized lung bases. Liver: Mildly prominent. No focal abnormality. Gallbladder and biliary ducts: Previous cholecystectomy. Interval improvement of pneumobilia since prior exam. Mild chronic prominence of the common hepatic/bile duct post cholecystectomy.. Pancreas: Pancreas shows no significant focal enlargement or peripancreatic stranding. Possible air in the pancreatic duct, as suggested with prior exam, though some of the air may be within the duodenum. Spleen: Unremarkable. Adrenal glands: Normal. No mass. Kidneys and ureters: Small nonobstructing renal calculi bilaterally and bilateral renal cyst noted, as seen with prior exam. No ureteral calculus or obstructive uropathy or abnormal perinephric stranding. Stomach and bowel: Postsurgical changes right colon. No small bowel dilatation or obstruction. No significant pericolonic mesenteric stranding. Moderate stool content in the colon. Possible gastric thickening versus some appearance of incomplete distension. Appendix: The appendix is surgically absent. Intraperitoneal space: No free fluid or ascites. No free air. Mild scattered dirty mesenteric fat with prior exam. Vasculature: Atherosclerotic vascular disease with nonaneurysmal abdominal aorta. This includes splenic artery calcification upper left abdomen. Lymph nodes: No significant lymph node enlargement or lymphadenopathy in the periaortic region. Urinary bladder: Unremarkable as visualized. Reproductive: A few small chronic appearing prostate calcifications are seen. Bones/joints: Bone windows demonstrate grade 1 anterolisthesis L5 on S1 and underlying L5 pars defect and degenerative disc disease L5-S1, unchanged with prior exam. Mild spondylotic change lumbar spine otherwise. Soft tissues: Anterolateral left abdominal wall hernia is seen, as noted with prior exam with stable appearing approximately 4 x 3 x 2 cm nodular density within the lateral wall hernia along with mesenteric fat. No bowel content within the hernia. Pain pump with catheters identified, as noted with prior exam. Previous anterior abdominal wall hernia repair as noted with prior exam, with muscular thinning and slight anterior protrusion. This is unchanged with prior exam. CT/CT abdomen pelvis w con* [id number] IMPRESSION: 1. Postsurgical changes of previous cholecystectomy, right hemicolectomy, and appendectomy, as well as previous anterior abdominal wall hernia repair. 2. Anterolateral left abdominal wall hernia of mesenteric fat and soft tissue nodular density as seen with prior exam. No bowel content. 3. Possible gastric thickening with possible component related to incomplete distension. Consider gastritis. 4. Other nonacute or chronic changes with prior exam as noted above.
--- NOTE | 2024-07-12 17:49 | ED_ITS ---
HPI - Abdominal Pain 2 General: Chief Complaint: Abdominal Pain Stated Complaint: pain in middle abd Time Seen by Provider: 07/12/24 17:30 Source: patient Mode of arrival: ambulatory Limitations: no limitations History of Present Illness: 63 yo male that states he has a hx of ch ronic pancreatitis. he states that he started having epigastric abd pain this morning along with n/v. He states the pain is sharp in nature and rates it a 8/10. denies cough and denies fever. Associated Symptoms: Reports nausea and vomiting; Denies chills, diarrhea and fever(s) Related Data Home Medications Medication Instructions Recorded Confirmed albuterol sulfate 90 mcg/actuation 1 - 2 inh inhalation Q4H PRN 10/30/19 06/19/24 breath activated powder inhaler Shortness Of Breath (ProAir RespiClick) glipizide 10 mg tablet 10 mg PO BID 10/30/19 06/19/24 isosorbide mononitrate 30 mg 30 mg PO BEDTIME 10/30/19 06/19/24 tablet,extended release 24 hr sertraline 100 mg tablet (Zoloft) 100 mg PO DAILY 10/30/19 06/19/24 gabapentin 100 mg capsule 200 mg PO TID 11/25/19 06/19/24 rosuvastatin 5 mg tablet 5 mg PO Q2D 04/21/20 06/19/24 clopidogrel 75 mg tablet (Plavix) 75 mg PO BEDTIME 03/03/21 06/19/24 hydroxyzine HCl 50 mg tablet 50 mg PO BID PRN Anxiety 03/03/21 06/19/24 insulin lispro 100 unit/mL See Rx Instructions .Route .COMPLEX 03/03/21 06/19/24 subcutaneous pen (Humalog KwikPen (U-100) Insulin) multivitamin 1 tab PO DAILY 03/03/21 06/19/24 Morphine pain pump See Rx Instructions .Route .COMPLEX 06/09/21 06/19/24 insulin glargine 100 unit/mL (3 57 unit SUBCUT BEDTIME 08/25/21 06/19/24 mL) subcutaneous pen (Lantus Solostar U-100 Insulin) clonidine HCl 0.1 mg tablet 0.1 mg PO Q8H PRN Blood Pressure 08/02/22 06/19/24 metformin 500 mg tablet,extended 1,000 mg PO BID 08/02/22 06/19/24 release 24 hr pantoprazole 40 mg tablet,delayed 40 mg PO BID 08/02/22 06/19/24 release vitamin B complex (B 1 tab PO DAILY 12/22/22 06/19/24 Complex-Vitamin B12 tablet) ondansetron HCl 4 mg tablet 4 mg PO Q8H PRN Nausea 01/13/23 06/19/24 nortriptyline 50 mg capsule mg PO 05/13/24 06/19/24 Previous Rx's Medication Instructions Recorded nuhpiq-epmkgmzq-chmcsem 2 cap PO TID #90 caps 03/13/21 36,000-114,000-180,000 unit capsule,delay rel (Creon) docusate sodium 100 mg capsule 100 mg PO BID #30 caps 11/01/21 (Colace) lisinopril 10 mg tablet 10 mg PO BID #180 tabs 12/06/21 diphenhydramine HCl 50 mg tablet 50 mg PO .COMPLEX allergy symptoms 04/27/23 #1 tab furosemide 20 mg tablet 20 mg PO BID Edema #180 tabs 07/17/23 ferrous sulfate 325 mg (65 mg 325 mg PO DAILY #30 tabs 09/25/23 iron) tablet nortriptyline 25 mg capsule 25 mg PO DAILY #60 caps 11/07/23 Diabetic shoes with CUSTOM #1 ea 04/10/24 Accomodative Insert galantamine 4 mg tablet 4 mg PO BID #180 tabs 05/13/24 galcanezumab-gnlm 120 mg/mL See Rx Instructions .Route 05/13/24 subcutaneous pen injector .COMPLEX #1 mL (Emgality Pen) metoprolol tartrate 25 mg tablet 12.5 mg (1/2 x 25 mg) PO BID #90 06/05/24 tabs hydrocodone 5 mg-acetaminophen 325 1 tab PO Q6H PRN pain #14 tabs 07/12/24 mg tablet ondansetron 4 mg disintegrating 4 mg PO Q6H PRN nausea and 07/12/24 tablet vomiting #14 tabs Allergies Allergy/AdvReac Type Severity Reaction Status Date / Time Iodinated Contrast Media Allergy Unknown ALGY-Hives Verified 06/19/24 13:34 adhesive tape Allergy ALGY-Rash Verified 06/19/24 13:34 aspirin Allergy ALGY-Rash Verified 06/19/24 13:34 fentanyl Allergy ALGY-Rash, Verified 06/19/24 13:34 vomit Penicillins Allergy ALGY-Rash, Verified 06/19/24 13:34 breathing difficulty alprazolam [From Xanax] AdvReac ADR-Anxiety Verified 06/19/24 13:34 zolpidem [From Ambien] AdvReac ADR-Anxiety Verified 06/19/24 13:34 Review of Systems 2 Const: Denies: fever(s), chills, body aches or change in appetite ENMT: Denies: throat pain or dental pain Card: Denies: chest pain Resp: Denies: dyspnea GI: Reports: abdominal pain, nausea and vomiting; Denies: diarrhea Musc: Denies: neck pain or back pain Skin/Breast: Denies: rash Neuro: Denies: headache(s) PFSH ED 2 PFSH: Medical History Chronic venous insufficiency Diabetes History of colon polyps NEDRA (obstructive sleep apnea) Coronary artery disease HTN (hypertension) Diabetes Peripheral neuropathy Asthma GERD (gastroesophageal reflux disease) Mart's palsy Surgical History History of incisional hernia repair (11/01/21) open with mesh History of esophagogastroduodenoscopy History of incisional hernia repair (05/06/21) With excision of abdominal wall mass Status post right inguinal hernia repair History of right hemicolectomy H/O colonoscopy (10/27/20) 5 years Family History Other CAD (coronary artery disease) Cancer Hypertension Denies family history of Anesthesia complication Bleeding disorder Social History Smoking and tobacco/nicotine status: never used tobacco/nicotine Alcohol intake: never Substance/Drug Use: never Physical Exam 2 Const: COMMON NORMALS: no acute distress, patient oriented x3 and healthy appearing HENMT: COMMON NORMALS: normocephalic and atraumatic HEAD & SCALP: n ormocephalic and atraumatic Neck/C-Spine: COMMON NORMALS: full ROM and supple Chest: COMMONS NORMALS: normal inspection of the chest Resp: COMMON NORMALS: normal respiratory effort, No retractions, No use of accessory muscles and clear to auscultation bilaterally AUSCULTATION: clear to auscultation bilaterally Cardio: COMMON NORMALS: regular rate, regular rhythm and No murmurs present (Cardio) RATE: regular rate RHYTHM: regular rhythm GI: COMMON NORMALS: Normal to inspection, nondistended, normoactive bowel sounds present, Soft to palpation and no masses PALPATION: Yes Soft to palpation OTHER: epigastric tenderness Extremity: COMMON NORMALS: normal to inspection and full ROM Neuro: COMMON NORMALS: patient oriented x3, moves all extremities and no focal motor deficits Psych: COMMON NORMALS: mental status grossly normal, Normal thought process present and cooperative THOUGHT PROCESS: Normal thought process present Skin: COMMON NORMALS: no rashes or lesions noted and no wounds GENERAL SKIN EXAM: no rashes or lesions noted Course 2 Vital Signs: Vital signs: Vital Signs Temperature 97.8 F 07/12/24 14:38 Pulse Rate 69 07/12/24 21:29 Respiratory Rate 12 07/12/24 21:29 Blood Pressure 160/73 07/12/24 21:29 Pulse Oximetry 94 07/12/24 21:29 Oxygen Delivery Me thod Room Air 07/12/24 20:58 MDM - Abdominal Pain Medical Decision Making Patient presents with abdominal pain is epigastric in nature CT scans negative blood works normal he stable for discharge is follow-up with PCP return if worsening. Medical Records I reviewed the patient's medical records. Lab Data I reviewed the patient's lab results. 07/12/24 15:50 07/12/24 15:50 Labs/Radiology: Radiology Impressions Chest X-Ray 07/12/24 16:20 IMPRESSION: Minimal left basilar atelectasis or scar. No acute cardiopulmonary abnormality. Abdomen/Pelvis CT 07/12/24 17:48 IMPRESSION: 1. Postsurgical changes of previous cholecystectomy, right hemicolectomy, and appendectomy, as well as previous anterior abdominal wall hernia repair. 2. Anterolateral left abdominal wall hernia of mesenteric fat and soft tissue nodular density as seen with prior exam. No bowel content. 3. Possible gastric thickening with possible component related to incomplete distension. Consider gastritis. 4. Other nonacute or chronic changes with prior exam as noted above. Laboratory Results WBC 8.38 10^3/uL (3.29-11.43) 07/12/24 15:50 RBC 4.51 10^6/uL (3.85-5.65) 07/12/24 15:50 Hgb 12.20 g/dL (11.27-16.99) 07/12/24 15:50 Hct 37.5 % (37-53) 07/12/24 15:50 MCV 83.1 fl (82-101) 07/12/24 15:50 MCH 27.1 pg (27-33) 07/12/24 15:50 MCHC 32.5 g/dL (30-55) 07/12/24 15:50 RDW 12.2 % (12.1-15.1) 07/12/24 15:50 Plt Count 218 10^3/cmm (157-399) 07/12/24 15:50 MPV 10.8 fL (7.4-10.4) H 07/12/24 15:50 Neut % (Auto) 74.9 % 07/12/24 15:50 Lymph % (Auto) 16.9 % 07/12/24 15:50 [place] % (Auto) 5.0 % 07/12/24 15:50 Eos % (Auto) 2.1 % 07/12/24 15:50 Baso % (Auto) 0.7 % 07/12/24 15:50 Neut # (Auto) 6.27 10^3/uL (1.8-7.7) 07/12/24 15:50 Lymph # (Auto) 1.4 10^3/uL (0.8-4.8) 07/12/24 15:50 [place] # (Auto) 0.4 10^3/uL (0.2-0.9) 07/12/24 15:50 Eos # (Auto) 0.2 10^3/uL (0.0-0.8) 07/12/24 15:50 Baso # (Auto) 0.1 10^3/uL (0.0-0.1) 07/12/24 15:50 Nucleated RBC % (auto) 0 % 07/12/24 15:50 Nucleated RBCs # 0.0 /100WBC 07/12/24 15:50 Sodium 138 mmol/L (136-145) 07/12/24 15:50 Potassium 5.0 mmol/L (3.5-5.1) 07/12/24 15:50 Chloride 100 mmol/L (98-107) 07/12/24 15:50 Carbon Dioxide 25 mmol/L (22-29) 07/12/24 15:50 Anion Gap 18.0 (5-19) 07/12/24 15:50 BUN 12 mg/dL (8-23) 07/12/24 15:50 Creatinine 0.6 mg/dL (0.7-1.2) L 07/12/24 15:50 GFR Calculation 135.2 mL/min (90-130) H 07/12/24 15:50 Glucose 214 mg/dL (65-115) H 07/12/24 15:50 Calculated Osmolality 292 mOsm/kg (285-295) 07/12/24 15:50 Calcium 9.1 mg/dL (8.5-10.5) 07/12/24 15:50 Total Bilirubin 0.4 mg/dL (0.15-1.2) 07/12/24 15:50 AST 11 U/L (0-40) 07/12/24 15:50 ALT 9 U/L (0-41) 07/12/24 15:50 Alkaline Phosphatase 66 U/L (40-130) 07/12/24 15:50 Troponin T Baseline 15 ng/L (0-15) 07/12/24 15:50 Troponin T 120 Minute 12.99 ng/L (0-15) 07/12/24 17:48 Delta Troponin T -2.01 ABS# (0-10) L 07/12/24 17:48 Total Protein 6.6 g/dL (6.6-8.7) 07/12/24 15:50 Albumin 4.0 g/dL (3.5-5.2) 07/12/24 15:50 Globulin 2.6 g/dL (1.3-4.6) 07/12/24 15:50 Lipase 53 U/L (13-60) 07/12/24 15:50 All radiology interpretation(s) finalized by discharge Discharge Plan Discharge Patient Disposition: Home Clinical Impression: Abdominal pain Condition: Stable Prescriptions: New hydrocodone-acetaminophen 5-325 mg tablet 1 tab PO Q6H PRN (Reason: pain) Qty: 14 0RF ondansetron 4 mg tablet,disintegrating 4 mg PO Q6H PRN (Reason: nausea and vomiting) Qty: 14 0RF No Action Morphine pain pump See Rx Instructions .ROUTE .COMPLEX Rx Instructions: via continuous intrathecal infusion as directed ondansetron HCl 4 mg tablet 4 mg PO Q8H PRN (Reason: Nausea) vitamin B complex [B Complex-Vitamin B12] Tablet 1 tab PO DAILY nortriptyline 50 mg capsule PO galantamine 4 mg tablet 4 mg PO BID Qty: 180 3RF Rx Instructions: administer with AM and PM meals 340B Emgality Pen 120 mg/mL pen injector See Rx Instructions .ROUTE .COMPLEX Qty: 1 11RF Dose Instruction: INJECT 120 MG SUB-Q ONCE Rx Instructions: INJECT 120 MG SUB-Q ONCE (DME) Diabetic shoes with CUSTOM Accomodative Insert See Rx Instructions .Route .MEDSUPPLY Qty: 1 0RF Rx Instructions: As directed by HOME ferrous sulfate 325 mg (65 mg iron) tablet 325 mg PO DAILY Qty: 30 12RF nortriptyline 25 mg capsule 25 mg PO DAILY Qty: 60 5RF Rx Instructions: 1-2 at night for sleep lisinopril 10 mg tablet 10 mg PO BID Qty: 180 2RF diphenhydramine HCl 50 mg tablet 50 mg PO .COMPLEX Qty: 1 0RF Rx Instructions: 50 mg orally; 1 hour prior to contrast administration furosemide 20 mg tablet 20 mg PO BID Qty: 180 3RF Rx Instructions: Take 1 tab in AM, 1 tab at 2PM metoprolol tartrate 25 mg tablet 12.5 mg PO BID Qty: 90 3RF glipizide 10 mg tablet 10 mg PO BID isosorbide mononitrate 30 mg tablet extended release 24 hr 30 mg PO BEDTIME sertraline [Zoloft] 100 mg tablet 100 mg PO DAILY ProAir RespiClick 90 mcg/actuation aerosol powdr breath activated 1 - 2 inh inhalation Q4H PRN (Reason: Shortness Of Breath) gabapentin 100 mg capsule 200 mg PO TID rosuvastatin 5 mg tablet 5 mg PO Q2D multivitamin Tablet 1 tab PO DAILY hydroxyzine HCl 50 mg tablet 50 mg PO BID PRN (Reason: Anxiety) clopidogrel [Plavix] 75 mg tablet 75 mg PO BEDTIME Hold Instructions: Resume on 05/09/21. insulin lispro [Humalog KwikPen Insulin] 100 unit/mL insulin pen See Rx Instructions .ROUTE .COMPLEX Rx Instructions: INJECT 20 UNITS WITH MEALS PLUS LOW DOSE SLIDING SCALE MAX OF 87 UNITS PER DAY. Lantus Solostar U-100 Insulin 100 unit/mL (3 mL) insulin pen 57 unit SUBCUT BEDTIME Patient Comments: took 26units at 2000 Creon 36,000-114,000- 180,000 unit capsule,delayed release(DR/EC) 2 cap PO TID Qty: 90 3RF Rx Instructions: administer with meals. 1 cap if snacks docusate sodium [Colace] 100 mg capsule 100 mg PO BID Qty: 30 0RF pantoprazole 40 mg tablet,delayed release (DR/EC) 40 mg PO BID clonidine HCl 0.1 mg tablet 0.1 mg PO Q8H PRN (Reason: Blood Pressure) metformin 500 mg tablet extended release 24 hr 1,000 mg PO BID Discharge Orders: Discharge ED (Routine); Ordered 07/12/24 Ordered By: Elisha Hirsch Referrals: Johnny Vargas MD [Primary Care Provider] - 4-7 days Discharge Diet: Advance as tolerated Discharge Activity: Resume usual activity Patient Instructions: Abdominal Pain (ED), Opioid Safety Coding Level of Care Code ED Account Manager 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
[2024-07-12 18:13] LABS: Troponin 5 2HR 12.99 ng/L (0-15)
[2024-07-12 18:17] LABS: Troponin 5 2HR Delta -2.01 ABS# (0-10)
--- NOTE | 2024-07-12 18:20 | ECG_ITS ---
[facility]: 2024-07-12 Pat Name: Guanakito Longo Department: Room: Gender: Male Db2 Dba: : 1960 Requested By: Malka Cano Order Number: [id number] Vladimir MD: García Raman M.D. Measurements Intervals [place] Rate: 62 P: 16 [place]: 193 QRS: 21 QRSD: 116 T: 9 QT: 402 QTc: 411 Interpretive Statements SINUS RHYTHM MODERATE INTRAVENTRICULAR CONDUCTION DELAY [110+ ms QRS DURATION] Compared to ECG 07/12/2024 14:43:17 Intraventricular conduction delay now present Supraventricular rhythm no longer present Electronically Signed On 07-13-2024 10:33:31 ELECTRICIAN STATION ASSISTANT by García Raman M.D. [email or web address]
[2024-07-12] MEDS: ondansetron 2 mg/ML SDV 2 mL 4 MG IVP (18:25)
[2024-07-12] MEDS: morphine 4 mg/mL SDV 1 mL IVP (18:26)
[2024-07-12] MEDS: methylPREDNISolone sod succ 40 mg/mL INJ IVP (18:34)
[2024-07-12] MEDS: diphenhydrAMINE 50 mg/mL SDV 1mL IVP (18:36)
[2024-07-12] MEDS: iohexol 350 mg/mL 500 mL Btl (per mL) IV (18:54)
[2024-07-12] MEDS: HYDROmorphone 1 mg/mL INJ 1 mL 0.5 MG IVP (19:58)
[2024-07-12] MEDS: lidocaine 2% viscous 15 ML, aluminum-mag hydrox-simethicon 30 ML, sucralfate oral liq 1 GM PO (20:00)
--- NOTE | 2024-07-12 20:06 | PC.NURSE ---
PT STATED, I DO HAVE AHX OF PANCREATITIS WITH NO ELEVATED LIPASE LEVELS.
[2024-07-12] MEDS: metoclopramide 5 mg/mL SDV 2 mL IVP (20:57)
== END 2024-07-12 21:31 | disposition home or self-care (01) ==
PROVIDERS: Physician Assistant; Emergency Provider Emergency Medicine; PCP Family Medicine
DX: R10.9 Unspecified abdominal pain (principal); Z79.4 Long term (current) use of insulin; Z79.84 Long term (current) use of oral hypoglycemic drugs; E11.42 Type 2 diabetes mellitus with diabetic polyneuropathy; I10 Essential (primary) hypertension
CPT/HCPCS: 71045; 74177; 80053; 83690; 84484; 85025; 93005; 96374; 96375; 99285; J1171; J1200; J2270; J2405; J2765; J2919

== ENCOUNTER 2024-07-21 01:33 | Emergency (ER) | payer MEDICARE, SELFPAY ==
[2024-07-21 01:38] VITALS: BP 194/66; PULSE 83; RESP 16; TEMP 36.8; O2SAT 94; BMI 33.3
--- NOTE | 2024-07-21 01:40 | XRR_ITS ---
PROCEDURE INFORMATION: Exam: XR Chest Exam date and time: 07/21/2024 1:41 AM Age: 63 years old Clinical indication: Chest pressure; Prior surgery; Surgery date: 6+ months; Surgery type: Gb; Patient HX: C/O chest pain TECHNIQUE: Imaging protocol: Radiologic exam of the chest. Views: 1 view. COMPARISON: CR (CHEST, ) 07/12/2024 5:25 PM FINDINGS: Lungs: Unremarkable. No consolidation. Pleural spaces: Unremarkable. No pleural effusion. No pneumothorax. Heart/Mediastinum: Unremarkable. No cardiomegaly. Bones/joints: Unremarkable. XR/XR chest 1V portable [id number] IMPRESSION: No acute findings.
--- NOTE | 2024-07-21 01:40 | ECG_ITS ---
[facility] Test Date: 2024-07-21 Pat Name: Guanakito Longo Department: Room: Gender: Male Wage And Salary Specialist: : 1960 Requested By: Glynn Velez Order Number: [id number] Vladimir MD: García Raman M.D. Measurements Intervals [place] Rate: 85 P: 46 [place]: 174 QRS: 22 QRSD: 110 T: 16 QT: 341 QTc: 407 Interpretive Statements SINUS RHYTHM INCOMPLETE RIGHT BUNDLE BRANCH BLOCK [90+ ms QRS DURATION, TERMINAL R IN V1/V2, 40+ ms S IN I/aVL/V4/V5/V6] POSSIBLE INFERIOR MYOCARDIAL INFARCTION , PROBABLY OLD [30 ms Q WAVE IN II/aVF] Compared to ECG 07/12/2024 18:20:48 Incomplete right bundle-branch block now present Myocardial infarct finding now present Intraventricular conduction delay no longer present Electronically Signed On 07-21-2024 18:47:47 GOVERNMENT SERVICES PROFESSIONAL by García Raman M.D. [email or web address]
[2024-07-21 02:10] LABS: Basophils # 0.1 10^3/uL (0.0-0.1); Basophils % 0.9 %; Eosinophils # 0.3 10^3/uL (0.0-0.8); Eosinophils % 3.8 %; Hematocrit 35.9 % (37-53); Lymphocytes # 1.9 10^3/uL (0.8-4.8); Lymphocytes % 25.5 %; Mean Corpuscular HGB Conc 32.6 g/dL (30-55); Mean Corpuscular Hemoglobin 27.2 pg (27-33); Mean Corpuscular Volume 83.5 fl (82-101); Mean Platelet Volume 9.9 fL (7.4-10.4); Monocytes # 0.5 10^3/uL (0.2-0.9); Neutrophils # 4.75 10^3/uL (1.8-7.7); Neutrophils % 62.3 %; Nucleated Red Blood Cells % 0 %; Platelet Count 247 10^3/cmm (157-399); White Blood Count 7.62 10^3/uL (3.29-11.43)
[2024-07-21 02:28] LABS: INR 0.98 (0.8-1.2)
[2024-07-21 02:29] LABS: Troponin(5th) Baseline 15 ng/L (0-15)
[2024-07-21 02:37] LABS: Alanine Aminotransferase 12 U/L (0-41); Albumin Level 3.9 g/dL (3.5-5.2); Alkaline Phosphatase 75 U/L (40-130); Anion Gap 17.6 (5-19); Aspartate Amino Transferase 10 U/L (0-40); Blood Urea Nitrogen 14 mg/dL (8-23); Calcium 8.6 mg/dL (8.5-10.5); Carbon Dioxide 25 mmol/L (22-29); Chloride 99 mmol/L (98-107); Creatine Phosphokinase 77 U/L (39-308); Creatinine Clr Calc Pharmacy 115.2911; Globulin 2.5 g/dL (1.3-4.6); Glomerular Filtration Rate 113.2 mL/min (90-130); Glucose 298 mg/dL (65-115); Lipase 43 U/L (13-60); NT Pro B Type Natriuretic Pept 158 pg/mL (0-125); Osmolality Calculated 296 mOsm/kg (285-295); Potassium 4.6 mmol/L (3.5-5.1); Sodium 137 mmol/L (136-145); Total Bilirubin 0.3 mg/dL (0.15-1.2); Total Protein 6.4 g/dL (6.6-8.7)
--- NOTE | 2024-07-21 03:20 | W.ED.CHESTPA ---
HPI - Chest Pain General: Chief Complaint: Chest Pain Stated Complaint: cp Time Seen by Provider: 07/21/24 03:13 History of Present Illness: 63-year-old male with history of pancreatitis. No prior coronary history. He presents with chest discomfort, this started while he was watching TV last evening. He continues. He is nauseated. He did not throw up. No fever. Mild shortness of breath. Pain is improved but still present. Related Data Home Medications Medication Instructions Recorded Confirmed albuterol sulfate 90 mcg/actuation 1 - 2 inh inhalation Q4H PRN 10/30/19 06/19/24 breath activated powder inhaler Shortness Of Breath (ProAir RespiClick) glipizide 10 mg tablet 10 mg PO BID 10/30/19 06/19/24 isosorbide mononitrate 30 mg 30 mg PO BEDTIME 10/30/19 06/19/24 tablet,extended release 24 hr sertraline 100 mg tablet (Zoloft) 100 mg PO DAILY 10/30/19 06/19/24 gabapentin 100 mg capsule 200 mg PO TID 11/25/19 06/19/24 rosuvastatin 5 mg tablet 5 mg PO Q2D 04/21/20 06/19/24 clopidogrel 75 mg tablet (Plavix) 75 mg PO BEDTIME 03/03/21 06/19/24 hydroxyzine HCl 50 mg tablet 50 mg PO BID PRN Anxiety 03/03/21 06/19/24 insulin lispro 100 unit/mL See Rx Instructions .Route .COMPLEX 03/03/21 06/19/24 subcutaneous pen (Humalog KwikPen (U-100) Insulin) multivitamin 1 tab PO DAILY 03/03/21 06/19/24 Morphine pain pump See Rx Instructions .Route .COMPLEX 06/09/21 06/19/24 insulin glargine 100 unit/mL (3 57 unit SUBCUT BEDTIME 08/25/21 06/19/24 mL) subcutaneous pen (Lantus Solostar U-100 Insulin) clonidine HCl 0.1 mg tablet 0.1 mg PO Q8H PRN Blood Pressure 08/02/22 06/19/24 metformin 500 mg tablet,extended 1,000 mg PO BID 08/02/22 06/19/24 release 24 hr pantoprazole 40 mg tablet,delayed 40 mg PO BID 08/02/22 06/19/24 release vitamin B complex (B 1 tab PO DAILY 12/22/22 06/19/24 Complex-Vitamin B12 tablet) ondansetron HCl 4 mg tablet 4 mg PO Q8H PRN Nausea 01/13/23 06/19/24 nortriptyline 50 mg capsule mg PO 05/13/24 06/19/24 Previous Rx's Medication Instructions Recorded xinavp-scfzzryy-advllrg 2 cap PO TID #90 caps 03/13/21 36,000-114,000-180,000 unit capsule,delay rel (Creon) docusate sodium 100 mg capsule 100 mg PO BID #30 caps 11/01/21 (Colace) lisinopril 10 mg tablet 10 mg PO BID #180 tabs 12/06/21 diphenhydramine HCl 50 mg tablet 50 mg PO .COMPLEX allergy symptoms 04/27/23 #1 tab ferrous sulfate 325 mg (65 mg 325 mg PO DAILY #30 tabs 09/25/23 iron) tablet nortriptyline 25 mg capsule 25 mg PO DAILY #60 caps 11/07/23 Diabetic shoes with CUSTOM #1 ea 04/10/24 Accomodative Insert galantamine 4 mg tablet 4 mg PO BID #180 tabs 05/13/24 galcanezumab-gnlm 120 mg/mL See Rx Instructions .Route 05/13/24 subcutaneous pen injector .COMPLEX #1 mL (Emgality Pen) metoprolol tartrate 25 mg tablet 12.5 mg (1/2 x 25 mg) PO BID #90 06/05/24 tabs hydrocodone 5 mg-acetaminophen 325 1 tab PO Q6H PRN pain #14 tabs 07/12/24 mg tablet ondansetron 4 mg disintegrating 4 mg PO Q6H PRN nausea and 07/12/24 tablet vomiting #14 tabs furosemide 20 mg tablet 20 mg PO BID Edema #180 tabs 07/15/24 Allergies Allergy/AdvReac Type Severity Reaction Status Date / Time Iodinated Contrast Media Allergy Unknown ALGY-Hives Verified 06/19/24 13:34 adhesive tape Allergy ALGY-Rash Verified 06/19/24 13:34 aspirin Allergy ALGY-Rash Verified 06/19/24 13:34 fentanyl Allergy ALGY-Rash, Verified 06/19/24 13:34 vomit Penicillins Allergy ALGY-Rash, Verified 06/19/24 13:34 breathing difficulty alprazolam [From Xanax] AdvReac ADR-Anxiety Verified 06/19/24 13:34 zolpidem [From Ambien] AdvReac ADR-Anxiety Verified 06/19/24 13:34 [facility] PFSH: Medical History Chronic venous insufficiency Diabetes History of colon polyps NEDRA (obstructive sleep apnea) Coronary artery disease HTN (hypertension) Diabetes Peripheral neuropathy Asthma GERD (gastroesophageal reflux disease) Mart's palsy Surgical History History of incisional hernia repair (11/01/21) open with mesh History of esophagogastroduodenoscopy History of incisional hernia repair (05/06/21) With excision of abdominal wall mass Status post right inguinal hernia repair History of right hemicolectomy H/O colonoscopy (10/27/20) 5 years Family History Other CAD (coronary artery disease) Cancer Hypertension Denies family history of Anesthesia complication Bleeding disorder Social History Smoking and tobacco/nicotine status: never used tobacco/nicotine Alcohol intake: never Substance/Drug Use: never Physical Exam Const: COMMON NORMALS: no acute distress GENERAL APPEARANCE: cooperative; not ill appearing and not frail appearing HENMT: COMMON NORMALS: normocephalic, atraumatic and Normal external nose present HEAD & SCALP: normocephalic and atraumatic FACE & SINUS: normal facial exam and face symmetric NOSE: Normal external nose present Eye: COMMON NORMALS: Equal, round and reactive pupils present and EOMs intact bilaterally PUPIL: Yes Equal, round and reactive pupils present Neck/C-Spine: GENERAL: Yes trachea midline Chest: CHEST: Yes Symmetrical chest wall rise Resp: COMMON NORMALS: normal respiratory effort, No retractions, No use of accessory muscles and clear to auscultation bilaterally AUSCULTATION: clear to auscultation bilaterally Cardio: COMMON NORMALS: regular rate and regular rhythm RATE: regular rate RHYTHM: regular rhythm GI: COMMON NORMALS: Normal to inspection, nondistended, normoactive bowel sounds present and Soft to palpation PALPATION: Yes Soft to palpation and Yes Tenderness to palpation present (GI) (Epigastric) Extremity: COMMON NORMALS: no pedal edema Neuro: OMAYRA COMA SCALE: document GCS findings Omayra coma scale eye opening: Spontaneous Omayra coma scale verbal response: Orientated Omayra coma scale motor response: Obey commands Burnham coma scale total score: 15 SENSORY EXAM: Yes extremities (intact) Psych: COMMON NORMALS: speech normal SPEECH: Yes normal speech Skin: COMMON NORMALS: no rashes or lesions noted GENERAL SKIN EXAM: no rashes or lesions noted Course Vital Signs: Vital signs: Vital Signs Temperature 98.3 F 07/21/24 01:38 Pulse Rate 70 07/21/24 04:33 Respiratory Rate 18 07/21/24 04:33 Blood Pressure 162/67 07/21/24 04:33 Pulse Oximetry 94 07/21/24 04:33 Oxygen Delivery Me thod Room Air 07/21/24 04:33 MDM - Chest Pain Medical Decision Making Patient with epigastric tenderness on exam. EKG is nonacute. CBC is normal. BMP shows a blood sugar of 298, otherwise normal. Chest x-ray is negative. His lipase is 43. Liver enzymes are normal. Troponin is normal initially at 15. He is given morphine Zofran and GI cocktail with improvement in his discomfort. Second troponin pending. Delta troponin is 0.2. He will be allowed discharge. Lab Data 07/21/24 02:04 07/21/24 02:04 Radiology Impressions Chest X-Ray 07/21/24 01:40 IMPRESSION: No acute findings. Laboratory Results WBC 7.62 10^3/uL (3.29-11.43) 07/21/24 02:04 RBC 4.30 10^6/uL (3.85-5.65) 07/21/24 02:04 Hgb 11.70 g/dL (11.27-16.99) 07/21/24 02:04 Hct 35.9 % (37-53) L 07/21/24 02:04 MCV 83.5 fl (82-101) 07/21/24 02:04 MCH 27.2 pg (27-33) 07/21/24 02:04 MCHC 32.6 g/dL (30-55) 07/21/24 02:04 RDW 12.0 % (12.1-15.1) L 07/21/24 02:04 Plt Count 247 10^3/cmm (157-399) 07/21/24 02:04 MPV 9.9 fL (7.4-10.4) 07/21/24 02:04 Neut % (Auto) 62.3 % 07/21/24 02:04 Lymph % (Auto) 25.5 % 07/21/24 02:04 [place] % (Auto) 7.0 % 07/21/24 02:04 Eos % (Auto) 3.8 % 07/21/24 02:04 Baso % (Auto) 0.9 % 07/21/24 02:04 Neut # (Auto) 4.75 10^3/uL (1.8-7.7) 07/21/24 02:04 Lymph # (Auto) 1.9 10^3/uL (0.8-4.8) 07/21/24 02:04 [place] # (Auto) 0.5 10^3/uL (0.2-0.9) 07/21/24 02:04 Eos # (Auto) 0.3 10^3/uL (0.0-0.8) 07/21/24 02:04 Baso # (Auto) 0.1 10^3/uL (0.0-0.1) 07/21/24 02:04 Nucleated RBC % (auto) 0 % 07/21/24 02:04 Nucleated RBCs # 0.0 /100WBC 07/21/24 02:04 PT 13.30 SECONDS (12.1-14.9) 07/21/24 02:04 INR 0.98 (0.8-1.2) 07/21/24 02:04 APTT 28.0 SECONDS (23.9-36.7) 07/21/24 02:04 Sodium 137 mmol/L (136-145) 07/21/24 02:04 Potassium 4.6 mmol/L (3.5-5.1) 07/21/24 02:04 Chloride 99 mmol/L (98-107) 07/21/24 02:04 Carbon Dioxide 25 mmol/L (22-29) 07/21/24 02:04 Anion Gap 17.6 (5-19) 07/21/24 02:04 BUN 14 mg/dL (8-23) 07/21/24 02:04 Creatinine 0.7 mg/dL (0.7-1.2) 07/21/24 02:04 GFR Calculation 113.2 mL/min (90-130) 07/21/24 02:04 Glucose 298 mg/dL (65-115) H 07/21/24 02:04 Calculated Osmolality 296 mOsm/kg (285-295) H 07/21/24 02:04 Calcium 8.6 mg/dL (8.5-10.5) 07/21/24 02:04 Total Bilirubin 0.3 mg/dL (0.15-1.2) 07/21/24 02:04 AST 10 U/L (0-40) 07/21/24 02:04 ALT 12 U/L (0-41) 07/21/24 02:04 Alkaline Phosphatase 75 U/L (40-130) 07/21/24 02:04 Creatine Kinase 77 U/L (39-308) 07/21/24 02:04 Troponin T Baseline 15 ng/L (0-15) 07/21/24 02:04 Troponin T 120 Minute 15.22 ng/L (0-15) H 07/21/24 03:49 Delta Troponin T 0.22 ABS# (0-10) 07/21/24 03:49 NT-Pro-B Natriuret Pep 158 pg/mL (0-125) H 07/21/24 02:04 Total Protein 6.4 g/dL (6.6-8.7) L 07/21/24 02:04 Albumin 3.9 g/dL (3.5-5.2) 07/21/24 02:04 Globulin 2.5 g/dL (1.3-4.6) 07/21/24 02:04 Lipase 43 U/L (13-60) 07/21/24 02:04 All radiology interpretation(s) finalized by discharge Discharge Plan Discharge Patient Disposition: Home Clinical Impression: Chest pain, HTN (hypertension) Condition: Stable Prescriptions: No Action Morphine pain pump See Rx Instructions .ROUTE .COMPLEX Rx Instructions: via continuous intrathecal infusion as directed ondansetron HCl 4 mg tablet 4 mg PO Q8H PRN (Reason: Nausea) vitamin B complex [B Complex-Vitamin B12] Tablet 1 tab PO DAILY nortriptyline 50 mg capsule PO galantamine 4 mg tablet 4 mg PO BID Qty: 180 3RF Rx Instructions: administer with AM and PM meals 340B Emgality Pen 120 mg/mL pen injector See Rx Instructions .ROUTE .COMPLEX Qty: 1 11RF Dose Instruction: INJECT 120 MG SUB-Q ONCE Rx Instructions: INJECT 120 MG SUB-Q ONCE (DME) Diabetic shoes with CUSTOM Accomodative Insert See Rx Instructions .Route .MEDSUPPLY Qty: 1 0RF Rx Instructions: As directed by HOME ferrous sulfate 325 mg (65 mg iron) tablet 325 mg PO DAILY Qty: 30 12RF nortriptyline 25 mg capsule 25 mg PO DAILY Qty: 60 5RF Rx Instructions: 1-2 at night for sleep lisinopril 10 mg tablet 10 mg PO BID Qty: 180 2RF diphenhydramine HCl 50 mg tablet 50 mg PO .COMPLEX Qty: 1 0RF Rx Instructions: 50 mg orally; 1 hour prior to contrast administration metoprolol tartrate 25 mg tablet 12.5 mg PO BID Qty: 90 3RF furosemide 20 mg tablet 20 mg PO BID Qty: 180 3RF Rx Instructions: Take 1 tab in AM, 1 tab at 2PM glipizide 10 mg tablet 10 mg PO BID isosorbide mononitrate 30 mg tablet extended release 24 hr 30 mg PO BEDTIME sertraline [Zoloft] 100 mg tablet 100 mg PO DAILY ProAir RespiClick 90 mcg/actuation aerosol powdr breath activated 1 - 2 inh inhalation Q4H PRN (Reason: Shortness Of Breath) gabapentin 100 mg capsule 200 mg PO TID rosuvastatin 5 mg tablet 5 mg PO Q2D multivitamin Tablet 1 tab PO DAILY hydroxyzine HCl 50 mg tablet 50 mg PO BID PRN (Reason: Anxiety) clopidogrel [Plavix] 75 mg tablet 75 mg PO BEDTIME Hold Instructions: Resume on 05/09/21. insulin lispro [Humalog KwikPen Insulin] 100 unit/mL insulin pen See Rx Instructions .ROUTE .COMPLEX Rx Instructions: INJECT 20 UNITS WITH MEALS PLUS LOW DOSE SLIDING SCALE MAX OF 87 UNITS PER DAY. Lantus Solostar U-100 Insulin 100 unit/mL (3 mL) insulin pen 57 unit SUBCUT BEDTIME Patient Comments: took 26units at 2000 Creon 36,000-114,000- 180,000 unit capsule,delayed release(DR/EC) 2 cap PO TID Qty: 90 3RF Rx Instructions: administer with meals. 1 cap if snacks docusate sodium [Colace] 100 mg capsule 100 mg PO BID Qty: 30 0RF pantoprazole 40 mg tablet,delayed release (DR/EC) 40 mg PO BID clonidine HCl 0.1 mg tablet 0.1 mg PO Q8H PRN (Reason: Blood Pressure) metformin 500 mg tablet extended release 24 hr 1,000 mg PO BID hydrocodone-acetaminophen 5-325 mg tablet 1 tab PO Q6H PRN (Reason: pain) Qty: 14 0RF ondansetron 4 mg tablet,disintegrating 4 mg PO Q6H PRN (Reason: nausea and vomiting) Qty: 14 0RF Discharge Orders: Discharge ED (Routine); Ordered 07/21/24 Ordered By: Glynn Ulrich Referrals: Johnny Vargas MD [Primary Care Provider] - Patient Instructions: Chest Pain (ED), Hypertension (ED), Opioid Safety, Pain Management Activity Restrictions/Additional Instructions: Check your blood pressures twice daily, report numbers to your doctor this week. If they remain high, you may need treatment. Return for worsening chest pain, shortness of breath, fever, vomiting liquids, other concerning symptoms. Coding Level of Care Code ED Harp Regulator for Devonte Hamm
--- NOTE | 2024-07-21 03:40 | ECG_ITS ---
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 Measurements Intervals [place] Rate: 72 P: 7 [place]: 174 QRS: 33 QRSD: 92 T: 33 QT: 369 QTc: 404 Interpretive Statements SINUS RHYTHM Compared to ECG 07/21/2024 01:43:34 Incomplete right bundle-branch block no longer present Myocardial infarct finding no longer present Electronically Signed On 07-21-2024 19:02:28 [employer] by García Raman M.D. [email or web address]
[2024-07-21 03:47] VITALS: BP 210/94; PULSE 78; RESP 18; O2SAT 97
[2024-07-21 03:53] VITALS: RESP 18
[2024-07-21] MEDS: morphine 4 mg/mL SDV 1 mL IVP (03:53)
[2024-07-21] MEDS: lidocaine 2% viscous 15 ML, aluminum-mag hydrox-simethicon 30 ML, sucralfate oral liq 1 GM PO (03:53)
[2024-07-21] MEDS: ondansetron 2 mg/ML SDV 2 mL 4 MG IVP (03:54)
[2024-07-21 04:09] LABS: Troponin 5 2HR 15.22 ng/L (0-15); Troponin 5 2HR Delta 0.22 ABS# (0-10)
[2024-07-21 04:33] VITALS: BP 162/67; PULSE 70; RESP 18; O2SAT 94
[2024-07-21] MEDS: amlodipine 10 mg Tablet PO (04:33)
--- NOTE | 2024-07-21 04:51 | PC.NURSE ---
Amlodipine not given secondary to BP decrease with Morphine, per MD order. PO meds given.
--- NOTE | 2024-07-21 05:16 | PC.NURSE ---
After giving pt dc instructions and IV DC'd, pt states she is having pressure like pain in epigastric area. MD notified. EKG obtained. Skin W/P/D.
== END 2024-07-21 05:20 | disposition home or self-care (01) ==
PROVIDERS: Emergency Provider Emergency Medicine; PCP Family Medicine
DX: R07.89 Other chest pain (principal); Z79.4 Long term (current) use of insulin; Z79.84 Long term (current) use of oral hypoglycemic drugs; E11.42 Type 2 diabetes mellitus with diabetic polyneuropathy; I25.10 Atherosclerotic heart disease of native coronary artery without angina pectoris; I10 Essential (primary) hypertension
CPT/HCPCS: 36415; 71045; 80053; 82550; 83690; 83880; 84484; 85025; 85610; 85730; 93005; 96374; 96375; 99285; J2270; J2405

== ENCOUNTER → 2024-07-24 12:59 | Outpatient (BNVA) | payer MEDICARE, SELFPAY | PROVIDERS: PCP Family Medicine; Visit Provider Podiatrist Foot & Ankle Surgery | DX: E11.42 Type 2 diabetes mellitus with diabetic polyneuropathy (principal); L60.3 Nail dystrophy; L84 Corns and callosities; M21.41 Flat foot [pes planus] (acquired), right foot; M21.42 Flat foot [pes planus] (acquired), left foot; Z79.4 Long term (current) use of insulin; Z79.84 Long term (current) use of oral hypoglycemic drugs | CPT/HCPCS: 11055; 11721 ==

== ENCOUNTER 2024-08-28 09:14 | Emergency (ER) | payer MEDICARE, SELFPAY ==
[2024-08-28] VITALS (35 sets, daily range): BP systolic 151–196; BP diastolic 55–84; PULSE 63–76; RESP 10–20; TEMP 37; O2SAT 90–98; BMI 34.2
--- NOTE | 2024-08-28 09:16 | XR_ITS ---
WS: [id number] Portable AP upright chest, 08/28/2024 Clinical Data: cp Comparison: Portable chest, 07/21/2024 Findings: No nodules, masses or effusions are seen. The heart is normal. The pulmonary vascularity is not increased. No pneumonia or pneumothorax is seen. The aortic arch shows calcification and tortuos ity. Monitor leads are on the chest wall. XR/XR chest 1V portable [id number] Impression: Atherosclerosis.
--- NOTE | 2024-08-28 09:20 | ECG_ITS ---
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 Measurements Intervals [place] Rate: 76 P: 49 [place]: 183 QRS: 41 QRSD: 109 T: 35 QT: 368 QTc: 416 Interpretive Statements SINUS RHYTHM Compared to ECG 07/21/2024 03:27:56 No significant changes Electronically Signed On 08-28-2024 17:21:29 MEDIATOR by Rhys Yusuf M.D. [email or web address]
[2024-08-28 09:40] LABS: Basophils # 0.1 10^3/uL (0.0-0.1); Eosinophils # 0.2 10^3/uL (0.0-0.8); Eosinophils % 3.7 %; Hematocrit 37.6 % (37-53); Lymphocytes # 2.2 10^3/uL (0.8-4.8); Lymphocytes % 35.2 %; Mean Corpuscular Hemoglobin 27.4 pg (27-33); Mean Corpuscular Volume 83.2 fl (82-101); Mean Platelet Volume 9.8 fL (7.4-10.4); Monocytes # 0.4 10^3/uL (0.2-0.9); Monocytes % 7.1 %; Neutrophils # 3.28 10^3/uL (1.8-7.7); Neutrophils % 52.7 %; Nucleated Red Blood Cells % 0 %; Platelet Count 217 10^3/cmm (157-399); Red Blood Count 4.52 10^6/uL (3.85-5.65); Red Cell Distribution Width 12.5 % (12.1-15.1); White Blood Count 6.22 10^3/uL (3.29-11.43)
[2024-08-28 09:55] LABS: Alanine Aminotransferase 14 U/L (0-41); Alkaline Phosphatase 64 U/L (40-130); Anion Gap 15.4 (5-19); Aspartate Amino Transferase 14 U/L (0-40); Blood Urea Nitrogen 7 mg/dL (8-23); Calcium 9.4 mg/dL (8.5-10.5); Carbon Dioxide 27 mmol/L (22-29); Chloride 97 mmol/L (98-107); Creatinine Clr Calc Pharmacy 115.3855; Globulin 2.9 g/dL (1.3-4.6); Glomerular Filtration Rate 166.4 mL/min (90-130); Glucose 261 mg/dL (65-115); Lipase 36 U/L (13-60); Osmolality Calculated 287 mOsm/kg (285-295); Potassium 4.4 mmol/L (3.5-5.1); Sodium 135 mmol/L (136-145); Total Bilirubin 0.3 mg/dL (0.15-1.2); Total Protein 6.9 g/dL (6.6-8.7)
[2024-08-28 09:56] LABS: Troponin(5th) Baseline 14 ng/L (0-15)
--- NOTE | 2024-08-28 09:56 | ED_ITS ---
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 States he has been feeling anxious to and has been anxious over blood pressure being high. He rates his pain a 2 out of 10 currently denies any fever. Associated symptoms: Deny abdominal pain, dyspnea, fever(s), nausea or vomiting Related Data Home Medications Medication Instructions Recorded Confirmed albuterol sulfate 90 mcg/actuation 1 - 2 inh inhalation Q4H PRN 10/30/19 08/28/24 breath activated powder inhaler Shortness Of Breath (ProAir RespiClick) gabapentin 100 mg capsule 200 mg PO TID 11/25/19 08/28/24 rosuvastatin 5 mg tablet 5 mg PO Q2D 04/21/20 08/28/24 clopidogrel 75 mg tablet (Plavix) 75 mg PO BEDTIME 03/03/21 08/28/24 hydroxyzine HCl 50 mg tablet 50 mg PO BID PRN Anxiety 03/03/21 08/28/24 insulin lispro 100 unit/mL See Rx Instructions .Route .COMPLEX 03/03/21 08/28/24 subcutaneous pen (Humalog KwikPen (U-100) Insulin) multivitamin 1 tab PO DAILY 03/03/21 08/28/24 Morphine pain pump See Rx Instructions .Route .COMPLEX 06/09/21 08/28/24 insulin glargine 100 unit/mL (3 57 unit SUBCUT BEDTIME 08/25/21 08/28/24 mL) subcutaneous pen (Lantus Solostar U-100 Insulin) metformin 500 mg tablet,extended 1,000 mg PO BID 08/02/22 08/28/24 release 24 hr pantoprazole 40 mg tablet,delayed 40 mg PO BID 08/02/22 08/28/24 release nortriptyline 50 mg capsule 50 mg PO QPM 05/13/24 08/28/24 brimonidine 0.2 %-timolol 0.5 % 1 drp ophthalmic (eye) BID 08/28/24 08/28/24 eye drops (Combigan) galcanezumab-gnlm 120 mg/mL 120 mg SUBCUT .Q30D 08/28/24 08/28/24 subcutaneous pen injector (Emgality Pen) isosorbide mononitrate 60 mg 60 mg PO DAILY 08/28/24 08/28/24 tablet,extended release 24 hr topiramate 100 mg tablet 100 mg PO DAILY 08/28/24 08/28/24 vitamin B complex 1 tab PO DAILY 08/28/24 08/28/24 Previous Rx's Medication Instructions Recorded [id number]-[id number]-daizmsh 2 cap PO TID #90 caps 03/13/21 36,000-114,000-180,000 unit capsule,delay rel (Creon) docusate sodium 100 mg capsule 100 mg PO BID #30 caps 11/01/21 (Colace) lisinopril 10 mg tablet 10 mg PO BID #180 tabs 12/06/21 ferrous sulfate 325 mg (65 mg 325 mg PO DAILY #30 tabs 09/25/23 iron) tablet Diabetic shoes with CUSTOM #1 ea 04/10/24 Accomodative Insert galantamine 4 mg tablet 4 mg PO BID #180 tabs 05/13/24 metoprolol tartrate 25 mg tablet 12.5 mg (1/2 x 25 mg) PO BID #90 06/05/24 tabs hydrocodone 5 mg-acetaminophen 325 1 tab PO Q6H PRN pain #14 tabs 07/12/24 mg tablet ondansetron 4 mg disintegrating 4 mg PO Q6H PRN nausea and 07/12/24 tablet vomiting #14 tabs furosemide 20 mg tablet 20 mg PO BID Edema #180 tabs 07/15/24 Allergies Allergy/AdvReac Type Severity Reaction Status Date / Time Iodinated Contrast Media Allergy Unknown ALGY-Hives Verified 08/26/24 14:36 adhesive tape Allergy ALGY-Rash Verified 08/26/24 14:36 aspirin Allergy ALGY-Rash Verified 08/26/24 14:36 fentanyl Allergy ALGY-Rash, Verified 08/26/24 14:36 vomit Penicillins Allergy ALGY-Rash, Verified 08/26/24 14:36 breathing difficulty alprazolam [From Xanax] AdvReac ADR-Anxiety Verified 08/26/24 14:36 zolpidem [From Ambien] AdvReac ADR-Anxiety Verified 08/26/24 14:36 Review of Systems 2 Const: Denies: fever(s), chills, body aches or change in appetite ENMT: Denies: throat pain or dental pain Card: Reports: chest pain Resp: Denies: dyspnea GI: Denies: abdominal pain, nausea, vomiting or diarrhea Musc: Denies: neck pain or back pain Skin/Breast: Denies: rash Neuro: Denies: headache(s) PFSH ED 2 PFSH: Medical History Chronic venous insufficiency Diabetes History of colon polyps NEDRA (obstructive sleep apnea) Coronary artery disease HTN (hypertension) Diabetes Peripheral neuropathy Asthma GERD (gastroesophageal reflux disease) Mart's palsy Surgical History History of incisional hernia repair (11/01/21) open with mesh History of esophagogastroduodenoscopy History of incisional hernia repair (05/06/21) With excision of abdominal wall mass Status post right inguinal hernia repair History of right hemicolectomy H/O colonoscopy (10/27/20) 5 years Family History Other CAD (coronary artery disease) Cancer Hypertension Denies family history of Anesthesia complication Bleeding disorder Social History Smoking and tobacco/nicotine status: never used tobacco/nicotine Alcohol intake: never Substance/Drug Use: never Physical Exam 2 Const: COMMON NORMALS: no acute distress, patient oriented x3 and healthy appearing HENMT: COMMON NORMALS: normocephalic and atraumatic HEAD & SCALP: n ormocephalic and atraumatic Neck/C-Spine: COMMON NORMALS: full ROM and supple Chest: COMMONS NORMALS: normal inspection of the chest Resp: COMMON NORMALS: normal respiratory effort, No retractions, No use of accessory muscles and clear to auscultation bilaterally AUSCULTATION: clear to auscultation bilaterally Cardio: COMMON NORMALS: regular rate, regular rhythm and No murmurs present (Cardio) RATE: regular rate RHYTHM: regular rhythm Extremity: COMMON NORMALS: normal to inspection and full ROM Neuro: COMMON NORMALS: patient oriented x3, moves all extremities and no focal motor deficits Psych: COMMON NORMALS: mental status grossly normal, Normal thought process present and cooperative THOUGHT PROCESS: Normal thought process present Skin: COMMON NORMALS: no rashes or lesions noted and no wounds GENERAL SKIN EXAM: no rashes or lesions noted Course 2 Vital Signs: Vital signs: Vital Signs Temperature 98.6 F 08/28/24 09:25 Pulse Rate 68 08/28/24 11:05 Respiratory Rate 12 08/28/24 11:05 Blood Pressure 180/71 08/28/24 11:05 Pulse Oximetry 95 08/28/24 11:05 Oxygen Delivery Me thod Room Air 08/28/24 09:50 MDM - Chest Pain Medical Decision Making Patient presents with hypertension along with some chest pain as chest pain is atypical in nature troponins are negative. No signs of ACS he has no signs of PE he is stable for discharge follow-up with PCP return if worsening. Medical Records I reviewed the patient's medical records. Lab Data I reviewed the patient's lab results. 08/28/24 09:30 08/28/24 09:30 Radiology Impressions Chest X-Ray 08/28/24 09:16 Impression: Atherosclerosis. Laboratory Results WBC 6.22 10^3/uL (3.29-11.43) 08/28/24 09:30 RBC 4.52 10^6/uL (3.85-5.65) 08/28/24 09:30 Hgb 12.40 g/dL (11.27-16.99) 08/28/24 09:30 Hct 37.6 % (37-53) 08/28/24 09:30 MCV 83.2 fl (82-101) 08/28/24 09:30 MCH 27.4 pg (27-33) 08/28/24 09:30 MCHC 33.0 g/dL (30-55) 08/28/24 09:30 RDW 12.5 % (12.1-15.1) 08/28/24 09:30 Plt Count 217 10^3/cmm (157-399) 08/28/24 09:30 MPV 9.8 fL (7.4-10.4) 08/28/24 09:30 Neut % (Auto) 52.7 % 08/28/24 09:30 Lymph % (Auto) 35.2 % 08/28/24 09:30 [place] % (Auto) 7.1 % 08/28/24 09:30 Eos % (Auto) 3.7 % 08/28/24 09:30 Baso % (Auto) 1.0 % 08/28/24 09:30 Neut # (Auto) 3.28 10^3/uL (1.8-7.7) 08/28/24 09:30 Lymph # (Auto) 2.2 10^3/uL (0.8-4.8) 08/28/24 09:30 [place] # (Auto) 0.4 10^3/uL (0.2-0.9) 08/28/24 09:30 Eos # (Auto) 0.2 10^3/uL (0.0-0.8) 08/28/24 09:30 Baso # (Auto) 0.1 10^3/uL (0.0-0.1) 08/28/24 09:30 Nucleated RBC % (auto) 0 % 08/28/24 09:30 Nucleated RBCs # 0.0 /100WBC 08/28/24 09:30 Sodium 135 mmol/L (136-145) L 08/28/24 09:30 Potassium 4.4 mmol/L (3.5-5.1) 08/28/24 09:30 Chloride 97 mmol/L (98-107) L 08/28/24 09:30 Carbon Dioxide 27 mmol/L (22-29) 08/28/24 09:30 Anion Gap 15.4 (5-19) 08/28/24 09:30 BUN 7 mg/dL (8-23) L 08/28/24 09:30 Creatinine 0.5 mg/dL (0.7-1.2) L 08/28/24 09:30 GFR Calculation 166.4 mL/min (90-130) H 08/28/24 09:30 Glucose 261 mg/dL (65-115) H 08/28/24 09:30 Calculated Osmolality 287 mOsm/kg (285-295) 08/28/24 09:30 Calcium 9.4 mg/dL (8.5-10.5) 08/28/24 09:30 Total Bilirubin 0.3 mg/dL (0.15-1.2) 08/28/24 09:30 AST 14 U/L (0-40) 08/28/24 09:30 ALT 14 U/L (0-41) 08/28/24 09:30 Alkaline Phosphatase 64 U/L (40-130) 08/28/24 09:30 Troponin T Baseline 14 ng/L (0-15) 08/28/24 09:30 Troponin T 120 Minute 12.44 ng/L (0-15) 08/28/24 11:21 Total Protein 6.9 g/dL (6.6-8.7) 08/28/24 09:30 Albumin 4.0 g/dL (3.5-5.2) 08/28/24 09:30 Globulin 2.9 g/dL (1.3-4.6) 08/28/24 09:30 Lipase 36 U/L (13-60) 08/28/24 09:30 All radiology interpretation(s) finalized by discharge EKG Data EKG 1: I personally reviewed and interpreted this EKG as follows: EKG interpretation date: 08/28/24 EKG interpretation time: 09:20 Interpretation: nsr hr [address] elevatin qrs 109 qtc 399 EKG 2: I personally reviewed and interpreted this EKG as follows: EKG interpretation date: 08/28/24 EKG interpretation time: 11:20 Interpretation: nsr hr [address] or t wave abnormalities qrs 114 qtc 408 Discharge Plan Discharge Patient Disposition: Home Clinical Impression: Chest pain, HTN (hypertension) Condition: Stable Prescriptions: No Action Morphine pain pump See Rx Instructions .ROUTE .COMPLEX Rx Instructions: via continuous intrathecal infusion as directed nortriptyline 50 mg capsule 50 mg PO QPM galantamine 4 mg tablet 4 mg PO BID Qty: 180 3RF Rx Instructions: 340B (DME) Diabetic shoes with CUSTOM Accomodative Insert See Rx Instructions .Route .MEDSUPPLY Qty: 1 0RF Rx Instructions: As directed by HOME ferrous sulfate 325 mg (65 mg iron) tablet 325 mg PO DAILY Qty: 30 12RF lisinopril 10 mg tablet 10 mg PO BID Qty: 180 2RF metoprolol tartrate 25 mg tablet 12.5 mg PO BID Qty: 90 3RF furosemide 20 mg tablet 20 mg PO BID Qty: 180 3RF Rx Instructions: Take 1 tab in AM, 1 tab at 2PM ProAir RespiClick 90 mcg/actuation aerosol powdr breath activated 1 - 2 inh inhalation Q4H PRN (Reason: Shortness Of Breath) gabapentin 100 mg capsule 200 mg PO TID rosuvastatin 5 mg tablet 5 mg PO Q2D multivitamin Tablet 1 tab PO DAILY hydroxyzine HCl 50 mg tablet 50 mg PO BID PRN (Reason: Anxiety) clopidogrel [Plavix] 75 mg tablet 75 mg PO BEDTIME Hold Instructions: Resume on 11/04/21. insulin lispro [Humalog KwikPen Insulin] 100 unit/mL insulin pen See Rx Instructions .ROUTE .COMPLEX Rx Instructions: INJECT 20 UNITS 3 TIMES DAILY WITH MEALS PLUS LOW DOSE SLIDING SCALE MAX OF 87 UNITS PER DAY. Lantus Solostar U-100 Insulin 100 unit/mL (3 mL) insulin pen 57 unit SUBCUT BEDTIME Patient Comments: took 26units at 2000 Creon 36,000-114,000- 180,000 unit capsule,delayed release(DR/EC) 2 cap PO TID Qty: 90 3RF Rx Instructions: administer with meals. 1 cap if snacks docusate sodium [Colace] 100 mg capsule 100 mg PO BID Qty: 30 0RF pantoprazole 40 mg tablet,delayed release (DR/EC) 40 mg PO BID metformin 500 mg tablet extended release 24 hr 1,000 mg PO BID hydrocodone-acetaminophen 5-325 mg tablet 1 tab PO Q6H PRN (Reason: pain) Qty: 14 0RF ondansetron 4 mg tablet,disintegrating 4 mg PO Q6H PRN (Reason: nausea and vomiting) Qty: 14 0RF isosorbide mononitrate 60 mg tablet extended release 24 hr 60 mg PO DAILY Emgality Pen 120 mg/mL pen injector 120 mg SUBCUT .Q30D Rx Instructions: on the vitamin B complex Tablet 1 tab PO DAILY topiramate 100 mg tablet 100 mg PO DAILY brimonidine-timolol [Combigan] 0.2-0.5 % drops 1 drp ophthalmic (eye) BID Discharge Orders: Discharge ED (Routine); Ordered 08/28/24 Ordered By: Elisha Hirsch Referrals: Johnny Vargas MD [Primary Care Provider] - Discharge Diet: Advance as tolerated Discharge Activity: Resume usual activity Patient Instructions: Chest Pain (ED), Hypertension (ED) Coding Level of Care Code ED Head Of Mathematics for Devonte Hamm
--- NOTE | 2024-08-28 10:30 | PC.PHAR ---
Pt stated he takes Lisinopril 20mg daily-verified with pharmacy pt takes Linsinopril 10mg daily. Pt also stopped taking Glipizide 10mg bid last fill 08/09/24 30ds. Removed from med list.
--- NOTE | 2024-08-28 11:16 | ECG_ITS ---
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 Measurements Intervals [place] Rate: 68 P: 99 NV: 177 QRS: 59 QRSD: 114 T: 45 QT: 392 QTc: 417 Interpretive Statements SINUS RHYTHM MODERATE INTRAVENTRICULAR CONDUCTION DELAY [110+ ms QRS DURATION] Compared to ECG 08/28/2024 09:20:14 Intraventricular conduction delay now present Electronically Signed On 08-28-2024 17:37:23 [employer] by Rhys Yusuf M.D. [email or web address]
[2024-08-28 11:46] LABS: Troponin 5 2HR 12.44 ng/L (0-15)
[2024-08-28 11:57] LABS: Troponin 5 2HR Delta -1.56 ABS# (0-10)
== END 2024-08-28 12:30 | disposition home or self-care (01) ==
PROVIDERS: Emergency Provider Emergency Medicine; PCP Family Medicine
DX: R07.9 Chest pain, unspecified (principal); I10 Essential (primary) hypertension; Z79.84 Long term (current) use of oral hypoglycemic drugs; I25.10 Atherosclerotic heart disease of native coronary artery without angina pectoris; E11.40 Type 2 diabetes mellitus with diabetic neuropathy, unspecified
CPT/HCPCS: 36415; 71045; 80053; 83690; 84484; 85025; 93005; 99285

== ENCOUNTER 2024-10-28 12:19 | Emergency (ER) | payer MEDICARE, SELFPAY ==
[2024-10-28 12:34] LABS: Glucose Point of Care 123 mg/dL (70-110)
[2024-10-28 12:47] VITALS: BP 179/76; PULSE 65; TEMP 36.4; O2SAT 97; BMI 33.3
--- NOTE | 2024-10-28 13:19 | W.ED.RECABL ---
HPI - Recheck/Abnormal Lab/Rx General: Chief Complaint: Recheck/Abnormal Lab/Rx Stated Complaint: low bs, n/v, wekaness, tingling Time Seen by Provider: 10/28/24 13:02 Source: patient Mode of arrival: ambulatory Limitations: no limitations History of Present Illness: 64-year-old male who has a history of diabetes he just brought his up here to appointment his monitored started going off and it was in the 80s he had walked down to the cafeteria to get food and it dropped to the 50s he states he has started to feel lightheaded and nauseous and not well he did eat he states feeling improved currently his sugars are now in the 100 Related Data Home Medications ?Medication ?Instructions ?Recorded ?Confirmed albuterol sulfate 90 mcg/actuation 1 - 2 inh inhalation Q4H PRN 10/30/19 10/28/24 breath activated powder inhaler Shortness Of Breath (ProAir RespiClick) clopidogrel 75 mg tablet (Plavix) 75 mg PO BEDTIME 03/03/21 10/28/24 hydroxyzine HCl 50 mg tablet 50 mg PO BID PRN Anxiety 03/03/21 10/28/24 insulin lispro 100 unit/mL See Rx Instructions .Route .COMPLEX 03/03/21 10/28/24 subcutaneous pen (Humalog KwikPen (U-100) Insulin) multivitamin 1 tab PO DAILY 03/03/21 10/28/24 Morphine pain pump See Rx Instructions .Route .COMPLEX 06/09/21 10/28/24 insulin glargine 100 unit/mL (3 57 unit SUBCUT BEDTIME 08/25/21 10/28/24 mL) subcutaneous pen (Lantus Solostar U-100 Insulin) metformin 500 mg tablet,extended 1,000 mg PO BID 08/02/22 10/28/24 release 24 hr pantoprazole 40 mg tablet,delayed 40 mg PO BID 08/02/22 10/28/24 release brimonidine 0.2 %-timolol 0.5 % 1 drp ophthalmic (eye) BID 08/28/24 10/28/24 eye drops (Combigan) galcanezumab-gnlm 120 mg/mL 120 mg SUBCUT .Q30D 08/28/24 10/28/24 subcutaneous pen injector (Emgality Pen) isosorbide mononitrate 60 mg 60 mg PO DAILY 08/28/24 10/28/24 tablet,extended release 24 hr cyanocobalamin (vitamin B-12) 500 500 mcg PO DAILY 10/28/24 10/28/24 mcg tablet (Vitamin B-12) docusate sodium 100 mg capsule 100 mg PO BID PRN Constipation 10/28/24 10/28/24 (Colace) rosuvastatin 5 mg tablet See Rx Instructions .Route .COMPLEX 10/28/24 10/28/24 sertraline 100 mg tablet 100 mg PO DAILY 10/28/24 10/28/24 Previous Rx's ?Medication ?Instructions ?Recorded [id number]-znpzauds-psrprne 2 cap PO TID #90 caps 03/13/21 36,000-114,000-180,000 unit capsule,delay rel (Creon) lisinopril 10 mg tablet 10 mg PO BID #180 tabs 12/06/21 ferrous sulfate 325 mg (65 mg 325 mg PO DAILY #30 tabs 09/25/23 iron) tablet Diabetic shoes with CUSTOM #1 ea 04/10/24 Accomodative Insert galantamine 4 mg tablet 4 mg PO BID #180 tabs 05/13/24 metoprolol tartrate 25 mg tablet 12.5 mg (1/2 x 25 mg) PO BID #90 06/05/24 tabs hydrocodone 5 mg-acetaminophen 325 1 tab PO Q6H PRN pain #14 tabs 07/12/24 mg tablet furosemide 20 mg tablet 20 mg PO BID Edema #180 tabs 07/15/24 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 meter,continuous #1 ea 08/28/24 (FreeStyle Loyd 3 [place]) 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 sensor (FreeStyle #6 ea 08/28/24 Loyd 3 Plus Sensor device) diphenhydramine HCl 50 mg capsule 50 mg PO .COMPLEX #1 cap 10/15/24 Allergies Allergy/AdvReac Type Severity Reaction Status Date / Time Iodinated Contrast Media Allergy Unknown ALGY-Hives Verified 10/28/24 12:54 adhesive tape Allergy ALGY-Rash Verified 10/28/24 12:54 aspirin Allergy ALGY-Rash Verified 10/28/24 12:54 fentanyl Allergy ALGY-Rash, Verified 10/28/24 12:54 vomit Penicillins Allergy ALGY-Rash, Verified 10/28/24 12:54 breathing difficulty alprazolam (From Xanax) AdvReac ADR-Anxiety Verified 10/28/24 12:54 zolpidem (From Ambien) AdvReac ADR-Anxiety Verified 10/28/24 12:54 Review of Systems Const: Reports: fatigue and malaise; Denies: fever(s), chills, body aches or change in appetite ENMT: Denies: throat pain or dental pain Card: Denies: chest pain Resp: Denies: dyspnea GI: Denies: abdominal pain, nausea, vomiting or diarrhea Musc: Denies: neck pain or back pain Skin/Breast: Denies: rash Neuro: Denies: headache(s) PFSH ED PFSH: Medical History Chronic venous insufficiency Diabetes History of colon polyps NEDRA (obstructive sleep apnea) Coronary artery disease HTN (hypertension) Diabetes Peripheral neuropathy Asthma GERD (gastroesophageal reflux disease) Mart's palsy Surgical History History of incisional hernia repair (11/01/21) open with mesh History of esophagogastroduodenoscopy History of incisional hernia repair (05/06/21) With excision of abdominal wall mass Status post right inguinal hernia repair History of right hemicolectomy H/O colonoscopy (10/27/20) 5 years Family History Other CAD (coronary artery disease) Cancer Hypertension Denies family history of Anesthesia complication Bleeding disorder Social History Smoking and tobacco/nicotine status: never used tobacco/nicotine Alcohol intake: never Substance/Drug Use: never Physical Exam Const: COMMON NORMALS: no acute distress, patient oriented x3 and healthy appearing HENMT: COMMON NORMALS: normocephalic and atraumatic HEAD & SCALP: normocephalic and atraumatic Eye: COMMON NORMALS: conjunctivae normal CONJUNCTIVA: Yes conjunctivae normal Neck/C-Spine: COMMON NORMALS: full ROM and supple Chest: COMMONS NORMALS: normal inspection of the chest Resp: COMMON NORMALS: normal respiratory effort Cardio: COMMON NORMALS: regular rate, regular rhythm and No murmurs present (Cardio) RATE: regular rate RHYTHM: regular rhythm GI: COMMON NORMALS: Normal to inspection, nondistended, normoactive bowel sounds present, Soft to palpation, non-tender and no masses PALPATION: Yes Soft to palpation Extremity: COMMON NORMALS: normal to inspection and full ROM Neuro: COMMON NORMALS: patient oriented x3, moves all extremities and no focal motor deficits Psych: COMMON NORMALS: mental status grossly normal, Normal thought process present and cooperative THOUGHT PROCESS: Normal thought process present Skin: COMMON NORMALS: no rashes or lesions noted and no wounds GENERAL SKIN EXAM: no rashes or lesions noted Course Vital Signs: Vital signs: Vital Signs Temperature 97.5 F L 10/28/24 12:47 Pulse Rate 58 L 10/28/24 14:43 Blood Pressure 185/77 10/28/24 14:43 Pulse Oximetry 96 10/28/24 14:43 Oxygen Delivery Me thod Room Air 10/28/24 14:43 MDM - Recheck/Abnormal Lab/Rx Medical Decision Making Patient presents here with hypoglycemia his blood sugars improved here it has been stable he feels much improved he stable for discharge follow-up with PCP return if worsening. Medical Records I reviewed the patient's medical records. Lab Data I reviewed the patient's lab results. 10/28/24 13:25 10/28/24 13: Laboratory Results WBC 4.82 10^3/uL (3.29-11.43) 10/28/24 13: RBC 4.24 10^6/uL (3.85-5.65) 10/28/24 13:25 Hgb 11.50 g/dL (11.27-16.99) 10/28/24 13:25 Hct 35.5 % (37-53) L 10/28/24 13:25 MCV 83.7 fl (82-101) 10/28/24 13:25 MCH 27.1 pg (27-33) 10/28/24 13: MCHC 32.4 g/dL (30-55) 10/28/24 13:25 RDW 12.2 % (12.1-15.1) 10/28/24 13:25 Plt Count 200 10^3/cmm (157-399) 10/28/24 13: MPV 9.7 fL (7.4-10.4) 10/28/24 13:25 Neut % (Auto) 51.2 % 10/28/24 13:25 Lymph % (Auto) 32.2 % 10/28/24 13:25 [place] % (Auto) 9.8 % 10/28/24 13:25 Eos % (Auto) 6.2 % 10/28/24 13:25 Baso % (Auto) 0.4 % 10/28/24 13:25 Neut # (Auto) 2.47 10^3/uL (1.8-7.7) 10/28/24 13:25 Lymph # (Auto) 1.6 10^3/uL (0.8-4.8) 10/28/24 13:25 [place] # (Auto) 0.5 10^3/uL (0.2-0.9) 10/28/24 13:25 Eos # (Auto) 0.3 10^3/uL (0.0-0.8) 10/28/24 13:25 Baso # (Auto) 0.0 10^3/uL (0.0-0.1) 10/28/24 13:25 Nucleated RBC % (auto) 0 % 10/28/24 13:25 Nucleated RBCs # 0.0 /100WBC 10/28/24 13:25 Sodium 139 mmol/L (136-145) 10/28/24 13:25 Potassium 3.9 mmol/L (3.5-5.1) 10/28/24 13:25 Chloride 102 mmol/L (98-107) 10/28/24 13:25 Carbon Dioxide 26 mmol/L (22-29) 10/28/24 13:25 Anion Gap 14.9 (5-19) 10/28/24 13:25 BUN 14 mg/dL (8-23) 10/28/24 13:25 Creatinine 0.6 mg/dL (0.7-1.2) L 10/28/24 13:25 GFR Calculation 134.8 mL/min (90-130) H 10/28/24 13:25 Glucose 132 mg/dL (65-115) H 10/28/24 13:25 POC Glucose 148 mg/dL (70-110) H 10/28/24 13:42 Calculated Osmolality 290 mOsm/kg (285-295) 10/28/24 13:25 Calcium 8.3 mg/dL (8.5-10.5) L 10/28/24 13:25 Total Bilirubin 0.3 mg/dL (0.15-1.2) 10/28/24 13:25 AST 12 U/L (0-40) 10/28/24 13:25 ALT 11 U/L (0-41) 10/28/24 13:25 Alkaline Phosphatase 61 U/L (40-130) 10/28/24 13:25 Total Protein 6.4 g/dL (6.6-8.7) L 10/28/24 13:25 Albumin 3.8 g/dL (3.5-5.2) 10/28/24 13:25 Globulin 2.6 g/dL (1.3-4.6) 10/28/24 13:25 Lipase 37 U/L (13-60) 10/28/24 13:25 All radiology interpretation(s) finalized by discharge Discharge Plan Discharge Patient Disposition: Home Clinical Impression: Hypoglycemia Condition: Stable Prescriptions: No Action Morphine pain pump See Rx Instructions .ROUTE .COMPLEX Rx Instructions: via continuous intrathecal infusion as directed galantamine 4 mg tablet 4 mg PO BID Qty: 180 3RF Rx Instructions: 340B (DME) Diabetic shoes with CUSTOM Accomodative Insert See Rx Instructions .Route .MEDSUPPLY Qty: 1 0RF Rx Instructions: As directed by HOME ferrous sulfate 325 mg (65 mg iron) tablet 325 mg PO DAILY Qty: 30 12RF (DME) FreeStyle Loyd 3 Plus Sensor Device See Rx Instructions .Route Qty: 6 1RF Rx Instructions: change sensors every 15 days (DME) FreeStyle Loyd 3 [place] Misc See Rx Instructions .Route Qty: 1 0RF Rx Instructions: As directed lisinopril 10 mg tablet 10 mg PO BID Qty: 180 2RF metoprolol tartrate 25 mg tablet 12.5 mg PO BID Qty: 90 3RF furosemide 20 mg tablet 20 mg PO BID Qty: 180 3RF Rx Instructions: Take 1 tab in AM, 1 tab at 2PM diphenhydramine HCl 50 mg capsule 50 mg PO .COMPLEX Qty: 1 0RF Rx Instructions: 50 mg orally Take 1 tablet 1 hour before procedure; ProAir RespiClick 90 mcg/actuation aerosol powdr breath activated 1 - 2 inh inhalation Q4H PRN (Reason: Shortness Of Breath) multivitamin Tablet 1 tab PO DAILY hydroxyzine HCl 50 mg tablet 50 mg PO BID PRN (Reason: Anxiety) clopidogrel [Plavix] 75 mg tablet 75 mg PO BEDTIME insulin lispro [Humalog KwikPen Insulin] 100 unit/mL insulin pen See Rx Instructions .ROUTE .COMPLEX Rx Instructions: INJECT 20 UNITS 3 TIMES DAILY WITH MEALS PLUS LOW DOSE SLIDING SCALE MAX OF 87 UNITS PER DAY. Lantus Solostar U-100 Insulin 100 unit/mL (3 mL) insulin pen 57 unit SUBCUT BEDTIME Patient Comments: took 26units at 2000 Creon 36,000-114,000- 180,000 unit capsule,delayed release(DR/EC) 2 cap PO TID Qty: 90 3RF Rx Instructions: administer with meals. 1 cap if snacks pantoprazole 40 mg tablet,delayed release (DR/EC) 40 mg PO BID metformin 500 mg tablet extended release 24 hr 1,000 mg PO BID hydrocodone-acetaminophen 5-325 mg tablet 1 tab PO Q6H PRN (Reason: pain) Qty: 14 0RF isosorbide mononitrate 60 mg tablet extended release 24 hr 60 mg PO DAILY Emgality Pen 120 mg/mL pen injector 120 mg SUBCUT .Q30D Rx Instructions: on the 12th brimonidine-timolol [Combigan] 0.2-0.5 % drops 1 drp ophthalmic (eye) BID docusate sodium [Colace] 100 mg capsule 100 mg PO BID PRN (Reason: Constipation) sertraline 100 mg tablet 100 mg PO DAILY cyanocobalamin (vitamin B-12) [Vitamin B-12] 500 mcg Tablet 500 mcg PO DAILY rosuvastatin 5 mg tablet See Rx Instructions .ROUTE .COMPLEX Rx Instructions: TAKE ONE TABLET BY MOUTH EVERY OTHER DAY @ 5PM Discharge Orders: Discharge ED (Routine); Ordered 10/28/24 Ordered By: Elisha Hirsch Referrals: Johnny Vargas MD [Primary Care Provider] - 4-7 days Discharge Diet: Advance as tolerated Discharge Activity: Resume usual activity Patient Instructions: Hypoglycemia Print Language: Belarusian Coding Level of Care Code ED Airplane Engineer for Devonte Hamm
[2024-10-28 13:44] VITALS: BP 178/89; PULSE 62; O2SAT 96
[2024-10-28 13:44] LABS: Basophils % 0.4 %; Eosinophils # 0.3 10^3/uL (0.0-0.8); Eosinophils % 6.2 %; Hematocrit 35.5 % (37-53); Lymphocytes # 1.6 10^3/uL (0.8-4.8); Lymphocytes % 32.2 %; Mean Corpuscular HGB Conc 32.4 g/dL (30-55); Mean Corpuscular Hemoglobin 27.1 pg (27-33); Mean Corpuscular Volume 83.7 fl (82-101); Mean Platelet Volume 9.7 fL (7.4-10.4); Monocytes # 0.5 10^3/uL (0.2-0.9); Monocytes % 9.8 %; Neutrophils # 2.47 10^3/uL (1.8-7.7); Neutrophils % 51.2 %; Nucleated Red Blood Cells % 0 %; Platelet Count 200 10^3/cmm (157-399); Red Blood Count 4.24 10^6/uL (3.85-5.65); Red Cell Distribution Width 12.2 % (12.1-15.1); White Blood Count 4.82 10^3/uL (3.29-11.43)
[2024-10-28 13:46] LABS: Glucose Point of Care 148 mg/dL (70-110)
[2024-10-28 14:07] LABS: Alanine Aminotransferase 11 U/L (0-41); Albumin Level 3.8 g/dL (3.5-5.2); Alkaline Phosphatase 61 U/L (40-130); Anion Gap 14.9 (5-19); Aspartate Amino Transferase 12 U/L (0-40); Blood Urea Nitrogen 14 mg/dL (8-23); Calcium 8.3 mg/dL (8.5-10.5); Carbon Dioxide 26 mmol/L (22-29); Chloride 102 mmol/L (98-107); Creatinine Clr Calc Pharmacy 113.7539; Globulin 2.6 g/dL (1.3-4.6); Glomerular Filtration Rate 134.8 mL/min (90-130); Glucose 132 mg/dL (65-115); Lipase 37 U/L (13-60); Osmolality Calculated 290 mOsm/kg (285-295); Potassium 3.9 mmol/L (3.5-5.1); Sodium 139 mmol/L (136-145); Total Bilirubin 0.3 mg/dL (0.15-1.2); Total Protein 6.4 g/dL (6.6-8.7)
[2024-10-28 14:43] VITALS: BP 185/77; PULSE 58; O2SAT 96
[2024-10-28 14:59] LABS: Glucose Point of Care 169 mg/dL (70-110)
[2024-10-28 15:32] VITALS: BP 186/71; PULSE 60; O2SAT 95
== END 2024-10-28 15:30 | disposition home or self-care (01) ==
PROVIDERS: Emergency Provider Emergency Medicine; PCP Family Medicine
DX: E11.649 Type 2 diabetes mellitus with hypoglycemia without coma (principal); Z79.4 Long term (current) use of insulin; I10 Essential (primary) hypertension; I25.10 Atherosclerotic heart disease of native coronary artery without angina pectoris
CPT/HCPCS: 36415; 36416; 80053; 82962; 83690; 85025; 99283

== ENCOUNTER → 2024-11-12 11:07 | Outpatient (BNVA) | payer MEDICARE, SELFPAY | PROVIDERS: PCP Family Medicine; Visit Provider Podiatrist Foot & Ankle Surgery | DX: E11.42 Type 2 diabetes mellitus with diabetic polyneuropathy (principal); L60.3 Nail dystrophy; L84 Corns and callosities; M21.41 Flat foot [pes planus] (acquired), right foot; M21.42 Flat foot [pes planus] (acquired), left foot; Z79.84 Long term (current) use of oral hypoglycemic drugs; Z79.4 Long term (current) use of insulin | CPT/HCPCS: 11055; 11721 ==

== ENCOUNTER 2024-11-17 10:03 | Emergency (ER) | payer MEDICARE, SELFPAY ==
[2024-11-17] VITALS (15 sets, daily range): BP systolic 139–225; BP diastolic 54–103; PULSE 80–90; TEMP 36.7; O2SAT 82–100
--- NOTE | 2024-11-17 10:42 | W.ED.ABDPA2 ---
HPI - Abdominal Pain General: Chief Complaint: Abdominal Pain Stated Complaint: n/v, abd pain Time Seen by Provider: 11/17/24 10:38 History of Present Illness: 64-year-old man with a history of chronic venous insufficiency, diabetes, obstructive sleep apnea, coronary artery disease, hypertension, peripheral neuropathy, GERD and chronic recurrent pancreatitis of unknown origin (patient says he has had his gallbladder out and he does not drink any alcohol) who presents emergency room with epigastric abdominal pain nausea, vomiting and diarrhea. He says this is similar to when he has episodes of pancreatitis in the past. No fevers. No altered mental status. No shortness of breath. Related Data Home Medications ?Medication ?Instructions ?Recorded ?Confirmed albuterol sulfate 90 mcg/actuation 1 - 2 inh inhalation Q4H PRN 10/30/19 11/17/24 breath activated powder inhaler Shortness Of Breath (ProAir RespiClick) clopidogrel 75 mg tablet (Plavix) 75 mg PO BEDTIME 03/03/21 11/17/24 hydroxyzine HCl 50 mg tablet 50 mg PO BID PRN Anxiety 03/03/21 11/17/24 insulin lispro 100 unit/mL See Rx Instructions .Route .COMPLEX 03/03/21 11/17/24 subcutaneous pen (Humalog KwikPen (U-100) Insulin) multivitamin 1 tab PO DAILY 03/03/21 11/17/24 Morphine pain pump See Rx Instructions .Route .COMPLEX 06/09/21 11/17/24 insulin glargine 100 unit/mL (3 57 unit SUBCUT BEDTIME 08/25/21 11/17/24 mL) subcutaneous pen (Lantus Solostar U-100 Insulin) metformin 500 mg tablet,extended 1,000 mg PO BID 08/02/22 11/17/24 release 24 hr pantoprazole 40 mg tablet,delayed 40 mg PO BID 08/02/22 11/17/24 release brimonidine 0.2 %-timolol 0.5 % 1 drp ophthalmic (eye) BID 08/28/24 11/17/24 eye drops (Combigan) galcanezumab-gnlm 120 mg/mL 120 mg SUBCUT .Q30D 08/28/24 11/17/24 subcutaneous pen injector (Emgality Pen) isosorbide mononitrate 60 mg 60 mg PO DAILY 08/28/24 11/17/24 tablet,extended release 24 hr cyanocobalamin (vitamin B-12) 500 500 mcg PO DAILY 10/28/24 11/17/24 mcg tablet (Vitamin B-12) docusate sodium 100 mg capsule 100 mg PO BID PRN Constipation 10/28/24 11/17/24 (Colace) rosuvastatin 5 mg tablet See Rx Instructions .Route .COMPLEX 10/28/24 11/17/24 sertraline 100 mg tablet 100 mg PO DAILY 10/28/24 11/17/24 clonidine HCl 0.2 mg tablet See Rx Instructions .Route 11/17/24 11/17/24 .COMPLEX PRN high blood pressure Previous Rx's ?Medication ?Instructions ?Recorded nzlvno-hqhjfgmz-euglinw 2 cap PO TID #90 caps 03/13/21 36,000-114,000-180,000 unit capsule,delay rel (Creon) lisinopril 10 mg tablet 10 mg PO BID #180 tabs 12/06/21 ferrous sulfate 325 mg (65 mg 325 mg PO DAILY #30 tabs 09/25/23 iron) tablet Diabetic shoes with CUSTOM #1 ea 04/10/24 Accomodative Insert galantamine 4 mg tablet 4 mg PO BID #180 tabs 05/13/24 metoprolol tartrate 25 mg tablet 12.5 mg (1/2 x 25 mg) PO BID #90 06/05/24 tabs hydrocodone 5 mg-acetaminophen 325 1 tab PO Q6H PRN pain #14 tabs 07/12/24 mg tablet furosemide 20 mg tablet 20 mg PO BID Edema #180 tabs 07/15/24 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 meter,continuous #1 ea 08/28/24 (FreeStyle Loyd 3 [place]) 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 sensor (FreeStyle #6 ea 08/28/24 Loyd 3 Plus Sensor device) diphenhydramine HCl 50 mg capsule 50 mg PO .COMPLEX #1 cap 10/15/24 ondansetron 8 mg disintegrating 8 mg PO Q6H #14 tabs 11/17/24 tablet promethazine 25 mg rectal 25 mg MI Q6H PRN nausea and 11/17/24 suppository vomiting #12 ea Allergies Allergy/AdvReac Type Severity Reaction Status Date / Time Iodinated Contrast Media Allergy Unknown ALGY-Hives Verified 11/17/24 10:10 adhesive tape Allergy ALGY-Rash Verified 11/17/24 10:10 aspirin Allergy ALGY-Rash Verified 11/17/24 10:10 fentanyl Allergy ALGY-Rash, Verified 11/17/24 10:10 vomit Penicillins Allergy ALGY-Rash, Verified 11/17/24 10:10 breathing difficulty alprazolam (From Xanax) AdvReac ADR-Anxiety Verified 11/17/24 10:10 zolpidem (From Ambien) AdvReac ADR-Anxiety Verified 11/17/24 10:10 Review of Systems Narrative: Constitutional symptoms: Negative except as documented in HPI. Skin symptoms: Negative except as documented in HPI. Eye symptoms: Negative except as documented in HPI. ENMT symptoms: Negative except as documented in HPI. Respiratory symptoms: Negative except as documented in HPI. Cardiovascular symptoms: Negative except as documented in HPI. Gastrointestinal symptoms: Negative except as documented in HPI. Genitourinary symptoms: Negative except as documented in HPI. Musculoskeletal symptoms: Negative except as documented in HPI. Neurologic symptoms: Negative except as documented in HPI. Psychiatric symptoms: Negative except as documented in HPI. Endocrine symptoms: Negative except as documented in HPI. PFSH ED PFSH: Medical History Chronic venous insufficiency Diabetes History of colon polyps NEDRA (obstructive sleep apnea) Coronary artery disease HTN (hypertension) Diabetes Peripheral neuropathy Asthma GERD (gastroesophageal reflux disease) Mart's palsy Surgical History History of incisional hernia repair (11/01/21) open with mesh History of esophagogastroduodenoscopy History of incisional hernia repair (05/06/21) With excision of abdominal wall mass Status post right inguinal hernia repair History of right hemicolectomy H/O colonoscopy (10/27/20) 5 years Family History Other CAD (coronary artery disease) Cancer Hypertension Denies family history of Anesthesia complication Bleeding disorder Social History Smoking and tobacco/nicotine status: never used tobacco/nicotine Alcohol intake: never Substance/Drug Use: never Physical Exam Narrative: EXAM NARRATIVE: General: Alert, no acute distress. Skin: Warm, dry. Head: Normocephalic, atraumatic. Neck: Supple, trachea midline. Eye: Extraocular movements are intact. Ears, nose, mouth and throat: mucosa moist. Cardiovascular: Regular, Normal peripheral perfusion. Respiratory: Lungs are clear to auscultation, respirations are non-labored, breath sounds are equal, Symmetrical chest wall expansion. Gastrointestinal: Soft, moderate epigastric pain, Non distended Musculoskeletal: Normal ROM, no deformity. Neurological: Alert and oriented, No focal neurological deficit observed. Psychiatric: Cooperative, appropriate mood & affect. Course Vital Signs: Vital signs: Vital Signs Temperature 98.0 F 11/17/24 10:05 Pulse Rate 90 11/17/24 10:05 Blood Pressure 207/103 11/17/24 13:05 Pulse Oximetry 92 11/17/24 13:05 Oxygen Delivery Me thod Room Air 11/17/24 10:05 MDM - Abdominal Pain Medical Decision Making Medical decision making: Differential diagnosis including but not limited to and based on the above HPI, review of systems and physical exam: In this patient with epigastric pain differential would include cholelithiasis or cholecystitis. Hepatitis. Diverticulitis. Constipation. UTI. colitis. small bowel obstruction. crohn's flare. pancreatitis. gastritis. peptic ulcer. also concern for acute cardiac event. Orders placed to evaluate differential diagnosis based on the above differential, HPI and physical exam Lab Review: Laboratory results were reviewed and interpreted by myself the emergency room physician. No leukocytosis. No anemia. No renal failure. Lipase is negative. Urinalysis negative for infection CT of the abdomen pelvis: No acute process. No evidence of ischemia but he does have some SMA partial occlusions. This was reviewed and interpreted by myself the emergency room physician. I also reviewed the radiology report. I reviewed the patient's medical record. Reexamination: Patient symptoms have improved some. Was quite difficult to get under control. He has chronic pain syndrome and takes hydrocodone and morphine at home most recently. Likely the reason for his tolerance to the pain medications. We discussed there is no acute findings on his workup. He does not have pancreatitis at this time. No bowel obstructions. With him having nausea vomiting and diarrhea I think he may have just had a viral gastroenteritis which is going around. No increased work of breathing. No altered mental status. Assessment and plan: Gastroenteritis Abdominal pain Chronic pain syndrome ? IV magnesium, 3 mg IV Dilaudid total. IV Zofran. IV Compazine and Benadryl. - Discharged home - Discussed plan with patient. Answered any questions. - Evaluation and treatment of this problem were appropriate in the emergency setting. Lab Data 11/17/24 11:00 11/17/24 11:00 Labs/Radiology: Radiology Impressions Abdomen/Pelvis CT 11/17/24 11:37 IMPRESSION: 1. No evidence of acute abnormality in the abdomen or pelvis within limitations of a noncontrast exam. 2. 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 Consider vascular evaluatiion. 3. Left flank subcutaneous seroma. Laboratory Results WBC 7.54 10^3/uL (3.29-11.43) 11/17/24 11:00 RBC 4.85 10^6/uL (3.85-5.65) 11/17/24 11:00 Hgb 13.10 g/dL (11.27-16.99) 11/17/24 11:00 Hct 39.4 % (37-53) 11/17/24 11:00 MCV 81.2 fl (82-101) L 11/17/24 11:00 MCH 27.0 pg (27-33) 11/17/24 11:00 MCHC 33.2 g/dL (30-55) 11/17/24 11:00 RDW 12.0 % (12.1-15.1) L 11/17/24 11:00 Plt Count 247 10^3/cmm (157-399) 11/17/24 11:00 MPV 9.3 fL (7.4-10.4) 11/17/24 11:00 Neut % (Auto) 60.9 % 11/17/24 11:00 Lymph % (Auto) 23.3 % 11/17/24 11:00 [place] % (Auto) 8.5 % 11/17/24 11:00 Eos % (Auto) 6.1 % 11/17/24 11:00 Baso % (Auto) 0.9 % 11/17/24 11:00 Neut # (Auto) 4.59 10^3/uL (1.8-7.7) 11/17/24 11:00 Lymph # (Auto) 1.8 10^3/uL (0.8-4.8) 11/17/24 11:00 [place] # (Auto) 0.6 10^3/uL (0.2-0.9) 11/17/24 11:00 Eos # (Auto) 0.5 10^3/uL (0.0-0.8) 11/17/24 11:00 Baso # (Auto) 0.1 10^3/uL (0.0-0.1) 11/17/24 11:00 Nucleated RBC % (auto) 0 % 11/17/24 11:00 Nucleated RBCs # 0.0 /100WBC 11/17/24 11:00 Sodium 135 mmol/L (136-145) L 11/17/24 11:00 Potassium 4.6 mmol/L (3.5-5.1) 11/17/24 11:00 Chloride 98 mmol/L (98-107) 11/17/24 11:00 Carbon Dioxide 26 mmol/L (22-29) 11/17/24 11:00 Anion Gap 15.6 (5-19) 11/17/24 11:00 BUN 15 mg/dL (8-23) 11/17/24 11:00 Creatinine 0.6 mg/dL (0.7-1.2) L 11/17/24 11:00 GFR Calculation 134.8 mL/min (90-130) H 11/17/24 11:00 Glucose 232 mg/dL (65-115) H 11/17/24 11:00 Calculated Osmolality 288 mOsm/kg (285-295) 11/17/24 11:00 Calcium 8.7 mg/dL (8.5-10.5) 11/17/24 11:00 Magnesium 1.2 mg/dL (1.7-2.3) L 11/17/24 11:00 Total Bilirubin 0.8 mg/dL (0.15-1.2) 11/17/24 11:00 AST 13 U/L (0-40) 11/17/24 11:00 ALT 11 U/L (0-41) 11/17/24 11:00 Alkaline Phosphatase 61 U/L (40-130) 11/17/24 11:00 Total Protein 7.2 g/dL (6.6-8.7) 11/17/24 11:00 Albumin 4.1 g/dL (3.5-5.2) 11/17/24 11:00 Globulin 3.1 g/dL (1.3-4.6) 11/17/24 11:00 Lipase 49 U/L (13-60) 11/17/24 11:00 Urine Color Yellow (Yellow) 11/17/24 13:05 Urine Appearance Clear (CLEAR) 11/17/24 13:05 Urine pH 6 (5-7) 11/17/24 13:05 Ur Specific [place] 1.010 (1.005-1.030) 11/17/24 13:05 Urine Protein Trace (Negative) 11/17/24 13:05 Urine Glucose (UA) Norm (Normal) 11/17/24 13:05 Urine Ketones 1+ (Negative) H 11/17/24 13:05 Urine Blood Neg (Negative) 11/17/24 13:05 Urine Nitrate Negative (Negative) 11/17/24 13:05 Urine Bilirubin Neg (Negative) 11/17/24 13:05 Urine Urobilinogen Neg mg/dL (Negative) 11/17/24 13:05 Ur Leukocyte Esterase Negative (Negative) 11/17/24 13:05 Urine RBC 0-2 /hpf (0-2) 11/17/24 13:05 Urine WBC 0-5 /hpf (0-5) 11/17/24 13:05 Ur Squamous Epith Cells 0-5 /hpf (0-5) 11/17/24 13:05 Amorphous Sediment Not Reportable 11/17/24 13:05 Urine Bacteria None seen /hpf (NONE) 11/17/24 13:05 Hyaline Casts 1.21 /lpf 11/17/24 13:05 All radiology interpretation(s) finalized by discharge Discharge Plan Discharge Patient Disposition: Home Clinical Impression: Gastroenteritis, Abdominal pain, Hypomagnesemia Condition: Stable Prescriptions: New promethazine 25 mg suppository 25 mg MI Q6H PRN (Reason: nausea and vomiting) Qty: 12 0RF ondansetron 8 mg tablet,disintegrating 8 mg PO Q6H Qty: 14 0RF Rx Instructions: Take 1/2-1 tab every 6 hours as needed for nausea and vomiting No Action Morphine pain pump See Rx Instructions .ROUTE .COMPLEX Rx Instructions: via continuous intrathecal infusion as directed galantamine 4 mg tablet 4 mg PO BID Qty: 180 3RF Rx Instructions: 340B (DME) Diabetic shoes with CUSTOM Accomodative Insert See Rx Instructions .Route .MEDSUPPLY Qty: 1 0RF Rx Instructions: As directed by HOME ferrous sulfate 325 mg (65 mg iron) tablet 325 mg PO DAILY Qty: 30 12RF (DME) FreeStyle Loyd 3 Plus Sensor Device See Rx Instructions .Route Qty: 6 1RF Rx Instructions: change sensors every 15 days (DME) FreeStyle Loyd 3 [place] Misc See Rx Instructions .Route Qty: 1 0RF Rx Instructions: As directed lisinopril 10 mg tablet 10 mg PO BID Qty: 180 2RF metoprolol tartrate 25 mg tablet 12.5 mg PO BID Qty: 90 3RF furosemide 20 mg tablet 20 mg PO BID Qty: 180 3RF Rx Instructions: Take 1 tablet in the AM and 1 tablet at 2PM. diphenhydramine HCl 50 mg capsule 50 mg PO .COMPLEX Qty: 1 0RF Rx Instructions: Take 1 tablet 1 hour before procedure. ProAir RespiClick 90 mcg/actuation aerosol powdr breath activated 1 - 2 inh inhalation Q4H PRN (Reason: Shortness Of Breath) multivitamin Tablet 1 tab PO DAILY hydroxyzine HCl 50 mg tablet 50 mg PO BID PRN (Reason: Anxiety) clopidogrel [Plavix] 75 mg tablet 75 mg PO BEDTIME insulin lispro [Humalog KwikPen Insulin] 100 unit/mL insulin pen See Rx Instructions .ROUTE .COMPLEX Rx Instructions: INJECT 20 UNITS 3 TIMES DAILY WITH MEALS PLUS LOW DOSE SLIDING SCALE MAX OF 87 UNITS PER DAY. Lantus Solostar U-100 Insulin 100 unit/mL (3 mL) insulin pen 57 unit SUBCUT BEDTIME Patient Comments: took 26units at 2000 Creon 36,000-114,000- 180,000 unit capsule,delayed release(DR/EC) 2 cap PO TID Qty: 90 3RF Rx Instructions: administer with meals. 1 cap if snacks pantoprazole 40 mg tablet,delayed release (DR/EC) 40 mg PO BID metformin 500 mg tablet extended release 24 hr 1,000 mg PO BID hydrocodone-acetaminophen 5-325 mg tablet 1 tab PO Q6H PRN (Reason: pain) Qty: 14 0RF isosorbide mononitrate 60 mg tablet extended release 24 hr 60 mg PO DAILY Emgality Pen 120 mg/mL pen injector 120 mg SUBCUT .Q30D Rx Instructions: on the 12th brimonidine-timolol [Combigan] 0.2-0.5 % drops 1 drp ophthalmic (eye) BID docusate sodium [Colace] 100 mg capsule 100 mg PO BID PRN (Reason: Constipation) sertraline 100 mg tablet 100 mg PO DAILY cyanocobalamin (vitamin B-12) [Vitamin B-12] 500 mcg Tablet 500 mcg PO DAILY rosuvastatin 5 mg tablet See Rx Instructions .ROUTE .COMPLEX Rx Instructions: TAKE ONE TABLET BY MOUTH EVERY OTHER DAY @ 5PM clonidine HCl 0.2 mg tablet See Rx Instructions .ROUTE .COMPLEX PRN (Reason: high blood pressure) Rx Instructions: TAKE 1 TABLET BY MOUTH EVERY 6 TO 8 HOURS NEEDED FOR SYSTOLIC BLOOD PRESSURE OVER 170 OR DIASTOLIC BLOOD PRESSURE OVER 95. Discharge Orders: Discharge ED (Routine); Ordered 11/17/24 Ordered By: Rosetta Downing Referrals: Johnny Vargas MD [Primary Care Provider] - Discharge Diet: Usual diet Discharge Activity: Increase activity as tolerated Patient Instructions: Gastroenteritis (ED), Abdominal Pain (ED), Opioid Safety, Pain Management Activity Restrictions/Additional Instructions: Please follow-up with your primary provider soon as possible. 1 about the recurrence of this abdominal pain. 2 about low magnesium levels. They need to repeat this lab and consider replacement. You can take tywy-rja-apksflw magnesium replacement in the meantime. Thank you for choosing [facility] for your healthcare needs today. Please realize this is an emergency room and that we are providing you with a medical screening exam and this may not be complete and all inclusive of all the testing and or work up that you may need to determine your ailment or severity of your illness. You have been screened and evaluated and felt safe for discharge. Health conditions do change or evolve sometimes and as such it is important that you follow up with your Primary Doctor to be re checked, 3-5 days is a general good time frame for follow up. You are always welcome to return to the ED for re assessment if your symptoms are worsening or you have new concerns Print Language: Congolese Coding Level of Care Code ED Barrel Coater for Devonte Hamm
[2024-11-17 11:08] LABS: Basophils # 0.1 10^3/uL (0.0-0.1); Basophils % 0.9 %; Eosinophils # 0.5 10^3/uL (0.0-0.8); Eosinophils % 6.1 %; Hematocrit 39.4 % (37-53); Lymphocytes # 1.8 10^3/uL (0.8-4.8); Lymphocytes % 23.3 %; Mean Corpuscular HGB Conc 33.2 g/dL (30-55); Mean Corpuscular Volume 81.2 fl (82-101); Mean Platelet Volume 9.3 fL (7.4-10.4); Monocytes # 0.6 10^3/uL (0.2-0.9); Monocytes % 8.5 %; Neutrophils # 4.59 10^3/uL (1.8-7.7); Neutrophils % 60.9 %; Nucleated Red Blood Cells % 0 %; Platelet Count 247 10^3/cmm (157-399); Red Blood Count 4.85 10^6/uL (3.85-5.65); White Blood Count 7.54 10^3/uL (3.29-11.43)
--- NOTE | 2024-11-17 11:16 | PC.PHAR ---
Pt should be low on several medications.
[2024-11-17] MEDS: ondansetron 2 mg/ML SDV 2 mL 8 MG IVP (11:25)
[2024-11-17] MEDS: HYDROmorphone 0.5 MG/0.5 ML INJ 1 MG IVP (11:25)
[2024-11-17 11:29] LABS: Alanine Aminotransferase 11 U/L (0-41); Albumin Level 4.1 g/dL (3.5-5.2); Alkaline Phosphatase 61 U/L (40-130); Anion Gap 15.6 (5-19); Aspartate Amino Transferase 13 U/L (0-40); Blood Urea Nitrogen 15 mg/dL (8-23); Calcium 8.7 mg/dL (8.5-10.5); Carbon Dioxide 26 mmol/L (22-29); Chloride 98 mmol/L (98-107); Globulin 3.1 g/dL (1.3-4.6); Glomerular Filtration Rate 134.8 mL/min (90-130); Glucose 232 mg/dL (65-115); Lipase 49 U/L (13-60); Magnesium 1.2 mg/dL (1.7-2.3); Osmolality Calculated 288 mOsm/kg (285-295); Potassium 4.6 mmol/L (3.5-5.1); Sodium 135 mmol/L (136-145); Total Bilirubin 0.8 mg/dL (0.15-1.2); Total Protein 7.2 g/dL (6.6-8.7)
--- NOTE | 2024-11-17 11:37 | CTR_ITS ---
PROCEDURE INFORMATION: Exam: CT Abdomen And Pelvis Without Contrast Exam date and time: 11/17/2024 12:18 PM Age: 64 years old Clinical indication: Abdominal pain; Epigastric TECHNIQUE: Imaging protocol: Computed tomography of the abdomen and pelvis without contrast. Radiation optimization: All CT scans at this facility use at least one of these dose optimization techniques: automated exposure control; mA and/or kV adjustment per patient size (includes targeted exams where dose is matched to clinical indication); or iterative reconstruction. COMPARISON: CT abdomen pelvis w con* [id number] 07/12/2024 6:49 PM RADIATION DOSE METRICS: Total DLP (mGy-cm): 1015.85 FINDINGS: Lungs: Subsegmental bibasilar atelectasis. The visualized lung bases are otherwise clear. Diaphragm: No evidence of diaphragmatic defect. Liver: No evidence of focal hepatic lesion within limitation of a noncontrast exam. Gallbladder and biliary ducts: Status post cholecystectomy. Mild central intrahepatic biliary dilatation. There is mild extrahepatic biliary dilatation, frequently seen post cholecystectomy. CBD measures up to 8 mm. No evidence of intraductal stone. Pancreas: Grossly unremarkable. Spleen: Grossly unremarkable. Adrenal glands: Grossly unremarkable. Kidneys and ureters: There are simple appearing renal cysts for which dedicated imaging follow-up is not required. There are nonobstructive renal stones bilaterally measuring up to 5 mm. Otherwise no evidence of renal parenchymal abnormality. No hydronephrosis or ureteral stone. Stomach and bowel: Postsurgical changes status post resection of the ascending colon. Diastasis of the rectus musculature with small midline ventral abdominal hernia and protrusion of multiple nonobstructive bowel loops into the defect. Appendix: Surgically absent. Intraperitoneal space: No evidence of free air or fluid collection. Vasculature: Atherosclerosis without evidence of aneurysmal dilitation of abdominal aorta. 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 Consider vascular evaluatiion. Lymph nodes: No evidence of adenopathy. Few mildly prominent central mesenteric nodes with surrounding haziness, which can be seen with mesenteric panniculitis, not significantly changed since prior. Urinary bladder: Grossly unremarkable. Reproductive: Grossly unremarkable. Bones/joints: No evidence of acute fracture or aggresive osseous lesion. Grade 2 anterolisthesis of L5 on S1 secondary to chronic bilateral L5 pars defects. Moderate-severe bilateral foraminal stenosis at this level. A device is visualized in the left flank subcutaneous soft tissues with catheter coursing cephalad in the lumbar/thoracic spinal canal. Soft tissues: There is an approximately 6 x 6 cm fluid collection in the anterior left flank subcutaneous soft tissues containing grossly simple fluid most suggestive of seroma. There appears to been prior hernia repair in this region. CT/CT abdomen pelvis wo con [id number] IMPRESSION: 1. No evidence of acute abnormality in the abdomen or pelvis within limitations of a noncontrast exam. 2. 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 Consider vascular evaluatiion. 3. Left flank subcutaneous seroma.
[2024-11-17] MEDS: HYDROmorphone 0.5 MG/0.5 ML INJ 2 MG IVP (12:14)
[2024-11-17 13:26] LABS: Add Urine Microscopic? NO
[2024-11-17 13:27] LABS: Bilirubin Urine Neg (Negative); Blood Urine Neg (Negative); Glucose Urine UA Norm (Normal); Ketones Urine 1+ (Negative); Leukocyte Esterase Urine Negative (Negative); Nitrate Urine Negative (Negative); Protein Urine Trace (Negative); Urine Appearance Clear (CLEAR); Urine Color Yellow (Yellow); Urobilinogen Urine Neg (Negative); pH Urine 6 (5-7)
[2024-11-17 13:28] LABS: Charge for UA Resulting for Rev
[2024-11-17 13:30] LABS: Bacteria Urine None Seen /hpf; Hyaline Casts Urine 1.21 /lpf; RBC Urine 0-2 /hpf (0-2); Squamous Epithelial Cell Urine 0-5 /hpf (0-5); WBC Urine 0-5 /hpf (0-5)
[2024-11-17] MEDS: magnesium sulfate premix 2 GM/50 ML PIGGYBACK IV (15:20)
[2024-11-17] MEDS: prochlorperazine 10 mg/2 mL Inj IVP (15:20)
[2024-11-17] MEDS: diphenhydrAMINE 50 mg/mL SDV 1mL IVP (15:20)
== END 2024-11-17 16:28 | disposition home or self-care (01) ==
PROVIDERS: Emergency Medicine; Emergency Provider Emergency Medicine; PCP Family Medicine
DX: K52.9 Noninfective gastroenteritis and colitis, unspecified (principal); R10.9 Unspecified abdominal pain; E83.42 Hypomagnesemia; Z79.4 Long term (current) use of insulin; E11.9 Type 2 diabetes mellitus without complications; I10 Essential (primary) hypertension; I25.10 Atherosclerotic heart disease of native coronary artery without angina pectoris
CPT/HCPCS: 36415; 74176; 80053; 81003; 83690; 83735; 85025; 96365; 96375; 96376; 99285; J0780; J1171; J1200; J2405; J3475

== ENCOUNTER 2024-11-28 10:17 | Outpatient (CLI) | payer MEDICARE, SELFPAY ==
--- NOTE | 2024-11-28 11:00 | CT_ITS ---
WS: [id number] CTA HEAD AND NECK TECHNIQUE: Contrast enhanced CTA of the head and neck with coronal and sagittal reformatted images and maximum intensity projection (MIP) images. NASCET criteria utilized. CLINICAL INFORMATION: G45.9 - Transient cerebral ischemic attack, unspecified COMPARISON: 2013 DLP: 1855.[address] scans at [facility] use at least one of these dose optimization techniques: automated exposure control; mA and/or kV adjustment per patient size (includes targeted exams where dose is matched to clinical indication); or iterative reconstruction. FINDINGS: Bilateral ICA stenosis progressed since 2012 RIGHT: RIGHT ICA stenosis 63%. Moderate calcified atheromatous plaque. LEFT: LEFT ICA stenosis 73%. Dense calcified atheromatous plaque. Both vertebral arteries are patent. INTRACRANIAL CTA: Basilar artery is patent. Normal vascularity to the [employer] territory bilaterally. Both ICAs are patent at the skull base. Cavernous carotid calcification. Normal vascularity to the DARYL and MCA territories bilaterally. No evidence of proximal flow-limiting stenosis. CT/CT angio headneck* [id number] IMPRESSION: 1. RIGHT ICA stenosis 63% 2. LEFT ICA stenosis 73% 3. Both vertebral arteries are patent. 4. No evidence of intracranial proximal flow-limiting stenosis.
[2024-11-28] MEDS: iohexol 350 mg/mL 500 mL Btl (per mL) IV (11:48)
== END 2024-11-28 10:18 | disposition home or self-care (01) ==
PROVIDERS: PCP Family Medicine; Visit Provider Specialist
DX: I65.23 Occlusion and stenosis of bilateral carotid arteries (principal)
CPT/HCPCS: 70496; 70498

== ENCOUNTER → 2024-12-25 09:16 | Outpatient (BNVA) | payer MEDICARE, SELFPAY | PROVIDERS: PCP Family Medicine; Visit Provider Internal Medicine | DX: E11.9 Type 2 diabetes mellitus without complications (principal) | CPT/HCPCS: 99214 ==

== ENCOUNTER 2025-01-15 22:17 | Inpatient (IN) | payer MEDICARE, SELFPAY ==
--- NOTE | 2025-01-15 22:25 | CTR_ITS ---
PROCEDURE INFORMATION: Exam: CT Head Without Contrast Exam date and time: 01/15/2025 10:24 PM Age: 64 years old Clinical indication: Stroke-like symptoms; Left facial droop TECHNIQUE: Imaging protocol: Computed tomography of the head without contrast. Radiation optimization: All CT scans at this facility use at least one of these dose optimization techniques: automated exposure control; mA and/or kV adjustment per patient size (includes targeted exams where dose is matched to clinical indication); or iterative reconstruction. Other technique: STROKE PROTOCOL was implemented. COMPARISON: CT angio headneck 11/28/2024 11:26 AM RADIATION DOSE METRICS: Total DLP (mGy-cm): 1067.5 FINDINGS: Brain: No acute intracranial hemorrhage, acute large territory infarct, or obvious mass lesion. Age appropriate diffuse cerebral volume loss. Mild chronic white matter changes, likely to be chronic small vessel ischemic changes. No midline shift or mass effect. Cerebral ventricles: No ventriculomegaly. Paranasal sinuses: Visualized paranasal sinuses are clear. Mastoid air cells: Visualized mastoid air cells are clear. Bones: No acute osseous abnormality. Soft tissues: Unremarkable. CT/CT head thrombolytic [id number] IMPRESSION: 1. No acute intracranial abnormality identified. 2. If clinically indicated, consider further evaluation with MRI, which is more sensitive for detecting acute ischemic changes and other subtle pathology. ASSESSMENT: ASPECTS ([place] Stroke Program Early CT Score) is 10.
[2025-01-15 22:30] VITALS: BP 159/76; RESP 16; O2SAT 91
[2025-01-15 22:34] VITALS: BP 159/76; PULSE 105; RESP 18; TEMP 36.9; O2SAT 89
--- NOTE | 2025-01-15 22:36 | ECG_ITS ---
[facility]: [facility]25[facility]15 Pat Name: Guanakito Longo Department: Room: Gender: Male Rn International: : 1960 Requested By: Rosetta Davidson Order Number: [id number] Vladimir MD: García Raman M.D. Measurements Intervals [place] Rate: 108 P: 39 NH: 167 QRS: 38 QRSD: 121 T: 13 QT: 328 QTc: 441 Interpretive Statements SINUS TACHYCARDIA POSSIBLE INFERIOR MYOCARDIAL INFARCTION , PROBABLY OLD [30 ms Q WAVE IN II/aVF] Compared to ECG 08/28/2024 11:20:44 Myocardial infarct finding now present Sinus rhythm no longer present Intraventricular conduction delay no longer present Electronically Signed On 01-21-2025 11:52:20 CDT by García Raman M.D. [email or web address]
[2025-01-15 22:39] LABS: Glucose Point of Care 225 mg/dL (70-110)
--- NOTE | 2025-01-15 22:43 | ED_ITS ---
HPI - Neuro Symptoms/Deficit 2 General: Chief Complaint: Neuro Symptoms/Deficit Stated Complaint: R side numbness an hour ago Time Seen by Provider: 01/15/25 22:26 History of Present Illness: 64-year-old man with a history of stroke in the past, diabetes, and a remote stroke who presents to the emergency room with stroke symptoms. He says about an hour to an hour and a half ago he acutely developed slurred speech and right facial droop. He says he noticed whenever he took a drink and it came back out of his mouth. He also has some right sided leg and arm weakness. Related Data Home Medications ?Medication ?Instructions ?Recorded ?Confirmed albuterol sulfate 90 mcg/actuation 1 - 2 inh inhalatio n Q4H PRN 10/30/19 11/22/24 breath activated powder inhaler Shortness Of Breath (ProAir RespiClick) clopidogrel 75 mg tablet (Plavix) 75 mg PO BEDTIME 11/22/24 hydroxyzine HCl 50 mg tablet 50 mg PO BID PRN Anxiety 03/03/21 11/22/24 insulin lispro 100 unit/mL See Rx Instructions .Route .COMPLEX 03/03/21 11/22/24 subcutaneous pen (Humalog KwikPen (U-100) Insulin) multivitamin 1 tab PO DAILY 03/03/2112/13 Morphine pain pump See Rx Instructions .Route . COMPLEX 06/09/21 11/22/24 insulin glargine 100 unit/mL (3 57 unit SUBCUT BEDTIME 08/25/21 11/22/24 mL) subcutaneous pen (Lantus Solostar U-100 Insulin) metformin 500 mg tablet,extended 1,000 mg PO BID 08/0211/22/24 release 24 hr pantoprazole 40 mg tablet,delayed 40 mg PO BID 2 11/22/24 release brimonidine 0.2 %-timolol 0.5 % 1 drp ophthalmic (eye) BID 08/28/24 11/22/24 eye drops (Combigan) galcanezumab-gnlm 120 mg/mL 120 mg SUBCUT .Q30D 11/22/24 subcutaneous pen injector (Emgality Pen) isosorbide mononitrate 60 mg 60 mg PO DAILY 08/28/24 0 11/22/24 tablet,extended release 24 hr cyanocobalamin (vitamin B-12) 500 500 mcg PO DAILY 06/1411/22/24 mcg tablet (Vitamin B-12) docusate sodium 100 mg capsule 100 mg PO BID PRN Const ipation 10/28/24 11/22/24 (Colace) rosuvastatin 5 mg tablet See Rx Instructions .Route . COMPLEX 10/28/24 11/22/24 sertraline 100 mg tablet 100 mg PO DAILY 10/28/2412/13 clonidine HCl 0.2 mg tablet See Rx Instructions .Route 11/17/24 11/22/24 .COMPLEX PRN high blood pressure Previous Rx's ?Medication ?Instructions ?Recorded kbhhry-yjnhveiu-ppjnxof 2 cap PO TID #90 caps 36,000-114,000-180,000 unit capsule,delay rel (Creon) lisinopril 10 mg tablet 10 mg PO BID #180 tabs 12/06 ferrous sulfate 325 mg (65 mg 325 mg PO DAILY #30 tabs 09/25/23 iron) tablet Diabetic shoes with CUSTOM #1 ea 04/10/24 Accomodative Insert galantamine 4 mg tablet 4 mg PO BID #180 tabs metoprolol tartrate 25 mg tablet 12.5 mg (1/2 x 25 mg) PO BID #90 06/05/24 tabs hydrocodone 5 mg-acetaminophen 325 1 tab PO Q6H PRN pa in #14 tabs 07/12/24 mg tablet furosemide 20 mg tablet 20 mg PO BID Edema #180 tabs 07/15/24 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 sensor (PathableStyle #6 ea 08/28/24 Loyd 3 Plus Sensor device) diphenhydramine HCl 50 mg capsule 50 mg PO .COMPLEX #1 cap 10/15/24 ondansetron 8 mg disintegrating 8 mg PO Q6H #14 tabs 0 11/17/24 tablet promethazine 25 mg rectal 25 mg VT Q6H PRN nausea and 11/17/24 suppository vomiting #12 ea 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,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,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 #1 ea 11/28/24 (FreeStyle Loyd 3 [place]) Allergies Allergy/AdvReac Type Severity Reaction Status Date / Time Iodinated Contrast Media Allergy Unknown ALGY-Hives Verified 12/24/24 14:45 adhesive tape Allergy ALGY-Rash Verified 12/24/24 14:45 aspirin Allergy ALGY-Rash Verified 12/24/24 14:45 fentanyl Allergy ALGY-Rash, Verified 12/24/24 14:45 vomit Penicillins Allergy ALGY-Rash, Verified 12/24/24 14:45 breathing difficulty alprazolam (From Xanax) AdvReac ADR-Anxiety Verified 12/24/24 14:45 zolpidem (From Ambien) AdvReac ADR-Anxiety Verified 12/24/24 14:45 Review of Systems 2 Narrative: Constitutional symptoms: Negative except as documented in HPI. Skin symptoms: Negative except as documented in HPI. Eye symptoms: Negative except as documented in HPI. ENMT symptoms: Negative except as documented in HPI. Respiratory symptoms: Negative except as documented in HPI. Cardiovascular symptoms: Negative except as documented in HPI. Gastrointestinal symptoms: Negative except as documented in HPI. Genitourinary symptoms: Negative except as documented in HPI. Musculoskeletal symptoms: Negative except as documented in HPI. Neurologic symptoms: Negative except as documented in HPI. Psychiatric symptoms: Negative except as documented in HPI. Endocrine symptoms: Negative except as documented in HPI. PFSH ED 2 PFSH: Medical History Chronic venous insufficiency Diabetes History of colon polyps NEDRA (obstructive sleep apnea) Coronary artery disease HTN (hypertension) Diabetes Peripheral neuropathy Asthma GERD (gastroesophageal reflux disease) Mart's palsy Surgical History History of incisional hernia repair (11/01/21) open with mesh History of esophagogastroduodenoscopy History of incisional hernia repair (05/06/21) With excision of abdominal wall mass Status post right inguinal hernia repair History of right hemicolectomy H/O colonoscopy (10/27/20) 5 years Family History Other CAD (coronary artery disease) Cancer Hypertension Denies family history of Anesthesia complication Bleeding disorder Social History Smoking and tobacco/nicotine status: never used tobacco/nicotine Alcohol intake: never Substance/Drug Use: never Physical Exam 2 Narrative: EXAM NARRATIVE: General: Alert, no acute distress. Skin: Warm, dry. Head: Normocephalic, atraumatic. Neck: Supple, trachea midline. Eye: Extraocular movements are intact. Ears, nose, mouth and throat: mucosa moist. Cardiovascular: Regular, Normal peripheral perfusion. Respiratory: Lungs are clear to auscultation, respirations are non-labored, breath sounds are equal, Symmetrical chest wall expansion. Gastrointestinal: Soft, Nontender, Non distended Musculoskeletal: Normal ROM, no deformity. Neurological: Alert and oriented, patient has right-sided facial weakness of his mouth. Spares the eyebrow and eyelid. He has some drift in his right leg and arm with some weakness. Speech is slightly slurred. No confusion. Follows commands. Psychiatric: Cooperative, appropriate mood & affect. Course 2 Vital Signs: Vital signs: Vital Signs Temperature 98.5 F 01/15/25 22:34 Pulse Rate 100 01/15/25 23:49 Respiratory Rate 18 01/15/25 23:49 Blood Pressure 158/82 01/15/25 23:49 Pulse Oximetry 94 01/15/25 23:49 Oxygen Delivery Me thod Room Air 01/15/25 23:49 MDM - Neuro Symptoms/Deficit Medical Decision Making Medical decision making: Differential diagnosis for patient with focal neurologic deficit(s) includes but not limited to and based on the above HPI, review of systems and physical exam: ischemic stroke, hemorrhagic stroke and embolic stroke secondary to atrial fibrillation), TIA, Mart's palsey, metabolic encephalopathy with previous stroke. Orders placed to evaluate differential diagnosis based on the above differential, HPI and physical exam NIH Stroke Scale/Score (NIHSS) from [employer] on 01/15/2025 All calculations should be rechecked by clinician prior to use RESULT SUMMARY: 6 points NIH Stroke Scale INPUTS: 1A: Level of consciousness ?> 0 = Alert; keenly responsive 1B: Ask month and age ?> 0 = Both questions right 1C: 'Blink eyes' & 'squeeze hands' ?> 0 = Performs both tasks 2: Horizontal extraocular movements ?> 0 = Normal 3: Visual thomas ?> 0 = No visual loss 4: Facial palsy ?> 2 = Partial paralysis (lower face) 5A: Left arm motor drift ?> 0 = No drift for 10 seconds 5B: Right arm motor drift ?> 1 = Drift, but doesn't hit bed 6A: Left leg motor drift ?> 0 = No drift for 5 seconds 6B: Right leg motor drift ?> 1 = Drift, but doesn't hit bed 7: Limb Ataxia ?> 0 = No ataxia 8: Sensation ?> 0 = Normal; no sensory loss 9: Language/aphasia ?> 1 = Mild-moderate aphasia: some obvious changes, without significant limitation 10: Dysarthria ?> 1 = Mild-moderate dysarthria: slurring but can be understood 11: Extinction/inattention ?> 0 = No abnormality Consultation: Time 223. I spoke with Dr. Melvin as soon as CT was done. She evaluated the patient with me on telemedicine and recommends TNKase. I discussed this with family who agrees. And with the patient. CT head: No acute intracranial process. no intracranial hemorrhage, no evidence of infarct. no evidence of acute fracture.This was reviewed and interpreted by myself the ER physician. EKG: Time 2237. Rate 108. Sinus tachycardia, No ST-T changes, no ectopy, normal VT & QRS intervals, This was reviewed and interpreted by myself the ER physician at 2240. TNKase was given at 2249 Lab Review: Laboratory results were reviewed and interpreted by myself the emergency room physician. No leukocytosis. No anemia. No renal failure. Glucose is a bit elevated at 250. Urinalysis is negative for infection. I reviewed the patient's medical record. Reexamination: Patient does have some slight improvement in his symptoms. Speech is still a bit slurred. Mild weakness in the right side. No increased work of breathing. No altered mental status. Consultation: I spoke Dr. Espinal who is on-call for the hospital service who agrees to admission. Assessment and plan: Cerebrovascular accident ?TNKase given as instructed by neurology -I discussed the patient with the hospitalist on-call who is admitting the patient. - Discussed findings and plan with patient. Answered any questions. - All laboratory values were reviewed and interpreted personally by myself, the ER physician - All imaging was reviewed and interpreted personally by myself, the ER physician. - Evaluation and treatment of this problem were appropriate in the emergency setting Lab Data 01/15/25 22:45 01/15/25 22:[address] 01/15/25 22:25 IMPRESSION: 1. No acute intracranial abnormality identified. 2. If clinically indicated, consider further evaluation with MRI, which is more sensitive for detecting acute ischemic changes and other subtle pathology. ASSESSMENT: ASPECTS ([place] Stroke Program Early CT Score) is 10. ADDENDUM: 01/15/25 2240 ADDENDUM: THIS REPORT CONTAINS FINDINGS THAT MAY BE CRITICAL TO PATIENT CARE. The findings were verbally communicated via telephone conference with DANYA Ramirez at 10:40 PM CDT on 01/15/2025. The findings were acknowledged and understood. Laboratory Results WBC 7.35 10^3/uL (3.29-11.43) 01/15/25 22:45 RBC 4.57 10^6/uL (3.85-5.65) 01/15/25 22:45 Hgb 12.40 g/dL (11.27-16.99) 01/15/25 22:45 Hct 37.5 % (37-53) 01/15/25 22:45 MCV 82.1 fl (82-101) 01/15/25 22:45 MCH 27.1 pg (27-33) 01/15/25 22:45 MCHC 33.1 g/dL (30-55) 01/15/25 22:45 RDW 12.6 % (12.1-15.1) 01/15/25 22:45 Plt Count 245 10^3/cmm (157-399) 01/15/25 22:45 MPV 9.6 fL (7.4-10.4) 01/15/25 22:45 Neut % (Auto) 56.0 % 01/15/25 22:45 Lymph % (Auto) 31.6 % 01/15/25 22:45 Boyd % (Auto) 6.1 % 01/15/25 22:45 Eos % (Auto) 5.0 % 01/15/25 22:45 Baso % (Auto) 1.2 % 01/15/25 22:45 Neut # (Auto) 4.11 10^3/uL (1.8-7.7) 01/15/25 22:45 Lymph # (Auto) 2.3 10^3/uL (0.8-4.8) 01/15/25 22:45 Boyd # (Auto) 0.5 10^3/uL (0.2-0.9) 01/15/25 22:45 Eos # (Auto) 0.4 10^3/uL (0.0-0.8) 01/15/25 22:45 Baso # (Auto) 0.1 10^3/uL (0.0-0.1) 01/15/25 22:45 Nucleated RBC % (auto) 0 % 01/15/25 22:45 Nucleated RBCs # 0.0 /100WBC 01/15/25 22:45 PT 12.80 SECONDS (12.1-14.9) 01/15/25 22:45 INR 0.90 (0.8-1.2) 01/15/25 22:45 APTT 27.4 SECONDS (23.9-36.7) 01/15/25 22:45 Sodium 136 mmol/L (136-145) 01/15/25 22:45 Potassium 4.2 mmol/L (3.5-5.1) 01/15/25 22:45 Chloride 99 mmol/L (98-107) 01/15/25 22:45 Carbon Dioxide 24 mmol/L (22-29) 01/15/25 22:45 Anion Gap 17.2 (5-19) 01/15/25 22:45 BUN 16 mg/dL (8-23) 01/15/25 22:45 Creatinine 0.6 mg/dL (0.7-1.2) L 01/15/25 22:45 GFR Calculation 134.8 mL/min (90-130) H 01/15/25 22:45 Glucose 251 mg/dL (65-115) H 01/15/25 22:45 POC Glucose 225 mg/dL (70-110) H 01/15/25 22:32 Calculated Osmolality 292 mOsm/kg (285-295) 01/15/25 22:45 Calcium 8.9 mg/dL (8.5-10.5) 01/15/25 22:45 Total Bilirubin 0.4 mg/dL (0.15-1.2) 01/15/25 22:45 AST 12 U/L (0-40) 01/15/25 22:45 ALT 10 U/L (0-41) 01/15/25 22:45 Alkaline Phosphatase 65 U/L (40-130) 01/15/25 22:45 Total Protein 6.6 g/dL (6.6-8.7) 01/15/25 22:45 Albumin 4.0 g/dL (3.5-5.2) 01/15/25 22:45 Globulin 2.6 g/dL (1.3-4.6) 01/15/25 22:45 Urine Color Yellow (Yellow) 01/15/25 23:59 Urine Appearance Clear (CLEAR) 01/15/25 23:59 Urine pH 6.0 (5-7) 01/15/25 23:59 Ur Specific B[place]ins 1.009 (1.005-1.030) 01/15/25 23:59 Urine Protein 1+ (Negative) A 01/15/25 23:59 Urine Glucose (UA) 2+ (Normal) H 01/15/25 23:59 Urine Ketones Negative (Negative) 01/15/25 23:59 Urine Blood Trace (Negative) A 01/15/25 23:59 Urine Nitrate Negative (Negative) 01/15/25 23:59 Urine Bilirubin Negative (Negative) 01/15/25 23:59 Urine Urobilinogen 0.2 mg/dL (Negative) 01/15/25 23:59 Ur Leukocyte Esterase Negative (Negative) 01/15/25 23:59 Amorphous Sediment Not Reportable 01/15/25 23:59 All radiology interpretation(s) finalized by discharge Discharge Plan Discharge Patient Disposition: Admitted As Inpatient Clinical Impression: Cerebrovascular accident Condition: Stable Coding Level of Care Code ED Strength And Conditioning Coach for Devonte Hamm
[2025-01-15] MEDS: tenecteplase 50mg Kit (STROKE) 25 MG IVP (22:49)
[2025-01-15 22:54] LABS: Basophils # 0.1 10^3/uL (0.0-0.1); Basophils % 1.2 %; Eosinophils # 0.4 10^3/uL (0.0-0.8); Hematocrit 37.5 % (37-53); Lymphocytes # 2.3 10^3/uL (0.8-4.8); Lymphocytes % 31.6 %; Mean Corpuscular HGB Conc 33.1 g/dL (30-55); Mean Corpuscular Hemoglobin 27.1 pg (27-33); Mean Corpuscular Volume 82.1 fl (82-101); Mean Platelet Volume 9.6 fL (7.4-10.4); Monocytes # 0.5 10^3/uL (0.2-0.9); Monocytes % 6.1 %; Neutrophils # 4.11 10^3/uL (1.8-7.7); Nucleated Red Blood Cells % 0 %; Platelet Count 245 10^3/cmm (157-399); Red Blood Count 4.57 10^6/uL (3.85-5.65); Red Cell Distribution Width 12.6 % (12.1-15.1); White Blood Count 7.35 10^3/uL (3.29-11.43)
[2025-01-15 23:04] VITALS: BP 188/95; PULSE 100; RESP 16; O2SAT 92
[2025-01-15 23:16] LABS: Alanine Aminotransferase 10 U/L (0-41); Alkaline Phosphatase 65 U/L (40-130); Anion Gap 17.2 (5-19); Aspartate Amino Transferase 12 U/L (0-40); Blood Urea Nitrogen 16 mg/dL (8-23); Calcium 8.9 mg/dL (8.5-10.5); Carbon Dioxide 24 mmol/L (22-29); Chloride 99 mmol/L (98-107); Creatinine Clr Calc Pharmacy 114.4528; Globulin 2.6 g/dL (1.3-4.6); Glomerular Filtration Rate 134.8 mL/min (90-130); Glucose 251 mg/dL (65-115); Osmolality Calculated 292 mOsm/kg (285-295); Potassium 4.2 mmol/L (3.5-5.1); Sodium 136 mmol/L (136-145); Total Bilirubin 0.4 mg/dL (0.15-1.2); Total Protein 6.6 g/dL (6.6-8.7)
[2025-01-15 23:19] VITALS: BP 188/95; PULSE 98; RESP 16; O2SAT 93
[2025-01-15 23:23] LABS: Partial Thromboplastin Time 27.4 SECONDS (23.9-36.7)
[2025-01-15 23:34] VITALS: BP 181/85; PULSE 100; RESP 18; O2SAT 95
[2025-01-15 23:49] VITALS: BP 158/82; PULSE 100; RESP 18; O2SAT 94
[2025-01-16] VITALS (90 sets, daily range): BP systolic 97–221; BP diastolic 50–106; PULSE 66–104; RESP 3–28; TEMP 36.5–37.2; O2SAT 86–100
[2025-01-16 00:10] LABS: Bilirubin Urine Negative (Negative); Blood Urine Trace (Negative); Glucose Urine UA 2+ (Normal); Ketones Urine Negative (Negative); Leukocyte Esterase Urine Negative (Negative); Nitrate Urine Negative (Negative); Protein Urine 1+ (Negative); Specific Gravity, Urine 1.009 (1.005-1.030); Urine Appearance Clear (CLEAR); Urine Color Yellow (Yellow); Urobilinogen Urine 0.2 mg/dL (Negative)
[2025-01-16 00:15] LABS: Add Urine Microscopic? YES; Bacteria Urine None Seen /hpf; Hyaline Casts Urine 0-4 /lpf; RBC Urine 0-2 /hpf (0-2); Squamous Epithelial Cell Urine 0-5 /hpf (0-5); WBC Urine 0-5 /hpf (0-5)
[2025-01-16 00:17] LABS: Amphetamines Screen Urine Negative (Negative); Barbiturates Screen Urine Negative (Negative); Benzodiazepines Screen Urine Negative (Negative); Cocaine Screen Urine Negative (Negative); Opiate Screen Urine Positive (Negative); PCP Screen Urine Negative (Negative); THC Screen Urine Negative (Negative)
[2025-01-16] MEDS: acetaminophen 1,000 MG/100 ML PIGGYBACK 400 MG IV (00:40)
--- NOTE | 2025-01-16 01:51 | PM.HP ---
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 Patient has history of diabetes, hyperlipidemia, hypertension and a history of stroke approximately 10 years ago. He states he was not treated with tPA at that time and had slurring and unsteady gait that improved over a couple months. The patient today was drinking diet soda at 8 PM and so he was dribbling out his mouth. He came to the ER where his NIH score was 6. He was discussed with Dr. Melvin and given TNKase at 2249. Patient states he is significantly better but not back to baseline his deficits were notable for facial palsy right arm motor drift right leg motor drift mild to moderate aphasia and mild dysarthria. Patient is admitted to the ICU post tPA. CT negative for stroke MRI not done. Carotid Doppler 12/24/2024 internal carotid artery 50 to 69% stenosis approaching 70% on the right which is the worst side Review of Systems Narrative: General patient reports no fevers chills Cardiovascular no chest pain or palpitations no history of ME Respiratory no shortness of breath cough wheezing GI positive for nausea no vomiting he has had chronic pancreatitis unknown cause not related to alcohol or gallstones he has had diarrhea and constipation related to his pancreas positive for nocturia 2-3 times a night no hesitancy or dribbling no history of UTIs or yeast Malignancy reports colectomy for colon mass not sure if it was cancer he did not receive chemo or radiation Hematologic negative for DVTs or PE Medications/Allergies Home Medications ?Medication ?Instructions ?Recorded ?Confirmed ?Last Taken ?Type albuterol sulfate 90 mcg/actuation 1 - 2 inh inhalation Q4H PRN 10/30/19 11/22/24 07/31/23 History breath activated powder inhaler Shortness Of Breath (ProAir RespiClick) clopidogrel 75 mg tablet (Plavix) 75 mg PO BEDTIME 03/03/21 11/22/24 11/16/24 History hydroxyzine HCl 50 mg tablet 50 mg PO BID PRN Anxiety 03/03/21 11/22/24 10/28/24 08:00 History insulin lispro 100 unit/mL See Rx Instructions .Route .COMPLEX 03/03/21 11/22/24 11/16/24 History subcutaneous pen (Humalog KwikPen (U-100) Insulin) multivitamin 1 tab PO DAILY 03/03/21 11/22/24 11/16/24 History pgegsm-cobpystv-lyikjes 2 cap PO TID #90 caps 03/13/21 11/22/24 11/16/24 Rx 36,000-114,000-180,000 unit capsule,delay rel (Creon) Morphine pain pump See Rx Instructions .Route .COMPLEX 06/09/21 11/22/24 11/16/24 History insulin glargine 100 unit/mL (3 57 unit SUBCUT BEDTIME 08/25/21 11/22/24 11/16/24 History mL) subcutaneous pen (Lantus Solostar U-100 Insulin) lisinopril 10 mg tablet 10 mg PO BID #180 tabs 12/06/21 11/22/24 11/16/24 Rx metformin 500 mg tablet,extended 1,000 mg PO BID 08/02/22 11/22/24 11/16/24 History release 24 hr pantoprazole 40 mg tablet,delayed 40 mg PO BID 08/02/22 11/22/24 11/16/24 History release ferrous sulfate 325 mg (65 mg 325 mg PO DAILY #30 tabs 09/25/23 11/22/24 11/16/24 Rx iron) tablet Diabetic shoes with CUSTOM #1 ea 04/10/24 11/22/24 Unknown Rx Accomodative Insert galantamine 4 mg tablet 4 mg PO BID #180 tabs 05/13/24 11/22/24 11/16/24 Rx metoprolol tartrate 25 mg tablet 12.5 mg (1/2 x 25 mg) PO BID #90 06/05/24 11/22/24 11/16/24 Rx tabs hydrocodone 5 mg-acetaminophen 325 1 tab PO Q6H PRN pain #14 tabs 07/12/24 11/22/24 Unknown Rx mg tablet furosemide 20 mg tablet 20 mg PO BID Edema #180 tabs 07/15/24 11/22/24 11/16/24 Rx 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 sensor (FreeStyle #6 ea 08/28/24 11/22/24 Unknown Rx Loyd 3 Plus Sensor device) brimonidine 0.2 %-timolol 0.5 % 1 drp ophthalmic (eye) BID 08/28/24 11/22/24 11/16/24 History eye drops (Combigan) galcanezumab-gnlm 120 mg/mL 120 mg SUBCUT .Q30D 08/28/24 11/22/24 10/02/24 History subcutaneous pen injector (Emgality Pen) isosorbide mononitrate 60 mg 60 mg PO DAILY 08/28/24 11/22/24 11/16/24 History tablet,extended release 24 hr diphenhydramine HCl 50 mg capsule 50 mg PO .COMPLEX #1 cap 10/15/24 11/22/24 Unknown Rx cyanocobalamin (vitamin B-12) 500 500 mcg PO DAILY 10/28/24 11/22/24 11/16/24 History mcg tablet (Vitamin B-12) docusate sodium 100 mg capsule 100 mg PO BID PRN Constipation 10/28/24 11/22/24 Unknown History (Colace) rosuvastatin 5 mg tablet See Rx Instructions .Route .COMPLEX 10/28/24 11/22/24 11/15/24 History sertraline 100 mg tablet 100 mg PO DAILY 10/28/24 11/22/24 11/16/24 History clonidine HCl 0.2 mg tablet See Rx Instructions .Route 11/17/24 11/22/24 Unknown History .COMPLEX PRN high blood pressure ondansetron 8 mg disintegrating 8 mg PO Q6H #14 tabs 11/17/24 11/22/24 Unknown Rx tablet promethazine 25 mg rectal 25 mg MS Q6H PRN nausea and 11/17/24 11/22/24 Unknown Rx suppository vomiting #12 ea 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,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,cont #1 ea 11/28/24 12/24/24 Unknown Rx (FreeStyle Loyd 3 [place]) Allergies Allergy/AdvReac Type Severity Reaction Status Date / Time Iodinated Contrast Media Allergy Unknown ALGY-Hives Verified 12/24/24 14:45 adhesive tape Allergy ALGY-Rash Verified 12/24/24 14:45 aspirin Allergy ALGY-Rash Verified 12/24/24 14:45 fentanyl Allergy ALGY-Rash, Verified 12/24/24 14:45 vomit Penicillins Allergy ALGY-Rash, Verified 12/24/24 14:45 breathing difficulty alprazolam (From Xanax) AdvReac ADR-Anxiety Verified 12/24/24 14:45 zolpidem (From Ambien) AdvReac ADR-Anxiety Verified 12/24/24 14:45 PFSH Acute PFSH: Medical History Chronic venous insufficiency Diabetes History of colon polyps NEDRA (obstructive sleep apnea) Coronary artery disease HTN (hypertension) Diabetes Peripheral neuropathy Asthma GERD (gastroesophageal reflux disease) Mart's palsy Surgical History History of incisional hernia repair (11/01/21) open with mesh History of esophagogastroduodenoscopy History of incisional hernia repair (05/06/21) With excision of abdominal wall mass Status post right inguinal hernia repair History of right hemicolectomy H/O colonoscopy (10/27/20) 5 years Family History Other CAD (coronary artery disease) Cancer Hypertension Denies family history of Anesthesia complication Bleeding disorder Social History (Updated 01/16/25 @ 01:58 by Artie Espinal MD) Smoking and tobacco/nicotine status: never used tobacco/nicotine Alcohol intake: never Substance/Drug Use: never Additional social history: He wants full code as discussed with him and his mother Bianca on 01/16/2025 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 mother Household members: family Vitals/I&O/Wt Last Vital Signs Temp 98.5 F 01/15/25 22:34 Pulse 100 01/15/25 23:49 Resp 14 01/16/25 00:39 BP 158/92 01/16/25 00:39 Pulse Ox 94 01/16/25 00:39 O2 Del Method Room Air 01/16/25 00:39 01/15/25 01/15/25 01/16/25 14:59 22:59 06:59 Intake Total 100 / 100 Balance 100 / 100 Weight last 48 hrs Weight 109.769 kg Physical Exam Narrative: General Well-developed obese male in no acute cardiopulmonary stress CV i regular rate and rhythm Lungs clear to auscultation bilaterally Abdomen positive bowel sounds soft mild right upper quadrant and midepigastric tenderness no rebound Calves 1+ to 2+ lateral pretibial edema Neck no bruits Neuro pupils are equally round and reactive light accommodation external ocular movements are intact. Face with right-sided droop of the mouth tongue protrusion is difficult due to patient has a surgically shortened tongue. Left eyelid droops compared to the right and sometimes flutters. Patient denies that this is baseline Data 01/15/25 22:45 01/15/25 22:45 A&P Assessment and plan (1) Cerebrovascular accident: Now status post TNKase. Will start physical therapy and occupational therapy. Start Plavix and DVT prophylaxis 24 hours after tPA (2) Carotid stenosis: 70% narrowing on the right side (3) NEDRA on CPAP: Resume home CPAP (4) Diabetes: Start sliding scale insulin and Lantus plus his prandial insulin (5) HTN (hypertension): Stable we will allow permissive hypertension. Resume some of his home blood pressure meds (6) Obesity: Will put him on a 2000-calorie diabetic weight loss diet PDMP PDMP Reviewed: Not Reviewed Attestations Medical Necessity Statement*: Patient will be in the hospital for greater than 2 midnights for therapy and discharge planning post TNKase Coding Level of Care Code 66239 Diagnoses Cerebrovascular accident I63.9 Bilateral carotid artery stenosis I65.23 Laterality: bilateral NEDRA on CPAP G47.33 Type 2 diabetes mellitus without complication, without long-term current use of insulin E11.9 Diabetes mellitus type: type 2 Diabetes mellitus assisted insulin use: without assisted use Diabetes mellitus complication status: without complication HTN (hypertension) I10 Class 1 obesity due to excess calories with serious comorbidity and body mass index (BMI) of 34.0 to 34.9 in adult E66.09; Z68.34 Body mass index: BMI 34.0-34.9 Obesity classification: adult class 1 (BMI 30 - 34.9) Obesity type: due to excess calories Serious obesity comorbidity presence: with serious comorbidity Time Spent (min) 70
--- NOTE | 2025-01-16 02:11 | USCV_ITS ---
Guanakito Longo Age: 64 Gender: M : 1960 Exam Date: 01/16/2025 02:28 Ordering Phys: Artie Espinal MD Technologist: LILIYA [place] [facility] [place]: acute [place], history of DM, HTN, HL, prior CVA 2014 BP: 158 / 92 HR: 86 Rhythm: Sinus Technical Quality: Adequate MEASUREMENTS (Male / Female) Normal Values 2D ECHO LV Diastolic Diameter PLAX 2.9 cm 4.2 - 5.9 / 3.9 - 5.3 cm IVS Diastolic Thickness 1.8 cm 0.6 - 1.0 / 0.6 - 0.9 cm IVS Systolic Thickness 2.0 cm LVPW Diastolic Thickness 1.1 cm 0.6 - 1.0 / 0.6 - 0.9 cm LVPW Systolic Thickness 2.2 cm LVOT Diameter 2.1 cm LV Ejection Fraction 2D Teich 67.5 % LV Ejection Fraction MOD 4C 65.6 % LV Ejection Fraction MOD 2C 51.5 % LV Ejection Fraction 2C AL 52.5 % LA Diameter 3.9 cm Aorta at Sinotubular Diameter 2.5 cm IVC Diameter 1.1 cm M-MODE LA Ao Ratio MM 1.4 AV Cusp Separation MM 0.9 cm DOPPLER AV Peak Velocity 256.7 cm/s LVOT Peak Velocity 134.0 cm/s AV Area Cont Eq vti 2.3 cm squared AV Area Cont Eq pk 1.9 cm squared MV Peak Velocity 128.0 cm/s MV Area PHT 2.7 cm squared Mitral E to A Ratio 0.9 TV Peak E Velocity 65.0 cm/s PV Peak Velocity 142.0 cm/s FINDINGS Left Ventricle Left ventricle is normal in size. LV systolic function is normal with EF of 60 to 65%. No regional wall motion abnormalities seen. Grade 1 diastolic dysfunction. Right Ventricle Normal in size and function Right Atrium Normal in size Left Atrium Normal in size Mitral Valve Mild mitral annular calcification. Mild mitral regurgitation Aortic Valve Aortic valve is thickened. Mild aortic stenosis with mean gradient of 15 mmHg. Tricuspid Valve Insufficient TR jet to calculate RVSP. Pulmonic Valve Not well visualized Pericardium Normal Aorta Normal in size IVC Appears to be normal CONCLUSIONS LV systolic function is normal with EF of 60-65% Grade 1 diastolic dysfunction Mild mitral regurgitation Mild aortic stenosis Compared to prior echcoardiogram from 2023, no significant changes are seen García Raman MD (Electronically Signed) Final Date: 17 Jan 2025 10:13 S
[2025-01-16 02:45] LABS: Cholesterol 200 mg/dL (0-200); HDL Cholesterol 50 mg/dL (60-100); LDL Cholesterol Calculated 99 mg/dL (50-129); LDL HDL Ratio 1.98 RATIO (0.00-3.22); Triglycerides 257 mg/dL (0-150)
[2025-01-16 03:35] LABS: Estmated Average Glucose 212
--- NOTE | 2025-01-16 05:47 | PC.NURSE ---
Physician ordered x1 dose of 20 mg labetalol. Blood pressures 140-180 systolic, discussed same with physician, ordered to hold labetalol and allow permissive hypertension up to 190 systolic.
--- OUTSIDE RECORDS SUMMARY | 2025-01-16 06:12 | XMS_ITS | Clinical Summary ---
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
--- OUTSIDE RECORDS SUMMARY | 2025-01-16 06:12 | XMS_ITS | Encounter Summary ---
Author Organization [facility] Address [address] [place] [address] Care Team Providers Care Crisis Mental Health Therapist Name Role Phone Unavailable Primary Care Provider Unavailabl e Encounter Details Date Type Department Care Team (Late st Contact Info) Description 10/30/2018 Lab Requisition [facility] General Laboratory Services [place] [address] [facility] [address] [place] [id number] Mtnv, External Provider [address] [address] Social History Tobacco Use Types Packs/Day Years Used Date Smoking Tobacco: Never Assessed Sex and Gender Information Value Date Recorded Sex Assigned at Not on file 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 Gender Identity Not on file Sexual Orientation Not on file documented as of this encounter Plan of Treatment Not on file documented as of this encounter Procedures Procedure Name Priority Date/Time Associated Diagnosis Comments PTT Routine 10/30/2018 4:50 PM CDT PROTIME-INR Routine 10/30/2018 4:50 PM CDT documented in this encounter Results * PTT (10/30/2018 4:50 PM CDT) PTT 29.7 23.0 - 35.0 seconds 10/30/2018 6:24 PM CDT [facility] Blood Collection / Unknown 10/30/2018 4:50 PM CDT 10/30/2018 5:57 PM CDT us External Provider Mtnv HEMATOLOGY ORDERABLES Fin al Result [facility] CLIA # [id number] [address] [place] [address] [address] [place] [address] * PROTIME-INR (10/30/2018 4:50 PM CDT) PROTIME 12.0 11.8 - 14.6 Seconds 10/30/2018 6:24 PM CDT [facility] INR 0.9 0.8 - 1.2 10/30/2018 6:24 PM CDT [facility] Blood Collection / Unknown 10/30/2018 4:50 PM CDT 10/30/2018 5:57 PM CDT us External Provider Mtnv HEMATOLOGY ORDERABLES Fin al Result [facility] CLIA # [id number] [address] [place] [id number] documented in this encounter Visit Diagnoses Not on filedocumented in this encounter
--- OUTSIDE RECORDS SUMMARY | 2025-01-16 06:12 | XMS_ITS | Clinical Summary ---
Author Organization [facility] Address [address] [place] [address] Phone Care Team Providers Care Toll Collector Name Role Phone Johnny Vargas MD Primary Care Provider [phone] Allergies Active Allergy Reactions Criticality Noted Date Comments Adhesive Rash Low 05/07/2020 Adhesive Tape-Silicones Other (See Comments) Unsure Aspirin Other (See Comments) 05/29/2023 Unsure Iodine Other (See Comments) 05/29/2023 Unsure Penicillins Other (See Comments) 05/29/2023 unsure Medications lisinopriL (PRINIVIL) 10 mg tablet Take 10 mg by mouth 2 times daily. Active insulin glargine (Lantus Solostar U-100 Insulin) 100 unit/mL pen syringe Inject 57 Units by subcutaneous injection daily at bedtime. Active HumaLOG KwikPen Insulin 100 unit/mL pen syringe INJECT 20 UNITS SUB-Q WITH MEALS PLUS LOW DOSE SLIDING SCALE (USE 3 UNITS FOR 201-250, USE 4 UNITS FOR 251-300, USE 6 UNITS FOR 301-350, USE 9 UNITS FOR 351 TO GRATER THAN 400) 3 Active gabapentin (NEURONTIN) 100 mg capsule Take 100 mg by mouth 3 times daily. 2 Active metFORMIN (GLUCOPHAGE XR) 500 mg Extended Release 24 hour tablet TAKE TWO TABLETS BY MOUTH TWICE DAILY @ 9AM & 5PM 3 Active glipiZIDE (GLUCOTROL) 10 mg tablet Take 10 mg by mouth 2 times daily with meals. Active clopidogrel bisulfate (PLAVIX ORAL) daily. 2 Active pantoprazole (PROTONIX) 40 mg Tablet, Delayed Release (E.C.) Take 40 mg by mouth daily. Active lipase-protease -amylase DR (Creon) 36,000-114,000- 180,000 unit capsule TAKE TWO CAPSULES BY MOUTH THREE TIMES DAILY @9am-1pm-5pm 1 Active isosorbide mononitrate (IMDUR) 30 mg Extended Release 24 hour tablet TAKE ONE TABLET BY MOUTH DAILY AT 9AM Active fluticasone propionate (FLONASE) 50 mcg/spray [place], Suspension nasal inhaler Administer 2 Sprays in each nostril daily. Active hydrOXYzine HCL (ATARAX) 50 mg tablet Take 50 mg by mouth 2 times daily. 3 Active metoprolol tartrate (LOPRESSOR) 25 mg tablet Take 12.5 mg by mouth 2 times daily. 3 Active Emgality Pen 120 mg/mL Pen Injector by abdominal subcutaneous route every 30 days. Active simethicone 80 mg Tablet, Chewable Daily as needed for GAS Active rosuvastatin (CRESTOR) 5 mg tablet TAKE ONE TABLET BY MOUTH EVERY OTHER DAY (VIAL) Active promethazine (PHENERGAN) 25 mg tablet TAKE 1 TABLET BY MOUTH EVERY 4 TO 6 HOURS NEEDED FOR NAUSEA FOR 7 DAYS 4 Active predniSONE (DELTASONE) 50 mg tablet TAKE BY MOUTH 1 TABLET [address], AND THEN 7 HOURS PRIOR, AND 1 HOUR PRIOR 4 Active polyethylene glycol (MIRALAX) 17 gram Powder in Packet 1 (one) time each day if needed. Active HYDROcodone-daisy taminophen (NORCO) 5-325 mg tablet TAKE 1 TABLET BY MOUTH EVERY 6 HOURS NEEDED FOR SEVERE PAIN (7-10) FOR 7 DAYS 4 Active furosemide (LASIX) 20 mg tablet TAKE ONE TABLET BY MOUTH TWICE DAILY @6AM & 2PM FOR EDEMA Active FeroSuL 325 mg (65 mg iron) tablet Take 1 Tablet by mouth daily. 4 Active cloNIDine HCL (CATAPRES) 0.1 mg tablet every 8 hours as needed see note 2 Active ProAir RespiClick 90 mcg/actuation metered powder inhaler inhale 1 to 2 puffs by mouth every 4 hours as needed Active galantamine (RAZADYNE) 4 mg tablet TAKE ONE TABLET BY MOUTH TWICE DAILY administer with morning AND evening meals Active loperamide (IMODIUM) 2 mg capsule as needed for DIARRHEA Active ondansetron (ZOFRAN) 4 mg Tablet TAKE 1 TABLET BY MOUTH EVERY 6 HOURS NEEDED FOR NAUSEA Active Active Problems No known active problems Encounters Date Type Department Care Team Description 01/07/2025 Telephone [facility]- [address] [address] Reagan Fuentes NP Appointment Notification from Last 3 Months Family History Medical History Relation Name Comments Colon Cancer Neg Hx Social History Tobacco Use Types Packs/Day Years Used Date Smoking Tobacco: Never Smokeless Tobacco: Never Tobacco Cessation:Counseling Given: Not Answered Alcohol Use Standard Drinks/Week Comments Not Currently 0 (1 standard drink = 0.6 oz pur e alcohol) Feeling Safe Answer Date Recorded Are you in a relationship wi th someone who hurts you emotionally and/or physically? 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 Gender Identity Not on file Sexual Orientation Not on file Last Filed Vital Signs Vital Sign Reading Time Taken Comments Blood Pressure 174/80 10/16/2024 12:42 PM INVOICE CONTROL CLERK Pulse 83 10/16/2024 12:42 PM INVOICE CONTROL CLERK Temperature - - Respiratory Rate 16 01/24/2024 10:3 1 AM CDT Oxygen Saturation 96% 07/01/2024 2:34 PM INVOICE CONTROL CLERK Inhaled Oxygen Concentration - - Weight 113.7 kg (250 lb 9.6 oz) 025 12:42 PM INVOICE CONTROL CLERK Height 180.3 cm (5' 11 ) 10/16/2024 12: 42 PM INVOICE CONTROL CLERK Body Mass Index 34.95 10/16/2024 12:42 PM INVOICE CONTROL CLERK Plan of Treatment Upcoming Encounters Date Type Department Care Team (Late st Contact Info) Description 02/24/2025 2:45 PM CDT Office Visit [facility] Vascular Surgery [address] [place] [address] Reagan Fuentes NP [address] [address] 05/05/2025 1:00 PM CDT Office Visit [facility] Gastroenterology- [place] [address] [place] [address] Tyson Gr MD [address] [place] [address] Health Maintenance Due Date Last Done Comments DIABETES ANNUAL FOOT EXAM 1976 DIABETES ANNUAL RETINAL EXAM 1976 DIABETES MICROALBUMIN ANNUAL SCREEN 1976 LDL CHOLESTEROL ANNUAL 1976 RSV VACCINE (60+ or ) (1 - Risk 60-74 years 1-dose series) 2018 DTAP/TDAP/TD VACCINES (1 - Tdap) 08/04/2022 08/03/20 ZOSTER VACCINE (2 of 2) 05/05/2023 03/10/2023 COVID-19 Vaccine (4 - 2023-2 5 season) 2024 07/29/2021, 10/20/2020, 09/24/2020 DIABETES HBA1C Q 6 MONTHS 10/09/2024 04/08/2024 COLORECTAL SCREENING Discontinued 10/27/2020, 10/27/19 21 Colorectal Cancer Screening Discontinued PNEUMOCOCCAL VACCINE 50+ YEARS Completed 0 03/10/2023, 08/23/2018, 10/04/2017, Additional history exists INFLUENZA VACCINE Completed 08/09/2024, , 07/12/2021, Additional history exists FIT-DNA Q 3 years Discontinued FIT/FOBT Q 1 year Discontinued Flex Sig/CT Colonography Q 5 years Discontinued Insurance [id number] [place] [address] MEDICAID [place] MED[place]ARE HMO Advance Directives For more information, please contact: [phone] * Full Code (Latest Code Status on File) Date Activated Date Inactivated Comments 01/24/2024 8:49 AM 01/24/2024 1:13 PM Care Teams Toll Collector Relationship Specialty Start Date End Date Johnny Vargas MD [address] [id number] PCP - General Family Practice 04/06/21
--- OUTSIDE RECORDS SUMMARY | 2025-01-16 06:13 | XMS_ITS | Encounter Summary ---
Author Organization [facility] Address [address] [place] [address] Care Team Providers Care Senior Analyst Programmer Name Role Phone Unavailable Primary Care Provider Unavailabl e Encounter Details Date Type Department Care Team (Latest Contact Info) Description 05/15/2006 Outpatient Historical [facility] Orthopedics 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
--- OUTSIDE RECORDS SUMMARY | 2025-01-16 06:13 | XMS_ITS | Patient Health Record ---
Author Organization [facility] Address [address] [place] [address] Care Team Providers Care Compress Engineer Name Role Phone Sam CAMPBELL, Johnny Primary Care Provider Alma Arizmendi [phone] Allergies Allergen (clinical drug ingredient) Drug/Non Drug Allergy documented on EMR Reaction Allergy Type Onset Date Status aspirin Aspirin , Drug Allergy Active Reason For Referral No Information Medications Medication SIG (Take, Route, Frequency, Duration) Notes Start Date End Date Status clopidogrel 75 MG Oral Tablet clopidogrel 75 MG Oral Tablet 03/13/2018 Active Lisinopril 10 MG Oral Tablet Lisinopril 10 MG Oral Tablet 03/13/2018 Active Nortriptyline 50 MG Oral Capsule Nortriptyline 50 MG Oral Capsule 03/13/2018 Active Esomeprazole 40 MG Enteric Coated Capsule Esomeprazole 40 MG Enteric Coated Capsule 04/26/2018 Active Sertraline 100 MG Oral Tablet Sertraline 100 MG Oral Tablet 03/13/2018 Active HumaLOG Humalog 03/13/2018 Active carvedilol 12.5 MG Oral Tablet carvedilol 12.5 MG Oral Tablet 03/13/2018 Active Glipizide 10 MG Oral Tablet Glipizide 10 MG Oral Tablet 03/13/2018 Active ramelteon 8 MG Oral Tablet ramelteon 8 MG Oral Tablet 03/13/2018 Active Metformin hydrochloride 500 MG Oral Tablet Metformin hydrochloride 500 MG Oral Tablet 03/13/2018 Active Metoclopramide 10 MG Oral Tablet Metoclopramide 10 MG Oral Tablet 03/13/2018 Active Clonidine Hydrochloride 0.1 MG Oral Tablet Clonidine Hydrochloride 0.1 MG Oral Tablet 03/13/2018 Active Amylases 54658 UNT / Endopeptidases 62621 UNT / Lipase 5000 UNT Delayed Release Oral Capsule [Zenpep] Amylases 40736 UNT / Endopeptidases 47144 UNT / Lipase 5000 UNT Delayed Release Oral Capsule [Zenpep] 03/13/2018 Active 24 HR Isosorbide Mononitrate 60 MG Extended Release Tablet 24 HR Isosorbide Mononitrate 60 MG Extended Release Tablet 03/13/2018 Active gabapentin 100 MG Oral Capsule gabapentin 100 MG Oral Capsule 03/13/2018 Active Furosemide 40 MG Oral Tablet Furosemide 40 MG Oral Tablet 03/13/2018 Active Immunizations Vaccine Route Administration Date Status Comme nts Influenza (whole), CPT 02814 Inactive Unknown 03/13/2018 Administered Plan Of Treatment No Information Insurance Providers Payer Name Payer Address Payer Phone Subscriber Number Group Number Insured Name Patient Relationship to Insured Coverage Start Date Coverage End Date [place] Re[place] [address] [place] [phone] [id number] [place] Guanakito Self - patient is the insured [place] Medicaid [address] [place] [phone] [id number] Guanakito Longo Self - patient is the insured
--- OUTSIDE RECORDS SUMMARY | 2025-01-16 06:13 | XMS_ITS | Data Portability ---
Author Organization [facility], [facility] Address [address] [place] [address] Care Team Providers Care Heel Nail Rasper Name Role Phone MARIANELA VARGAS Primary Care Provider Unavailabl e Assessment Encounter Date Assessment Date Assessment LastModified by Organization Details LastModified Time 09/24/2024 09/24/2024 we discussed cardiovascular surgical risk. he is at low risk and potential benefits likely outweigh the risks of surgery from a cardiovascular standpoint. he may hold his plavix until resumed by his surgeon. Not available 09/24/2024 13:28:09 11/20/2024 11/20/2024 epigastric pain in a pt with chronic pancreatitis, possible sma stenosis, known gastroparesis, pain pump for pancreatic pain. first he needs his pump evaluated to make sure he is not hurting due to pump malfunction.. We will need to do a pre medicated contrasted CT to assess the SMA and for other causes of epigastric pain not shown without contrast. cannot r/o gastritis/gastric ulcer. push fluids. if low bp, feeling more weak, sx's worsen, please return to the ER to consider iv fluid and parenteral nutrition. [email or web address] Not available 11/20/2024 12:44:10 12/26/2024 12/26/2024 imaging has been completed allergy clrified [email or web address] Not available 12/26/2024 13:38:51 Plan of Treatment Reminders Order Date Submit Date Provider Last Modified By Organization Details Last Modified Time Details Appointments None recorded. Lab microalbumi n/creatinin e, mass ratio, urine 2024 025 [employer] [facility], [address], [place], [address], 07:59:33 CMP, serum or plasma 2024 025 [facility], [address], [place], [address], 14:18:57 CBC 2024 025 [facility], [address], [address], [place], [address], 13:28:17 Referral None recorded. Procedures None recorded. Surgeries None recorded. Imaging CT, angiogram, abdomen + pelvis, w/ contrast - (PCP: Dr. Vargas will take care of meds for contrast with allergy) 2024 025 [email or web address] [facility] (Radiology), [address] [place] [address] [place], [address], 16:54:01 Medication Orders clonidine HCl 0.2 mg tablet 2024 025 [facility], [address], [place], [address], 12:37:52 ondansetron 8 mg disintegrat ing tablet 2024 025 [facility], [address], [place], [address], 12:37:53 Patient TargetsNo targets recorded. Patient InstructionsNo instructions recorded. Reason for Referral None Reported. Results Created Date Observation Date Name Description Value Unit Range Abnormal Flag Note LastModifiedBy Organization Detail LastModifiedTime 11/28/19 25 11/27/2024 CBC WBC 7.0 x10 4.5-10 .5 Not Available [facility] [address] [facility] [address] [facility] [address], [place], [address], 11/27/2024 13:28:17 11/28/19 25 11/27/2024 CBC RBC 4.52 x10 4.30-5 .90 Not Available [facility] [address] [facility] [address], [place], [address], 11/27/2024 13:28:17 11/28/19 25 11/27/2024 CBC HGB 12.3 g/dL 13.5-1 8.0 low Not Available [facility] [address] [facility] 1, [place], [address], 11/27/2024 13:28:17 11/28/1911/27/2024 CBC HCT 37.4 % 35.0-6 0.0 Not Available [facility] [address] [facility] [address] [facility] 1, [place], [address], 11/27/2024 13:28:17 11/28/19 25 11/27/2024 CBC MCV 82.8 fL 80.0-9 9.9 Not Available [facility] [address] [facility] 1, [place], [address], 11/27/2024 13:28:17 11/28/19 25 11/27/2024 CBC MCH 27.3 pg 27.0-3 2.0 Not Available [facility] [address] [facility] 1, [place], [address], 11/27/2024 13:28:17 11/28/19 25 11/27/2024 CBC MCHC 33.0 g/dL 32.0-3 6.0 Not Available [facility] [address] [facility] [address] [facility] 1, [place], [address], 11/27/2024 13:28:17 11/28/19 25 11/27/2024 CBC RDW 13.8 % 11.5-1 4.5 Not Available [facility] [address] [facility] [address], [place], [address], 11/27/2024 13:28:17 11/28/19 25 11/27/2024 CBC plt 251.9 x10 150.0- 451.0 Not Available [facility] [address] [facility] [address], [place], [address], 11/27/2024 13:28:17 11/28/19 25 11/27/2024 CBC lymphocytes % 39.3 % 20.0-5 0.0 Not Available [facility] [address] [address], [place], [address], 11/27/2024 13:28:17 11/28/19 25 11/27/2024 CBC granulcytes % 46.5 % 30.0-7 0.0 Not Available [facility] [address] [address], [place], [address], 11/27/2024 13:28:17 11/28/19 25 11/27/2024 CBC monocytes % 5.7 % 2.0-16 .0 Not Available [facility] [address] [address], [place], [address], 11/27/2024 13:28:17 11/28/19 25 11/27/2024 CBC granulcytes# 3.3 x10 Not Maryellen ilable [facility] [address] [address], [place], [address], 11/27/2024 13:28:17 11/28/19 25 11/27/2024 CBC lymphocytes # 2.8 x10 Not Available [facility] [address] [address], [place], [address], 11/27/2024 13:28:17 11/28/19 25 11/27/2024 CBC monocytes # 0.4 x10 Not Avai lable [facility] [address] [facility], [place], [address], 11/27/2024 13:28:17 11/28/19 25 11/27/2024 CMP (MALE ) glucose 214.0 mg/dL 60.0-9 9.0 high Not Available [facility] [address] [facility] [address], [place], [address], 11/27/2024 14:18:56 11/28/19 25 11/27/2024 CMP (MALE ) BUN (blood urea nitrogen) 12.0 mg/dL 10.0-2 6.0 Not Available [facility] [address] [facility], [place], [address], 11/27/2024 14:18:56 11/28/19 25 11/27/2024 CMP (MALE ) creatinine (serum) 0.5 mg/dL 0.4-1. 5 Not Available [facility] [address] [facility], [place], [address], 11/27/2024 14:18:56 11/28/19 25 11/27/2024 CMP (MALE ) BUN/creatini ne ratio 24.00 ratio Not Available [facility] [address] [address], [place], [address], 11/27/2024 14:18:56 11/28/19 25 11/27/2024 CMP (MALE ) eGFR calculated 176.8 Not Available [facility] [address] [facility], [place], [address], 11/27/2024 14:18:56 11/28/19 25 11/27/2024 CMP (MALE ) total protein 7.0 g/dL 6.0-8. 5 Not Available [facility] [address] [facility] [address] [address], [place], [address], 11/27/2024 14:18:56 11/28/19 25 11/27/2024 CMP (MALE ) total bilirubin 0.4 mg/dL 0.2-1. 3 Not Available [facility] [address] [facility] [address], [place], [address], 11/27/2024 14:18:56 11/28/19 25 11/27/2024 CMP (MALE ) albumin 3.9 g/dL 3.5-5. 5 Not Available [facility] [address] [facility] [address], [place], [address], 11/27/2024 14:18:56 11/28/19 25 11/27/2024 CMP (MALE ) globulin 3.1 calc Not Available [facility] [address] [address], [place], [address], 11/27/2024 14:18:56 11/28/19 25 11/27/2024 CMP (MALE ) AST (SGOT) 26.0 U/L 0.0-46 .0 Not Available [facility] [address] [address], [place], [address], 11/27/2024 14:18:56 11/28/19 25 11/27/2024 CMP (MALE ) altv (SGPT) 16.0 U/L 13.0-6 9.0 normal Not Available [facility] [address] [facility] [address], [place], [address], 11/27/2024 14:18:56 11/28/19 25 11/27/2024 CMP (MALE ) A/G ratio 1.3 ratio Not Available [facility] [address] [address], [place], [address], 11/27/2024 14:18:56 11/28/19 25 11/27/2024 CMP (MALE ) ALP phos 60.0 U/L 30.0-1 40.0 normal Not Available [facility] [address] [facility], [place], [address], 11/27/2024 14:18:56 11/28/19 25 11/27/2024 CMP (MALE ) calcium 8.9 mg/dL 8.4-10 .5 Not Available [facility] [address] [facility] [address], [place], [address], 11/27/2024 14:18:56 11/28/19 25 11/27/2024 CMP (MALE ) sodium 136.0 mmol/ L 136.0- 145.0 Not Available [facility] [address] [facility] [address], [place], [address], 11/27/2024 14:18:56 11/28/19 25 11/27/2024 CMP (MALE ) potassium 4.3 mmol/ L 3.5-5. 1 Not Available [facility] [address] [facility] [address], [place], [address], 11/27/2024 14:18:56 11/28/19 25 11/27/2024 CMP (MALE ) chloride 99.0 mmol/ L 98.0-1 10.0 normal Not Available [facility] [address] [facility] [address], [place], [address], 11/27/2024 14:18:56 11/28/1911/27/2024 CMP (MALE ) C02 32.0 mmol/ L 22.0-3 1.0 high Not Available [facility] [address] [facility] [address], [place], [address], 11/27/2024 14:18:56 11/28/1911/27/2024 CMP (MALE ) anion gap 5.0 calc Not Available [facility] [address] [facility] [address], [place], [address], 11/27/2024 14:18:56 11/28/19 25 11/27/2024 CMP (MALE ) osmolality 286.7 calc Not Available [facility] [address] [facility], [place], [address], 11/27/2024 14:18:56 11/28/19 25 11/28/2024 ALBUM IN, RANDO M URINE W/CRE ATINI NE creatinine, random urine 178 mg/dL 20-320 normal Not Available [address] [address] [place], [address], 11/28/2024 07:59:33 11/28/1911/28/2024 ALBUM IN, RANDO M URINE W/CRE ATINI NE albumin, urine 10.2 mg/dL see note: normal Refer ence Range : Refer ence Range Not estab lishe d Not Available [address] [address] [place], [address], 11/28/2024 07:59:33 11/28/19 25 11/28/2024 ALBUM IN, RANDO M URINE W/CRE ATINI NE albumin/crea tinine ratio, random urine 57 mg/g_ creat <30 high The ADA defin es abnor malit ies in album in excre tion as follo ws: Album inuri a Categ ory Resul t (mg/g creat inine ) Alayna l to Mildl y incre ased <30 Moder ately incre ased 30-29 9 Sever trudi incre ased > OR = 300 The ADA recom mends that at least two of three speci mens colle cted withi n a 3-6 month perio d be abnor mal befor e consi warren g a patie nt to be withi n a diagn ostic categ ory. Not Available [address] [address] [place], [address], 11/28/2024 07:59:33 12/26/19 25 12/24/2024 US, leobardo x, carot id arter y No observ ation record ed. [email or web address] [facility] [address] [place], [address], 12/26/2024 14:33:12 Result Notes None recorded. Problems Name Problem SNOMED Code Status Onset Date Resolution Date Notes Provider Name and Address Organization Details Recorded Time Bundle branch block 9550056 Active 2021 INCOMPLE TE BUNDLE BRANCH BLOCK; Rt; 08/03/20 9:38AM by Alisia Lizarraga LPN, Office Visit; Promoted ; acuity set as *; Not Available Pending sale to [facility] 3 03:16:14 Seizure disorder 736280194 Active 2021 ALISIA LIZARRAGA [facility] 12:33:19 Lipoma of abdomina l wall 846795686 Completed 202012/03/2020 LIPOMA OF ABDOMINA L WALL - Status is Inactive ; 12/04/19 9:39AM by Tiff Vargas PA-C, Annotati on/Adden dum; Promoted ; acuity set as *; Not Available [facility] 3 03:16:14 Chronic infectio us pancreat itis 712361805 Completed 202012/03/2020 chronic pancreat itis - Status is Inactive ; 12/04/19 9:38AM by Tiff Vargas PA-C, Annotati on/Adden dum; Promoted ; acuity set as *; Not Available [facility] 3 03:16:15 Asthma 373070749 Completed 202012/03/2020 asthma - Status is Resolved ; Resolved Date: 12/04/19; 12/04/19 9:41AM by Tiff Vargas PA-C, Annotati on/Adden dum; Promoted ; acuity set as *; Not Available [facility] 3 03:16:15 Esophago gastrodu odenosco py Completed 202012/03/2020 EGD 12/20/07 @ [facility] - Status is Inactive ; 12/04/19 9:39AM by Tiff Vargas PA-C, Annotati on/Adden dum; Promoted ; acuity set as *; Not Available Pending sale to [facility] 3 03:16:15 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 ORGANIC SLEEP APNEA - Status is Inactive ; Story: 11 cm H2O; Recorded 12/04/19 9:39AM by Tiff Vargas PA-C, Annotati on/Adden dum; Promoted ; acuity set as *; Not Available Pending sale to [facility] 3 03:16:15 Type 2 diabetes mellitus without complica tion 094664228 Completed 202105/31/2022 DIABETES MELLITUS - Status is Inactive ; Recorded 05/31/20 12:16PM by Alisia Lizarraga LPN, Annotati on/Adden dum; Promoted ; acuity set as *; Not Available [facility]ending sale to [facility] 3 03:16:16 Depressi ve disorder 22428293 Completed 202012/03/2020 depressi on - Status is Inactive ; 12/04/19 9:39AM by Tiff Vargas PA-C, Annotati on/Adden dum; Promoted ; acuity set as *; Not Available Pending sale to [facility] 3 03:16:17 Type 2 diabetes mellitus 23478961 Active 2022 ALISIA solitario, [facility] 3 13:53:16 Aortic valve regurgit ation 02515536 Active 2022 ALISIA LIZARRAGA null, [facility] 5 12:29:47 Arterios clerotic vascular disease 44179291 Active 2022 ALISIA solitario, [facility] 3 13:53:55 Atherosc lerosis Active 2022 ALISIA solitario, [facility] 3 13:54:08 [facility] l hyperten kaylin 20919855 Active 2022 ALISIA solitario, [facility] 3 13:54:16 Hyperlip idemia 11124548 Active 2022 ALISIA LIZARRAGA null, [facility] 3 13:54:23 Chronic pancreat itis 200814393 Active 2023 ALISIA LIZARRAGA null, [facility] 5 12:29:47 Cataplex y and narcolep sy 425432710 Active 2023 ALISIA LIZARRAGA null, [facility] 5 12:29:47 Diabetic peripher al neuropat hy 760065562 Active 2022 ALISIA LIZARRAGA null, [facility] 5 12:29:47 Obstruct stew sleep apnea syndrome 26752092 Active 2022 ALISIA LIZARRAGA null, [facility] 5 12:29:47 Chronic migraine without aura 57282193148 4105 Active 2022 ALISIA LIZARRAGA null, [facility] 5 12:29:47 Coronary arterios clerosis 53566217 Active 2022 ALISIA LIZARRAGA null, [facility] 5 12:30:11 History of fall 733957740 Active 2022 TIFF VARGAS PA-C [address] [place], [address] , [facility] 3 14:54:52 Abdomina l pain 95814445 Active 2023 Jose Juan Moran MD [address] [place], [address] , [facility] 4 17:11:49 Generali zed anxiety disorder 63425654 Active 2023 ALISIA ELHAM kassi [facility] 5 12:29:47 Chronic recurren t major depressi ve disorder 5677701 Active 2024 ALISIA LIZARRAGA kassi, [facility] 5 12:29:47 Mesenter ic artery stenosis 638037027 Active 2024 Marianela Vargas MD [address] [place] [address], [phone] , [facility] 5 12:24:53 Bilatera l stenosis of carotid arteries 366568867 Active 2024 [facility] 09:36:25 Problem Notes None recorded. Procedures Surgical History Date Name Laterality Status Provider Name and Address Organization Details Recorded Time 2024 open repair of incisional hernia completed ALISIA [facility] 5 09:10:02 2023 Toenail avulsion completed Marianela Vargas MD [address] [place] [address], [phone] , [facility] 4 14:11:28 2023 echocardiography completed Laura Ponce [facility] 4 15:11:06 2023 esophagogastroduodenoscopy completed MAJOR KING [facility] 4 19:18:05 2022 radiofrequency ablation completed [facility] 3 18:01:46 2020 ophthalmic examination and evaluation completed JEANNE YA [facility] 3 08:58:55 09/13/ 2021 repair of incisional hernia completed MADELINE VARGAS PA-C [address] [place], [address] , [facility], Sandra 3 14:54:35 2020 colonoscopy completed JEANNE YA [facility], [facility] 3 08:57:58 2017 right colectomy completed ALISIA LIZARRAGA [facility], L[facility]isi[facility] 4 15:53:22 Imaging Results None recorded. Procedure Notes None recorded. Medical Equipment None Reported. Allergies Allergen ID Allergen Name Allergen Category Reaction Reaction Severity Criticality Documentation Date Start Date Code Code System Note Provider Name and Address Organization Details Recorded Time 32217 sulfameth oxazole medicatio n rash Not available Not available 03/18/2023 97696 RxNorm React ion: Rash; Comme nt: Recor ded 08/03 9:38A M by Alexandria Rooney on, MOVEMENT EDUCATION SPECIALIST, Offic e Visit ; Promo shayy; Signi fican ce: *; Reaso n: Drug aller gy; ; ALISIA solitario [facility], [facility] 4 11:31:41 5098 Product containin g penicilli n (product) medicatio n Not available Not available Not available 02/23/2023 76250 8001 SNOMED ALISIA solitario [facility] 3 13:49:29 84701 acetamino phen / phenyltol oxamine medicatio n hives Not available Not available 03/18/2023 67110 8 RxNorm React ion: Hives ; Comme nt: Recor ded 08/03 9:38A M by Alexandria Rooney on, MOVEMENT EDUCATION SPECIALIST, Offic e Visit ; Promo shayy; Signi fican ce: *; Reaso n: Drug aller gy; ; ALISIA solitario [facility], [facility] 4 11:31:13 5099 Iodinated contrast media (substanc e) medicatio n hives Not available Not available 02/23/2023 57150 2004 SNOMED ALISIA ELHAM solitario, [facility] 3 13:49:40 28528 penicilli n V potassium medicatio n Not available Not available Not available 03/18/2023 45044 5 RxNorm Comme nt: Recor ded 08/03 9:38A M by Alexandria Rooney on, MOVEMENT EDUCATION SPECIALIST, Offic e Visit ; Promo shayy; Signi fican ce: *; Reaso n: Drug aller gy; ; [facility] 4 11:31:36 5100 Remeron medicatio n headache Not available Not available 02/23/2023 33524 4 RxNorm [facility] 3 13:49:51 5101 aspirin medicatio n hives Not available Not available 02/23/2023 1191 RxNorm [facility] 3 13:50:04 55386 menthol / methyl salicylat e medicatio n Not available Not available Not available 03/18/2023 94604 7 RxNorm Comme nt: Recor ded 08/03 9:38A M by Alexandria Rooney on, MOVEMENT EDUCATION SPECIALIST, Offic e Visit ; Promo shayy; Signi fican ce: *; ; [facility]IA ELHAM [facility] 4 11:31:20 5102 Substance with sulfonami de structure and antibacte rial mechanism of action (substanc e) medicatio n rash Not available Not available 02/23/2023 19543 8003 SNOMED [facility]IA [facility]AM [facility] 3 13:50:14 5103 fentanyl medicatio n Not available Not available Not available 02/23/2023 4337 RxNorm ALISIA solitario [facility] 3 13:50:26 5104 Cymbalta medicatio n rash Not available Not available 02/23/2023 44945 4 RxNorm jesuse nt descr ibed as blood blist ers all over his body ALISIA solitario [facility] 3 13:50:48 Medications Name Sig Start Date Stop Date Status Note LastModified by Organization Details LastModified Time terbinafi ne HCl 1 % topical cream APPLY TO THE AFFECTED AND SURROUND ING AREAS OF SKIN BY TOPICAL ROUTE ONCE DAILY for 1 month 07/25 completed Not Available Not Available Not Available clonidine HCl 0.1 mg tablet every 8 hours as needed see note 11/05 completed For bp over 165 systolic or 95 diastoli c vo AM/CC; 436; Recorded 03/18/20 22 2:48PM by Alisia Lizarraga LPN (Authori zed through Marianela Vargas MD), Annotati on/Adden dum; Refill Quantity : 90; Tablet; Not Available Not Available Not Available tizanidin e 2 mg tablet 02/23 completed Not Available Not Available Not Available cephalexi n 250 mg capsule TAKE 3 CAPSULE BY MOUTH THREE TIMES DAILY FOR 7 DAYS 04/08 completed Not Available Not Available Not Available hydrocodo ne 5 mg-acetam inophen 325 mg tablet TAKE 1 TABLET BY MOUTH EVERY 6 HOURS IF NEEDED FOR SEVERE PAIN (7-10) active Not Available Not Available No t Available promethaz ine 25 mg rectal supposito ry INSERT 1 SUPPOSIT ORY RECTALLY EVERY 6 HOURS NEEDED FOR NAUSEA AND VOMITING 11/20 completed Not Available Not Available Not Available ondansetr on HCl 4 mg tablet TAKE 1 TABLET BY MOUTH EVERY 6 HOURS NEEDED FOR NAUSEA active Not Available Not Available No t Available glipizide 10 mg tablet TAKE ONE TABLET BY MOUTH TWICE DAILY @9AM-5PM active Not Available Not Available No t Available isosorbid e mononitra te ER 30 mg tablet,ex tended release 24 hr TAKE ONE TABLET BY MOUTH DAILY AT 9AM 07/25 completed Not Available Not Available Not Available sertralin e 100 mg tablet TAKE ONE TABLET BY MOUTH DAILY AT 9AM active Not Available Not Available No t Available galantami ne 4 mg tablet TAKE 1 TABLET BY MOUTH IN THE MORNING AND 1 IN THE EVENING WITH MEALS active Not Available Not Available No t Available hydroxyzi ne HCl 50 mg tablet TAKE 1 TABLET BY MOUTH TWICE DAILY NEEDED FOR ANXIETY active Not Available Not Available No t Available clopidogr el 75 mg tablet TAKE ONE TABLET BY MOUTH DAILY AT 9AM active Not Available Not Available No t Available divalproe x 500 mg tablet,de layed release TAKE 1 TABLET BY MOUTH ONCE DAILY 02/23 completed Not Available Not Available Not Available tramadol 50 mg tablet three times a day as needed for pain 11/05 completed 0; Recorded 08/03/20 22 9:38AM by Alisia Lizarraga LPN, Office Visit; Not Available Not Available Not Available ondansetr on 8 mg disintegr ating tablet DISSOLVE 1 TABLET IN MOUTH TWICE DAILY FOR 10 DAYS active Not Available Not Available No t Available isosorbid e mononitra te ER 60 mg tablet,ex tended release 24 hr TAKE 1 TABLET BY MOUTH ONCE DAILY active Not Available Not Available No t Available terbinafi ne HCl 250 mg tablet Take 1 tablet every day by oral route for 14 days. 11/15 completed Not Available Not Available Not Available alprazola m 0.5 mg tablet TAKE ONE TABLET BY MOUTH 45 MINUTES PRIOR TO THE PROCEDUR E THEN MAY REPEAT ONE TAB AT THE TIME OF THE PROCEDUR E IF NEEDED 07/25 completed Not Available Not Available Not Available clonidine HCl 0.2 mg tablet TAKE 1 TABLET BY MOUTH EVERY 6 TO 8 HOURS NEEDED FOR SYSTOLIC BLOOD PRESSURE OVER 170 OR DIASTOLI C OVER 95 active Not Available Not Available No t Available cephalexi n 500 mg capsule Take 1 capsule every 6 hours by oral route for 10 days. 08/07 completed Not Available Not Available Not Available pantopraz ole 40 mg tablet,de layed release TAKE ONE TABLET BY MOUTH DAILY AT 9AM active Not Available Not Available No t Available oseltamiv ir 75 mg capsule Take 1 capsule twice a day by oral route for 5 days. 11/05 completed Not Available Not Available Not Available lisinopri l 10 mg tablet TAKE ONE TABLET BY MOUTH TWICE DAILY @9AM-5PM active Not Available Not Available No t Available prednison e 50 mg tablet TAKE 1 TABLET BY MOUTH 13 HOURS BEFORE PROCEDUR E, THEN 1 TABLET 7 HOURS BEFORE PROCEDUR E, AND THEN 1 HOUR BEFORE PROCEDUR E 11/20 completed Not Available Not Available Not Available promethaz ine 25 mg tablet Take 1 tablet every 4-6 hours by oral route for 7 days. 07/25 completed Not Available Not Available Not Available mupirocin 2 % topical ointment APPLY A SMALL AMOUNT TO THE AFFECTED AREA BY TOPICAL ROUTE 3 TIMES PER DAY 11/20 completed Not Available Not Available Not Available furosemid e 20 mg tablet TAKE ONE TABLET (20 MG) BY MOUTH TWICE DAILY @ 6AM & 2PM FOR EDEMA active Not Available Not Available No t Available gabapenti n 100 mg capsule TAKE 2 CAPSULES BY MOUTH IN THE MORNING, AND 2 CAPSULES BY MOUTH AT NOON, AND 2 CAPSULES BY MOUTH IN THE EVENING active Not Available Not Available No t Available colchicin e 0.6 mg tablet daily 11/05 completed 0; Recorded 08/03/20 22 9:38AM by Alisia Lizarraga LPN, Office Visit; Not Available Not Available Not Available ondansetr on 4 mg disintegr ating tablet DISSOLVE 1 TABLET IN MOUTH EVERY 6 HOURS NEEDED FOR NAUSEA AND VOMITING 11/20 completed Not Available Not Available Not Available topiramat e 100 mg tablet TAKE ONE TABLET BY MOUTH DAILY active Not Available Not Available No t Available metformin ER 500 mg tablet,ex tended release 24 hr TAKE TWO TABLETS BY MOUTH TWICE DAILY @ 9AM & 5PM active Not Available Not Available No t Available nortripty line 50 mg capsule TAKE ONE CAPSULE BY MOUTH DAILY AT 9PM AT BEDTIME 07/25 completed Not Available Not Available Not Available insulin lispro (U-100) 100 unit/mL subcutane ous pen INJECT 20 UNITS SUBCUTAN EOUSLY THREE TIMES DAILY WITH MEALS PLUS LOW DOSE SLIDING SCALE/ 201 TO 250-3 UNITS, 251 TO 300- 4 UNITS, 301 TO 350- 6 UNITS, 351 TO 400- 9 UNITS, GREATER THAN 400- 9 UNITS active Not Available Not Available No t Available rosuvasta tin 5 mg tablet TAKE ONE TABLET BY MOUTH EVERY OTHER DAY @ 5PM active Not Available Not Available No t Available metoprolo l tartrate 25 mg tablet TAKE 1/2 (ONE-DONNY F) TABLET BY MOUTH TWICE DAILY active Not Available Not Available No t Available morphine active 10 mg/ml via pain pump Not Available Not Available Not Available fluoxetin e daily 11/05 completed Recorded 08/03/20 22 9:38AM by Alisia Lizarraga LPN, Office Visit; Refill Quantity : 30; Tablet; Not Available Not Available Not Available hydroxyzi ne HCl bid prn anxiety 08/31 completed 436; Recorded 03/18/20 22 2:50PM by Alisia Lizarraga LPN (Authori zed through Marianela Vargas MD), Annotati on/Adden dum; Refill Quantity : 180; Tablet; Not Available Not Available Not Available furosemid e daily prn edema 08/[address] Reece; 0; Recorded 08/03/20 22 9:38AM by Alisia Lizarraga LPN, Office Visit; Not Available Not Available Not Available carvedilo l two times daily 11/[address] Mann; Recorded 05/20/20 21 7:26AM by Jeanne Ya LPN, Office Visit; Refill Quantity : 60; Tablet; Not Available Not Available Not Available Plavix daily 11/05 completed 436; Recorded 05/30/20 22 1:53PM by Alisia Lizarraga LPN (Authori ericad through Marianela Vargas MD), Refill Request; Mail Order Quantity : 90 Tablet; Mail Order Days: 90 Days; Refill Quantity : 90; Tablet; Not Available Not Available Not Available polyethyl emily glycol in 8 oz of fluid daily active Not Available Not Available No t Available Nitrostat every 5 minutes as needed chest pain 2016 active no more than 3 Not Available Not Available Not Available glipizide two times daily 08/31 completed 436; Recorded 09/12/19 23 8:03AM by Alisia Lizarraga LPN (Authori zed through Marianela Vargas MD), Refill Request; Refill Quantity : 180; Tablet; Not Available Not Available Not Available nortripty line at bedtime 12/08/ 2022 12/07 /2023 completed 436; Recorded 07/28/20 22 9:43AM by Alisia Lizarraga LPN (Authori zed through Marianela Vargas MD), Refill Request; Mail Order Quantity : 90 Capsule; Mail Order Days: 90 Days; Refill Quantity : 180; Capsule; Not Available Not Available Not Available metformin two times daily 08/31 completed 436; Recorded 05/30/20 22 1:09PM by Alisia Lizarraga LPN (Authori zed through Marianela Vargas MD), Refill Request; Mail Order Quantity : 360 Tablet; Mail Order Days: 90 Days; Refill Quantity : 360; Tablet; Not Available Not Available Not Available gabapenti n three times daily 08/31 completed 0; Recorded 08/03/20 22 9:38AM by Alisia Lizarraga LPN, Office Visit; Not Available Not Available Not Available Pen Needle four times daily 11/05 completed Recorded 09/20/19 22 11:20AM by Alisia Lizarraga LPN, Historic al Summary; Refill Quantity : 400; Each; Not Available Not Available Not Available Horizon Nasal Cpap System active Not Available Not Available Not Available cephalexi n 750 mg capsule Take 1 capsule 3 times a day by oral route for 7 days. 03/23 completed Not Available Not Available Not Available FeroSul 325 mg (65 mg iron) tablet TAKE 1 TABLET BY MOUTH ONCE DAILY active Not Available Not Available No t Available Lantus Solostar U-100 Insulin 100 unit/mL (3 mL) subcutane ous pen INJECT 57 UNITS SUBCUTAN EOUSLY AT BEDTIME active Not Available Not Available No t Available Lantus Solostar U-100 Insulin at bedtime 08/31 completed prefille d pens; 436; Recorded 09/28/19 23 10:35AM by Alisia Lizarraga LPN (Authori zed through Marianela Vargas MD), Refill Request; Mail Order Quantity : 45 Millilit er; Refill Quantity : 15; Each; Not Available Not Available Not Available brimonidi ne 0.2 %-timolol 0.5 % eye drops INSTILL 1 DROP INTO THE LEFT EYE TWICE A DAY active Not Available Not Available No t Available diclofena c 1 % topical gel APPLY 2 GRAMS TO THE AFFECTED AREA(S) BY TOPICAL ROUTE 4 TIMES PER DAY 2023 active Not Available Not Available Not Avai lable Creon three times daily 08/31 completed 436; Recorded 05/30/20 22 1:54PM by Alisia Lizarraga LPN (Authori zed through Marianela Vargas MD), Refill Request; Mail Order Quantity : 540 Capsule; Mail Order Days: 90 Days; Refill Quantity : 540; Capsule; Not Available Not Available Not Available Creon 36,000 unit-114, 000 unit-180, 000 unit capsule,d elayed release TAKE 2 CAPSULES BY MOUTH THREE TIMES DAILY AT 9 AM, 1 PM, AND 5 PM. active Not Available Not Available No t Available ProAir RespiClic k 90 mcg/actua tion breath activated INHALE 1 TO 2 PUFFS BY MOUTH EVERY 4 HOURS NEEDED active Not Available Not Available No t Available ProAir RespiClic k q 4 hrs prn 11/05 completed 00700; Recorded 10/31/19 23 9:26AM by Makayla Hawley (Authori jori through Jose Juan Moran MD), Refill Request; Mail Order Quantity : 3 Each; Refill Quantity : 3; Each; Not Available Not Available Not Available FreeStyle Loyd 14 Day [place] PER INSTRUCT IONS 01/04 completed duplicat e medicati on Not Available Not Available Not Available Emgality Pen 120 mg/mL subcutane ous pen injector INJECT 120 MG SUB-Q ONCE A MONTH active Not Available Not Available No t Available BD Fatou 2nd Gen Pen Needle 32 gauge x USE DIRECTED 3 TIMES DAILY 2024 active Not Available Not Available Not Avai lable FreeStyle Loyd 2 Sensor kit USE DIRECTED 4 TIMES DAILY TO TEST BLOOD SUGAR 11/20 completed Not Available Not Available Not Available FreeStyle Loyd 2 [place] USE DIRECTED 11/20 completed Not Available Not Available Not Available FreeStyle Loyd 3 [place] USE DIRECTED active Not Available Not Available No t Available FreeStyle Loyd 3 Plus Sensor device USE DIRECTED AND CHANGE EVERY 15 DAYS active Not Available Not Available No t Available Vitals Date Recorded Body height Body mass index (BMI) Body weight Body temperature Heart rate Oxygen saturation Oxygen saturation in Arterial blood by Pulse oximetry Systolic blood pressure Diastolic blood pressure Provider Name and Address Organization Details Last Updated DateTime 5 180.34 cm 34.4 kg/m2 231752. 32 g 97.5 [degF] 70 /min 96 % 96 % 140 mm[Hg] 82 mm[Hg] Laura Rosario [facility] 5 12:53:41 Date Recorded Body height Body mass index (BMI) Body weight Body temperature Heart rate Oxygen saturation Oxygen saturation in Arterial blood by Pulse oximetry Systolic blood pressure Diastolic blood pressure Provider Name and Address Organization Details Last Updated DateTime 5 180.34 cm 32.2 kg/m2 523393. 84 g 97.9 [degF] 83 /min 95 % 95 % 142 mm[Hg] 75 mm[Hg] ALISIA LIZARRAGA [facility] 5 12:41:07 Date Recorded Body height Body mass index (BMI) Body weight Body temperature Heart rate Oxygen saturation Oxygen saturation in Arterial blood by Pulse oximetry Systolic blood pressure Diastolic blood pressure Provider Name and Address Organization Details Last Updated DateTime 5 180.34 cm 32.9 kg/m2 069366. 8 g 98 [degF] 87 /min 95 % 95 % 122 mm[Hg] 64 mm[Hg] ALISIA LIZARRAGA [facility] 13:18:42 Social History Question Answer Notes LastModified by [employer] Details LastModified Time Tobacco Smoking Status Never Smoker ALISIA LIZARRAGA [facility] 02/23/2023 13:55:34 What Was The Date Of Your Most Recent Tobacco Screening? 03/23/2024 [email or web address] Information not available 03/23/2024 Sex: Unknown Functional Status Question Answer Note LastModified by [employer] Details LastModified Time Do you use any illicit or recreational drugs? No Information not available 02/23/2023 Do you or have you ever used any other forms of tobacco or nicotine? No [email or web address] Information not available 11/06/2023 What is your level of alcohol consumption? None [email or web address] Information not available 02/23/2023 Are you currently employed? No disabled [email or web address] Information not available 02/23/2023 Mental Status None recorded. Family History Relationship Description Onset Age of this Age Resolved Age Notes LastModified by Organization Details LastModified Time Father Diabetes mellitus [email or web address] Not available 11/05 11:36:12 Medical History No medical history recorded. Immunizations Vaccine Type Date Status Note Provider Nam e and Address Organization Details Recorded Time Td(adult) unspecified formulation 2 completed Not Available Pending sale to [facility] 08/31/2023 14:05:14 Influenza, split virus, trivalent, preservative 0 completed Not Available Pending sale to [facility] 08/31/2023 14:05:14 Influenza, split virus, trivalent, preservative 9 completed Not Available Pending sale to [facility] 08/31/2023 14:05:14 pneumococcal polysaccharide PPV23 8 completed Not Available Pending sale to [facility] 08/31/2023 14:05:14 Pneumococcal conjugate PCV20, polysaccharide QRE463 conjugate, adjuvant, PF 3 completed JEANNE solitario [facility] 03/10/2023 14:58:26 zoster recombinant 3 completed JEANNE solitario [facility] 03/10/2023 14:58:26 Influenza, recombinant, quadrivalent, PF 9 completed ALISIA solitario [facility] 02/23/2023 13:48:17 Influenza, recombinant, quadrivalent, PF 1 completed ALISIA solitario [facility] 02/23/2023 13:48:17 COVID-19, mRNA, LNP-S, PF, 100 mcg/0.5mL dose or 50 mcg/0.25mL dose 1 completed ALISIA solitario, [facility] 02/23/2023 13:48:17 Influenza, recombinant, trivalent, PF 4 completed ALISIA solitario, [facility] 11/20/2024 12:28:19 pneumococcal polysaccharide PPV23 8 completed Not Available [facility] 03/10/2023 13:11:39 Influenza, split virus, quadrivalent, PF 4 completed ALISIA solitario, [facility] 08/31/2023 14:50:29 Past Encounters Encounter ID Performer Location Encounter Start Date Encounter Closed Date Diagnosis/Indication Diagnosis SNOMED-CT Code Diagnosis ICD10 Code Diagnosis Note [id number] Marianela Vargas MD [facility] ([facility]) [address] [place] [address] [id number] 5 02/23/2023 13:31:05 02/23/2023 16:43:12 Diabetic peripheral neuropathy 678012852 E11.40 Confusional state 383640 003 F44.89 Cataplexy and narcolepsy 689949839 G47.411 Syncope 636374441 R55 [id number] TIFF VARGAS PA-C [facility] ([facility]) [address] [place] [address] [id number] 5 03/10/2023 13:11:22 03/10/2023 16:17:07 Adult health examination 634944474 Z00.00 Diabetic p eripheral neuropathy 382605186 E11.40 Obstructiv e sleep apnea syndrome 52621205 G47.33 Chronic mi graine without aura 9214928866 65591 G43.709 Coronary arteriosclerosis 55289135 I25.10 Administra tion of pneumococcal vaccine 34322311 Z23 Her[address] vaccination given 2016762836 56407 Z23 Episodic ataxia 64091007 9 G11.8 Morbid obesity 115977135 E66.01 History of fall 35846221 9 Z91.81 Abnormal gait 37393003 R 26.2 Requires c ontinuous home oxygen supply 303086964 Z99.81 History of malignant neoplasm of colon 037212901 Z85.494 [id number] Marianela Vargas MD [facility] ([facility]) [address] [place] [address] [id number] 5 08/03/2023 12:02:40 08/03/2023 14:06:38 Tinea pedis 0277136 B35.3 Obstructiv e sleep apnea syndrome 58484355 G47.33 settings were titrated to bipap will send a new order for HOME to adjust his CPAP. if this does not improve his sleepiness in conjuction with tapering morphine, he will need to see neurology b/c his insurance will not allow me to do a multi sleep latency test. Chronic pancreatitis [address] is slowly tapering his intratheca l morphine. so far it has not improved his alertness. they will continue. so far no worsening in pain. . [id number] Marianela Vargas MD [facility] ([facility]) [address] [place] [address] [id number] 5 08/31/2023 14:04:57 08/31/2023 14:45:23 Adult health examination 662108666 Z00.00 Diabetic p eripheral neuropathy 969851162 E11.40 Obstructiv e sleep apnea syndrome 48977618 G47.33 Episodic ataxia 57709015 9 G11.8 Morbid obesity 151796592 E66.01 History of fall 22426633 9 Z91.81 Abnormal gait 05490595 R 26.2 Requires c ontinuous home oxygen supply 606520337 Z99.81 History of malignant neoplasm of colon 131980073 Z85.038 Essential hypertension 50786379 I10 Chronic pancreatitis [address] is slowly tapering his intratheca l morphine. so far it has not improved his alertness. they will continue. so far no worsening in pain. . Confusional state 474975 003 F44.89 Syncope 426052833 R55 Hyperlipidemia 97397351 E78.5 Administra tion of influenza vaccine 38330047 Z23 [id number] Jose Juna Moran MD [facility] ([facility]) [address] [place] [address] [id number] 10/26/2023 16:52:01 10/26/2023 17:47:04 Abdominal pain 97885445 R10.9 X-rays were obtained of the abdomen and it showed some retained fecal matter with no bowel gas changes. Will obtain labs. Chronic pancreatitis 235 647471 K86.1 Likely the cause of the patient's symptoms. [id number] Marianela Vargas MD [facility] ([facility]) [address] [place] [address] [id number] 5 11/06/2023 10:53:31 11/06/2023 12:10:01 Chronic pancreatitis 113945865 K86.1 suspected dx. recommend very low fat diet.go to ER if sx worsen Acute diarrhea 809264342 R19.7 [id number] Marianela Vargas MD [facility] ([facility]) [address] [place], [place] [id number] 5 11/16/2023 14:02:13 11/16/2023 16:14:03 [id number] Marianela Vargas MD [facility]) [address] [place] [address] [id number] 5 11/29/2023 14:29:06 11/29/2023 16:15:32 [id number] Marianela Vargas MD [facility] ([facility]) [address] [place] [address] [id number] 5 12/06/2023 15:00:35 12/06/2023 15:59:58 Abdominal mass 686214338 R19.00 Chronic pancreatitis 235 582596 K86.1 suspected dx. recommend very low fat diet.go to ER if sx worsen [id number] Marianela Vargas MD [facility] ([facility]) [address] [place] [address] [id number] 5 12/21/2023 14:49:10 12/21/2023 15:37:26 [id number] Marianela Vargas MD [facility] ([facility]) [address] [place] [address] [id number] 5 01/10/2024 12:42:07 01/10/2024 15:54:19 Abdominal mass 521910882 R19.00 awaiting eus bx.possibl e celiac plexus block for pain control.f/ u post procedure to discuss dx andtreatme nt. Chronic pancreatitis 235 519284 K86.1 [id number] Marianela Vargas MD [facility] ([facility]) [address] [place] [address] [id number] 5 02/08/2024 14:18:00 02/08/2024 15:05:58 Chronic pancreatitis 881267723 K86.1 [id number] Marianela Vargas MD [facility] ([facility]) [address] [place] [address] [id number] 5 03/15/2024 12:45:42 03/15/2024 14:47:01 Pain in finger of right hand 1330056692 34061 M79.210 [id number] PETER SNIDER [facility] ([facility]) [address] [place] [address] [id number] 5 03/23/2024 13:57:26 03/23/2024 15:10:39 Pain of left wrist 7983352390 59255 M25.532 Arthritis noted. Xray will be sent to radiology. Will place thumb spica splint. RTC in 2 weeks for follow up with PCP. Continue current meds for pain as needed. [id number] Marianela Vargas MD [facility] ([facility]) [address] [place] [address] [id number] 5 04/08/2024 13:52:43 04/08/2024 15:18:52 Pain in finger of right hand 4484141651 38153 M79.644 continue diclofenac Osteoarthritis 684638458 M19.90 Type 2 emeka betes mellitus 67507031 E11.69 [id number] Marianela Vargas MD [facility] ([facility]) [address] [place] [address] [id number] 5 04/17/2024 14:27:53 04/17/2024 16:09:31 Edema of lower extremity 122228122 R60.0 increase lasix to 40 mg po biddecreas e sodium 1088-5823 ml fluiid per day Dyspnea on exertion 6084 5006 R06.09 Systolic murmur 06238372 R01.1 [id number] Marianela Vargas MD [facility] ([facility]) [address] [place] [address] [id number] 5 04/24/2024 14:10:25 04/24/2024 15:48:42 Hypertensive urgency 891226495 I16.0 [id number] Marianela Vargas MD [facility] ([facility]) [address] [place] [address] [id number] 5 07/25/2024 13:08:57 07/26/2024 19:01:40 Generalized anxiety disorder 08958686 F41.1 [facility] 747766685 Z76.89 Type 2 emeka betes mellitus 55138221 E11.69 Uncontroll ed type 2 diabetes mellitus 309830753 E11.65 Cellulitis of finger of right hand 6732128023 9646328 L03.011 no abscess the right middle finger has medial ingrown nail with swelling and mild erythema distal to the dip. there is no streaking. epsom salts soaks bid Essential hypertension 57242125 I10 [id number] Marianela Vragas MD [facility] ([facility]) [address] [place] [address] [id number] 5 08/07/2024 12:08:30 08/19/2024 13:40:28 Cellulitis of finger of right hand 5320853897 5197688 L03.011 no abscess the right middle finger has medial ingrown nail with swelling and mild erythema distal to the dip. there is no streaking. epsom salts soaks bid [id number] Marianela Vargas MD [facility] ([facility]) [address] [place] [address] [id number] 5 09/24/2024 12:32:11 09/24/2024 16:40:00 Diabetic peripheral neuropathy 426353345 E11.40 Morbid obesity 461483675 E66.01 Chronic pancreatitis 235 702650 K86.1 Episodic ataxia 08059616 9 G11.8 Chronic re current major depressive disorder 7158283 F33.9 Hyperlipidemia 93649924 E78.5 Anxiety 61636616 F41.9 Essential hypertension 71776315 I10 Difficulty walking 30213 2003 R26.2 History of fall 70494599 9 Z91.81 Dependence on supplemental oxygen 1757273368 07 Z99.81 Dependence on enabling machine or device 437796659 Z99.89 [id number] Marianela Vargas MD [facility] ([facility]) [address] [place] [address] [id number] 5 11/20/2024 12:10:04 11/20/2024 14:29:22 Mesenteric artery stenosis 408934106 K55.1 sma needs pretreatme nt for possible mesenteric ischemia. non contrasted CT did not show any acute process. He sees GI Epigastric pain 01309364 R10.13 increase ppi to bid for now. 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 i will help get that arranged ath the facility that is familiarr with his pump and pretreatme nt will be needed. Hypertensive urgency 443 601788 I16.0 [id number] Marianela Vargas MD [facility] ([facility]) [address] [place] [address] [id number] 5 11/27/2024 13:12:56 11/28/2024 07:15:56 Essential hypertension 80970199 I10 Type 2 emkea betes mellitus 13058768 E11.69 [id number] Marianela Vargas MD [facility] ([facility]) [address] [place] [address] [id number] 5 12/24/2024 15:24:55 12/25/2024 11:27:21 [id number] Marianela Vargas MD [facility] ([facility]) [address] [place] [address] [id number] 5 12/26/2024 13:13:13 12/26/2024 14:35:59 Bilateral stenosis of carotid arteries 966815288 I65.23 Health Concerns Section Related Observation LastModified by Organization Detai ls LastModified Time None Recorded Concern Status LastModified by Organization Details LastModified Time None Recorded Advance Directives Directive None Recorded Payers Encounter Date Sequence Insurance Name Policy Number Policy Correa Covered Member ID Correa Member ID Guarantor Name 09/24/2024 1 [place]ANT[place] - PPO) [id number] Guanakito Imtiaz Donta [id number] Guanakito A Donta 11/20/2024 1 [place] - [place]) [id number] Guanakito A Donta [id number] Guanakito Kitchen Donta 11/27/2024 1 [place] DVANTAGE - [place]PO) [id number] Guanakito Kitchen Donta [id number] Guanakito Kitchen Donta 12/24/2024 1 [place]/A DVANTAGE - PPO) [id number] Guanakito Kitchen Donta [id number] Guanakito Kitchen Donta 12/26/2024 1 [place] DVANTAGE - PPO) [id number] Guanakito Kitchen Donta [id number] Guanakito Kitchen Donta Notes Date Note Type Note Provider Name and Address Organization Details Recorded Time 09/24/2024 text/html Pre-OpReported bypatient.Surgery to be Performed:Pain pump replacement and hernia repair scheduled for 10/01. Risk Factorsno malnutrition; no frailty; able to climb a flight of stairs (exercise capacity>4 METS); non-smoker; no alcohol misuse; no illicit drug use;obstructive sleep apnea Anesthesia hx:no hx of anesthesia complications Functional Ability:able to walk up stairsNotes:he has no new or worsening cardiac symptomsno anginaexertional dyspnea is stable and unchanged for quite some time. he takes plavix for distant CVA no cardiovascular stenting or known chf/cadhe can climb 3 or so flights of stairs without having to stopDASI score is at least 38. he does not have a sexual partner so he is unsure about that question. this corresponds to at least more than 10 METS even excluding this 1 question. his surgery is a hernia surgery and pump replacement.his RCRI is low Mariaenla Vargas MD [address] [place] [address], [phone], [facility] 09/24/2024 13:30:13 12/26/2024 text/html Patient is here today to discuss options for his CT scan for the abdomen/pelvis. He is allergic to contrast dye and the facility that we are trying to order this to be done at refuses to do the CT scan because of his allergy to the contrast dye, despite the patient being pre medicated. he has done many imaging studies under premedication protocol and has no issues. Patient also reports that in [place] has him set up for a CT to look at his pancreas and he is scheduled for January 07. carotid artery stenosis: Patient reports that he did have a carotid artery u/s done here because insurance would not approve the CTA that was originally ordered. He also reports that Dr. Melvin ordered a CT of his carotids that he did last week and reports that he is being referred to [place] to discuss this with a vascular surgeon. we discussed [facility] cta being just fine no more imaging needs to be done at this time. Marianela Vargas MD [address] [place] [address], [id number], [facility], L.LCruz 12/26/2024 13:39:05
--- OUTSIDE RECORDS SUMMARY | 2025-01-16 06:13 | XMS_ITS | Encounter Summary ---
Author Organization [facility] Address [address] [place] [address] Care Team Providers Care Sales Representative Printing Supplies Name Role Phone Unavailable Primary Care Provider Unavailabl e Encounter Details Date Type Department Care Team (Latest Contact Info) Description 04/10/2006 Outpatient Historical [facility] 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
--- OUTSIDE RECORDS SUMMARY | 2025-01-16 06:13 | XMS_ITS | Encounter Summary ---
Author Organization [facility] Address [address] [place] [address] Care Team Providers Care Library Specialist Name Role Phone Unavailable Primary Care Provider Unavailabl e Encounter Details Date Type Department Care Team (Latest Contact Info) Description 04/17/2006 Outpatient Historical [facility] 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
--- OUTSIDE RECORDS SUMMARY | 2025-01-16 06:13 | XMS_ITS | Encounter Summary ---
Author Organization [facility] Address [address] [place] [address] Care Team Providers Care Machine Designer Name Role Phone Unavailable Primary Care Provider Unavailabl e Encounter Details Date Type Department Care Team (Latest Contact Info) Description 03/10/2006 Outpatient Historical [facility] [address] [place] [phone] Jair Lizarraga NP 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
--- NOTE | 2025-01-16 07:00 | PC.NURSE ---
During shift report: Pt's dependent mother at bedside. NO other family present to care for her.
--- NOTE | 2025-01-16 07:05 | PC.NURSE ---
Per bedside report pt has a morphine pain pump for his chronic pancreatitis, per patient report. Scar noted on mid lateral abdomen, with a firm object underneath.
--- NOTE | 2025-01-16 07:58 | CTR_ITS ---
PROCEDURE INFORMATION: Exam: CT Head Without Contrast Exam date and time: 01/16/2025 2:53 PM Age: 64 years old Clinical indication: Weakness, facial; Left sided facial droop, post tpa, HX of stroke, HX of colon cancer; Additional info: CVA S/P tpa TECHNIQUE: Imaging protocol: Computed tomography of the head without contrast. Radiation optimization: All CT scans at this facility use at least one of these dose optimization techniques: automated exposure control; mA and/or kV adjustment per patient size (includes targeted exams where dose is matched to clinical indication); or iterative reconstruction. COMPARISON: CT head thrombolytic [id number] 01/15/2025 10:24 PM RADIATION DOSE METRICS: Total DLP (mGy-cm): 2201.98 FINDINGS: Brain: No intracranial hemorrhage. There is global parenchymal volume loss. Periventricular white matter hypoattenuation is nonspecific but most likely due to small vessel disease. No evidence of acute territorial infarct or cerebral edema. No mass effect or midline shift. Cerebral ventricles: Prominent ventricles likely secondary to volume loss. Paranasal sinuses: Visualized sinuses are unremarkable. No fluid levels. Mastoid air cells: Visualized mastoid air cells are well aerated. Bones: Unremarkable. No acute fracture. Soft tissues: Unremarkable. CT/CT head wo con* [id number] IMPRESSION: No acute intracranial findings.
[2025-01-16 08:43] LABS: Glucose Point of Care 242 mg/dL (70-110)
--- NOTE | 2025-01-16 08:54 | PM.SAN ---
Stroke Alert Activation ED Arrival Date: 01/15/25 ED Arrival Time: 22:30 ED Physican at Bedside: 22:26 Last Known Normal/at Baseline: 1-2 hours ago Other Last Known Well Infomation: This patient is known to me. He presented to the emergency department with slurred speech and right-sided weakness. Initially his weakness was severe in the right arm. I became involved immediately and Dr. Downing and I did a FaceTime exam and reviewed his CAT scan of the head that was unremarkable. We had a time out and reviewed his blood sugar which was moderately elevated and his blood pressure which was significantly elevated. The patient agreed to IV thrombolysis and the bolus was given at 2249. He was admitted to ICU. A second telemetry visit was accomplished with the nurse as soon as the bolus was given. The patient was already markedly improved. Stroke Alert Activation Date: 01/15/25 Stroke Alert Activation Time: 22:26 Stroke MD @ Bedside Time: 22:27 NIH Stroke Scale Time: 22:30 NIH stroke score NIHSS: Level Of Consciousness - 1a: 1 Level Of Consciousness Questions - 1b: Both Correct Level Of Consciousness Commands - 1c: Both Correct Best Gaze - 2: Normal Visual Taylor - 3: No Visual Loss Facial Palsy - 4: Partial Paralysis Motor Arm Right - 5: Drift Motor Arm Left - 5: No Drift Motor Leg Right - 6: Drift Motor Leg Left - 6: No Drift Limb Ataxia - 7: Absent Sensory - 8: Normal Best Language - 9: No Aphasia Dysarthia - 10: Mild/Moderate Dysarthia Extinction And Inattention - 11: 0 Score: Total Score: 6 Stroke Alert Data/Treatment Time to CT of Head: 22:25 CT Results Time: 22:32 CT Impression: Chronic changes but nothing acute. Reviewed with Dr. Downing on telemetry. Radiologist report 20-40. Stroke Risk Factors: coronary artery disease, hyperlipidemia, hypertension, obesity and diabetes mellitus tPA Started Time: tPA Started - Time: 22:49 tPA Admin Prior to Arrival: No Patient & Family Educated on: Cause of Stroke, Treament Plan and tPA Risks/Benefits Other Information: CTA 11/28/2024: After these results I referred the patient to [facility] heart [facility] vascular but I have not heard back as to whether he has an appointment 1. RIGHT ICA stenosis 63% 2. LEFT ICA stenosis 73% 3. Both vertebral arteries are patent. 4. No evidence of intracranial proximal flow-limiting stenosis. Dictated By: Artie Rivera MD Signed By: Artie Rivera MD Signed Date/Time: Critical Care Time Critical Care Time: 30 - 74 mins A&P Assessment and plan (1) Left acute arterial ischemic stroke, MCA (middle cerebral artery): This patient is known to me as I have been seeing him in the clinic. I recently referred him to [facility] for bilateral Carotid stenosis after he had a TIA. He also suffers from chronic migraine. We will need to make sure to expedite his visit with vascular surgery since he now is symptomatic. Patient improved markedly after TNK bolus. (2) Bilateral carotid artery stenosis: PDMP PDMP Reviewed: Not Reviewed Coding Level of Care Code Acute Code for [facility] Fwd Diagnoses Left acute arterial ischemic stroke, MCA (middle cerebral artery) I63.512 Bilateral carotid artery stenosis I65.23
--- NOTE | 2025-01-16 09:05 | P.PN_ITS ---
Subjective 2 Subjective: He has a headache this morning. He feels like he has marbles in his mouth. Vitals/I&O/Wt Last Vital Signs Temp 98.9 F 01/16/25 07:00 Pulse 85 01/16/25 07:00 Resp 19 H 01/16/25 07:00 BP 156/64 01/16/25 07:00 Pulse Ox 97 01/16/25 07:00 O2 Del Method Room Air 01/16/25 07:00 01/15/25 01/16/25 01/16/25 22:59 06:59 14:59 Intake Total 100 / 100 Balance 100 / 100 Weight last 48 hrs Weight 235 lb 14.314 oz Weight 235 lb 14.314 oz Weight 242 lb Physical Exam 2 Narrative: He is still dysarthric. Full eye movements. Right facial weakness. This is new. Motor exam reveals no drift. Fine finger movements rapid and symmetric. He is moving his legs well. Cardiac: S1 and S2 normal without murmur or gallop. Data 01/15/25 22:45 01/15/25 22:45 A&P Assessment and plan (1) Left acute arterial ischemic stroke, MCA (middle cerebral artery): Keep resented with symptoms consistent with an acute left middle cerebral artery stroke. He received TNK within 2 hours of onset of symptoms. This morning he is somewhat better but still has right facial weakness and dysarthria. CT head pending. Plan to treat his headache with 500 mg of Depacon IV. (2) Chronic migraine without aura, intractable, with status migrainosus: PDMP PDMP Reviewed: Not Reviewed Attestations 2 Medical Necessity Statement*: Acute stroke status post TNK Coding Level of Care Code Acute Code for [facility] Fwd Diagnoses Left acute arterial ischemic stroke, MCA (middle cerebral artery) I63.512 Chronic migraine without aura, intractable, with status migrainosus G43.711
[2025-01-16] MEDS: brimonidine 0.2% Op Soln 5 mL Btl 1 DROP EYE-BOTH ×2 (09:36→18:04)
[2025-01-16] MEDS: timolol 0.5% Op Soln 5 mL Btl 1 DROP EYE-BOTH ×2 (09:37→18:05)
[2025-01-16] MEDS: insulin lispro 100 unit/1 mL 22 UNIT SUBCUT ×2 (09:38→11:37)
[2025-01-16] MEDS: insulin lispro 100 unit/1 mL SUBCUT ×4 (09:39→21:11)
[2025-01-16] MEDS: ondansetron 4 MG Tablet 8 MG PO ×4 (09:40→20:56)
[2025-01-16] MEDS: sertraline 100 mg Tablet PO (09:40)
[2025-01-16] MEDS: multivitamin therapeutic Tablet 1 TAB PO (09:40)
[2025-01-16] MEDS: ferrous sulfate EC 325 mg Tablet PO (09:40)
[2025-01-16] MEDS: pantoprazole DR 40 mg Tablet PO ×2 (09:41→18:05)
[2025-01-16] MEDS: cyanocobalamin 1,000 mcg Tablet 500 MCG PO (09:41)
[2025-01-16] MEDS: lisinopril 10 mg Tablet PO (09:41)
[2025-01-16] MEDS: valproic acid inj 500 MG in sodium chloride 0.9% 50 ML 55 MG IV (09:45)
[2025-01-16 11:24] LABS: Glucose Point of Care 245 mg/dL (70-110)
[2025-01-16] MEDS: hyDROXYzine 25 mg Capsule 50 MG PO (11:36)
[2025-01-16] MEDS: HYDROcodone-acetaminophen 5-325 mg Tablet 1 TAB PO ×2 (11:36→20:56)
[2025-01-16] MEDS: LORazepam 1 MG/0.5 ML injection IVP (12:51)
[2025-01-16] MEDS: labetalol 5 mg/mL SDV 20mL 10 MG IVP (13:47)
--- NOTE | 2025-01-16 14:30 | PM.PN ---
Subjective Subjective: - Patient was seen this morning - Patient's is at bedside - He does have right facial droop - Still dysarthric - Right facial weakness - He has very slight right upper extremity weakness compared to the left - Equal right lower extremity strength bilaterally - Kgnlfd-yl-boon is abnormal on the right - No receptive aphasia --Denies any headache, no blurry vision - Currently having headache getting Depacon - Head CT has been ordered - Discussed blood pressure control, PT OT, speech therapy eval today, he voices understanding, all questions answered Vitals/I&O/Wt Last Vital Signs Temp 97.7 F 01/16/25 13:00 Pulse 75 01/16/25 14:00 Resp 20 H 01/16/25 14:00 BP 154/97 01/16/25 14:15 Pulse Ox 94 01/16/25 14:00 O2 Del Method Room Air 01/16/25 14:00 01/15/25 01/16/25 01/16/25 22:59 06:59 14:59 Intake Total 100 / 100 Balance 100 / 100 Weight last 48 hrs Weight 107 kg Weight 107 kg Weight 109.769 kg Physical Exam Const: COMMON NORMALS: no acute distress and patient oriented x3 Eye: COMMON NORMALS: Equal, round and reactive pupils present and EOMs intact bilaterally PUPIL: Yes Equal, round and reactive pupils present Resp: COMMON NORMALS: normal respiratory effort, No retractions, No use of accessory muscles and clear to auscultation bilaterally AUSCULTATION: clear to auscultation bilaterally Cardio: COMMON NORMALS: regular rate, regular rhythm, S1 normal heart sound present and S2 normal heart sound present RATE: regular rate RHYTHM: regular rhythm HEART SOUNDS: S1 normal heart sound present and S2 normal heart sound present GI: COMMON NORMALS: Normal to inspection, nondistended, normoactive bowel sounds present, non-tender and No hepatosplenomegaly present PALPATION: Yes No hepatosplenomegaly present Extremity: COMMON NORMALS: no pedal edema Neuro: COMMON NORMALS: patient oriented x3 and moves all extremities OTHER: As above Psych: COMMON NORMALS: mental status grossly normal Data 01/15/25 22:45 01/15/25 22:45 A&P Assessment and plan (1) Cerebrovascular accident: - Acute left MCA stroke -Presenting symptoms slurred speech, right-sided weakness -NIH stroke scale 6 -Last known well normal was 21:00 to 2130 01/15/2025 - In case given 20:49 01/15/2025 -CT head CT/CT head thrombolytic [id number] IMPRESSION: 1. No acute intracranial abnormality identified. 2. If clinically indicated, consider further evaluation with MRI, which is more sensitive for detecting acute ischemic changes and other subtle pathology. -Head CT no acute findings - Recent history of CTA 11/28/2024 1. RIGHT ICA stenosis 63% 2. LEFT ICA stenosis 73% 3. Both vertebral arteries are patent. 4. No evidence of intracranial proximal flow-limiting stenosis. Plan - Admit to ICU status post TNKase - PT OT, speech therapy - Maintain systolic blood pressure less than 180 or diastolic less than less than 105 - Aspirin, once repeat head CT within normal limits - DVT prophylax Lovenox once CT head within normal limits - Atorvastatin 40 mg daily - Cardiac echo - Monitor mentation closely - Neurochecks - NIH stroke scale (2) Carotid stenosis: - Will need to be referred to vascular surgery as outpatient (3) NEDRA on CPAP: Resume home CPAP (4) Diabetes: - Lantus 57 units at bedtime, decreased to 25 units at bedtime -Takes Humalog 20 units, 3 times daily with meals plus low-dose sliding scale -Decrease to Humalog 15 units, with low-dose sliding scale (5) HTN (hypertension): - Resume blood pressure medications (6) Obesity: Will put him on a 2000-calorie diabetic weight loss diet Plan Patient has morphine pump in place PDMP PDMP Reviewed: Not Reviewed Attestations Medical Necessity Statement*: Patient requires hospitalization for acute CVA status post TNKase Diagnoses Cerebrovascular accident I63.9 Bilateral carotid artery stenosis I65.23 Laterality: bilateral NEDRA on CPAP G47.33 Type 2 diabetes mellitus without complication, without long-term current use of insulin E11.9 Diabetes mellitus complication status: without complication Diabetes mellitus long term acute care registered nurse insulin use: without long term acute care registered nurse use Diabetes mellitus type: type 2 HTN (hypertension) I10 Class 1 obesity due to excess calories with serious comorbidity and body mass index (BMI) of 34.0 to 34.9 in adult E66.09; Z68.34 Body mass index: BMI 34.0-34.9 Obesity classification: adult class 1 (BMI 30 - 34.9) Obesity type: due to excess calories Serious obesity comorbidity presence: with serious comorbidity
[2025-01-16 17:15] LABS: Glucose Point of Care 268 mg/dL (70-110)
[2025-01-16] MEDS: lisinopril 20 mg Tablet PO (18:05)
[2025-01-16] MEDS: insulin lispro 100 unit/1 mL 15 UNIT SUBCUT (18:05)
[2025-01-16] MEDS: atorvastatin 40 mg Tablet PO (20:56)
[2025-01-16 21:05] LABS: Glucose Point of Care 195 mg/dL (70-110)
[2025-01-16] MEDS: insulin glargine 100 units/1 mL 25 UNIT SUBCUT (21:11)
--- NOTE | 2025-01-16 23:00 | CTR_ITS ---
PROCEDURE INFORMATION: Exam: CT Head Without Contrast Exam date and time: 01/16/2025 11:02 PM Age: 64 years old Clinical indication: Other: F/u tnkase; 24 hour f/u post tnkase admin. ; Additional info: 24 hours S/P tpa TECHNIQUE: Imaging protocol: Computed tomography of the head without contrast. Radiation optimization: All CT scans at this facility use at least one of these dose optimization techniques: automated exposure control; mA and/or kV adjustment per patient size (includes targeted exams where dose is matched to clinical indication); or iterative reconstruction. COMPARISON: CT head wo con* [id number] 01/16/2025 2:53 PM RADIATION DOSE METRICS: Total DLP (mGy-cm): 1129.09 FINDINGS: Brain: No acute intra- or extra axial fluid collections are identified. The basal cisterns are patent. No mass effect or midline shift is seen. The ruiz-white matter differentiation is normal. Suggestion of a partially empty sella. Cerebral ventricles: Generalized cerebral and cerebellar volume loss with ex vacuo dilation of the ventricles and prominence of the subarachnoid spaces. Paranasal sinuses: The nasal septum is deviated to the left with a septal spur in contact with the base of the left inferior turbinate. The paranasal sinuses appear grossly clear. Mastoid air cells: The mastoid air cells appear grossly clear. Orbital cavities: The orbits appear normal. Bones: No acute calvarial fracture is identified. Soft tissues: No soft tissue abnormalities identified. Vasculature: There are atherosclerotic calcifications of the carotid siphons. CT/CT head wo con* [id number] IMPRESSION: No evidence of acute intracranial hemorrhage.
[2025-01-17] VITALS (20 sets, daily range): BP systolic 89–163; BP diastolic 46–84; PULSE 64–84; RESP 12–20; TEMP 36.5–36.7; O2SAT 90–100
[2025-01-17] MEDS: aspirin 81 mg EC Tablet PO ×2 (01:46→08:26)
[2025-01-17 05:23] LABS: Basophils # 0.1 10^3/uL (0.0-0.1); Basophils % 0.9 %; Eosinophils # 0.4 10^3/uL (0.0-0.8); Eosinophils % 4.8 %; Hematocrit 39.2 % (37-53); Lymphocytes # 2.3 10^3/uL (0.8-4.8); Lymphocytes % 30.4 %; Mean Corpuscular HGB Conc 32.1 g/dL (30-55); Mean Corpuscular Hemoglobin 27.3 pg (27-33); Mean Corpuscular Volume 84.8 fl (82-101); Mean Platelet Volume 9.8 fL (7.4-10.4); Monocytes # 0.6 10^3/uL (0.2-0.9); Monocytes % 7.4 %; Neutrophils # 4.17 10^3/uL (1.8-7.7); Neutrophils % 56.1 %; Nucleated Red Blood Cells % 0 %; Platelet Count 252 10^3/cmm (157-399); Red Blood Count 4.62 10^6/uL (3.85-5.65); Red Cell Distribution Width 12.9 % (12.1-15.1); White Blood Count 7.44 10^3/uL (3.29-11.43)
[2025-01-17 05:42] LABS: Anion Gap 14.4 (5-19); Blood Urea Nitrogen 19 mg/dL (8-23); Calcium 8.8 mg/dL (8.5-10.5); Carbon Dioxide 27 mmol/L (22-29); Chloride 101 mmol/L (98-107); Chol HDL Ratio 4.13 mg/dL (1.0-5.00); Cholesterol 194 mg/dL (0-200); Glomerular Filtration Rate 96.7 mL/min (90-130); Glucose 173 mg/dL (65-115); HDL Cholesterol 47 mg/dL (60-100); LDL Cholesterol Calculated 111 mg/dL (50-129); LDL HDL Ratio 2.36 RATIO (0.00-3.22); Osmolality Calculated 292 mOsm/kg (285-295); Potassium 4.4 mmol/L (3.5-5.1); Sodium 138 mmol/L (136-145); Triglycerides 181 mg/dL (0-150)
[2025-01-17 06:22] LABS: Estmated Average Glucose 220; Hemoglobin A1C 9.3 % (4.0-6.0)
[2025-01-17 07:47] LABS: Glucose Point of Care 197 mg/dL (70-110)
[2025-01-17] MEDS: timolol 0.5% Op Soln 5 mL Btl 1 DROP EYE-BOTH ×2 (08:17→17:39)
[2025-01-17] MEDS: brimonidine 0.2% Op Soln 5 mL Btl 1 DROP EYE-BOTH ×2 (08:17→17:39)
[2025-01-17] MEDS: insulin lispro 100 unit/1 mL 15 UNIT SUBCUT ×3 (08:18→17:41)
[2025-01-17] MEDS: insulin lispro 100 unit/1 mL SUBCUT ×3 (08:18→20:54)
[2025-01-17] MEDS: enoxaparin 40 mg/0.4 mL Syringe SUBCUT (08:18)
[2025-01-17] MEDS: HYDROcodone-acetaminophen 5-325 mg Tablet 1 TAB PO ×2 (08:25→22:30)
[2025-01-17] MEDS: hyDROXYzine 25 mg Capsule 50 MG PO (08:25)
[2025-01-17] MEDS: cyanocobalamin 1,000 mcg Tablet 500 MCG PO (08:26)
[2025-01-17] MEDS: ferrous sulfate EC 325 mg Tablet PO (08:26)
[2025-01-17] MEDS: lisinopril 20 mg Tablet PO ×2 (08:26→17:40)
[2025-01-17] MEDS: sertraline 100 mg Tablet PO (08:26)
[2025-01-17] MEDS: multivitamin therapeutic Tablet 1 TAB PO (08:26)
[2025-01-17] MEDS: pantoprazole DR 40 mg Tablet PO ×2 (08:26→17:40)
[2025-01-17] MEDS: ondansetron 4 MG Tablet 8 MG PO ×3 (08:26→17:40)
[2025-01-17 11:21] LABS: Glucose Point of Care 211 mg/dL (70-110)
--- NOTE | 2025-01-17 13:15 | PC.NURSE ---
Pt statd he was very anxious. Hydrocodone-APAp PRN admin for continued headache, Hydroxyzine PRN admin for his anxiety. He is dry heaving. He stated he could not urinate lying in the bed. His Bp is creeping up. Assisted pt up to urinate and to BSC. Large loose BM noted. He had bile ememsis while on BSC. Pt continues to panic. His son is here to bulk picker his mother whom is at bedside. Notified Dr Lantigua of pt's anxiety, BP and continuing to spiral out of control. Ativan 1 mg IVP ordered and admin. Pt assisted to BSC again, another large loose BM noted. Pt able to swallow scheduled Zofran and keep it down at this time. Will continue to monitor BP and report if it remains high as ordered. Pt calming down. PT, Speech therapy and CT held off until pt calm and BP improved.
--- NOTE | 2025-01-17 15:30 | PC.NURSE ---
Requested pt to contact his son and ask for home meds Creon and Galatamine to be brought in. Pt stated I have a confession to make. 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 I have my medications in different places, and I cannot remember where they are exactly. I have a pile for the ones I receive in the mail, over there. That may be why I forget to take them some times. This nurse replied maybe if you could remember the Creon, your pancreas would feel better. Pt stated That is what they said .
[2025-01-17] MEDS: artificial tears Op Soln 15 mL Btl 1 DROP EYE-BOTH ×2 (15:53→20:43)
--- NOTE | 2025-01-17 15:55 | PC.SOCIAL ---
IMM updated IMM dated and initialed copy given to patient and Copy placed in chart.
--- NOTE | 2025-01-17 16:15 | PC.NURSE ---
Contacted the offices of [facility] , pain clinic in [facility], for information about pt's pain pump. [facility] consent for info faxed successfully. Awaiting a reply
--- NOTE | 2025-01-17 16:47 | P.PN_ITS ---
Subjective 2 Subjective: Patient was seen this morning, currently alert oriented x 3, following all commands, does have right facial droop, right eyelid at times does not completely close, right upper extremity weakness although better compared to yesterday persist, right lower extremity weakness although better compared to yesterday persist, does have unsteadiness on his feet, does have at times word finding difficulty, no receptive aphasia mild slurring of his words Vitals/I&O/Wt Last Vital Signs Temp 97.9 F 01/17/25 13:00 Pulse 76 01/17/25 16:00 Resp 20 H 01/17/25 16:00 BP 137/61 01/17/25 16:00 Pulse Ox 96 01/17/25 16:00 O2 Del Method Room Air 01/17/25 16:00 Weight last 48 hrs Weight 105.5 kg Weight 107 kg Weight 107 kg Weight 109.769 kg Physical Exam 2 Const: COMMON NORMALS: no acute distress and patient oriented x3 Resp: COMMON NORMALS: normal respiratory effort, No retractions, No use of accessory muscles and clear to auscultation bilaterally AUSCULTATION: clear to auscultation bilaterally Cardio: COMMON NORMALS: regular rate, regular rhythm, S1 normal heart sound present and S2 normal heart sound present RATE: regular rate RHYTHM: r egular rhythm HEART SOUNDS: S1 normal heart sound present and S2 normal heart sound present GI: COMMON NORMALS: Normal to inspection, nondistended, normoactive bowel sounds present and non-tender Extremity: COMMON NORMALS: no pedal edema Neuro: COMMON NORMALS: patient oriented x3 OTHER: Slurred speech is mild today No receptive aphasia Right facial droop Inability to completely close right eyelid at times Right upper extremity strength 4-5 Right lower extremity strength 4-5 Psych: COMMON NORMALS: mental status grossly normal Data 01/17/25 04:55 01/17/25 04:55 A&P Assessment and plan (1) Cerebrovascular accident: - Acute left MCA stroke -Presenting symptoms slurred speech, right-sided weakness -NIH stroke scale 6 -Last known well normal was 21:00 to 2130 01/15/2025 - In case given 20:49 01/15/2025 -CT head CT/CT head thrombolytic [id number] IMPRESSION: 1. No acute intracranial abnormality identified. 2. If clinically indicated, consider further evaluation with MRI, which is more sensitive for detecting acute ischemic changes and other subtle pathology. -Head CT no acute findings - Recent history of CTA 11/28/2024 1. RIGHT ICA stenosis 63% 2. LEFT ICA stenosis 73% 3. Both vertebral arteries are patent. 4. No evidence of intracranial proximal flow-limiting stenosis. - Repeat head CT CT/CT head wo con* [id number] IMPRESSION: No evidence of acute intracranial hemorrhage. Plan - Admit to ICU status post TNKase - PT OT, speech therapy - Maintain systolic blood pressure less than 180 or diastolic less than less than 105 - Aspirin, - DVT prophylax Lovenox once CT head within normal limits - Atorvastatin 40 mg daily - Cardiac echo CONCLUSIONS LV systolic function is normal with EF of 60-65% Grade 1 diastolic dysfunction Mild mitral regurgitation Mild aortic stenosis Compared to prior echcoardiogram from 2023, no significant changes are seen - Monitor mentation closely - Neurochecks - NIH stroke scale - Keep right eye covered during the night, artificial tears every 4 hours (2) Carotid stenosis: - Will need to be referred to vascular surgery as outpatient (3) NEDRA on CPAP: Resume home CPAP (4) Diabetes: - Lantus 57 units at bedtime, decreased to 25 units at bedtime -Takes Humalog 20 units, 3 times daily with meals plus low-dose sliding scale -Decrease to Humalog 15 units, with low-dose sliding scale (5) HTN (hypertension): - Resume blood pressure medications (6) Obesity: Will put him on a 2000-calorie diabetic weight loss diet Plan History of Mart's palsy, Plan for today PT OT, speech therapy eval, monitor blood pressure, moved to medical floors PDMP PDMP Reviewed: Not Reviewed Attestations 2 Medical Necessity Statement*: Patient requires hospitalization for acute CVA, status post tPA Coding Level of Care Code 28083 Diagnoses Cerebrovascular accident I63.9 Bilateral carotid artery stenosis I65.23 Laterality: bilateral NEDRA on CPAP G47.33 Type 2 diabetes mellitus without complication, without long-term current use of insulin E11.9 Diabetes mellitus type: type 2 Diabetes mellitus terminologist insulin use: without terminologist use Diabetes mellitus complication status: without complication HTN (hypertension) I10 Class 1 obesity due to excess calories with serious comorbidity and body mass index (BMI) of 34.0 to 34.9 in adult E66.09; Z68.34 Body mass index: BMI 34.0-34.9 Obesity classification: adult class 1 (BMI 30 - 34.9) Obesity type: due to excess calories Serious obesity comorbidity presence: with serious comorbidity
[2025-01-17 16:53] LABS: Glucose Point of Care 138 mg/dL (70-110)
--- NOTE | 2025-01-17 19:36 | PC.NURSE ---
Shiftr summary: Pt stated he felt much better today. His NIH is 1 today due to the minor facial paralysis of his mouth. Sinus rhtyhm remains on the monitor. Pt has been sitting up on side of bed using his phone and watching TV on his own today. He has had a great appetite, eating majority of his meals. He had pain med and his anxiety this am. Urine outpiut of 1150. Bm noted today.
[2025-01-17] MEDS: insulin glargine 100 units/1 mL 25 UNIT SUBCUT (20:44)
[2025-01-17] MEDS: atorvastatin 40 mg Tablet PO (20:44)
[2025-01-17 20:53] LABS: Glucose Point of Care 173 mg/dL (70-110)
[2025-01-18] VITALS (16 sets, daily range): BP systolic 106–186; BP diastolic 51–77; PULSE 64–87; RESP 8–20; TEMP 36.6–36.9; O2SAT 87–97
[2025-01-18] MEDS: artificial tears Op Soln 15 mL Btl 1 DROP EYE-BOTH ×6 (00:26→20:19)
--- NOTE | 2025-01-18 03:55 | PC.NURSE ---
Pt has 7/10 headache, hydrocodone not helping. Dr. Espinal made aware, new order for 1 mg IVP dilaudid once.
[2025-01-18] MEDS: HYDROmorphone 0.5 MG/0.5 ML INJ 1 MG IVP ×2 (04:02→22:07)
[2025-01-18 04:19] LABS: Basophils # 0.1 10^3/uL (0.0-0.1); Eosinophils # 0.4 10^3/uL (0.0-0.8); Hematocrit 38.9 % (37-53); Lymphocytes # 2.5 10^3/uL (0.8-4.8); Lymphocytes % 36.2 %; Mean Corpuscular HGB Conc 31.6 g/dL (30-55); Mean Corpuscular Hemoglobin 27.5 pg (27-33); Mean Platelet Volume 9.8 fL (7.4-10.4); Monocytes # 0.5 10^3/uL (0.2-0.9); Monocytes % 7.4 %; Neutrophils # 3.37 10^3/uL (1.8-7.7); Nucleated Red Blood Cells % 0 %; Platelet Count 240 10^3/cmm (157-399); Red Blood Count 4.47 10^6/uL (3.85-5.65); Red Cell Distribution Width 12.7 % (12.1-15.1); White Blood Count 6.88 10^3/uL (3.29-11.43)
[2025-01-18 04:48] LABS: Anion Gap 12.5 (5-19); Blood Urea Nitrogen 18 mg/dL (8-23); Calcium 8.6 mg/dL (8.5-10.5); Carbon Dioxide 28 mmol/L (22-29); Chloride 102 mmol/L (98-107); Glomerular Filtration Rate 134.8 mL/min (90-130); Glucose 173 mg/dL (65-115); Osmolality Calculated 292 mOsm/kg (285-295); Potassium 4.5 mmol/L (3.5-5.1); Sodium 138 mmol/L (136-145)
[2025-01-18 07:53] LABS: Glucose Point of Care 190 mg/dL (70-110)
[2025-01-18] MEDS: sertraline 100 mg Tablet PO (08:21)
[2025-01-18] MEDS: lisinopril 20 mg Tablet PO ×2 (08:21→17:49)
[2025-01-18] MEDS: ferrous sulfate EC 325 mg Tablet PO (08:22)
[2025-01-18] MEDS: aspirin 81 mg EC Tablet PO (08:22)
[2025-01-18] MEDS: cyanocobalamin 1,000 mcg Tablet 500 MCG PO (08:22)
[2025-01-18] MEDS: ondansetron 4 MG Tablet 8 MG PO ×4 (08:22→20:18)
[2025-01-18] MEDS: pantoprazole DR 40 mg Tablet PO ×2 (08:23→17:48)
[2025-01-18] MEDS: multivitamin therapeutic Tablet 1 TAB PO (08:23)
[2025-01-18] MEDS: enoxaparin 40 mg/0.4 mL Syringe SUBCUT (08:31)
[2025-01-18] MEDS: insulin lispro 100 unit/1 mL SUBCUT ×4 (08:31→21:33)
[2025-01-18] MEDS: timolol 0.5% Op Soln 5 mL Btl 1 DROP EYE-BOTH ×2 (08:34→17:51)
[2025-01-18] MEDS: brimonidine 0.2% Op Soln 5 mL Btl 1 DROP EYE-BOTH ×2 (08:34→17:49)
[2025-01-18] MEDS: insulin lispro 100 unit/1 mL 15 UNIT SUBCUT ×3 (08:47→17:50)
[2025-01-18] MEDS: hyDROXYzine 25 mg Capsule 50 MG PO ×2 (10:26→20:18)
--- NOTE | 2025-01-18 10:29 | PC.NURSE ---
doctor here exam to not going home today swallow remains compromised and right eye still not closing completely up to bathroom voided by self with not distress at this time some anxiety noted when talking about taking care of his mother .medication given
[2025-01-18 12:17] LABS: Glucose Point of Care 257 mg/dL (70-110)
[2025-01-18] MEDS: clopidogrel 75 mg Tablet PO (12:28)
[2025-01-18] MEDS: predniSONE 20 mg Tablet 60 MG PO (15:03)
--- NOTE | 2025-01-18 15:07 | P.PN_ITS ---
Subjective 2 Subjective: Patient was seen this morning, currently alert oriented x 3, following all commands, continues to have right facial droop, slurring of his words, mild word finding difficulty, he still has some degree of immobility to close right eyelid, he has right upper right lower extremity weakness he tells me has significantly resolved he is able to ambulate to the bathroom Vitals/I&O/Wt Last Vital Signs Temp 98.3 F 01/18/25 04:00 Pulse 72 01/18/25 14:00 Resp 13 01/18/25 14:00 BP 125/55 01/18/25 14:00 Pulse Ox 95 01/18/25 13:00 O2 Del Method Room Air 01/18/25 04:00 01/18/25 01/18/25 01/18/25 06:59 14:59 22:59 Intake Total 360 / 1810 Balance 360 / 660 Weight last 48 hrs Weight 106.5 kg Weight 105.5 kg Physical Exam 2 Const: COMMON NORMALS: no acute distress and patient oriented x3 Resp: COMMON NORMALS: normal respiratory effort, No retractions, No use of accessory muscles and clear to auscultation bilaterally AUSCULTATION: clear to auscultation bilaterally Cardio: COMMON NORMALS: regular rate, regular rhythm, S1 normal heart sound present and S2 normal heart sound present RATE: regular rate RHYTHM: r egular rhythm HEART SOUNDS: S1 normal heart sound present and S2 normal heart sound present GI: COMMON NORMALS: Normal to inspection, nondistended, normoactive bowel sounds present and non-tender Extremity: COMMON NORMALS: no pedal edema Neuro: COMMON NORMALS: patient oriented x3, CN's II-XII intact bilaterally, moves all extremities and no focal motor deficits OTHER: Right facial droop, right lower face, cannot raise right upper brow, inability to completely close right eyelid, mild slurring of his words, mild word finding difficulty, right upper extremity strength equal compared to left upper extremity strength, right lower extremity strength equal to left lower extremity Psych: COMMON NORMALS: mental status grossly normal Data 01/18/25 03:34 01/18/25 03:34 A&P Assessment and plan (1) Cerebrovascular accident: - Acute left MCA stroke -Presenting symptoms slurred speech, right-sided weakness -NIH stroke scale 6 -Last known well normal was 21:00 to 2130 01/15/2025 - In case given 20:49 01/15/2025 -CT head CT/CT head thrombolytic [id number] IMPRESSION: 1. No acute intracranial abnormality identified. 2. If clinically indicated, consider further evaluation with MRI, which is more sensitive for detecting acute ischemic changes and other subtle pathology. -Head CT no acute findings - Recent history of CTA 11/28/2024 1. RIGHT ICA stenosis 63% 2. LEFT ICA stenosis 73% 3. Both vertebral arteries are patent. 4. No evidence of intracranial proximal flow-limiting stenosis. - Repeat head CT CT/CT head wo con* [id number] IMPRESSION: No evidence of acute intracranial hemorrhage. Plan - Admit to ICU status post TNKase - PT OT, speech therapy - Maintain systolic blood pressure less than 180 or diastolic less than less than 105 - Aspirin, - DVT prophylax Lovenox once CT head within normal limits - Atorvastatin 40 mg daily - Cardiac echo CONCLUSIONS LV systolic function is normal with EF of 60-65% Grade 1 diastolic dysfunction Mild mitral regurgitation Mild aortic stenosis Compared to prior echcoardiogram from 2023, no significant changes are seen - Monitor mentation closely - Neurochecks - NIH stroke scale - Keep right eye covered during the night, artificial tears every 4 hours (2) Carotid stenosis: - Will need to be referred to vascular surgery as outpatient (3) NEDRA on CPAP: Resume home CPAP (4) Diabetes: - Lantus 57 units at bedtime, decreased to 25 units at bedtime -Takes Humalog 20 units, 3 times daily with meals plus low-dose sliding scale -Decrease to Humalog 15 units, with low-dose sliding scale (5) HTN (hypertension): - Resume blood pressure medications (6) Obesity: Will put him on a 2000-calorie diabetic weight loss diet Plan History of Mart's palsy, 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, question of Mart's palsy in addition to his stroke, will do a trial of steroids, acyclovir, continue to use eyedrops right eye every 4 hours, keep right eye covered during the night Plan for today PT OT, speech therapy eval, monitor blood pressure, moved to medical floors PDMP PDMP Reviewed: Not Reviewed Attestations 2 Medical Necessity Statement*: Patient requires hospitalization for acute CVA Diagnoses Cerebrovascular accident I63.9 Bilateral carotid artery stenosis I65.23 Laterality: bilateral NEDRA on CPAP G47.33 Type 2 diabetes mellitus without complication, without long-term current use of insulin E11.9 Diabetes mellitus type: type 2 Diabetes mellitus long line teamster insulin use: without long line teamster use Diabetes mellitus complication status: without complication HTN (hypertension) I10 Class 1 obesity due to excess calories with serious comorbidity and body mass index (BMI) of 34.0 to 34.9 in adult E66.09; Z68.34 Body mass index: BMI 34.0-34.9 Obesity classification: adult class 1 (BMI 30 - 34.9) Obesity type: due to excess calories Serious obesity comorbidity presence: with serious comorbidity
--- NOTE | 2025-01-18 17:03 | PC.NURSE ---
report given and transfered to room 255 per wheel chair
[2025-01-18 17:07] LABS: Glucose Point of Care 206 mg/dL (70-110)
[2025-01-18] MEDS: acyclovir 400 mg Tablet PO ×2 (17:49→21:44)
[2025-01-18] MEDS: HYDROcodone-acetaminophen 5-325 mg Tablet 1 TAB PO (19:20)
[2025-01-18] MEDS: atorvastatin 40 mg Tablet PO (20:23)
[2025-01-18 20:39] LABS: Glucose Point of Care 291 mg/dL (70-110)
[2025-01-18] MEDS: insulin glargine 100 units/1 mL 25 UNIT SUBCUT (21:33)
[2025-01-19] MEDS: artificial tears Op Soln 15 mL Btl 1 DROP EYE-BOTH ×4 (00:28→12:09)
[2025-01-19 03:58] VITALS: BP 130/56; PULSE 68; RESP 18; TEMP 36.4; O2SAT 93
[2025-01-19 05:41] LABS: Basophils % 0.2 %; Hematocrit 37.9 % (37-53); Lymphocytes # 0.8 10^3/uL (0.8-4.8); Lymphocytes % 12.8 %; Mean Corpuscular HGB Conc 32.2 g/dL (30-55); Mean Corpuscular Hemoglobin 27.4 pg (27-33); Mean Corpuscular Volume 85.2 fl (82-101); Mean Platelet Volume 10.1 fL (7.4-10.4); Monocytes # 0.3 10^3/uL (0.2-0.9); Monocytes % 4.8 %; Neutrophils # 4.98 10^3/uL (1.8-7.7); Neutrophils % 81.7 %; Nucleated Red Blood Cells % 0 %; Platelet Count 218 10^3/cmm (157-399); Red Blood Count 4.45 10^6/uL (3.85-5.65); Red Cell Distribution Width 12.4 % (12.1-15.1); White Blood Count 6.09 10^3/uL (3.29-11.43)
[2025-01-19 05:49] VITALS: PULSE 68
[2025-01-19 06:00] LABS: Blood Urea Nitrogen 23 mg/dL (8-23); Calcium 8.6 mg/dL (8.5-10.5); Carbon Dioxide 26 mmol/L (22-29); Creatinine Clr Calc Pharmacy 114.1501; Glomerular Filtration Rate 112.8 mL/min (90-130); Glucose 246 mg/dL (65-115)
[2025-01-19 06:22] LABS: Glucose Point of Care 249 mg/dL (70-110)
[2025-01-19 06:29] LABS: Chloride 100 mmol/L (98-107); Osmolality Calculated 292 mOsm/kg (285-295); Sodium 135 mmol/L (136-145)
[2025-01-19] MEDS: acyclovir 400 mg Tablet PO ×2 (06:36→09:36)
[2025-01-19 07:44] VITALS: BP 146/65; PULSE 65; RESP 17; TEMP 36.4; O2SAT 93
[2025-01-19] MEDS: enoxaparin 40 mg/0.4 mL Syringe SUBCUT (09:34)
[2025-01-19] MEDS: insulin lispro 100 unit/1 mL 15 UNIT SUBCUT ×2 (09:35→12:08)
[2025-01-19] MEDS: insulin lispro 100 unit/1 mL SUBCUT ×2 (09:35→12:08)
[2025-01-19] MEDS: multivitamin therapeutic Tablet 1 TAB PO (09:36)
[2025-01-19] MEDS: ondansetron 4 MG Tablet 8 MG PO ×2 (09:36→12:07)
[2025-01-19] MEDS: ferrous sulfate EC 325 mg Tablet PO (09:36)
[2025-01-19] MEDS: predniSONE 20 mg Tablet 60 MG PO (09:36)
[2025-01-19] MEDS: pantoprazole DR 40 mg Tablet PO (09:36)
[2025-01-19] MEDS: cyanocobalamin 1,000 mcg Tablet 500 MCG PO (09:36)
[2025-01-19] MEDS: NON-FORMULARY MEDICATION (Galantamine 4 mg tablet) 4 EACH PO (09:37)
[2025-01-19] MEDS: brimonidine 0.2% Op Soln 5 mL Btl 1 DROP EYE-BOTH (09:37)
[2025-01-19] MEDS: timolol 0.5% Op Soln 5 mL Btl 1 DROP EYE-BOTH (09:37)
[2025-01-19] MEDS: lisinopril 20 mg Tablet PO (09:37)
[2025-01-19] MEDS: aspirin 81 mg EC Tablet PO (09:37)
[2025-01-19] MEDS: sertraline 100 mg Tablet PO (09:37)
[2025-01-19 11:21] LABS: Glucose Point of Care 238 mg/dL (70-110)
[2025-01-19 12:00] VITALS: BP 152/72; PULSE 77; RESP 17; TEMP 36.3; O2SAT 94
[2025-01-19] MEDS: clopidogrel 75 mg Tablet PO (12:07)
--- NOTE | 2025-01-19 14:35 | P.DS_ITS ---
Discharge Providers Date of Admission: 01/16/25 02:11 Date of Discharge: January 19, 2025 Attending Provider at Admission: Artie Espinal MD Attending Provider at Discharge: Ricky Lantigua MD Primary Care Provider: Johnny Vargas MD Diagnoses at Discharge Discharge Diagnosis (1) Cerebrovascular accident: Status: Acute (2) Carotid stenosis: Status: Acute Qualifiers: Laterality: bilateral Qualified Code(s): I65.23 - Occlusion and stenosis of bilateral carotid arteries (3) NEDRA on CPAP: Status: Acute (4) Diabetes: Status: Acute Qualifiers: Diabetes mellitus type: type 2 Diabetes mellitus group home insulin use: without moth exterminator use Diabetes mellitus complication status: without complication Qualified Code(s): E11.9 - Type 2 diabetes mellitus without complications (5) HTN (hypertension): Status: Acute (6) Obesity: Status: Acute Qualifiers: Body mass index: BMI 34.0-34.9 Obesity classification: adult class 1 (BMI 30 - 34.9) Obesity type: due to excess calories Serious obesity comorbidity presence: with serious comorbidity Qualified Code(s): E66.09 - Other obesity due to excess calories; Z68.34 - Body mass index [BMI] 34.0-34.9, adult Reason for Visit Reason for Visit: R side numbness an hour ago Hospital Course Hospital Course This is a 64-year-old male who presents [facility] due to right sided weakness, right facial droop, slurring of his words, unsteady gait, right arm drift, right leg drift, moderate aphasia, mild dysarthria Patient was admitted to [facility] for Cerebrovascular accident: - Acute left MCA stroke -Presenting symptoms slurred speech, right-sided weakness -NIH stroke scale 6 -Last known well normal was 21:00 to 2130 01/15/2025 - TNKase 20:49 01/15/2025 -CT head CT/CT head thrombolytic [id number] IMPRESSION: 1. No acute intracranial abnormality identified. 2. If clinically indicated, consider further evaluation with MRI, which is more sensitive for detecting acute ischemic changes and other subtle pathology. -Head CT no acute findings - Recent history of CTA 11/28/2024 1. RIGHT ICA stenosis 63% 2. LEFT ICA stenosis 73% 3. Both vertebral arteries are patent. 4. No evidence of intracranial proximal flow-limiting stenosis. - Repeat head CT CT/CT head wo con* [id number] IMPRESSION: No evidence of acute intracranial hemorrhage. - Monitored as inpatient received PT OT, speech therapy eval - Overall clinically proved, ambulating on his own, very minimal right upper extremity weakness, no significant right lower extremity weakness - No significant word finding difficulty or receptive aphasia - He does have persistent right facial droop of upper and lower face, inability to completely close right eyelid -discharged with aspirin, statin, - Continue his home Plavix - Completed permissive hypertension, discussed graded blood pressure management - If any recurrent strokelike symptoms he may go to emergency room - He does have a history of carotid artery stenosis, he already has a referral to vascular surgery as outpatient and needs to continue to follow-up - Discharge dysphagia level 6 diet, mild thickener, follow-up with speech therapy as outpatient 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 Bennett on January 29, 2024 Physical Exam Const: COMMON NORMALS: no acute distress and patient oriented x3 Eye: COMMON NORMALS: Equal, round and reactive pupils present and EOMs intact bilaterally PUPIL: Yes Equal, round and reactive pupils present Resp: COMMON NORMALS: normal respiratory effort, No retractions, No use of accessory muscles and clear to auscultation bilaterally AUSCULTATION: clear to auscultation bilaterally Cardio: COMMON NORMALS: regular rate, regular rhythm, S1 normal heart sound present and S2 normal heart sound present RATE: regular rate RHYTHM: regular rhythm HEART SOUNDS: S1 normal heart sound present and S2 normal heart sound present GI: COMMON NORMALS: Normal to inspection, nondistended, normoactive bowel sounds present and non-tender Extremity: COMMON NORMALS: no pedal edema Neuro: COMMON NORMALS: patient oriented x3, CN's II-XII intact bilaterally and moves all extremities OTHER: Right upper extremity strength slightly diminished compared to left Right lower extremity strength equal compared to left Good coordination Right facial droop, inability to close right eyelid, and inability to raise right brow No paresthesias right face Psych: COMMON NORMALS: mental status grossly normal Discharge Data Studies Completed and Pending Completed Studies During Hospitalization Category Date Time Status CT head thrombolytic [id number] Stat Cat Scan 01/15/25 22:[address] head wo con* [id number] Routine Cat Scan 01/16/25 07:[address] head wo con* [id number] Routine Cat Scan 01/16/25 23:00 Completed CV. echo complete* [id number] Routine Ultrasound 01/16/25 02:11 Completed Radiology Impressions Head CT 01/16/25 23:00 IMPRESSION: No evidence of acute intracranial hemorrhage. Laboratory Results WBC 6.09 10^3/uL (3.29-11.43) 01/19/25 04:50 RBC 4.45 10^6/uL (3.85-5.65) 01/19/25 04:50 Hgb 12.20 g/dL (11.27-16.99) 01/19/25 04:50 Hct 37.9 % (37-53) 01/19/25 04:50 MCV 85.2 fl (82-101) 01/19/25 04:50 MCH 27.4 pg (27-33) 01/19/25 04:50 MCHC 32.2 g/dL (30-55) 01/19/25 04:50 RDW 12.4 % (12.1-15.1) 01/19/25 04:50 Plt Count 218 10^3/cmm (157-399) 01/19/25 04:50 MPV 10.1 fL (7.4-10.4) 01/19/25 04:50 Neut % (Auto) 81.7 % 01/19/25 04:50 Lymph % (Auto) 12.8 % 01/19/25 04:50 [place] % (Auto) 4.8 % 01/19/25 04:50 Eos % (Auto) 0.0 % 01/19/25 04:50 Baso % (Auto) 0.2 % 01/19/25 04:50 Neut # (Auto) 4.98 10^3/uL (1.8-7.7) 01/19/25 04:50 Lymph # (Auto) 0.8 10^3/uL (0.8-4.8) 01/19/25 04:50 [place] # (Auto) 0.3 10^3/uL (0.2-0.9) 01/19/25 04:50 Eos # (Auto) 0.0 10^3/uL (0.0-0.8) 01/19/25 04:50 Baso # (Auto) 0.0 10^3/uL (0.0-0.1) 01/19/25 04:50 Nucleated RBC % (auto) 0 % 01/19/25 04:50 Nucleated RBCs # 0.0 /100WBC 01/19/25 04:50 PT 12.80 SECONDS (12.1-14.9) 01/15/25 22:45 INR 0.90 (0.8-1.2) 01/15/25 22:45 APTT 27.4 SECONDS (23.9-36.7) 01/15/25 22:45 Sodium 135 mmol/L (136-145) L 01/19/25 04:50 Potassium 5.0 mmol/L (3.5-5.1) 01/19/25 04:50 Chloride 100 mmol/L (98-107) 01/19/25 04:50 Carbon Dioxide 26 mmol/L (22-29) 01/19/25 04:50 Anion Gap 14.0 (5-19) 01/19/25 04:50 BUN 23 mg/dL (8-23) 01/19/25 04:50 Creatinine 0.7 mg/dL (0.7-1.2) 01/19/25 04:50 GFR Calculation 112.8 mL/min (90-130) 01/19/25 04:50 Glucose 246 mg/dL (65-115) H 01/19/25 04:50 POC Glucose 238 mg/dL (70-110) H 01/19/25 11:06 Estimat Average Glucose 220 01/17/25 04:55 Hemoglobin A1c 9.3 % (4.0-6.0) H 01/17/25 04:55 Calculated Osmolality 292 mOsm/kg (285-295) 01/19/25 04:50 Calcium 8.6 mg/dL (8.5-10.5) 01/19/25 04:50 Total Bilirubin 0.4 mg/dL (0.15-1.2) 01/15/25 22:45 AST 12 U/L (0-40) 01/15/25 22:45 ALT 10 U/L (0-41) 01/15/25 22:45 Alkaline Phosphatase 65 U/L (40-130) 01/15/25 22:45 Total Protein 6.6 g/dL (6.6-8.7) 01/15/25 22:45 Albumin 4.0 g/dL (3.5-5.2) 01/15/25 22:45 Globulin 2.6 g/dL (1.3-4.6) 01/15/25 22:45 Triglycerides 181 mg/dL (0-150) H 01/17/25 04:55 Cholesterol 194 mg/dL (0-200) 01/17/25 04:55 LDL Cholesterol, Calc 111 mg/dL (50-129) 01/17/25 04:55 HDL Cholesterol 47 mg/dL (60-100) L 01/17/25 04:55 LDL/HDL Ratio 2.36 RATIO (0.00-3.22) 01/17/25 04:55 Cholesterol/HDL Ratio 4.13 mg/dL (1.0-5.00) 01/17/25 04:55 Urine Color Yellow (Yellow) 01/15/25 23:59 Urine Appearance Clear (CLEAR) 01/15/25 23:59 Urine pH 6.0 (5-7) 01/15/25 23:59 Ur Specific [place] 1.009 (1.005-1.030) 01/15/25 23:59 Urine Protein 1+ (Negative) A 01/15/25 23:59 Urine Glucose (UA) 2+ (Normal) H 01/15/25 23:59 Urine Ketones Negative (Negative) 01/15/25 23:59 Urine Blood Trace (Negative) A 01/15/25 23:59 Urine Nitrate Negative (Negative) 01/15/25 23:59 Urine Bilirubin Negative (Negative) 01/15/25 23:59 Urine Urobilinogen 0.2 mg/dL (Negative) 01/15/25 23:59 Ur Leukocyte Esterase Negative (Negative) 01/15/25 23:59 Urine RBC 0-2 /hpf (0-2) 01/15/25 23:59 Urine WBC 0-5 /hpf (0-5) 01/15/25 23:59 Ur Squamous Epith Cells 0-5 /hpf (0-5) 01/15/25 23:59 Amorphous Sediment Not Reportable 01/15/25 23:59 Urine Bacteria None seen /hpf (NONE) 01/15/25 23:59 Hyaline Casts 0-4 /lpf H 01/15/25 23:59 Urine Opiates Screen Positive ng/mL (Negative) H 01/15/25 23:59 Ur Barbiturates Screen Negative ng/mL (Negative) 01/15/25 23:59 Ur Phencyclidine Scrn Negative ng/mL (Negative) 01/15/25 23:59 Ur Amphetamines Screen Negative ng/mL (Negative) 01/15/25 23:59 U Benzodiazepines Scrn Negative ng/mL (Negative) 01/15/25 23:59 Urine Cocaine Screen Negative ng/mL (Negative) 01/15/25 23:59 U Marijuana (THC) Screen Negative ng/mL (Negative) 01/15/25 23:59 Vitals Last Vital Signs Temp 97.4 F L 01/19/25 12:00 Pulse 77 01/19/25 12:00 Resp 17 01/19/25 12:00 BP 152/72 01/19/25 12:00 Pulse Ox 94 01/19/25 12:00 O2 Del Method Room Air 01/19/25 12:00 Discharge Plan Discharge Patient Disposition: Home Condition: Stable Prescriptions: New acyclovir 400 mg Tablet 400 mg PO 5XD 8 Days Qty: 40 0RF Tears Lubricant Eye Drop 0.5 % Drops 1 drp ophthalmic (eye) Q4H 7 Days Qty: 15 0RF Rx Instructions: right eye aspirin 81 mg Tablet,Delayed Release (Dr/Ec) 81 mg PO DAILY 30 Days Qty: 30 0RF prednisone 20 mg Tablet 60 mg PO DAILY 4 Days Qty: 12 0RF rosuvastatin [Crestor] 20 mg tablet 20 mg PO DAILY 30 Days Qty: 30 0RF Thick and Easy Powder 1 ea PO TIDWM 30 Days Qty: 2724 0RF Continued Morphine pain pump See Rx Instructions .ROUTE .COMPLEX Rx Instructions: via continuous intrathecal infusion as directed galantamine 4 mg tablet 4 mg PO BID Qty: 180 3RF Rx Instructions: 340B (DME) Diabetic shoes with CUSTOM Accomodative Insert See Rx Instructions .Route .MEDSUPPLY Qty: 1 0RF Rx Instructions: As directed by HOME ferrous sulfate 325 mg (65 mg iron) tablet 325 mg PO DAILY Qty: 30 12RF (DME) FreeStyle Loyd 3 Plus Sensor Device See Rx Instructions .Route Qty: 6 1RF Rx Instructions: change sensors every 15 days lisinopril 10 mg tablet 10 mg PO BID Qty: 180 2RF furosemide 20 mg tablet 20 mg PO BID Qty: 180 3RF (DME) FreeStyle Loyd 3 [place] Misc See Rx Instructions .ROUTE .COMPLEX Qty: 1 0RF Dose Instruction: USE DIRECTED Rx Instructions: USE DIRECTED ProAir RespiClick 90 mcg/actuation aerosol powdr breath activated 1 - 2 inh inhalation Q4H PRN (Reason: Shortness Of Breath) multivitamin Tablet 1 tab PO DAILY hydroxyzine HCl 50 mg tablet 50 mg PO BID PRN (Reason: Anxiety) clopidogrel [Plavix] 75 mg tablet 75 mg PO BEDTIME insulin lispro [Humalog KwikPen Insulin] 100 unit/mL insulin pen See Rx Instructions .ROUTE .COMPLEX Rx Instructions: INJECT 20 UNITS 3 TIMES DAILY WITH MEALS PLUS LOW DOSE SLIDING SCALE MAX OF 87 UNITS PER DAY. Lantus Solostar U-100 Insulin 100 unit/mL (3 mL) insulin pen 57 unit SUBCUT BEDTIME Patient Comments: took 26units at 2000 Creon 36,000-114,000- 180,000 unit capsule,delayed release(DR/EC) 2 cap PO TID Qty: 90 3RF Rx Instructions: administer with meals. 1 cap if snacks pantoprazole 40 mg tablet,delayed release (DR/EC) 40 mg PO BID metformin 500 mg tablet extended release 24 hr 1,000 mg PO BID hydrocodone-acetaminophen 5-325 mg tablet 1 tab PO Q6H PRN (Reason: pain) Qty: 14 0RF Emgality Pen 120 mg/mL pen injector 120 mg SUBCUT .Q30D Rx Instructions: on the 12th brimonidine-timolol [Combigan] 0.2-0.5 % drops 1 drp ophthalmic (eye) BID docusate sodium [Colace] 100 mg capsule 100 mg PO BID PRN (Reason: Constipation) sertraline 100 mg tablet 100 mg PO DAILY cyanocobalamin (vitamin B-12) [Vitamin B-12] 500 mcg Tablet 500 mcg PO DAILY promethazine 25 mg suppository 25 mg NM Q6H PRN (Reason: nausea and vomiting) Qty: 12 0RF ondansetron 8 mg tablet,disintegrating 8 mg PO Q6H Qty: 14 0RF Rx Instructions: Take 1/2-1 tab every 6 hours as needed for nausea and vomiting glipizide 10 mg tablet 10 mg PO BID Changed clonidine HCl 0.2 mg tablet See Rx Instructions .ROUTE .COMPLEX PRN (Reason: high blood pressure) 30 Days Qty: 60 0RF Rx Instructions: TAKE 1 TABLET BY MOUTH EVERY 12 HOURS NEEDED FOR SYSTOLIC BLOOD PRESSURE OVER 180 OR DIASTOLIC BLOOD PRESSURE OVER 95. Held isosorbide mononitrate 60 mg tablet extended release 24 hr 60 mg PO DAILY Hold Instructions: Resume on 02/03/25. Discontinued rosuvastatin 5 mg tablet See Rx Instructions .ROUTE .COMPLEX Rx Instructions: TAKE ONE TABLET BY MOUTH EVERY OTHER DAY @ 5PM. Discharge Orders: Discharge Order (Routine); Ordered 01/19/25 Ordered By: Ricky Lantigua Other Ambulatory Orders: Speech Language Pathology Eval and Treat Outpatient (Order) Timeframe: 2 Days Facility: [facility] - Location: Speech Therapy [place] Ordered By: Ricky Lantigua Referrals: Leena Melvin MD [Physician, Neurology] - 2 weeks Referral Note: We have notified your physician's clinic of the need for a follow-up appointment to be scheduled. If you have not heard from them within the next 2 business days, please call them directly. Johnny Vargas MD [Primary Care Provider, Family Practice] - 7-10 days Referral Note: Please call your primary care provider tomorrow for a follow up appointment in 7-10 days. Discharge Diet: As Directed Discharge Activity: Resume usual activity Patient Instructions: Prednisone (By mouth), Acyclovir (By mouth), Aspirin (By mouth), Rosuvastatin (By mouth), Ischemic Stroke (DC), Level 1 National Dysphagia Diet (DC), Dysphagia (ED), Opioid Safety, Stroke Stoplight Activity Restrictions/Additional Instructions: - If you have any strokelike symptoms please go to emergency room - Monitor your blood sugars closely - If your systolic blood pressure below 180 or diastolic blood pressures greater than 95 please use clonidine as prescribed - Please hold Imdur for at least 2 weeks, resume based on blood pressure progress over the next few weeks and discussion with primary care - Follow-up with neurology - Continue dysphagia level 6 diet, soft and bite-size, aspiration precautions, continue to thicken all liquids -Please monitor your blood sugars closely -Monitor your blood sugars 3 times daily as after meals -Please record your blood sugars, and a blood sugar log -For your humalog -Please inject blood sugar after meals based on sliding scale provided -Do not inject insulin if you do not eat as hypoglycemia kills -This is a NovoLog sliding scale -If your blood sugar is greater than 500 go to the emergency room -If your blood sugar is less than 60 or at anytime you feel lightheaded or dizzy or diaphoretic or have chest palpitations check your blood sugar, and eat a hard candy or drink orange juice and go immediately to the emergency room -Remember hypoglycemia kills, so if his blood sugar is less than 60 we have to increase it by taking in a sugary meal such as a hard candy or orange juice and go to the emergency room -If you have any questions please call us where here to help - Keep your right eye covered, with eyedrops every 4 hours - Please follow-up with Dr. Bennett Discharge Attestations Time Spent in Discharge Care*: greater than 30 min Quality Metrics Clinical Quality Measures [ Cerebrovascular Accident { Contraindication to Antithrombotic: None; antithrombotic prescribed; Contraindication to Anticoagulation: Overlap treatment not indicated; Contraindication to Statin: None; Statin prescribed; Contraindication to tPA: None; TPA given;}. No reported AMI, CVA or VTE this stay] Coding Level of Care Code 91273 Total time (in minutes) for Discharge: 45 Diagnoses Cerebrovascular accident I63.9 Bilateral carotid artery stenosis I65.23 Laterality: bilateral NEDRA on CPAP G47.33 Type 2 diabetes mellitus without complication, without long-term current use of insulin E11.9 Diabetes mellitus type: type 2 Diabetes mellitus moth exterminator insulin use: without group home use Diabetes mellitus complication status: without complication HTN (hypertension) I10 Class 1 obesity due to excess calories with serious comorbidity and body mass index (BMI) of 34.0 to 34.9 in adult E66.09; Z68.34 Body mass index: BMI 34.0-34.9 Obesity classification: adult class 1 (BMI 30 - 34.9) Obesity type: due to excess calories Serious obesity comorbidity presence: with serious comorbidity
--- NOTE | 2025-01-19 15:21 | PC.NURSE ---
Discharge paperwork discussed with patient and mother. All questions were answered. IV line was removed. Patient taken to exit by son via wheelchair at 1405.
[2025-01-19 15:22] VITALS: BP 152/72; PULSE 77; RESP 17; TEMP 36.3; O2SAT 94
== END 2025-01-19 14:05 | disposition home or self-care (01) | DRG 62 ==
LOC: ER 23:38 → ICU 01-16 00:33 → MEDSURG 01-18 16:35
PROVIDERS: Admitting Provider Internal Medicine; Emergency Provider Emergency Medicine; PCP Family Medicine; Visit Provider Family Medicine
DX: I63.512 Cerebral infarction due to unspecified occlusion or stenosis of left middle cerebral artery (principal); G81.91 Hemiplegia, unspecified affecting right dominant side; I63.9 Cerebral infarction, unspecified; R29.810 Facial weakness; R47.81 Slurred speech; R29.706 NIHSS score 6; I65.23 Occlusion and stenosis of bilateral carotid arteries; G47.33 Obstructive sleep apnea (adult) (pediatric); E11.9 Type 2 diabetes mellitus without complications; I10 Essential (primary) hypertension; E66.9 Obesity, unspecified; Z68.33 Body mass index [BMI] 33.0-33.9, adult; G51.0 Bell's palsy; E78.5 Hyperlipidemia, unspecified; I25.10 Atherosclerotic heart disease of native coronary artery without angina pectoris; K21.9 Gastro-esophageal reflux disease without esophagitis; G43.711 Chronic migraine without aura, intractable, with status migrainosus; Z79.02 Long term (current) use of antithrombotics/antiplatelets; Z79.4 Long term (current) use of insulin; Z79.84 Long term (current) use of oral hypoglycemic drugs
CPT/HCPCS: 36415; 36416; 70450; 80048; 80053; 80061; 80306; 81001; 82962; 83036; 85025; 85610; 85730; 92507; 92523; 92526; 92610; 93005; 93306; 96372; 96374; 96375; 97110; 97116; 97162; 97167; 97530; 97535; 99285; J0131; J1171; J1650; J1815; J2060; J3101; J3490; J7512; J8499; J9999; Q0162

== ENCOUNTER 2025-01-22 03:43 | Emergency (ER) | payer MEDICARE, SELFPAY ==
[2025-01-22] VITALS (7 sets, daily range): BP systolic 104–137; BP diastolic 52–91; PULSE 59–75; RESP 16–18; TEMP 36.9; O2SAT 91–95; BMI 33.7
--- NOTE | 2025-01-22 03:45 | CTR_ITS ---
PROCEDURE INFORMATION: Exam: CT Head Without Contrast Exam date and time: 01/22/2025 4:08 AM Age: 64 years old Clinical indication: Pain; Headache not specified TECHNIQUE: Imaging protocol: Computed tomography of the head without contrast. Radiation optimization: All CT scans at this facility use at least one of these dose optimization techniques: automated exposure control; mA and/or kV adjustment per patient size (includes targeted exams where dose is matched to clinical indication); or iterative reconstruction. COMPARISON: CT head wo con* [id number] 01/16/2025 11:02 PM RADIATION DOSE METRICS: Total DLP (mGy-cm): 1161.83 FINDINGS: Brain: There is stable diffuse cortical atrophy somewhat prominent for patient's stated age. No acute process, mass, or bleed. Cerebral ventricles: No ventriculomegaly. Paranasal sinuses: Visualized sinuses are unremarkable. No fluid levels. Mastoid air cells: Visualized mastoid air cells are well aerated. Bones: Unremarkable. No acute fracture. Soft tissues: Unremarkable. CT/CT head wo con* [id number] IMPRESSION: No acute process, mass, or bleed.
--- NOTE | 2025-01-22 04:01 | ECG_ITS ---
[facility] Test Date: 2025-01-22 Pat Name: Guanakito Longo Department: Room: Gender: Male Reserve Officer: : 1960 Requested By: Guillermo Brown Order Number: [id number] Vladimir MD: SERA DURAND Measurements Intervals [place] Rate: 71 P: 3 WV: 147 QRS: 26 QRSD: 109 T: 32 QT: 373 QTc: 407 Interpretive Statements SINUS RHYTHM INCOMPLETE RIGHT BUNDLE BRANCH BLOCK [90+ ms QRS DURATION, TERMINAL R IN V1/V2, 40+ ms S IN I/aVL/V4/V5/V6] Compared to ECG 01/15/2025 22:36:02 Incomplete right bundle-branch block now present Sinus tachycardia no longer present Myocardial infarct finding no longer present Electronically Signed On 01-22-2025 22:51:08 CDT by SERA DURAND [email or web address]
[2025-01-22 04:02] LABS: Basophils # 0.1 10^3/uL (0.0-0.1); Basophils % 1.4 %; Eosinophils # 0.2 10^3/uL (0.0-0.8); Eosinophils % 3.1 %; Hematocrit 40.4 % (37-53); Lymphocytes % 40.4 %; Mean Corpuscular HGB Conc 33.2 g/dL (30-55); Mean Corpuscular Hemoglobin 27.2 pg (27-33); Mean Corpuscular Volume 81.9 fl (82-101); Mean Platelet Volume 9.8 fL (7.4-10.4); Monocytes # 0.6 10^3/uL (0.2-0.9); Monocytes % 8.7 %; Neutrophils # 3.38 10^3/uL (1.8-7.7); Nucleated Red Blood Cells % 0 %; Platelet Count 314 10^3/cmm (157-399); Red Blood Count 4.93 10^6/uL (3.85-5.65); Red Cell Distribution Width 12.5 % (12.1-15.1); White Blood Count 7.35 10^3/uL (3.29-11.43)
[2025-01-22 04:15] LABS: Partial Thromboplastin Time 29.3 SECONDS (23.9-36.7)
[2025-01-22] MEDS: morphine 4 mg/mL SDV 1 mL IVP (04:15)
[2025-01-22 04:33] LABS: Alanine Aminotransferase 17 U/L (0-41); Albumin Level 4.1 g/dL (3.5-5.2); Alkaline Phosphatase 71 U/L (40-130); Anion Gap 17.5 (5-19); Aspartate Amino Transferase 14 U/L (0-40); Blood Urea Nitrogen 15 mg/dL (8-23); Calcium 9.4 mg/dL (8.5-10.5); Carbon Dioxide 29 mmol/L (22-29); Chloride 95 mmol/L (98-107); Creatinine Clr Calc Pharmacy 114.4528; Globulin 3.2 g/dL (1.3-4.6); Glomerular Filtration Rate 112.8 mL/min (90-130); Glucose 161 mg/dL (65-115); Osmolality Calculated 288 mOsm/kg (285-295); Potassium 4.5 mmol/L (3.5-5.1); Sodium 137 mmol/L (136-145); Total Bilirubin 0.5 mg/dL (0.15-1.2); Total Protein 7.3 g/dL (6.6-8.7)
[2025-01-22] MEDS: diphenhydrAMINE 50 mg/mL SDV 1mL 25 MG IVP (04:44)
[2025-01-22] MEDS: prochlorperazine 10 mg/2 mL Inj 5 MG IVP (04:46)
[2025-01-22] MEDS: sodium chloride 0.9% 250 ML IV (04:47)
--- NOTE | 2025-01-22 05:39 | PC.NURSE ---
Pt was placed on 2L NC due to O2 sat dropping to 87-89 while sleeping, pt reports he wears cpap machine at night
--- NOTE | 2025-01-22 06:42 | W.ED.HA ---
HPI - Headache General: Chief Complaint: Headache Stated Complaint: headache, n/v, high bp Time Seen by Provider: 01/22/25 03:45 History of Present Illness: Patient with prior ischemic stroke treated with TnKase presents with headache and dizziness. Headache is described as different from previous migraines, more diffuse, and currently rated 5/10 in severity. Patient denies vomiting but reports associated nausea. No new weakness or paresthesias. Patient also reports feeling a little confused. No history of similar headache in the past. He states he thinks he might have a cold. Related Data Home Medications ?Medication ?Instructions ?Recorded ?Confirmed albuterol sulfate 90 mcg/actuation 1 - 2 inh inhalation Q4H PRN 10/30/19 01/16/25 breath activated powder inhaler Shortness Of Breath (ProAir RespiClick) clopidogrel 75 mg tablet (Plavix) 75 mg PO BEDTIME 03/03/21 01/16/25 hydroxyzine HCl 50 mg tablet 50 mg PO BID PRN Anxiety 03/03/21 01/16/25 insulin lispro 100 unit/mL See Rx Instructions .Route .COMPLEX 03/03/21 01/16/25 subcutaneous pen (Humalog KwikPen (U-100) Insulin) multivitamin 1 tab PO DAILY 03/03/21 01/16/25 Morphine pain pump See Rx Instructions .Route .COMPLEX 06/09/21 01/16/25 insulin glargine 100 unit/mL (3 57 unit SUBCUT BEDTIME 08/25/21 01/16/25 mL) subcutaneous pen (Lantus Solostar U-100 Insulin) metformin 500 mg tablet,extended 1,000 mg PO BID 08/02/22 01/16/25 release 24 hr pantoprazole 40 mg tablet,delayed 40 mg PO BID 08/02/22 01/16/25 release brimonidine 0.2 %-timolol 0.5 % 1 drp ophthalmic (eye) BID 08/28/24 01/16/25 eye drops (Combigan) galcanezumab-gnlm 120 mg/mL 120 mg SUBCUT .Q30D 08/28/24 01/16/25 subcutaneous pen injector (Emgality Pen) isosorbide mononitrate 60 mg 60 mg PO DAILY 08/28/24 01/16/25 tablet,extended release 24 hr Held on 01/19/25. Instructions: Resume on 02/03/25. cyanocobalamin (vitamin B-12) 500 500 mcg PO DAILY 10/28/24 01/16/25 mcg tablet (Vitamin B-12) docusate sodium 100 mg capsule 100 mg PO BID PRN Constipation 10/28/24 01/16/25 (Colace) sertraline 100 mg tablet 100 mg PO DAILY 10/28/24 01/16/25 glipizide 10 mg tablet 10 mg PO BID 01/16/25 01/16/25 Previous Rx's ?Medication ?Instructions ?Recorded yqzjho-tuzxbxvb-rnnsvzu 2 cap PO TID #90 caps 03/13/21 36,000-114,000-180,000 unit capsule,delay rel (Creon) lisinopril 10 mg tablet 10 mg PO BID #180 tabs 12/06/21 ferrous sulfate 325 mg (65 mg 325 mg PO DAILY #30 tabs 09/25/23 iron) tablet Diabetic shoes with CUSTOM #1 ea 04/10/24 Accomodative Insert galantamine 4 mg tablet 4 mg PO BID #180 tabs 05/13/24 hydrocodone 5 mg-acetaminophen 325 1 tab PO Q6H PRN pain #14 tabs 07/12/24 mg tablet furosemide 20 mg tablet 20 mg PO BID Edema #180 tabs 07/15/24 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 sensor (FreeStyle #6 ea 08/28/24 Loyd 3 Plus Sensor device) ondansetron 8 mg disintegrating 8 mg PO Q6H #14 tabs 11/17/24 tablet promethazine 25 mg rectal 25 mg HI Q6H PRN nausea and 11/17/24 suppository vomiting #12 ea 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,business systems manager,cont #1 ea 11/28/24 (FreeStyle Loyd 3 [place]) acyclovir 400 mg tablet 400 mg PO 5XD 8 days #40 tabs 01/19/25 artificial tears(hypromellose) 0.5 1 drp ophthalmic (eye) Q4H 7 days 01/19/25 % eye drops (Tears Lubricant) #15 mL aspirin 81 mg tablet,delayed 81 mg PO DAILY 30 days #30 tabs 01/19/25 release clonidine HCl 0.2 mg tablet See Rx Instructions .Route 01/19/25 .COMPLEX PRN high blood pressure 30 days #60 tabs prednisone 20 mg tablet 60 mg (3 x 20 mg) PO DAILY 4 days 01/19/25 #12 tabs rosuvastatin 20 mg tablet (Crestor) 20 mg PO DAILY 30 days #30 tabs 01/19/25 starch (thickening) (Thick and 1 ea PO TIDWM 30 days #2,724 grams 01/19/25 Easy oral powder) Allergies Allergy/AdvReac Type Severity Reaction Status Date / Time Iodinated Contrast Media Allergy Unknown ALGY-Hives Verified 12/24/24 14:45 adhesive tape Allergy ALGY-Rash Verified 12/24/24 14:45 aspirin Allergy ALGY-Rash Verified 12/24/24 14:45 fentanyl Allergy ALGY-Rash, Verified 12/24/24 14:45 vomit Penicillins Allergy ALGY-Rash, Verified 12/24/24 14:45 breathing difficulty alprazolam (From Xanax) AdvReac ADR-Anxiety Verified 12/24/24 14:45 zolpidem (From Ambien) AdvReac ADR-Anxiety Verified 12/24/24 14:45 PFSH ED PFSH: Medical History Chronic venous insufficiency Diabetes History of colon polyps NEDRA (obstructive sleep apnea) Coronary artery disease HTN (hypertension) Diabetes Peripheral neuropathy Asthma GERD (gastroesophageal reflux disease) Mart's palsy Surgical History History of incisional hernia repair (11/01/21) open with mesh History of esophagogastroduodenoscopy History of incisional hernia repair (05/06/21) With excision of abdominal wall mass Status post right inguinal hernia repair History of right hemicolectomy H/O colonoscopy (10/27/20) 5 years Family History Other CAD (coronary artery disease) Cancer Hypertension Denies family history of Anesthesia complication Bleeding disorder Social History (Updated 01/16/25 @ 01:58 by Artie Espinal MD) Smoking and tobacco/nicotine status: never used tobacco/nicotine Alcohol intake: never Substance/Drug Use: never Additional social history: He wants full code as discussed with him and his mother Bianca on 01/16/2025 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 Household members: family 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 Physical Exam Const: COMMON NORMALS: no acute distress and alert HENMT: COMMON NORMALS: normocephalic and atraumatic HEAD & SCALP: normocephalic and atraumatic Eye: COMMON NORMALS: Equal, round and reactive pupils present, EOMs intact bilaterally and no scleral icterus PUPIL: Yes Equal, round and reactive pupils present Resp: COMMON NORMALS: normal respiratory effort and No retractions Cardio: COMMON NORMALS: regular rate, regular rhythm and No murmurs present (Cardio) RATE: regular rate RHYTHM: regular rhythm GI: COMMON NORMALS: Normal to inspection, nondistended, normoactive bowel sounds present, Soft to palpation and non-tender PALPATION: Yes Soft to palpation Neuro: SENSORIUM/ORIENTATION: Yes alert OTHER: Stable right-sided deficits from prior stroke. No new deficits of strength or sensation. Clear speech. Skin: COMMON NORMALS: no rashes or lesions noted GENERAL SKIN EXAM: no rashes or lesions noted Course Vital Signs: Vital signs: Vital Signs Temperature 98.4 F 01/22/25 03:49 Pulse Rate 59 L 01/22/25 06:34 Respiratory Rate 16 01/22/25 06:34 Blood Pressure 137/91 01/22/25 06:34 Pulse Oximetry 95 01/22/25 06:34 MDM - Headache Medical Decision Making In summary, patient is a 64-year-old male seen for headache, dizziness, and mild confusion as well as mild nausea. He recently had an ischemic stroke for which she was given TNKase. Fortunately, CT brain today shows nothing acute. Event of workup is largely noncontributory. Headache and dizziness and nausea are all better with IV fluids, Benadryl, Compazine. I do not suspect new stroke or any other emergency requiring further workup. He will be discharged home in stable and improved condition Lab Data 01/22/25 03:35 01/22/25 03:[address] 01/22/25 03:45 IMPRESSION: No acute process, mass, or bleed. Laboratory Results WBC 7.35 10^3/uL (3.29-11.43) 01/22/25 03:35 RBC 4.93 10^6/uL (3.85-5.65) 01/22/25 03:35 Hgb 13.40 g/dL (11.27-16.99) 01/22/25 03:35 Hct 40.4 % (37-53) 01/22/25 03:35 MCV 81.9 fl (82-101) L 01/22/25 03:35 MCH 27.2 pg (27-33) 01/22/25 03:35 MCHC 33.2 g/dL (30-55) 01/22/25 03:35 RDW 12.5 % (12.1-15.1) 01/22/25 03:35 Plt Count 314 10^3/cmm (157-399) 01/22/25 03:35 MPV 9.8 fL (7.4-10.4) 01/22/25 03:35 Neut % (Auto) 46.0 % 01/22/25 03:35 Lymph % (Auto) 40.4 % 01/22/25 03:35 [place] % (Auto) 8.7 % 01/22/25 03:35 Eos % (Auto) 3.1 % 01/22/25 03:35 Baso % (Auto) 1.4 % 01/22/25 03:35 Neut # (Auto) 3.38 10^3/uL (1.8-7.7) 01/22/25 03:35 Lymph # (Auto) 3.0 10^3/uL (0.8-4.8) 01/22/25 03:35 [place] # (Auto) 0.6 10^3/uL (0.2-0.9) 01/22/25 03:35 Eos # (Auto) 0.2 10^3/uL (0.0-0.8) 01/22/25 03:35 Baso # (Auto) 0.1 10^3/uL (0.0-0.1) 01/22/25 03:35 Nucleated RBC % (auto) 0 % 01/22/25 03:35 Nucleated RBCs # 0.0 /100WBC 01/22/25 03:35 PT 12.80 SECONDS (12.1-14.9) 01/22/25 03:35 INR 0.90 (0.8-1.2) 01/22/25 03:35 APTT 29.3 SECONDS (23.9-36.7) 01/22/25 03:35 Sodium 137 mmol/L (136-145) 01/22/25 03:35 Potassium 4.5 mmol/L (3.5-5.1) 01/22/25 03:35 Chloride 95 mmol/L (98-107) L 01/22/25 03:35 Carbon Dioxide 29 mmol/L (22-29) 01/22/25 03:35 Anion Gap 17.5 (5-19) 01/22/25 03:35 BUN 15 mg/dL (8-23) 01/22/25 03:35 Creatinine 0.7 mg/dL (0.7-1.2) 01/22/25 03:35 GFR Calculation 112.8 mL/min (90-130) 01/22/25 03:35 Glucose 161 mg/dL (65-115) H 01/22/25 03:35 Calculated Osmolality 288 mOsm/kg (285-295) 01/22/25 03:35 Calcium 9.4 mg/dL (8.5-10.5) 01/22/25 03:35 Total Bilirubin 0.5 mg/dL (0.15-1.2) 01/22/25 03:35 AST 14 U/L (0-40) 01/22/25 03:35 ALT 17 U/L (0-41) 01/22/25 03:35 Alkaline Phosphatase 71 U/L (40-130) 01/22/25 03:35 Total Protein 7.3 g/dL (6.6-8.7) 01/22/25 03:35 Albumin 4.1 g/dL (3.5-5.2) 01/22/25 03:35 Globulin 3.2 g/dL (1.3-4.6) 01/22/25 03:35 All radiology interpretation(s) finalized by discharge EKG Data EKG 1: Interpretation: Time?400?sinus rhythm, rate of 71, no ST segment elevation or depression, no T wave inversions, intervals within normal limits. QTc = 396. Discharge Plan Discharge Patient Disposition: Home Clinical Impression: Headache, Dizziness Condition: Stable Prescriptions: No Action Morphine pain pump See Rx Instructions .ROUTE .COMPLEX Rx Instructions: via continuous intrathecal infusion as directed galantamine 4 mg tablet 4 mg PO BID Qty: 180 3RF Rx Instructions: 340B (DME) Diabetic shoes with CUSTOM Accomodative Insert See Rx Instructions .Route .MEDSUPPLY Qty: 1 0RF Rx Instructions: As directed by HOME ferrous sulfate 325 mg (65 mg iron) tablet 325 mg PO DAILY Qty: 30 12RF (DME) FreeStyle Loyd 3 Plus Sensor Device See Rx Instructions .Route Qty: 6 1RF Rx Instructions: change sensors every 15 days lisinopril 10 mg tablet 10 mg PO BID Qty: 180 2RF furosemide 20 mg tablet 20 mg PO BID Qty: 180 3RF (DME) FreeStyle Loyd 3 [place] Misc See Rx Instructions .ROUTE .COMPLEX Qty: 1 0RF Dose Instruction: USE DIRECTED Rx Instructions: USE DIRECTED ProAir RespiClick 90 mcg/actuation aerosol powdr breath activated 1 - 2 inh inhalation Q4H PRN (Reason: Shortness Of Breath) multivitamin Tablet 1 tab PO DAILY hydroxyzine HCl 50 mg tablet 50 mg PO BID PRN (Reason: Anxiety) clopidogrel [Plavix] 75 mg tablet 75 mg PO BEDTIME insulin lispro [Humalog KwikPen Insulin] 100 unit/mL insulin pen See Rx Instructions .ROUTE .COMPLEX Rx Instructions: INJECT 20 UNITS 3 TIMES DAILY WITH MEALS PLUS LOW DOSE SLIDING SCALE MAX OF 87 UNITS PER DAY. Lantus Solostar U-100 Insulin 100 unit/mL (3 mL) insulin pen 57 unit SUBCUT BEDTIME Patient Comments: took 26units at 2000 Creon 36,000-114,000- 180,000 unit capsule,delayed release(DR/EC) 2 cap PO TID Qty: 90 3RF Rx Instructions: administer with meals. 1 cap if snacks pantoprazole 40 mg tablet,delayed release (DR/EC) 40 mg PO BID metformin 500 mg tablet extended release 24 hr 1,000 mg PO BID hydrocodone-acetaminophen 5-325 mg tablet 1 tab PO Q6H PRN (Reason: pain) Qty: 14 0RF isosorbide mononitrate 60 mg tablet extended release 24 hr 60 mg PO DAILY Emgality Pen 120 mg/mL pen injector 120 mg SUBCUT .Q30D Rx Instructions: on the 12th brimonidine-timolol [Combigan] 0.2-0.5 % drops 1 drp ophthalmic (eye) BID docusate sodium [Colace] 100 mg capsule 100 mg PO BID PRN (Reason: Constipation) sertraline 100 mg tablet 100 mg PO DAILY cyanocobalamin (vitamin B-12) [Vitamin B-12] 500 mcg Tablet 500 mcg PO DAILY promethazine 25 mg suppository 25 mg HI Q6H PRN (Reason: nausea and vomiting) Qty: 12 0RF ondansetron 8 mg tablet,disintegrating 8 mg PO Q6H Qty: 14 0RF Rx Instructions: Take 1/2-1 tab every 6 hours as needed for nausea and vomiting glipizide 10 mg tablet 10 mg PO BID acyclovir 400 mg Tablet 400 mg PO 5XD 8 Days Qty: 40 0RF Tears Lubricant Eye Drop 0.5 % Drops 1 drp ophthalmic (eye) Q4H 7 Days Qty: 15 0RF Rx Instructions: right eye aspirin 81 mg Tablet,Delayed Release (Dr/Ec) 81 mg PO DAILY 30 Days Qty: 30 0RF prednisone 20 mg Tablet 60 mg PO DAILY 4 Days Qty: 12 0RF clonidine HCl 0.2 mg tablet See Rx Instructions .ROUTE .COMPLEX PRN (Reason: high blood pressure) 30 Days Qty: 60 0RF Rx Instructions: TAKE 1 TABLET BY MOUTH EVERY 12 HOURS NEEDED FOR SYSTOLIC BLOOD PRESSURE OVER 180 OR DIASTOLIC BLOOD PRESSURE OVER 95. rosuvastatin [Crestor] 20 mg tablet 20 mg PO DAILY 30 Days Qty: 30 0RF Thick and Easy Powder 1 ea PO TIDWM 30 Days Qty: 2724 0RF Discharge Orders: Discharge ED (Routine); Ordered 01/22/25 Ordered By: Guillermo Bennett Referrals: Johnny Vargas MD [Primary Care Provider, Family Practice] Discharge Diet: Advance as tolerated Discharge Activity: Increase activity as tolerated Patient Instructions: Acute Headache (ED) Activity Restrictions/Additional Instructions: Fortunately, CT of the brain and laboratory workup and EKG are all reassuring with no evidence of new stroke, brain bleed, or other emergencies requiring hospitalization. Headache and dizziness appear to have resolved with Benadryl and Compazine. There is no evidence of infection. Please resume your normal medications. Print Language: Yemeni Coding Level of Care Code ED Computer Systems Manager for Devonte Hamm
== END 2025-01-22 06:47 | disposition home or self-care (01) ==
PROVIDERS: Emergency Provider Student in an Organized Health Care Education/Training Program; PCP Family Medicine
DX: R51.9 Headache, unspecified (principal); R42 Dizziness and giddiness; Z79.4 Long term (current) use of insulin; Z79.84 Long term (current) use of oral hypoglycemic drugs; Z79.82 Long term (current) use of aspirin; Z79.02 Long term (current) use of antithrombotics/antiplatelets; I10 Essential (primary) hypertension; E11.42 Type 2 diabetes mellitus with diabetic polyneuropathy
CPT/HCPCS: 70450; 80053; 85025; 85610; 85730; 93005; 96361; 96374; 96375; 99285; J0780; J1200; J2270; J7050

== ENCOUNTER 2025-01-28 14:52 | Outpatient (RCR) | payer MEDICARE, SELFPAY | END 2025-02-17 23:59 | disposition home or self-care (01) | LOC: SST 14:52 | PROVIDERS: Visit Provider Family Medicine | DX: I63.512 Cerebral infarction due to unspecified occlusion or stenosis of left middle cerebral artery (principal) | CPT/HCPCS: 92507; 92523; 92610 ==

== ENCOUNTER → 2025-02-11 10:53 | Outpatient (BNVA) | payer MEDICARE, SELFPAY | PROVIDERS: PCP Family Medicine; Visit Provider Podiatrist Foot & Ankle Surgery | DX: E11.42 Type 2 diabetes mellitus with diabetic polyneuropathy (principal); L60.3 Nail dystrophy; L84 Corns and callosities; E11.8 Type 2 diabetes mellitus with unspecified complications; Z79.4 Long term (current) use of insulin; Z79.84 Long term (current) use of oral hypoglycemic drugs | CPT/HCPCS: 11055; 11721 ==

== ENCOUNTER 2025-02-18 05:00 | Outpatient (RCR) | payer MEDICARE, SELFPAY | END 2025-03-20 23:59 | disposition home or self-care (01) | LOC: SST 05:00 | PROVIDERS: PCP Family Medicine; Visit Provider Family Medicine | DX: I63.9 Cerebral infarction, unspecified (principal) | CPT/HCPCS: 92507; 92526 ==

== ENCOUNTER → 2025-02-26 14:38 | Outpatient (BNVA) | payer MEDICARE, SELFPAY | PROVIDERS: Referring Provider Family Medicine; Visit Provider Specialist | DX: G31.84 Mild cognitive impairment of uncertain or unknown etiology (principal); I10 Essential (primary) hypertension; G43.711 Chronic migraine without aura, intractable, with status migrainosus; G45.9 Transient cerebral ischemic attack, unspecified | CPT/HCPCS: 36415; 85651; 86140; 99215 ==

== ENCOUNTER 2025-03-07 03:43 | Emergency (ER) | payer MEDICARE, SELFPAY ==
--- OUTSIDE RECORDS SUMMARY | 2025-03-03 10:35 | XMS_ITS | Encounter Summary ---
Author Organization [facility] Address [address] [place] [address] Care Team Providers Care Supervisor Alteration Workroom Name Role Phone Johnny Vargas MD Primary Care Provider [phone] Reason for Referral * CT Scan (Urgent) - Closed Specialty Diagnoses / Procedures Referred By Contac t Referred To Contact Radiology Diagnoses Superior mesenteric artery stenosis Procedures CTA ABD PELVIS W AND/OR WO CONTRAST Reagan Fuentes NP [address] [place] [address] Phone: tel: [facility] [place] [address] [place] [address] Phone: tel: fax: Referral ID Status Reason Start Date Expiration Date V isits Requested Visits Authorized [id number] Closed MTN View CTS to Schedule 03/03/2025 04/02/2025 1 1 Reason for Visit * CT Scan (Urgent) - Closed Specialty Diagnoses / Procedures Referred By Contac t Referred To Contact Radiology Diagnoses Superior mesenteric artery stenosis Procedures CTA ABD PELVIS W AND/OR WO CONTRAST Reagan Fuentes NP [address] [place] [address] Phone: tel: fax: [facility] [place] [address] [place] [address] Phone: tel: fax: Referral ID Status Reason Start Date Expiration Date V isits Requested Visits Authorized [id number] Closed MTN View CTS to Schedule 03/03/2025 04/02/2025 1 1 Encounter Details Date Type Department Care Team (Latest Contact Info) Description 03/03/2025 10:35 AM CDT - 03/03/2025 11:59 PM CDT Hospital En[facility] [place] [address] [place] [address] Reagan Fuentes NP [address] [place] [address] Arrived Discharge Disposition: Home or Self Care Social History Tobacco Use Types Packs/Day Years Used Date Smoking Tobacco: Never Smokeless Tobacco: Never Alcohol Use Standard Drinks/Week Comments Not Currently 0 (1 standard drink = 0.6 oz pur e alcohol) Sex and Gender Information Value Date Recorded Sex Assigned at Not on file 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 1 Capsule 02/24/2025 predniSONE (DELTASONE) 50 mg tablet Take 1 Tablet (50 mg) by mouth one time as needed for Other (See Comment) (allergies). 3 Tablet 02/24/2025 galantamine (RAZADYNE) 4 mg tablet TAKE ONE TABLET BY MOUTH TWICE DAILY administer with morning AND evening meals loperamide (IMODIUM) 2 mg capsule as needed for DIARRHEA ondansetron (ZOFRAN) 4 mg Tablet TAKE 1 TABLET BY MOUTH EVERY 6 HOURS NEEDED FOR NAUSEA simethicone 80 mg Tablet, Chewable Daily as needed for GAS rosuvastatin (CRESTOR) 5 mg tablet TAKE ONE TABLET BY MOUTH EVERY OTHER DAY (VIAL) promethazine (PHENERGAN) 25 mg tablet TAKE 1 TABLET BY MOUTH EVERY 4 TO 6 HOURS NEEDED FOR NAUSEA FOR 7 DAYS 11/06/2023 predniSONE (DELTASONE) 50 mg tablet TAKE BY MOUTH 1 TABLET [address], AND THEN 7 HOURS PRIOR, AND 1 HOUR PRIOR 11/24/2023 polyethylene glycol (MIRALAX) 17 gram Powder in Packet 1 (one) time each day if needed. HYDROcodone-aceta minophen (NORCO) 5-325 mg tablet TAKE 1 TABLET BY MOUTH EVERY 6 HOURS NEEDED FOR SEVERE PAIN (7-10) FOR 7 DAYS 11/16/2023 furosemide (LASIX) 20 mg tablet TAKE ONE TABLET BY MOUTH TWICE DAILY @6AM & 2PM FOR EDEMA FeroSuL 325 mg (65 mg iron) tablet Take 1 Tablet by mouth daily. 11/30/2023 cloNIDine HCL (CATAPRES) 0.1 mg tablet every 8 hours as needed see note 03/18/2022 ProAir RespiClick 90 mcg/actuation metered powder inhaler inhale 1 to 2 puffs by mouth every 4 hours as needed lisinopriL (PRINIVIL) 10 mg tablet Take 10 mg by mouth 2 times daily. insulin glargine (Lantus Solostar U-100 Insulin) 100 unit/mL pen syringe Inject 57 Units by subcutaneous injection daily at bedtime. HumaLOG KwikPen Insulin 100 unit/mL pen syringe INJECT 20 UNITS SUB-Q WITH MEALS PLUS LOW DOSE SLIDING SCALE (USE 3 UNITS FOR 201-250, USE 4 UNITS FOR 251-300, USE 6 UNITS FOR 301-350, USE 9 UNITS FOR 351 TO GRATER THAN 400) 03/16/2023 gabapentin (NEURONTIN) 100 mg capsule Take 100 mg by mouth 3 times daily. 05/02/2022 metFORMIN (GLUCOPHAGE XR) 500 mg Extended Release 24 hour tablet TAKE TWO TABLETS BY MOUTH TWICE DAILY @ 9AM & 5PM 08/16/2023 glipiZIDE (GLUCOTROL) 10 mg tablet Take 10 mg by mouth 2 times daily with meals. clopidogrel bisulfate (PLAVIX ORAL) daily. 05/30/2022 pantoprazole (PROTONIX) 40 mg Tablet, Delayed Release (E.C.) Take 40 mg by mouth daily. snafer-fljjbvah-c mathew [place]) 36,000-114,000-18 0,000 unit capsule TAKE TWO CAPSULES BY MOUTH THREE TIMES DAILY @9am-1pm-5pm 03/13/2021 isosorbide mononitrate (IMDUR) 30 mg Extended Release 24 hour tablet TAKE ONE TABLET BY MOUTH DAILY AT 9AM fluticasone propionate (FLONASE) 50 mcg/spray [place], Suspension nasal inhaler Administer 2 Sprays in each nostril daily. hydrOXYzine HCL (ATARAX) 50 mg tablet Take 50 mg by mouth 2 times daily. 07/25/2023 metoprolol tartrate (LOPRESSOR) 25 mg tablet Take 12.5 mg by mouth 2 times daily. 06/25/2023 Emgality Pen 120 mg/mL Pen Injector by abdominal subcutaneous route every 30 days. documented as of this encounter Plan of Treatment Upcoming Encounters Date Type Department Care Team (Late st Contact Info) Description 03/07/2025 3:00 PM CDT Telephone Check Up [facility] Vascular Surgery [place] [address] [place] [address] Reagan Fuentes NP [address] [facility] [address] [place] [address] 05/05/2025 1:00 PM CDT Office Visit [facility] Gastroenterology- [place] [address] [facility] [address] [place] [address] Tyson Gr MD [address] [facility] [address] [place] [address] documented as of this encounter Procedures Procedure Name Priority Date/Time Associated Diagnosis Comments CTA ABD PELVIS W AND/OR WO CONTRAST Stat 03/03/2025 12:40 PM CDT Superior mesenteric artery stenosis CREATININE Stat 03/03/2025 11:11 AM CDT documented in this encounter Results * CTA ABD PELVIS W AND/OR WO CONTRAST (03/03/2025 12:40 PM CDT) Anatomical Region Laterality Modality Abdomen Computed Tomogra phy 03/03/2025 12:2 3 PM CDT Impressions 03/03/2025 1:19 PM CDT IMPRESSION: Please see below. Exam: CTA ABD PELVIS W AND/OR WO CONTRAST Date/Time of Exam: 03/03/2025 12:40 PM Reason For Exam: See diagnosis. Diagnosis: Superior mesenteric artery stenosis. Technique: CTA of the abdomen and pelvis was performed prior to and following the administration of intravenous contrast. Post-processing was performed, including sagittal and coronal reformations and 3-D reconstruction. Contrast: IOPAMIDOL 61 % INTRAVENOUS SOLUTION (SINGLE USE VIAL) Given:100 mL. Comparison: None. FINDINGS: Lower Chest: There is no significant basilar pulmonary pathology. Aorta/Vasculature: The aorta is nonaneurysmal. There is no evidence of acute aortic pathology. There is a moderate to large degree of calcific atherosclerotic change. There is high-grade near occlusive luminal stenosis involving the proximal aspect of the superior mesenteric artery which remains patent. There is moderate grade luminal stenosis involving the right common iliac artery which remains patent. The remainder of the major aortic branch vessels remain widely patent. Lymph Nodes: There is no retroperitoneal, abdominal or pelvic lymphadenopathy. Liver: The liver is within normal limits. Gallbladder and Biliary: The gallbladder is surgically absent. There is no biliary ductal dilatation. Spleen: The spleen is within normal limits. Pancreas: The pancreas is within normal limits. Adrenal Glands: The adrenal glands are within normal limits. Kidneys: There are bilateral renal cysts measuring up to 5.7 cm. There is a calculus within the superior pole of the right kidney measuring 0.7 cm. There is no obstructive uropathy. Stomach: The stomach is within normal limits. Bowel: The bowel loops are normal in position and caliber. There are postsurgical changes of right hemicolectomy. There are no focal inflammatory changes. Appendix: The appendix is nonvisualized and presumed surgically absent. Peritoneum: There is a mild degree of nonspecific central mesenteric fat induration without evidence of a discrete mass. There is no abnormal free fluid or free air. Urinary Bladder: The urinary bladder is within normal limits. Pelvic Reproductive Structures: There is no significant pelvic reproductive structure pathology. Subcutaneous Soft Tissues: There is body wall edema. A spinal stimulator is present. Bones: There are chronic pars defects at the L5 level with associated spondylolisthesis. No acute bony pathology or suspicious lesions are identified. IMPRESSION: High-grade, near occlusive proximal superior mesenteric artery stenosis. Incidental findings as above. Narrative Procedure Note Bart Todd N, DO - 03/03/2025 IMPRESSION: Please see below. Exam: CTA ABD PELVIS W AND/OR WO CONTRAST Date/Time of Exam: 03/03/2025 12:40 PM Reason For Exam: See diagnosis. Diagnosis: Superior mesenteric artery stenosis. Technique: CTA of the abdomen and pelvis was performed prior to and following the administration of intravenous contrast. Post-processing was performed, including sagittal and coronal reformations and 3-D reconstruction. Contrast: IOPAMIDOL 61 % INTRAVENOUS SOLUTION (SINGLE USE VIAL) Given:100 mL. Comparison: None. FINDINGS: Lower Chest: There is no significant basilar pulmonary pathology. Aorta/Vasculature: The aorta is nonaneurysmal. There is no evidence of acute aortic pathology. There is a moderate to large degree of calcific atherosclerotic change. There is high-grade near occlusive luminal stenosis involving the proximal aspect of the superior mesenteric artery which remains patent. There is moderate grade luminal stenosis involving the right common iliac artery which remains patent. The remainder of the major aortic branch vessels remain widely patent. Lymph Nodes: There is no retroperitoneal, abdominal or pelvic lymphadenopathy. Liver: The liver is within normal limits. Gallbladder and Biliary: The gallbladder is surgically absent. There is no biliary ductal dilatation. Spleen: The spleen is within normal limits. Pancreas: The pancreas is within normal limits. Adrenal Glands: The adrenal glands are within normal limits. Kidneys: There are bilateral renal cysts measuring up to 5.7 cm. There is a calculus within the superior pole of the right kidney measuring 0.7 cm. There is no obstructive uropathy. Stomach: The stomach is within normal limits. Bowel: The bowel loops are normal in position and caliber. There are postsurgical changes of right hemicolectomy. There are no focal inflammatory changes. Appendix: The appendix is nonvisualized and presumed surgically absent. Peritoneum: There is a mild degree of nonspecific central mesenteric fat induration without evidence of a discrete mass. There is no abnormal free fluid or free air. Urinary Bladder: The urinary bladder is within normal limits. Pelvic Reproductive Structures: There is no significant pelvic reproductive structure pathology. Subcutaneous Soft Tissues: There is body wall edema. A spinal stimulator is present. Bones: There are chronic pars defects at the L5 level with associated spondylolisthesis. No acute bony pathology or suspicious lesions are identified. IMPRESSION: High-grade, near occlusive proximal superior mesenteric artery stenosis. Incidental findings as above. Reagan Fuentes CT ORDERABLES Final Result * (ABNORMAL) CREATININE (03/03/2025 11:11 AM CDT) CREATININE 0.52(L) 0.67 - 1.17 mg/dL 03/03/2025 12:09 PM CDT [facility] GFR >60 >=60 mL/min/1.7 3 sq meter 03/03/2025 12:09 PM CDT [facility] Comment:eGFR calculated with 2020 CKD-EPI equation. Vegetarian diet, extremely high or low muscle mass, and may affect results. Cystatin C with Glomerular Filtration Rate is a suitable alternative for these patients. Blood BLOOD SPECIMEN / Unknown Venipuncture / Unknown 03/03/2025 11:11 AM CDT 03/03/2025 11:13 AM CDT Reagan Fuentes CHEMISTRY ORDERABLES Final Resu lt [facility] CLIA # [id number] [address] [place] [address] documented in this encounter Visit Diagnoses Diagnosis Superior mesenteric artery stenosis Chronic vascular insufficiency of intestine documented in this encounter Administered Medications Inactive Administered Medications - up to 3 most recent administrations Medication Order MAR Action Action Date Dose Rate Site iopamidoL (ISOVUE-300) 61% injection (single-use vial) 100 mL 100 mL, IV, INTRA-PROCEDURE ONCE, 1 dose, Starting on Mon03/03/25 at 1237, Until Mon03/03/25 at 1238, Routine Contrast Given 03/03/2025 12:38 PM CDT 100 mL sodium chloride bacteriostatic 0.9 % injection 10 mL 10 mL, IV, SEE ADMIN INSTRUCTIONS, Starting on Mon03/03/25 at 1237, Until Mon03/04/25 at 0217, Routine Given 03/03/2025 12:38 PM CDT 10 mL documented in this encounter Care Teams Supervisor Alteration Workroom Relationship Specialty Start Date End Date Johnny Vargas MD [address] [place] [address] PCP - General Family Practice 04/06/21 documented as of this encounter
--- NOTE | 2025-03-07 03:47 | XRR_ITS ---
PROCEDURE INFORMATION: Exam: XR Chest Exam date and time: 03/07/2025 3:49 AM Age: 64 years old Clinical indication: Pain; Chest pressure; Additional info: Cp TECHNIQUE: Imaging protocol: Radiologic exam of the chest. Views: 1 view. COMPARISON: CR XR chest 1V portable [id number] 08/28/2024 9:35 AM FINDINGS: Lungs: The lungs appear to be hyperinflated. There is minimal linear atelectasis or scarring at the left costophrenic angle. No consolidated infiltrates are noted. Pleural spaces: Unremarkable. No pleural effusion. No pneumothorax. Heart/Mediastinum: Heart size is normal. There is calcified plaque involving the aorta. Bones/joints: Unremarkable. XR/XR chest 1V portable [id number] IMPRESSION: 1. Lung hyperinflation with minimal linear scarring or atelectasis at the left costophrenic angle.
--- NOTE | 2025-03-07 03:48 | ECG_ITS ---
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 Measurements Intervals [place] Rate: 78 P: 46 NV: 152 QRS: 59 QRSD: 111 T: 51 QT: 384 QTc: 437 Interpretive Statements SINUS RHYTHM WITH OCCASIONAL VENTRICULAR PREMATURE COMPLEXES INCOMPLETE RIGHT BUNDLE BRANCH BLOCK [90+ ms QRS DURATION, TERMINAL R IN V1/V2, 40+ ms S IN I/aVL/V4/V5/V6] Compared to ECG 01/22/2025 04:01:59 Ventricular premature complex(es) now present Electronically Signed On 03-08-2025 14:11:20 CDT by Rhys Yusuf M.D. [email or web address]
--- OUTSIDE RECORDS SUMMARY | 2025-03-07 03:52 | XMS_ITS | Clinical Summary ---
Author Organization [facility] Address [address] [place] [address] Phone Care Team Providers Care Seismograph Computer Name Role Phone Johnny Vargas MD Primary Care Provider [phone] Allergies Active Allergy Reactions Criticality Noted Date [...] 9AM Active fluticasone propionate (FLONASE) 50 mcg/spray [place], Suspension nasal inhaler Administer 2 Sprays in [...] EVERY 6 HOURS NEEDED FOR NAUSEA Active diphenhydrAMINE (BENADRYL) 50 mg capsule Take 1 Capsule (50 mg) by mouth one time as needed for Allergies (iodine). 1 Capsule 5 Active predniSONE (DELTASONE) 50 mg tablet Take 1 Tablet (50 mg) by mouth one time as needed for Other (See Comment) (allergies). 3 Tablet 5 Active Active Problems No known active problems Encounters Date Type Department Care Team Description 03/04/[address] [address] Reagan Fuentes NP Follow Up 03/03/2025 10:35 AM CDT - 03/03/2025 11:59 PM T Hospital Encounter [facility] Scan [place] [address] [place] [id number] Reagan Fuentes NP Arrived Discharge Disposition: Home or Self Care 02/28/[address] [address] Reagan Fuentes NP Appointment Verification 02/24/[address] [address] Reagan Fuentes NP Question 02/24/2025 Orders Only [address] [address] Reagan Fuentes NP Superior mesenteric artery stenosis (Primary Dx) 02/19/[address] [address] Reagan Fuentes NP Question 01/30/[address] [address] Provider, Abstract Needs Appointment 01/29/2025 Orders Only [facility] Vascular Surgery [place] [address] [place] [address] Johnny Vargas MD 01/07/2025 Telephone [facility]- [place] [address] [place] [address] [address] [place] [address] Reagan Fuentes NP Appointment Notification from [...] on file 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 Gender Identity Not on file Sexual Orientation Not on file Last Filed Vital Signs Vital Sign Reading Time Taken Comments Blood Pressure 174/80 10/16/2024 12:42 PM COCKTAIL SERVER Pulse 83 10/16/2024 12:42 PM COCKTAIL SERVER Temperature - - Respiratory Rate 16 01/24/2024 10:3 1 AM CDT Oxygen Saturation 96% 07/01/2024 2:34 PM COCKTAIL SERVER Inhaled Oxygen Concentration - - Weight 113.7 kg (250 lb 9.6 oz) 025 12:42 PM COCKTAIL SERVER Height 180.3 cm (5' 11 ) 10/16/2024 12: 42 PM COCKTAIL SERVER Body Mass Index 34.95 10/16/2024 12:42 PM COCKTAIL SERVER Plan of Treatment Upcoming Encounters Date Type Department Care Team (Late st Contact Info) Description 03/07/2025 3:00 PM CDT Telephone Check Up [facility] Vascular Surgery [place] [address] [place] [address] Reagan Fuentes NP [address] [place] [address] 05/05/2025 1:00 PM CDT Office Visit [facility] Gastroenterology- [place] [address] [facility] [address] [place] [address] Tyson Gr MD [address] [facility] [address] [place] [address] Health Maintenance Due Date Last [...] DIABETES HBA1C Q 6 MONTHS 10/09/2024 04/08/2024 INFLUENZA VACCINE (#1) 2025 4, 08/31/2023, 07/12/2021, Additional history exists COLORECTAL SCREENING Discontinued 10/27/2020, 10/27/19 Colorectal Cancer Screening Discontinued PNEUMOCOCCAL VACCINE 50+ YEARS Completed 0 03/10/2023, 08/23/2018, 10/04/2017, Additional history exists FIT-DNA Q 3 years Discontinued FIT/FOBT Q 1 year Discontinued Flex Sig/CT Colonography Q 5 years Discontinued Procedures Procedure Name Priority Date/Time Associated Diagnosis Comments CTA ABD PELVIS W AND/OR WO CONTRAST Stat 03/03/2025 12:40 PM CDT Superior mesenteric artery stenosis CREATININE Stat 03/03/2025 11:11 AM CDT US CAROTID DOPPLER Routine 12/24/2024 2: 57 PM CDT from Last 3 Months Results * CTA ABD PELVIS W AND/OR [...] findings as above. Narrative Procedure Note Bart Todd, DO - 03/03/2025 IMPRESSION: Please see below. [...] stenosis. Incidental findings as above. Reagan Fuentes NP CT ORDERABLES Final Result * (ABNORMAL) CREATININE (03/03/2025 11:11 AM CDT) CREATININE 0.52(L) 0.67 - 1.17 mg/dL 03/03/2025 12:09 PM CDT [facility] GFR >60 >=60 mL/min/1.7 3 sq meter 03/03/2025 12:09 PM CDT [facility] Comment:eGFR calculated with 2020 CKD-EPI equation. Vegetarian diet, extremely high or low muscle mass, and may affect results. Cystatin C with Glomerular Filtration Rate is a suitable alternative for these patients. Blood BLOOD SPECIMEN / Unknown Venipuncture / Unknown 03/03/2025 11:11 AM CDT 03/03/2025 11:13 AM CDT Reagan Fuentes NP CHEMISTRY ORDERABLES Final Resu lt [facility] CLIA # [id number] [address] [place] [address] [id number] * US CAROTID DOPPLER (12/24/2024 2:57 PM CDT) Anatomical Region Laterality Modality Neck Ultrasound Johnny Vargas MD US ORDERABLES Final Result from Last 3 Months Insurance [place]ICAID [place] [facility] MEDICARE HMO Advance Directives For more information, please contact: [phone] * Full Code (Latest Code Status on File) Date Activated Date Inactivated Comments 01/24/2024 8:49 AM 01/24/2024 1:13 PM Care Teams Seismograph Computer Relationship Specialty Start Date End Date Johnny Vargas MD [address] [phone] PCP - General Family Practice 04/06/21
--- OUTSIDE RECORDS SUMMARY | 2025-03-07 03:52 | XMS_ITS | Clinical Summary ---
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
--- OUTSIDE RECORDS SUMMARY | 2025-03-07 03:52 | XMS_ITS | Encounter Summary ---
Author Organization [facility] Address [address] [place] [address] Care Team Providers Care Women'S Studies Lecturer Name Role Phone Unavailable Primary Care Provider Unavailabl e Encounter Details Date Type Department Care Team (Late st Contact Info) Description 10/30/2018 Lab Requisition [facility] General Laboratory Services [place] [address] [facility] [address] [place] [phone] Mtnv, External Provider [address] [address] Social History Tobacco Use Types Packs/Day Years Used Date Smoking Tobacco: Never Assessed Sex and Gender Information Value Date Recorded Sex Assigned at Not on file 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 Gender Identity Not on file Sexual Orientation [...] - 35.0 seconds 10/30/2018 6:24 PM CDT [facility] Blood Collection / Unknown 10/30/2018 4:50 PM CDT 10/30/2018 5:57 PM CDT us External Provider Mtnv HEMATOLOGY ORDERABLES Fin al Result [facility] CLIA # [id number] [address] [place] [address] [address] [place] [address] * PROTIME-INR (10/30/2018 4:50 PM CDT) PROTIME 12.0 11.8 - 14.6 Seconds 10/30/2018 6:24 PM CDT [facility] INR 0.9 0.8 - 1.2 10/30/2018 6:24 PM CDT [facility] Blood Collection / Unknown 10/30/2018 4:50 PM CDT 10/30/2018 5:57 PM CDT us External Provider Mtnv HEMATOLOGY ORDERABLES Fin al Result [facility] CLIA # [id number] [address] [place] [id number] documented in this encounter Visit Diagnoses Not on filedocumented in this encounter
--- OUTSIDE RECORDS SUMMARY | 2025-03-07 03:53 | XMS_ITS | Encounter Summary ---
Author Organization [facility] Address [address] [place] [address] Care Team Providers Care Switch Coupler Name Role Phone Unavailable Primary Care Provider Unavailabl e Encounter Details Date Type Department Care Team (Latest Contact Info) Description 04/10/2006 Outpatient Historical [facility] Orthopedics 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
--- OUTSIDE RECORDS SUMMARY | 2025-03-07 03:53 | XMS_ITS | Encounter Summary ---
Author Organization [facility] Address [address] [place] [address] Care Team Providers Care Nutrition Program Instructor Name Role Phone Johnny Vargas MD Primary Care Provider [phone] Reason for Visit * Reason Onset Date Comments Appointment Verification 02/28/2025 Encounter Details Date Type Department Care Team (Late st Contact Info) Description 02/28/2025 Telephone [facility] V[facility] [place] [address] [place] [address] Reagan Fuentes NP [address] [place] [address] Appointment Verification Social History Tobacco Use Types Packs/Day Years Used Date Smoking Tobacco: Never Smokeless Tobacco: Never Alcohol Use Standard Drinks/Week Comments Not Currently 0 (1 standard drink = 0.6 oz pur e alcohol) Sex and Gender Information Value Date Recorded Sex Assigned at Not on file 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 Relayed to PT it could be 1445 and after that Alfredo could call. * Telephone Encounter - Liz Hi - 02/28/2025 1:19 PM CDT LVM to verify CTA ( at [facility] ) on 03/03/2025 and Teleph visit appt for 03/04/2025. Confirm grounds person back . Sent My Ade msg. documented in this encounter Plan of Treatment Upcoming Encounters Date Type Department Care Team (Late st Contact Info) Description 03/07/2025 3:00 PM CDT Telephone Check Up [facility] V[facility] Surgery [address] [place] [address] Reagan Fuentes NP [address] [facility] [address] [place] [address] 05/05/2025 1:00 PM CDT Office Visit [facility] Gastroenterology- [place] [address] [place] [address] Tyson Gr MD [address] [place] [address] documented as of this encounter Visit Diagnoses Not on filedocumented in this encounter Care Teams Nutrition Program Instructor Relationship Specialty Start Date End Date Johnny Vargas MD [address] [facility] [address] [place] [address] PCP - General Family Practice 04/06/21 documented as of this encounter
--- OUTSIDE RECORDS SUMMARY | 2025-03-07 03:53 | XMS_ITS | Patient Health Record ---
Author Organization [facility] Address [address] [place] [address] Care Team Providers Care Construction Project Engineer Name Role Phone Sam CAMPBELL, Johnny Primary Care Provider Alma Arizmendi [phone] Allergies Allergen (clinical drug ingredient) Drug/Non Drug [...] 0.1 MG Oral Tablet 03/13/2018 Active Amylases 45147 UNT / Endopeptidases 52970 UNT / Lipase 5000 UNT Delayed Release Oral Capsule [Zenpep] Amylases 51581 UNT / Endopeptidases 06822 UNT / Lipase 5000 UNT Delayed Release [...] Date Status Comme nts Influenza (whole), CPT 97710 Inactive Unknown 03/13/2018 Administered Social History Social History Additional Details Category Social Info Options Details zzMigrated Social History Migrated Social History Smoking Status:Never smoked tobacco (finding) Plan Of Treatment No Information Insurance Providers Payer Name Payer Address Payer Phone Subscriber Number Group Number Insured Name Patient Relationship to Insured Coverage Start Date Coverage End Date [place] Replacement [address] [place] [address] [id number] Guanakito Longo Self - patient is the insured [place] [address] [place] [address] [id number] Guanakito Longo Self - patient is the insured
--- OUTSIDE RECORDS SUMMARY | 2025-03-07 03:53 | XMS_ITS | Data Portability ---
Author Organization [facility] [place] [facility] [place] [facility], [place], [facility] Address [address] [facility] [address] [place] [address] Care Team Providers Care Residential Designer Name Role Phone MARIANELA VARGAS Primary Care Provider Unavailabl e Assessment Encounter Date Assessment Date Assessment LastModified by Organization Details LastModified Time 11/20/2024 11/20/2024 epigastric pain in a pt with chronic pancreatitis, possible sma stenosis, known gastroparesis , pain pump for pancreatic pain. first he needs his pump evaluated to make sure he is not hurting due to pump malfunction.. We will need to do a pre medicated contrasted CT to assess the SMA and for other causes of epigastric pain not shown without contrast. cannot r/o gastritis/gas tric ulcer. push fluids. if low bp, feeling more weak, sx's worsen, please return to the ER to consider iv fluid and parenteral nutrition. Not available 11/20/2024 12:44:10 12/26/2024 12/26/2024 imaging has been completed allergy clrified [email or web address] Not available 12/26/2024 13:38:51 01/27/2025 01/27/2025 d/c summary reviewed a1c is improved to 9 but not at goal he admits he really wasn't doing the things hea has been advised to do to improve his dm and health. we discussed diet and activity. lowest sugars are 97-99 is is compliant with ssi. most days it is 150 fasting on avg. i will have him log prandial and post prandial and report sugars to me. [email or web address] Not available 01/27/2025 15:16:11 Plan of Treatment Reminders Order Date Submit Date Provider Last Modified By Organization Details Last Modified Time Details Appointments OFFICE VISIT [place] 2024 01:30P M Marianela Vargas MD Not available Not available Not available Lab microalbu min/creat inine, mass ratio, urine 2024 025 SARAH [employer] [facility], [address], [address] [place], [address], 11/28/2024 07:59:33 CMP, serum or plasma 2024 025 [facility], [address], [address], [place], [address], 11/27/2024 14:18:57 CBC 2024 025 SARAH [facility], [address], [address], [place], [address], 11/27/2024 13:28:17 Referral vascular surgeon referral 2024 025 [email or web address] [facility] - Jack, [address], [address], [place], [address], 02/17/2025 17:23:34 Procedures None recorded. Surgeries None recorded. Imaging CT, angiogram , abdomen + pelvis, w/ contrast - (PCP: Dr. Vargas will take care of meds for contrast with allergy) 2024 025 [email or web address] [facility] (Radiology), [address] [place], [address], 12/23/2024 16:54:01 Medication Orders rosuvasta tin 20 mg tablet 2024 025 [facility], [address], [place], [address], 02/24/2025 08:50:37 clonidine HCl 0.2 mg tablet 2024 025 [facility], [address], [place], [address], 11/20/2024 12:37:52 ondansetr on 8 mg disintegr ating tablet 2024 025 [facility], [address], [place], [address], 11/20/2024 12:37:53 Patient TargetsNo targets recorded. Patient InstructionsNo instructions recorded. Reason for Referral Vascular Surgeon Referral fo r Bilateral stenosis of carotid arteries Referring Physician: Marianela Vargas, Family Medicine, Encounter Date: 01/27/2025 Results Created Date Observation Date Name Description Value Unit Range Abnormal Flag Note LastModifiedBy Organization Detail LastModifiedTime 11/28/1911/27/2024 CBC WBC 7.0 x10 4.5-10 .5 Not Available [facility] [address], [place], [address], 11/27/2024 13:28:17 11/28/1911/27/2024 CBC RBC 4.52 x10 4.30-5 .90 Not Available [facility] [address], [place], [address], 11/27/2024 13:28:17 11/28/1911/27/2024 CBC HGB 12.3 g/dL 13.5-1 8.0 low Not Available [facility] [address], [place], [address], 11/27/2024 13:28:17 11/28/19 25 11/27/2024 CBC HCT 37.4 % 35.0-6 0.0 Not Available [facility] [address], [place], [address], 11/27/2024 13:28:17 11/28/19 25 11/27/2024 CBC MCV 82.8 fL 80.0-9 9.9 Not Available [facility] [address] [facility] [address], [place], [address], 11/27/2024 13:28:17 11/28/19 25 11/27/2024 CBC MCH 27.3 pg 27.0-3 2.0 Not Available [facility] [address] [facility] [address] [facility], [place], [address], 11/27/2024 13:28:17 11/28/19 25 11/27/2024 CBC MCHC 33.0 g/dL 32.0-3 6.0 Not Available [facility] [address] [facility], [place], [address], 11/27/2024 13:28:17 11/28/19 25 11/27/2024 CBC RDW 13.8 % 11.5-1 4.5 Not Available [facility] [address] [facility], [place], [address], 11/27/2024 13:28:17 11/28/19 25 11/27/2024 CBC plt 251.9 x10 150.0- 451.0 Not Available [facility] [address] [facility] [address], [place], [address], 11/27/2024 13:28:17 11/28/1911/27/2024 CBC lymphocytes % 39.3 % 20.0-5 0.0 Not Available [facility] [address] [facility] [address], [place], [address], 11/27/2024 13:28:17 11/28/1911/27/2024 CBC granulcytes % 46.5 % 30.0-7 0.0 Not Available [facility] [place] [address] [facility] [address], [place], [address], 11/27/2024 13:28:17 11/28/19 25 11/27/2024 CBC monocytes % 5.7 % 2.0-16 .0 Not Available [facility] [address] [facility], [place], [address], 11/27/2024 13:28:17 11/28/19 25 11/27/2024 CBC granulcytes# 3.3 x10 Not Maryellen ilable [facility] [address] [address], [place], [address], 11/27/2024 13:28:17 11/28/19 25 11/27/2024 CBC lymphocytes # 2.8 x10 Not Available [facility] [address] [facility] [address] [address], [place], [address], 11/27/2024 13:28:17 11/28/19 25 11/27/2024 CBC monocytes # 0.4 x10 Not Avai lable [facility] [address] [address], [place], [address], 11/27/2024 13:28:17 11/28/19 25 11/27/2024 CMP (MALE ) glucose 214.0 mg/dL 60.0-9 9.0 high Not Available [facility] [address] [address], [place], [address], 11/27/2024 14:18:56 11/28/19 25 11/27/2024 CMP (MALE ) BUN (blood urea nitrogen) 12.0 mg/dL 10.0-2 6.0 Not Available [facility] [address] [facility] [address] [address], [place], [address], 11/27/2024 14:18:56 11/28/19 25 11/27/2024 CMP (MALE ) creatinine (serum) 0.5 mg/dL 0.4-1. 5 Not Available [facility] [place] [facility] [address] [facility] [address] [facility], [place], [address], 11/27/2024 14:18:56 11/28/19 25 11/27/2024 CMP (MALE ) BUN/creatini ne ratio 24.00 ratio Not Available [facility] [address] [facility], [place], [address], 11/27/2024 14:18:56 11/28/19 25 11/27/2024 CMP (MALE ) eGFR calculated 176.8 Not Available [facility] [address] [facility], [place], [address], 11/27/2024 14:18:56 11/28/19 25 11/27/2024 CMP (MALE ) total protein 7.0 g/dL 6.0-8. 5 Not Available [facility] [address] [facility], [place], [address], 11/27/2024 14:18:56 11/28/19 25 11/27/2024 CMP (MALE ) total bilirubin 0.4 mg/dL 0.2-1. 3 Not Available [facility] [address] [facility], [place], [address], 11/27/2024 14:18:56 11/28/19 25 11/27/2024 CMP (MALE ) albumin 3.9 g/dL 3.5-5. 5 Not Available [facility] [address] [facility], [place], [address], 11/27/2024 14:18:56 11/28/19 25 11/27/2024 CMP (MALE ) globulin 3.1 calc Not Available [facility] [address] [facility], [place], [address], 11/27/2024 14:18:56 11/28/19 25 11/27/2024 CMP (MALE ) AST (SGOT) 26.0 U/L 0.0-46 .0 Not Available [facility] [address] [facility], [place], [address], 11/27/2024 14:18:56 11/28/19 25 11/27/2024 CMP (MALE ) altv (SGPT) 16.0 U/L 13.0-6 9.0 normal Not Available [facility] [address] [facility], [place], [address], 11/27/2024 14:18:56 11/28/19 25 11/27/2024 CMP (MALE ) A/G ratio 1.3 ratio Not Available [facility] [address] [facility] [address], [place], [address], 11/27/2024 14:18:56 11/28/19 25 11/27/2024 CMP (MALE ) ALP phos 60.0 U/L 30.0-1 40.0 normal Not Available [facility] [address] [facility] [address], [place], [address], 11/27/2024 14:18:56 11/28/19 25 11/27/2024 CMP (MALE ) calcium 8.9 mg/dL 8.4-10 .5 Not Available [facility] [address] [address], [place], [address], 11/27/2024 14:18:56 11/28/19 25 11/27/2024 CMP (MALE ) sodium 136.0 mmol/ L 136.0- 145.0 Not Available [facility] [address] [facility] [address], [place], [address], 11/27/2024 14:18:56 11/28/19 25 11/27/2024 CMP (MALE ) potassium 4.3 mmol/ L 3.5-5. 1 Not Available [facility] [address] [facility] [address], [place], [address], 11/27/2024 14:18:56 11/28/19 25 11/27/2024 CMP (MALE ) chloride 99.0 mmol/ L 98.0-1 10.0 normal Not Available [facility] [address] [facility] [address], [place], [address], 11/27/2024 14:18:56 11/28/19 25 11/27/2024 CMP (MALE ) C02 32.0 mmol/ L 22.0-3 1.0 high Not Available [facility] [address] [facility] [address], [place], [address], 11/27/2024 14:18:56 11/28/19 25 11/27/2024 CMP (MALE ) anion gap 5.0 calc Not Available [facility] [address] [facility] [address], [place], [address], 11/27/2024 14:18:56 11/28/19 25 11/27/2024 CMP (MALE ) osmolality 286.7 calc Not Available [facility] [address] [facility] [address], [place], [address], 11/27/2024 14:18:56 11/28/19 25 11/28/2024 ALBUM IN, RANDO M URINE W/CRE ATINI NE creatinine, random urine 178 mg/dL 20-320 normal Not Available [facility] [address] [place], [address], 11/28/2024 07:59:33 11/28/1911/28/2024 ALBUM IN, RANDO M URINE W/CRE ATINI NE albumin, urine 10.2 mg/dL see note: normal Refer ence Range : Refer ence Range Not estab lishe d Not Available [facility] [address] [place], [address], 11/28/2024 07:59:33 11/28/19 25 11/28/2024 ALBUM IN, [...] a diagn ostic categ ory. Not Available [facility] [address] [address], [place], [address], 11/28/2024 07:59:33 12/26/19 25 12/24/2024 US, mattile x, carot id arter y No observ ation record ed. [address] [place], [address], 12/26/2024 14:33:12 02/21/20 25 11/28/2024 CT, angio gram, head + neck, w/ contr ast No observ ation record ed. [address] [facility] 1, [place], [address], 02/24/2025 10:44:53 Result Notes None recorded. Problems Name Problem SNOMED Code Status Onset Date Resolution Date Notes Provider Name and Address Organization Details Recorded Time Lipoma of abdomina l wall 424482710 Completed 202012/03/2020 LIPOMA OF ABDOMINA L WALL - Status is Inactive ; 12/04/19 9:39AM by Tiff Vargas PA-C, Annotati on/Adden dum; Promoted ; acuity set as *; Not Available [facility] 3 03:16:14 Chronic infectio us pancreat itis 710364290 Completed 202012/03/2020 chronic pancreat itis - Status is Inactive ; 12/04/19 9:38AM by Tiff Vargas PA-C, Annotati on/Adden dum; Promoted ; acuity set as *; Not Available [facility] 3 03:16:15 Asthma [id number] Completed 202012/03/2020 asthma - Status is Resolved ; Resolved Date: 12/04/19; 12/04/19 9:41AM by Tiff Vargas PA-C, Annotati on/Adden dum; Promoted ; acuity set as *; Not Available [facility] 3 03:16:15 Esophago gastrodu odenosco py Completed 202012/03/2020 EGD 12/20/07 [facility] - Status is Inactive ; 12/04/19 9:39AM by Tiff Vargas PA-C, Annotati on/Adden dum; Promoted ; acuity set as *; Not Available [facility] 3 03:16:15 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 202012/03/2020 ORGANIC SLEEP APNEA - Status is Inactive ; Story: 11 cm H2O; Recorded 12/04/19 9:39AM by Tiff Vargas PA-C, Annotati on/Adden dum; Promoted ; acuity set as *; Not Available [facility] 3 03:16:15 Depressi ve disorder 26821495 Completed 202012/03/2020 depressi on - Status is Inactive ; 12/04/19 9:39AM by Tiff Vargas PA-C, Annotati on/Adden dum; Promoted ; acuity set as *; Not Available [facility] 3 03:16:17 Type 2 diabetes mellitus without complica tion 562471122 Completed 202105/31/2022 DIABETES MELLITUS - Status is Inactive ; Recorded 05/31/20 12:16PM by Alisia Lizarraga LPN, Annotati on/Adden dum; Promoted ; acuity set as *; Not Available [facility] 3 03:16:16 Bundle branch block 0069541 Active 2021 INCOMPLE TE BUNDLE BRANCH BLOCK; Rt; 08/03/20 9:38AM by Alisia Lizarraga LPN, Office Visit; Promoted ; acuity set as *; Not Available [facility] 3 03:16:14 Seizure disorder 257841850 Active 2021 ALISIA LIZARRAGA null, [facility] 5 12:33:19 Type 2 diabetes mellitus 23958642 Active 2022 ALISIA LIZARRAGA null, [facility] 3 13:53:16 Aortic valve regurgit ation 84289363 Active 2022 ALISIA LIZARRAGA null, [facility] 5 12:29:47 Arterios clerotic vascular disease 99949755 Active 2022 ALISIA LIZARRAGA null, [facility] 3 13:53:55 Atherosc lerosis Active 2022 ALISIA LIZARRAGA null, [facility] 3 13:54:08 Essentia l hyperten kaylin 10599492 Active 2022 ALISIA LIZARRAGA null, [facility] 3 13:54:16 Hyperlip idemia 51967158 Active 2022 ALISIA LIZARRAGA null, [facility] 3 13:54:23 Diabetic peripher al neuropat hy 054367348 Active 2022 ALISIA LIZARRAGA null, [facility] 5 12:29:47 Obstruct stew sleep apnea syndrome 50972142 Active 2022 ALISIA LIZARRAGA null, [facility] 5 12:29:47 Chronic migraine without aura 10929969921 4105 Active 2022 ALISIA LIZARRAGA null, [facility] 5 12:29:47 Coronary arterios clerosis 32952066 Active 2022 ALISIA LIZARRAGA null, [facility] 5 12:30:11 History of fall 165238574 Active 2022 TIFF VARGAS PA-C [address] [place], [address] , [facility] 3 14:54:52 Chronic pancreat itis 303182926 Active 2023 ALISIA LIZARRAGA null, [facility] 5 12:29:47 Cataplex y and narcolep sy 084471391 Active 2023 ALISIA solitario, [facility] 5 12:29:47 Abdomina l pain 44613786 Active 2023 Jose Juan Moran MD [address] [place] [address], [address] , [facility] 4 17:11:49 Generali zed anxiety disorder 13410763 Active 2023 ALISIA solitario, [facility] 5 12:29:47 Chronic recurren t major depressi ve disorder 7246018 Active 2024 ALISIA LIZARRAGA null, [facility] 5 12:29:47 Mesenter ic artery stenosis 617822036 Active 2024 Marianela Vargas MD [address] [place], [address] , [facility] 5 12:24:53 Bilatera l stenosis of carotid arteries 910803823 Active 2024 ALISIA ELHAM [facility] 5 09:36:25 Problem Notes None recorded. Procedures Surgical History Date Name Laterality Status Provider Name and Address Organization Details Recorded Time 2024 open repair of incisional hernia completed ALISIA [facility] 5 09:10:02 2023 Toenail avulsion completed Marianela Vargas MD [address] [place], [address], [facility] 4 14:11:28 2023 echocardiography completed Laura Ponce [facility] 4 15:11:06 2023 esophagogastroduodenoscopy completed MAJOR KING [facility] 4 19:18:05 2022 radiofrequency ablation completed [facility] 3 18:01:46 2020 ophthalmic examination and evaluation completed JEANNE [facility] 3 08:58:55 2020 repair of incisional hernia completed MADELINE VARGAS PA-C [address] [place], [address], [facility] 3 14:54:35 2020 colonoscopy completed [facility] 3 08:57:58 2017 right colectomy completed [facility] 4 15:53:22 Imaging Results None recorded. Procedure Notes None recorded. Medical Equipment None Reported. Allergies Allergen ID Allergen Name Allergen Category Reaction Reaction Severity Criticality Documentation Date Start Date Code Code System Note Provider Name and Address Organization Details Recorded Time 73696 sulfameth oxazole medicatio n rash Not available Not available 03/18/2023 96944 RxNorm React ion: Rash; Comme nt: Recor ded 08/03 9:38A M by Alexandria Houstons on, BERRY GROWER, Offic e Visit ; Promo shayy; Signi fican ce: *; Reaso n: Drug aller gy; ; [facility] 4 11:31:41 5098 Product containin g penicilli n (product) medicatio n Not available Not available Not available 02/23/2023 69574 8001 SNOMED [facility]IA [facility] 3 13:49:29 11371 acetamino phen / phenyltol oxamine medicatio n hives Not available Not available 03/18/202393829 8 RxNorm React ion: Hives ; Comme nt: Recor ded 08/03 9:38A M by Alexandria Houstons on, BERRY GROWER, Offic e Visit ; Promo shayy; Signi fican ce: *; Reaso n: Drug aller gy; ; ALISIA EL[facility] 4 11:31:13 5099 Iodinated contrast media (substanc e) medicatio n hives Not available Not available 02/23/2023 98934 2003 SNOMED [facility]IA [facility] 3 13:49:40 85692 penicilli n V potassium medicatio n Not available Not available Not available 03/18/202389194 5 RxNorm Comme nt: Recor ded 08/03 9:38A M by Alexandria Houstons on, BERRY GROWER, Offic e Visit ; Promo shayy; Signi fican ce: *; Reaso n: Drug aller gy; ; ALISIAJesus [facility] 4 11:31:36 5100 Remeron medicatio n headache Not available Not available 02/23/2023 38706 4 RxNorm ALISIA solitario [facility], Sandra 3 13:49:51 5101 aspirin medicatio n hives Not available Not available 02/23/2023 1191 RxNorm ALISIA solitario [facility], Sandra 3 13:50:04 24909 menthol / methyl salicylat e medicatio n Not available Not available Not available 03/18/2023 74450 7 RxNorm Comme nt: Recor ded 08/03 9:38A M by Alexandria Rooney on, BERRY GROWER, Offic e Visit ; Promo shayy; Alvaro lacy ce: *; ; ALISIA solitario [facility], Sandra 4 11:31:20 5102 Substance with sulfonami de structure and antibacte rial mechanism of action (substanc e) medicatio n rash Not available Not available 02/23/2023 90989 8003 SNOMED ALISIA solitario [facility], Sandra 3 13:50:14 5103 fentanyl medicatio n Not available Not available Not available 02/23/2023 4337 RxNorm ALISIA solitario [facility], Sandra 3 13:50:26 5104 Cymbalta medicatio n rash Not available Not available 02/23/2023 51768 4 RxNorm patie nt descr ibed as blood blist ers all over his body ALISIA solitario [facility], [facility] 3 13:50:48 Medications Name Sig Start Date [...] 22 2:48PM by Alisia Lizarraga LPN (Authori jori through Marianela Vargas MD), Annotati on/Adden dum; [...] MOUTH EVERY 6 HOURS NEEDED FOR NAUSEA 01/27 completed Not Available Not Available Not Available glipizide 10 mg tablet TAKE ONE TABLET BY MOUTH TWICE DAILY @9AM-5PM active Not Available Not Available No t Available prednison e 20 mg tablet TAKE 3 TABLETS BY MOUTH ONCE DAILY FOR 4 DAYS 01/27 completed Not Available Not Available Not Available isosorbid e mononitra te ER 30 [...] Not Available Not Available No t Available acyclovir 400 mg tablet TAKE 1 TABLET BY MOUTH FIVE TIMES DAILY FOR 8 DAYS 01/27 completed Not Available Not Available Not Available divalproe x 500 mg tablet,de layed [...] tablet TAKE ONE TABLET BY MOUTH DAILY 01/27 completed Not Available Not Available Not Available metformin ER 500 mg tablet,ex tended release 24 hr TAKE 2 TABLETS BY MOUTH TWICE DAILY AT 9AM AND 5PM active Not Available Not Available No [...] 9 UNITS, GREATER THAN 400- 9 UNITS 2024 active Not Available Not Available Not Avai lable rosuvasta tin 5 mg tablet TAKE ONE TABLET BY MOUTH EVERY OTHER DAY @ 5PM 01/27 completed Not Available Not Available Not Available rosuvasta tin 20 mg tablet Take 1 tablet every day by oral route for 90 days. 02/24 completed Not Available Not Available Not Available rosuvasta tin 40 mg tablet Take 1 tablet by mouth once daily 2024 active Not Available Not Available Not Avai lable metoprolo l tartrate 25 mg tablet TAKE [...] Mann; Recorded 05/20/20 21 7:26AM by Jeanne Patel LPN, Office Visit; Refill Quantity : 60; [...] 22 9:43AM by Alisia Lizarraga LPN (Authori ericad through Marianela Vargas MD), Refill Request; Mail Order Quantity : 90 Capsule; Mail Order Days: 90 Days; Refill Quantity : 180; Capsule; Not Available Not Available Not Available metformin two times daily 08/31 completed 436; Recorded 05/30/20 22 1:09PM by Alisia Lizarraga LPN (Authori jori through Marianela Vargas MD), Refill Request; Mail [...] 23 10:35AM by Alisia Lizarraga LPN (Authori jori through Marianela Vargas MD), Refill Request; Mail [...] 22 1:54PM by Alisia Lizarraga LPN (Authori jori through Marianela Vargas MD), Refill Request; Mail [...] PUFFS BY MOUTH EVERY 4 HOURS NEEDED 2024 active Not Available Not Available Not Avai lable ProAir RespiClic k q 4 hrs prn 11/05 completed 59189; Recorded 10/31/19 23 9:26AM by Makayla Hawley (Authori ericad through Jose Juan Moran MD), Refill Request; Mail Order Quantity : 3 Each; Refill Quantity : 3; Each; Not Available Not Available Not Available FreeStyle Loyd 14 Day [place] PER INSTRUCT IONS 01/04 completed duplicat e medicati on Not Available Not Available Not Available Emgality Pen 120 mg/mL subcutane ous pen injector INJECT 120 MG SUB-Q ONCE A MONTH active Not Available Not Available No t Available BD Fatou 2nd Gen Pen Needle 32 gauge x /32 USE DIRECTED 3 TIMES DAILY 2024 active Not Available Not Available Not Avai lable FreeStyle Loyd 2 Sensor kit USE DIRECTED 4 TIMES DAILY TO TEST BLOOD SUGAR 11/20 completed Not Available Not Available Not Available FreeStyle Loyd 2 [place] USE DIRECTED 11/20 completed Not Available Not Available Not Available FreeStyle Loyd 3 [place] USE DIRECTED active Not Available Not Available No t Available FreeStyle Loyd 3 Plus Sensor device USE DIRECTED AND CHANGE EVERY 15 DAYS active Not Available Not Available No t Available Vitals Date Recorded Body height Body mass index (BMI) Body weight Body temperature Heart rate Oxygen saturation Oxygen saturation in Arterial blood by Pulse oximetry Systolic And Diastolic Provider Name and Address Organization Details Last Updated DateTime 5 180.34 cm 32.2 kg/m2 052081. 84 g 97.9 [degF] 83 /min 95 % 95 % 142/75 mm[Hg] AL[facility]IA LIZARRAGA [facility] 5 12:41:07 Date Recorded Body height Body mass index (BMI) Body weight Body temperature Heart rate Oxygen saturation Oxygen saturation in Arterial blood by Pulse oximetry Systolic And Diastolic Provider Name and Address Organization Details Last Updated DateTime 5 180.34 cm 32.9 kg/m2 640429. 8 g 98 [degF] 87 /min 95 % 95 % 122/64 mm[Hg] ALISIA LIZARRGAA [facility] 5 13:18:42 Date Recorded Body height Body mass index (BMI) Body weight Body temperature Heart rate Oxygen saturation Oxygen saturation in Arterial blood by Pulse oximetry Systolic And Diastolic Provider Name and Address Organization Details Last Updated DateTime 5 180.34 cm 32.6 kg/m2 645653. 61 g 97.7 [degF] 75 /min 94 % 94 % 146/72 mm[Hg] Laura Ponce [facility] 5 14:56:30 Social History Question Answer Notes LastModified by [employer] Details LastModified Time Tobacco Smoking Status Never Smoker ALISIA LIZARRAGA [facility] 02/23/2023 13:55:34 What Was The Date Of Your Most Recent Tobacco Screening? 03/23/2024 [email or web address] Information not available 03/23/2024 Sex: Unknown Functional Status Question Answer Note LastModified by [employer] Details LastModified Time Do you use any illicit or recreational drugs? No [email or web address] Information not available 02/23/2023 Do you or have you ever used any other forms of tobacco or nicotine? No [email or web address] Information not available 11/06/2023 What is your level of alcohol consumption? None [email or web address] Information not available 02/23/2023 Are you currently employed? No disabled [email or web address] Information not available 02/23/2023 Mental Status None recorded. Family History Relationship Description Onset Age of this Age Resolved Age Notes LastModified by Organization Details LastModified Time Father Diabetes mellitus [email or web address] Not available 11/05 11:36:12 Medical History No medical history recorded. Immunizations Vaccine Type Date Status Note Provider Nam e and Address Organization Details Recorded Time Td(adult) unspecified formulation 2 completed Not Available [facility] 08/31/2023 14:05:14 Influenza, split virus, trivalent, preservative 0 completed Not Available [facility] 08/31/2023 14:05:14 Influenza, split virus, trivalent, preservative 9 completed Not Available [facility] 08/31/2023 14:05:14 pneumococcal polysaccharide PPV23 8 completed Not Available [facility] 08/31/2023 14:05:14 Pneumococcal conjugate PCV20, polysaccharide [id number] conjugate, adjuvant, PF 3 completed JEANNE solitario, [facility] 03/10/2023 14:58:26 zoster recombinant 3 completed JEANNE solitario [facility] 03/10/2023 14:58:26 Influenza, recombinant, quadrivalent, PF 9 completed ALISIA solitario, [facility] 02/23/2023 13:48:17 Influenza, recombinant, quadrivalent, PF 1 completed ALISIA solitario [facility] 02/23/2023 13:48:17 COVID-19, mRNA, LNP-S, PF, 100 mcg/0.5mL dose or 50 mcg/0.25mL dose 1 completed ALISIA solitario [facility] 02/23/2023 13:48:17 Influenza, recombinant, trivalent, PF 4 completed ALISIA solitario [facility]CD[facility] 11/20/2024 12:28:19 pneumococcal polysaccharide PPV23 8 completed Not Available [facility] 03/10/2023 13:11:39 Influenza, split virus, quadrivalent, PF 4 completed ALISIA solitario [facility]CD[facility] 08/31/2023 14:50:29 Past Encounters Encounter ID Performer Location Encounter Start Date Encounter Closed Date Diagnosis/Indication Diagnosis SNOMED-CT Code Diagnosis ICD10 Code Diagnosis Note [id number] Marianela Vargas MD [facility] ([facility]) [address] [place] [address] 61977-520 5 02/23/2023 13:31:05 02/23/2023 16:43:12 Diabetic peripheral neuropathy 258519567 E11.40 Confusional state 677231 003 F44.89 Cataplexy and narcolepsy 901228004 G47.411 Syncope 089144431 R55 [id number] TIFF VARGAS PA-C [facility] ([facility]) [address] [place] [address] 91387-097 5 03/10/2023 13:11:22 03/10/2023 16:17:07 Adult health examination 528330304 Z00.00 Diabetic p eripheral neuropathy 065018273 E11.40 Obstructiv e sleep apnea syndrome 13020764 G47.33 Chronic mi graine without aura 2644471130 11521 G43.709 Coronary arteriosclerosis 07277596 I25.10 Administra tion of pneumococcal vaccine 42548890 Z23 Her[address] vaccination given 5545994232 49467 Z23 Episodic ataxia 49554222 9 G11.8 Morbid obesity 672084476 E66.01 History of fall 09311690 9 Z91.81 Abnormal gait 02693687 R 26.2 Requires c ontinuous home oxygen supply 856113815 Z99.81 History of malignant neoplasm of colon 903915912 Z85.516 [id number] Marianela Vargas MD [facility] ([facility]) [address] [place] [address] 29850-867 5 08/03/2023 12:02:40 08/03/2023 14:06:38 Tinea pedis 5317428 B35.3 Obstructiv e sleep apnea syndrome 80951860 G47.33 settings were titrated to bipap will send a new order for HOME to adjust his CPAP. if this does not improve his sleepiness in conjuction with tapering morphine, he will need to see neurology b/c his insurance will not allow me to do a multi sleep latency test. Chronic pancreatitis [address] is slowly tapering his intratheca l morphine. so far it has not improved his alertness. they will continue. so far no worsening in pain. . [id number] Marianela Vargas MD [facility] ([facility]) [address] [place] [address] 25373-932 5 08/31/2023 14:04:57 08/31/2023 14:45:23 Adult health examination 501175594 Z00.00 Diabetic p eripheral neuropathy 230556192 E11.40 Obstructiv e sleep apnea syndrome 28076593 G47.33 Episodic ataxia 28440385 9 G11.8 Morbid obesity 526311150 E66.01 History of fall 61171757 9 Z91.81 Abnormal gait 24227955 R 26.2 Requires c ontinuous home oxygen supply 542619416 Z99.81 History of malignant neoplasm of colon 183036685 Z85.038 Essential hypertension 82563579 I10 Chronic pancreatitis [address] is slowly tapering his intratheca l morphine. so far it has not improved his alertness. they will continue. so far no worsening in pain. . Confusional state 590198 003 F44.89 Syncope 284904889 R55 Hyperlipidemia 26147022 E78.5 Administra tion of influenza vaccine 01467444 Z23 [id number] Jose Juan Moran MD [facility] ([facility]) [address] [place] [address] [id number] 5 10/26/2023 16:52:01 10/26/2023 17:47:04 Abdominal pain 14272754 R10.9 X-rays were obtained of the abdomen and it showed some retained fecal matter with no bowel gas changes. Will obtain labs. Chronic pancreatitis 235 713825 K86.1 Likely the cause of the patient's symptoms. [id number] Marianela Vargas MD [facility] ([facility]) [address] [place], [place] [address]15[address] 5 11/06/2023 10:53:31 11/06/2023 12:10:01 Chronic pancreatitis 667361386 K86.1 suspected dx. recommend very low fat diet.go to ER if sx worsen Acute diarrhea 936028138 R19.7 [id number] Marianela Vargas MD [facility] ([facility]) [address] [place], [place] [address] 11/16/2023 14:02:13 11/16/2023 16:14:03 [id number] Marianela Vargas MD [facility] ([facility]) [address] [place], [place] [address] 5 11/29/2023 14:29:06 11/29/2023 16:15:32 [id number] Marianela Vargas MD [facility] ([facility]) [address] [place] [address] 44763-587 5 12/06/2023 15:00:35 12/06/2023 15:59:58 Abdominal mass 114263002 R19.00 Chronic pancreatitis 235 160178 K86.1 suspected dx. recommend very low fat diet.go to ER if sx worsen [id number] Marianela Vargas MD [facility] ([facility]) [address] [place], [place] 62047775-204 5 12/21/2023 14:49:10 12/21/2023 15:37:26 [id number] Marianela Vargas MD [facility] ([facility]) [address] [place] [address] 79622-171 5 01/10/2024 12:42:07 01/10/2024 15:54:19 Abdominal mass 706806324 R19.00 awaiting eus bx.possibl e celiac plexus block for pain control.f/ u post procedure to discuss dx andtreatme nt. Chronic pancreatitis 235 208914 K86.1 [id number] Marianela Vargas MD [facility] ([facility]) [address] [place] [address] 72456-592 5 02/08/2024 14:18:00 02/08/2024 15:05:58 Chronic pancreatitis 467736218 K86.1 [id number] Marianela Vargas MD [facility] ([facility]) [address] [place] [address] 54679-050 5 03/15/2024 12:45:42 03/15/2024 14:47:01 Pain in finger of right hand 6424571913 60215 M79.428 [id number] PETER SNIDER [facility] ([facility]) [address] [place] [address] 18998-028 5 03/23/2024 13:57:26 03/23/2024 15:10:39 Pain of left wrist 0160931450 75131 M25.532 Arthritis noted. Xray will be sent to radiology. Will place thumb spica splint. RTC in 2 weeks for follow up with PCP. Continue current meds for pain as needed. [id number] Marianela Vargas MD [facility] ([facility]) [address] [place] [address] 19820-344 5 04/08/2024 13:52:43 04/08/2024 15:18:52 Pain in finger of right hand 0383029005 31953 M79.644 continue diclofenac Osteoarthritis 442887850 M19.90 Type 2 emeka betes mellitus 93337807 E11.69 [id number] Marianela Vargas MD [facility] ([facility]) [address] [place] [address] 45400-635 5 04/17/2024 14:27:53 04/17/2024 16:09:31 Edema of lower extremity 933891511 R60.0 increase lasix to 40 mg po biddecreas e sodium 6768-9697 ml fluiid per day Dyspnea on exertion 6084 5006 R06.09 Systolic murmur 65388511 R01.1 [id number] Marianela Vargas MD [facility] ([facility]) [address] [place] [address] 33735-685 5 04/24/2024 14:10:25 04/24/2024 15:48:42 Hypertensive urgency 308766774 I16.0 [id number] Marianela Vargas MD [facility] ([facility]) [address] [place] [address] 07789-850 5 07/25/2024 13:08:57 07/26/2024 19:01:40 Generalized anxiety disorder 29279781 F41.1 Seen in [facility] outpatient department 506483766 Z76.89 Type 2 emeka betes mellitus 34996874 E11.69 Uncontroll ed type 2 diabetes mellitus 229342440 E11.65 Cellulitis of finger of right hand 6397595379 9239926 L03.011 no abscess the right middle finger has medial ingrown nail with swelling and mild erythema distal to the dip. there is no streaking. epsom salts soaks bid Essential hypertension 84223509 I10 [id number] Marianela Vargas MD [facility] ([facility]) [address] [place] [address] 32959-966 5 08/07/2024 12:08:30 08/19/2024 13:40:28 Cellulitis of finger of right hand 4717866150 1156631 L03.011 no abscess the right middle finger has medial ingrown nail with swelling and mild erythema distal to the dip. there is no streaking. epsom salts soaks bid [id number] Marianela aVrgas MD [facility] ([facility]) [address] [place] [address] 12961-893 5 09/24/2024 12:32:11 09/24/2024 16:40:00 Diabetic peripheral neuropathy 880319932 E11.40 Morbid obesity 030918905 E66.01 Chronic pancreatitis 235 350837 K86.1 Episodic ataxia 50354703 9 G11.8 Chronic re current major depressive disorder 6437152 F33.9 Hyperlipidemia 70783953 E78.5 Anxiety 97626170 F41.9 Essential hypertension 66847517 I10 Difficulty walking 80173 2003 R26.2 History of fall 91756783 9 Z91.81 Dependence on supplemental oxygen 2140162614 07 Z99.81 Dependence on enabling machine or device 685388422 Z99.89 [id number] Marianela Vargas MD [facility] ([facility]) [address] [place] [address] 00323-196 5 11/20/2024 12:10:04 11/20/2024 14:29:22 Mesenteric artery stenosis 066860843 K55.1 sma needs pretreatme nt for possible mesenteric ischemia. non contrasted CT did not show any acute process. He sees GI Epigastric pain 31771352 R10.13 increase ppi to bid for now. 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 i will help get that arranged ath the facility that is familiarr with his pump and pretreatme nt will be needed. Hypertensive urgency 443 677511 I16.0 [id number] Marianela Vargas MD [facility] ([facility]) [address] [place] [address] [id number] 5 11/27/2024 13:12:56 11/28/2024 07:15:56 Essential hypertension 61167856 I10 Type 2 emeka betes mellitus 13824774 E11.69 [id number] Marianela Vargas MD [facility] ([facility]) [address] [place] [address] 96939-833 5 12/24/2024 15:24:55 12/25/2024 11:27:21 [id number] Marianela Vargas MD [facility] ([facility]) [address] [place] [address] 77229-913 5 12/26/2024 13:13:13 12/26/2024 14:35:59 Bilateral stenosis of carotid arteries 466891455 I65.23 [id number] Marianela Vargas MD [facility] ([facility]) [address] [place] [address] 31047-225 5 01/27/2025 13:38:47 01/29/2025 12:35:46 Bilateral stenosis of carotid arteries 930346870 I65.23 left 73% from two months ago was being treated medically but now has hd an event with right sided mca stroke. we discussed need for evaluation for carotid endarterec miryam now. doreen called him this morning. he states dr. melvin referred him. he will call them to arrange that. continue DUATt until you see dr. melvin in a few weeks. then she will re-eval if it is necessary any longer. he was on 10 mg of crestor qod. this was thought to be the highest tolerable dose but he is tolerating 20 mg po qday currently . will monitor but do a trial of 40 mg crestor. already establishe d but will send a referral of the carotid to see vascular surgery at [facility]. he has an abdominal cta planned in the near future Health Concerns Section Related Observation LastModified by Organization Detai ls LastModified Time None Recorded Concern Status LastModified by Organization Details LastModified Time None Recorded Advance Directives Directive None Recorded Payers Insurance Date Sequence Insurance Name Policy Number Policy Correa Covered Member ID Correa Member ID Guarantor Name 01/24/2025 [place] [facility] Guanakito A Donta [id number] Guanakito A Donta 04/06/2024 2 [place] Guanakito A Donta [id number] Guanakito A Donta 01/22/2025 1 [place] - [place] [id number] Guanakito A Donta [id number] Guanakito A Donta Notes Date Note Type Note Provider Name and Address Organization Details Recorded Time 12/26/2024 text/html Patient is here today to [...] no issues. Patient also reports that in [facility] has him set up for a CT [...] reports that he is being referred to [facility] to discuss this with a vascular surgeon. we discussed [facility] being just fine no more imaging needs to be done at this time. Marianela Vargas MD [address] [place] [address], [phone], [facility] 12/26/2024 13:39:05 01/27/2025 text/html Hospitalization Contact RecordReported bypatient.Notes:Pt is here for a hospital f/u. He had a stroke on 01/17 and stayed in the hospital for 3 days. He is feeling much better now. He still has facial drooping and difficulty pronouncing some words. He is doing well as far as the strength in his limbs goes, but is not at 100%. He is ambulatory by cane. He is going to do PT and speech therapy. He does at times have difficulty thinking of the words he wants to say. Pt would also like to discuss his U/S from 12/24/2024. He has an appt with Dr. Melvin on 02/26. his function is improving and his phonation is improving he is gong ti PT. he is able to blnk now. [facility] [place] [address]LM Scan ReportSignedPatient: Guanakito Longo AUnfarida #: [id number]: 1960cct#:[id number]/Sex: 64 / MADM Date: 11/28/24Loc: RADRoom/Bed:Attending Dr: Leena Melvin MDOrdering Provider/Ordering MD: Leena Melvin MDDate of Service: 11/28/24Procedure(s): CT angio headneck* [id number] Number(s): [id number] Number: [id number]: [id number] HEAD AND NECKTECHNIQUE: Contrast enhanced CTA of the head and neck with coronal and sagittal reformatted images and maximum intensity projection (MIP) images. NASCET criteria utilized.CLINICAL INFORMATION: G45.9 - Transient cerebral ischemic attack, unspecifiedCOMPARISON : 2013DLP: 1855.[address] scans at [facility] use at least one of these dose optimization techniques: automated exposure control; mA and/or kV adjustment per patient size (includes targeted exams where dose is matched to clinical indication); or iterative reconstruction.FINDIN GS: Bilateral ICA stenosis progressed since 2012RIGHT: RIGHT ICA stenosis 63%. Moderate calcified atheromatous plaque.LEFT: LEFT ICA stenosis 73%. Dense calcified atheromatous plaque.Both vertebral arteries are patent.INTRACRANIAL CTA:Basilar artery is patent. Normal vascularity to the SUEDING AND BUFFING MACHINE OPERATOR territory bilaterally.Both ICAs are patent at the skull base. Cavernous carotid calcification. Normal vascularity to the DARYL and MCA territories bilaterally. No evidence of proximal flow-limiting stenosis. CT/CT angio headneck* [id number] :1. RIGHT ICA stenosis 63%2. LEFT ICA stenosis 73%3. Both vertebral arteries are patent.4. No evidence of intracranial proximal flow-limiting stenosis.Dictated By:Artie Rivera MDSigned By:Artie Rivera MDSigned Date/Time:11/28/24 1349DD/ 1341 Pt would like to discuss if he should resume his isosorbide or metformin. Gary Lovett (Outside Read)[address] [id number] ReportSignedPatient: Guanakito Longo #: [id number]: 8Acct#:[id number]/Sex: 64 / MADM Date: 12/24/24Loc: RADOUTREADRoom/Bed:At tending Dr: Marianela Vargas MDOrdering Provider/Ordering MD: Marianela Vargas MDDate of Service: 12/24/24Procedure(s): ROR carotid duplex BIAccession Number(s): [id number] Number: [id number]: [id number] CAROTIDINDICATION: Carotid stenosisTECHNIQUE: Ultrasound examination both carotid arteries with Doppler.FINDINGS: Comparison recent CTA 11/28/2024RIGHT: RIGHT ICA stenosis 50 to 69% with velocities at the upper end of the range.Severe RIGHT ECA stenosis. Moderate calcified atheromatous plaque.LEFT: LEFT ICA stenosis 50 to 69%. Moderate calcified atheromatous plaque.Antegrade flow both vertebral arteries. US/ROR carotid duplex BIIMPRESSION: Bilateral ICA stenosis 50 to 69% with velocities approaching 70% worse on the RIGHT. This is similar to the recent CTA. Moderate calcified atheromatous plaque bilaterally.Dictated By:Artie Rivera MDSigned By:Artie Rivera MD, MD [address] [place] [address], [phone], [facility], Sandra 01/27/2025 15:25:32
--- OUTSIDE RECORDS SUMMARY | 2025-03-07 03:53 | XMS_ITS | Encounter Summary ---
Author Organization [facility] Address [address] [place] [address] Care Team Providers Care Indoor Plant Technician Name Role Phone Johnny Vargas MD Primary Care Provider [phone] Reason for Visit * Reason Onset Date Comments Follow Up 03/04/2025 Encounter Details Date Type Department Care Team (Late st Contact Info) Description 03/04/2025 Telephone [facility] Vascular Surgery Mary Esther [address] [place] [address] Reagan Fuentes NP [address] [place] [address] Follow Up Social History Tobacco Use Types Packs/Day Years Used Date Smoking Tobacco: Never Smokeless Tobacco: Never Alcohol Use Standard Drinks/Week Comments Not Currently 0 (1 standard drink = 0.6 oz pur e alcohol) Sex and Gender Information Value Date Recorded Sex Assigned at Not on file 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 Please confirm new date and time, or reschedule to patients preference upon call back. * Telephone Encounter - Shabbir Cheema - 03/04/2025 4:08 PM CDT Returning missed telephone check up [phone] documented in this encounter Plan of Treatment Upcoming Encounters Date Type Department Care Team (Late st Contact Info) Description 03/07/2025 3:00 PM CDT Telephone Check Up [facility] Vascular Surgery Mary Esther [address] [facility] [address] [place] [address] Reagan Fuentes NP [address] [facility] [address] [place] [address] 05/05/2025 1:00 PM CDT [facility] [address] [place] [address] Tyson Gr MD [address] [place] [address] [address] [place] [address] documented as of this encounter Visit Diagnoses Not on filedocumented in this encounter Care Teams Indoor Plant Technician Relationship Specialty Start Date End Date Johnny Vargas MD [address] [facility] [address] [place] [phone] PCP - General Family Practice 04/06/21 documented as of this encounter
--- OUTSIDE RECORDS SUMMARY | 2025-03-07 03:53 | XMS_ITS | Encounter Summary ---
Author Organization [facility] Address [address] [place] [address] Care Team Providers Care Shipfitters Supervisor Name Role Phone Unavailable Primary Care Provider Unavailabl e Encounter Details Date Type Department Care Team (Latest Contact Info) Description 05/15/2006 Outpatient Historical [facility] 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
--- OUTSIDE RECORDS SUMMARY | 2025-03-07 03:53 | XMS_ITS | Encounter Summary ---
Author Organization [facility] Address [address] [place] [address] Care Team Providers Care Canteen Manager Name Role Phone Unavailable Primary Care Provider Unavailabl e Encounter Details Date Type Department Care Team (Latest Contact Info) Description 04/17/2006 Outpatient Historical [facility] 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
--- OUTSIDE RECORDS SUMMARY | 2025-03-07 03:53 | XMS_ITS | Encounter Summary ---
[facility] Address [address] [place] [address] Care Team Providers Care Vice President [employer] Name Role Phone Unavailable Primary Care Provider Unavailabl e Encounter Details Date Type Department Care Team (Latest Contact Info) Description 03/10/2006 Outpatient Historical [facility] [address] [place] [id number] Jair Lizarraga NP [address] [phone] Pain in Limb (Primary Dx); Carpal Tunnel Syndrome; Lateral Epicondylitis Social History Tobacco Use Types Packs/Day Years Used Date Smoking Tobacco: Never Assessed Sex and Gender Information Value Date Recorded Sex Assigned at Not on file Legal Sex Male 5:52 AM [employer] Gender Identity Not on file Sexual Orientation Not on file documented as of this encounter Plan of Treatment Not on file documented as of this encounter Visit Diagnoses Diagnosis Pain in limb- Primary Pain in soft tissues of limb Carpal tunnel syndrome Lateral epicondylitis Lateral epicondylitis of elbow documented in this encounter
[2025-03-07 03:55] VITALS: BP 196/91; PULSE 80; RESP 17; TEMP 36.6; O2SAT 94; BMI 33.9
[2025-03-07 04:31] LABS: Hematocrit 34.8 % (37-53); Hemoglobin 11.70 g/dL (11.27-16.99); Mean Corpuscular HGB Conc 33.6 g/dL (30-55); Mean Corpuscular Hemoglobin 27.0 pg (27-33); Mean Corpuscular Volume 80.4 fl (82-101); Nucleated Red Blood Cells % 0 %; Platelet Count 182 10^3/cmm (157-399); Red Blood Count 4.33 10^6/uL (3.85-5.65); White Blood Count 7.01 10^3/uL (3.29-11.43)
[2025-03-07 04:49] LABS: Troponin(5th) Baseline 14 ng/L (0-15)
[2025-03-07 04:51] LABS: Alanine Aminotransferase 10 U/L (0-41); Albumin Level 3.8 g/dL (3.5-5.2); Alkaline Phosphatase 59 U/L (40-130); Anion Gap 17.9 (5-19); Aspartate Amino Transferase 10 U/L (0-40); Blood Urea Nitrogen 10 mg/dL (8-23); Calcium 8.4 mg/dL (8.5-10.5); Carbon Dioxide 24 mmol/L (22-29); Chloride 99 mmol/L (98-107); Globulin 2.2 g/dL (1.3-4.6); Glucose 246 mg/dL (65-115); Osmolality Calculated 291 mOsm/kg (285-295); Potassium 3.9 mmol/L (3.5-5.1); Sodium 137 mmol/L (136-145); Total Protein 6.0 g/dL (6.6-8.7)
--- NOTE | 2025-03-07 05:17 | ED_ITS ---
Documented by User: Guillermo Bennett MD 03/07/25 05:21 HPI - Chest Pain 2 General: Chief Complaint: Chest Pain Stated Complaint: High BP Time Seen by Provider: 03/07/25 04:12 History of Present Illness: 64-yo M with Hx of HTN, ischemic CVA sev en weeks ago, carotid stenosis (~70% on one side, 69% on the other), and chronic anxiety presents from home after recording BP 219/94, taking clonidine, and noting a second reading reported as ~240/110 about 90 min later. He developed headache, chest pressure, shaking, and inability to sit or lie still due to severe anxiety. Denies missed doses of medicines. No new focal weakness or numbness; chronic mild leg weakness unchanged since CVA. Reports brief nausea earlier in the day. No recent fever or illness. Prior cardiac work-up notable for normal stress test (2022) and echo (EF 65%, no WMA, 01/16/25). No prior coronary catheterization. Takes hydroxyzine for anxiety but states it is ?not strong enough.? Related Data Home Medications ?Medication ?Instructions ?Recorded ?Confirmed albuterol sulfate 90 mcg/actuation 1 - 2 inh inhalatio n Q4H PRN 10/30/19 02/26/25 breath activated powder inhaler Shortness Of Breath (ProAir RespiClick) clopidogrel 75 mg tablet (Plavix) 75 mg PO BEDTIME 02/26/25 hydroxyzine HCl 50 mg tablet 50 mg PO BID PRN Anxiety 03/03/21 02/26/25 insulin lispro 100 unit/mL See Rx Instructions .Route .COMPLEX 03/03/21 02/26/25 subcutaneous pen (Humalog KwikPen (U-100) Insulin) multivitamin 1 tab PO DAILY 03/03/2105/15 Morphine pain pump See Rx Instructions .Route . COMPLEX 06/09/21 02/26/25 insulin glargine 100 unit/mL (3 57 unit SUBCUT BEDTIME 08/25/21 02/26/25 mL) subcutaneous pen (Lantus Solostar U-100 Insulin) metformin 500 mg tablet,extended 1,000 mg PO BID 08/0202/26/25 release 24 hr pantoprazole 40 mg tablet,delayed 40 mg PO BID 2 02/26/25 release brimonidine 0.2 %-timolol 0.5 % 1 drp ophthalmic (eye) BID 08/28/24 02/26/25 eye drops (Combigan) galcanezumab-gnlm 120 mg/mL 120 mg SUBCUT .Q30D 02/26/25 subcutaneous pen injector (Emgality Pen) isosorbide mononitrate 60 mg 60 mg PO DAILY 08/28/24 0 02/26/25 tablet,extended release 24 hr Held on 01/19/25. Instructions: Resume on 02/03/25. cyanocobalamin (vitamin B-12) 500 500 mcg PO DAILY 06/1402/26/25 mcg tablet (Vitamin B-12) docusate sodium 100 mg capsule 100 mg PO BID PRN Const ipation 10/28/24 02/26/25 (Colace) sertraline 100 mg tablet 100 mg PO DAILY 10/28/2405/15 Previous Rx's ?Medication ?Instructions ?Recorded [id number] 2 cap PO TID #90 caps 36,000-114,000-180,000 unit capsule,delay rel (Creon) lisinopril 10 mg tablet 10 mg PO BID #180 tabs 12/06 ferrous sulfate 325 mg (65 mg 325 mg PO DAILY #30 tabs 09/25/23 iron) tablet Diabetic shoes with CUSTOM #1 ea 04/10/24 Accomodative Insert galantamine 4 mg tablet 4 mg PO BID #180 tabs hydrocodone 5 mg-acetaminophen 325 1 tab PO Q6H PRN pa in #14 tabs 07/12/24 mg tablet furosemide 20 mg tablet 20 mg PO BID Edema #180 tabs 07/15/24 ondansetron 8 mg disintegrating 8 mg PO Q6H #14 tabs 0 11/17/24 tablet promethazine 25 mg rectal 25 mg WI Q6H PRN nausea and 11/17/24 suppository vomiting #12 ea 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,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,cont #1 ea 11/28/24 (FreeStyle Loyd 3 [place]) clonidine HCl 0.2 mg tablet See Rx Instructions .Route 01/19/25 .COMPLEX PRN high blood pressure 30 days #60 tabs 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 sensor (FreeStyle #6 ea 02/19/25 Loyd 3 Plus Sensor device) Allergies Allergy/AdvReac Type Severity Reaction Status Date / Time Iodinated Contrast Media Allergy Unknown ALGY-Hives Verified 02/26/25 14:59 adhesive tape Allergy ALGY-Rash Verified 02/26/25 14:59 aspirin Allergy ALGY-Rash Verified 02/26/25 14:59 fentanyl Allergy ALGY-Rash, Verified 02/26/25 14:59 vomit Penicillins Allergy ALGY-Rash, Verified 02/26/25 14:59 breathing difficulty alprazolam (From Xanax) AdvReac ADR-Anxiety Verified 02/26/25 14:59 zolpidem (From Ambien) AdvReac ADR-Anxiety Verified 02/26/25 14:59 PFSH ED 2 PFSH: Medical History (Updated 03/07/25 @ 07:11 by Edenilson Fairchild DO) Chronic venous insufficiency Diabetes History of colon polyps NEDRA (obstructive sleep apnea) Coronary artery disease HTN (hypertension) Diabetes Peripheral neuropathy Asthma GERD (gastroesophageal reflux disease) Mart's palsy Surgical History History of incisional hernia repair (11/01/21) open with mesh History of esophagogastroduodenoscopy History of incisional hernia repair (05/06/21) With excision of abdominal wall mass Status post right inguinal hernia repair History of right hemicolectomy H/O colonoscopy (10/27/20) 5 years Family History Other CAD (coronary artery disease) Cancer Hypertension Denies family history of Anesthesia complication Bleeding disorder Social History Smoking and tobacco/nicotine status: never used tobacco/nicotine Alcohol intake: never Substance/Drug Use: never Additional social history: He wants full code as discussed with him and his mother Bianca on 01/16/2025 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 for his mother Household members: family 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 Physical Exam 2 Const: COMMON NORMALS: no acute distress, patient oriented x3 and alert HENMT: COMMON NORMALS: normocephalic and atraumatic HEAD & SCALP: n ormocephalic and atraumatic Eye: COMMON NORMALS: Equal, round and reactive pupils present, EOMs intact bilaterally and no scleral icterus PUPIL: Yes Equal, round and reactive pupils present Resp: COMMON NORMALS: normal respiratory effort and No retractions Cardio: COMMON NORMALS: regular rate, regular rhythm and No murmurs present (Cardio) RATE: regular rate RHYTHM: regular rhythm GI: COMMON NORMALS: Normal to inspection, nondistended, normoactive bowel sounds present, Soft to palpation and non-tender PALPATION: Yes Soft to palpation Neuro: COMMON NORMALS: patient oriented x3 SENSORIUM/ORIENTATION: Yes alert OTHER: Stable right facial, arm, and leg deficits which are unchanged from prior stroke. Skin: COMMON NORMALS: no rashes or lesions noted GENERAL SKIN EXAM: no rashes or lesions noted Course 2 Vital Signs: Vital signs: Vital Signs Temperature 97.9 F 03/07/25 03:55 Pulse Rate 84 03/07/25 05:32 Respiratory Rate 20 H 03/07/25 05:32 Blood Pressure 175/66 03/07/25 05:32 Pulse Oximetry 96 03/07/25 05:32 Oxygen Delivery Me thod Room Air 03/07/25 05:32 MDM - Chest Pain Medical Decision Making In summary, patient is a 64-year-old male from home seen for hypertension which he measured to be 240 systolic at home which caused him anxiety. The he complains of vague chest pain which at the time of my exam has remitted spontaneously. Taking an extra dose of clonidine at home blood pressure has dropped to 180 systolic. EKG is reassuring and initial set of labs showed no evidence of acute abnormality. Repeat troponin will be taken at the 2-hour keyon and he was given 1.1 mg clonidine here. Pertinent details of the case will be shared with the oncoming emergency physician who will help us ultimate ultimate disposition based on repeat troponin and blood pressure response to medication. To his knowledge she has no underlying cardiac disease with the normal echocardiogram just several months ago showing 65% ejection fraction no gross wall motion abnormalities. Assuming blood pressure the is within reasonable range and symptoms are evaluated he would likely be safe for discharge home. Lab Data 03/07/25 04:20 03/07/25 04:20 Radiology Impressions Chest X-Ray 03/07/25 03:47 IMPRESSION: 1. Lung hyperinflation with minimal linear scarring or atelectasis at the left costophrenic angle. Laboratory Results WBC 7.01 10^3/uL (3.29-11.43) 03/07/25 04:20 Corrected WBC Cancelled 03/07/25 04:00 RBC 4.33 10^6/uL (3.85-5.65) 03/07/25 04:20 Hgb 11.70 g/dL (11.27-16.99) 03/07/25 04:20 Hct 34.8 % (37-53) L 03/07/25 04:20 MCV 80.4 fl (82-101) L 03/07/25 04:20 MCH 27.0 pg (27-33) 03/07/25 04:20 MCHC 33.6 g/dL (30-55) 03/07/25 04:20 RDW 12.8 % (12.1-15.1) 03/07/25 04:20 Plt Count 182 10^3/cmm (157-399) 03/07/25 04:20 MPV 9.9 fL (7.4-10.4) 03/07/25 04:20 Gran % Cancelled 03/07/25 04:00 Neut % (Auto) 62.7 % 03/07/25 04:20 Lymph % (Auto) 23.8 % 03/07/25 04:20 [place] % (Auto) 7.7 % 03/07/25 04:20 Eos % (Auto) 4.3 % 03/07/25 04:20 Baso % (Auto) 0.9 % 03/07/25 04:20 Neut # (Auto) 4.40 10^3/uL (1.8-7.7) 03/07/25 04:20 Lymph # (Auto) 1.7 10^3/uL (0.8-4.8) 03/07/25 04:20 [place] # (Auto) 0.5 10^3/uL (0.2-0.9) 03/07/25 04:20 Eos # (Auto) 0.3 10^3/uL (0.0-0.8) 03/07/25 04:20 Baso # (Auto) 0.1 10^3/uL (0.0-0.1) 03/07/25 04:20 Absolute Gran (auto) Cancelled 03/07/25 04:00 Nucleated RBC % (auto) 0 % 03/07/25 04:20 Nucleated RBCs # 0.0 /100WBC 03/07/25 04:20 Sodium 137 mmol/L (136-145) 03/07/25 04:20 Potassium 3.9 mmol/L (3.5-5.1) 03/07/25 04:20 Chloride 99 mmol/L (98-107) 03/07/25 04:20 Carbon Dioxide 24 mmol/L (22-29) 03/07/25 04:20 Anion Gap 17.9 (5-19) 03/07/25 04:20 BUN 10 mg/dL (8-23) 03/07/25 04:20 Creatinine 0.5 mg/dL (0.7-1.2) L 03/07/25 04:20 GFR Calculation 166.4 mL/min (90-130) H 03/07/25 04:20 Glucose 246 mg/dL (65-115) H 03/07/25 04:20 Calculated Osmolality 291 mOsm/kg (285-295) 03/07/25 04:20 Calcium 8.4 mg/dL (8.5-10.5) L 03/07/25 04:20 Total Bilirubin 0.6 mg/dL (0.15-1.2) 03/07/25 04:20 AST 10 U/L (0-40) 03/07/25 04:20 ALT 10 U/L (0-41) 03/07/25 04:20 Alkaline Phosphatase 59 U/L (40-130) 03/07/25 04:20 Troponin T Baseline 14 ng/L (0-15) 03/07/25 04:20 Troponin T 120 Minute 13.05 ng/L (0-15) 03/07/25 06:28 Delta Troponin T -0.95 ABS# (0-10) L 03/07/25 06:28 Total Protein 6.0 g/dL (6.6-8.7) L 03/07/25 04:20 Albumin 3.8 g/dL (3.5-5.2) 03/07/25 04:20 Globulin 2.2 g/dL (1.3-4.6) 03/07/25 04:20 EKG Data EKG 1: Interpretation: Time?0350?sinus rhythm with infrequent PVCs, rate of 78, no ST segment elevation or depression, no T wave inversions, QTc = 417 Discharge Plan Discharge Patient Disposition: Home Clinical Impression: Atypical chest pain, Hypertension Condition: Stable Prescriptions: No Action Morphine pain pump See Rx Instructions .ROUTE .COMPLEX Rx Instructions: via continuous intrathecal infusion as directed galantamine 4 mg tablet 4 mg PO BID Qty: 180 3RF Rx Instructions: 340B (DME) Diabetic shoes with CUSTOM Accomodative Insert See Rx Instructions .Route .MEDSUPPLY Qty: 1 0RF Rx Instructions: As directed by HOME ferrous sulfate 325 mg (65 mg iron) tablet 325 mg PO DAILY Qty: 30 12RF lisinopril 10 mg tablet 10 mg PO BID Qty: 180 2RF furosemide 20 mg tablet 20 mg PO BID Qty: 180 3RF (DME) FreeStyle Loyd 3 [place] Misc See Rx Instructions .ROUTE .COMPLEX Qty: 1 0RF Dose Instruction: USE DIRECTED Rx Instructions: USE DIRECTED (DME) FreeStyle Loyd 3 Plus Sensor Device See Rx Instructions .ROUTE .COMPLEX Qty: 6 0RF Dose Instruction: USE DIRECTED AND CHANGE EVERY 15 DAYS Rx Instructions: USE DIRECTED AND CHANGE EVERY 15 DAYS ProAir RespiClick 90 mcg/actuation aerosol powdr breath activated 1 - 2 inh inhalation Q4H PRN (Reason: Shortness Of Breath) multivitamin Tablet 1 tab PO DAILY hydroxyzine HCl 50 mg tablet 50 mg PO BID PRN (Reason: Anxiety) clopidogrel [Plavix] 75 mg tablet 75 mg PO BEDTIME insulin lispro [Humalog KwikPen Insulin] 100 unit/mL insulin pen See Rx Instructions .ROUTE .COMPLEX Rx Instructions: INJECT 20 UNITS 3 TIMES DAILY WITH MEALS PLUS LOW DOSE SLIDING SCALE MAX OF 87 UNITS PER DAY. Lantus Solostar U-100 Insulin 100 unit/mL (3 mL) insulin pen 57 unit SUBCUT BEDTIME Patient Comments: took 26units at 2000 Creon 36,000-114,000- 180,000 unit capsule,delayed release(DR/EC) 2 cap PO TID Qty: 90 3RF Rx Instructions: administer with meals. 1 cap if snacks pantoprazole 40 mg tablet,delayed release (DR/EC) 40 mg PO BID metformin 500 mg tablet extended release 24 hr 1,000 mg PO BID hydrocodone-acetaminophen 5-325 mg tablet 1 tab PO Q6H PRN (Reason: pain) Qty: 14 0RF isosorbide mononitrate 60 mg tablet extended release 24 hr 60 mg PO DAILY Emgality Pen 120 mg/mL pen injector 120 mg SUBCUT .Q30D Rx Instructions: on the 12th brimonidine-timolol [Combigan] 0.2-0.5 % drops 1 drp ophthalmic (eye) BID docusate sodium [Colace] 100 mg capsule 100 mg PO BID PRN (Reason: Constipation) sertraline 100 mg tablet 100 mg PO DAILY cyanocobalamin (vitamin B-12) [Vitamin B-12] 500 mcg Tablet 500 mcg PO DAILY promethazine 25 mg suppository 25 mg [place] Q6H PRN (Reason: nausea and vomiting) Qty: 12 0RF ondansetron 8 mg tablet,disintegrating 8 mg PO Q6H Qty: 14 0RF Rx Instructions: Take 1/2-1 tab every 6 hours as needed for nausea and vomiting clonidine HCl 0.2 mg tablet See Rx Instructions .ROUTE .COMPLEX PRN (Reason: high blood pressure) 30 Days Qty: 60 0RF Rx Instructions: TAKE 1 TABLET BY MOUTH EVERY 12 HOURS NEEDED FOR SYSTOLIC BLOOD PRESSURE OVER 180 OR DIASTOLIC BLOOD PRESSURE OVER 95. Discharge Orders: Discharge ED (Routine); Ordered 03/07/25 Ordered By: Edenilson Fairchild Discharge Diet: Usual diet Discharge Activity: Increase activity as tolerated Patient Instructions: Opioid Safety, Pain Management, Patient Portal & Lorie Instructions Activity Restrictions/Additional Instructions: Thank you for choosing [facility] for your healthcare needs today. It is very important that you follow up as instructed or that you return to the Emergency Department should you have concerns or if your condition changes or worsens in any way. You are seen in the emergency room with complaints of chest pain and elevated blood pressure. Your blood pressure improved evaluation of your chest discomfort showed no signs of acute coronary syndrome and your EKG and your cardiac enzymes were normal. Your blood pressure should continually be monitored as an outpatient you should follow-up with your doctor within 10 to 14 days to reevaluate. Print Language: Malaysian Sign Out Sign Out Data: Patient Sign Out occurred on 03/07/25 at 07:00. Patient's care was discussed, and care was transferred from Guillermo Bennett MD to Edenilson Fairchild DO. Coding Level of Care Code ED Psychological Tests Sales Agent for Chg Fwd Documented by User: Edenilson Fairchild DO 03/07/25 07:12 HPI - Chest Pain 2 General: Chief Complaint: Chest Pain Stated Complaint: High BP Time Seen by Provider: 03/07/25 04:12 Related Data Home Medications ?Medication ?Instructions ?Recorded ?Confirmed albuterol sulfate 90 mcg/actuation 1 - 2 inh inhalatio n Q4H PRN 10/30/19 02/26/25 breath activated powder inhaler Shortness Of Breath (ProAir RespiClick) clopidogrel 75 mg tablet (Plavix) 75 mg PO BEDTIME 02/26/25 hydroxyzine HCl 50 mg tablet 50 mg PO BID PRN Anxiety 03/03/21 02/26/25 insulin lispro 100 unit/mL See Rx Instructions .Route .COMPLEX 03/03/21 02/26/25 subcutaneous pen (Humalog KwikPen (U-100) Insulin) multivitamin 1 tab PO DAILY 03/03/2105/15 Morphine pain pump See Rx Instructions .Route . COMPLEX 06/09/21 02/26/25 insulin glargine 100 unit/mL (3 57 unit SUBCUT BEDTIME 08/25/21 02/26/25 mL) subcutaneous pen (Lantus Solostar U-100 Insulin) metformin 500 mg tablet,extended 1,000 mg PO BID 08/0202/26/25 release 24 hr pantoprazole 40 mg tablet,delayed 40 mg PO BID 2 02/26/25 release brimonidine 0.2 %-timolol 0.5 % 1 drp ophthalmic (eye) BID 08/28/24 02/26/25 eye drops (Combigan) galcanezumab-gnlm 120 mg/mL 120 mg SUBCUT .Q30D 02/26/25 subcutaneous pen injector (Emgality Pen) isosorbide mononitrate 60 mg 60 mg PO DAILY 08/28/24 0 02/26/25 tablet,extended release 24 hr Held on 01/19/25. Instructions: Resume on 02/03/25. cyanocobalamin (vitamin B-12) 500 500 mcg PO DAILY 06/1402/26/25 mcg tablet (Vitamin B-12) docusate sodium 100 mg capsule 100 mg PO BID PRN Const ipation 10/28/24 02/26/25 (Colace) sertraline 100 mg tablet 100 mg PO DAILY 10/28/2405/15 Previous Rx's ?Medication ?Instructions ?Recorded rrrqfq-cpjybbfy-ocodrey 2 cap PO TID #90 caps 36,000-114,000-180,000 unit capsule,delay rel (Creon) lisinopril 10 mg tablet 10 mg PO BID #180 tabs 12/06 ferrous sulfate 325 mg (65 mg 325 mg PO DAILY #30 tabs 09/25/23 iron) tablet Diabetic shoes with CUSTOM #1 ea 04/10/24 Accomodative Insert galantamine 4 mg tablet 4 mg PO BID #180 tabs hydrocodone 5 mg-acetaminophen 325 1 tab PO Q6H PRN pa in #14 tabs 07/12/24 mg tablet furosemide 20 mg tablet 20 mg PO BID Edema #180 tabs 07/15/24 ondansetron 8 mg disintegrating 8 mg PO Q6H #14 tabs 0 11/17/24 tablet promethazine 25 mg rectal 25 mg WI Q6H PRN nausea and 11/17/24 suppository vomiting #12 ea 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,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,cont #1 ea 11/28/24 (FreeStyle Loyd 3 [place]) clonidine HCl 0.2 mg tablet See Rx Instructions .Route 01/19/25 .COMPLEX PRN high blood pressure 30 days #60 tabs 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 sensor (FreeStyle #6 ea 02/19/25 Loyd 3 Plus Sensor device) Allergies Allergy/AdvReac Type Severity Reaction Status Date / Time Iodinated Contrast Media Allergy Unknown ALGY-Hives Verified 02/26/25 14:59 adhesive tape Allergy ALGY-Rash Verified 02/26/25 14:59 aspirin Allergy ALGY-Rash Verified 02/26/25 14:59 fentanyl Allergy ALGY-Rash, Verified 02/26/25 14:59 vomit Penicillins Allergy ALGY-Rash, Verified 02/26/25 14:59 breathing difficulty alprazolam (From Xanax) AdvReac ADR-Anxiety Verified 02/26/25 14:59 zolpidem (From Ambien) AdvReac ADR-Anxiety Verified 02/26/25 14:59 PFSH ED 2 PFSH: Medical History (Updated 03/07/25 @ 07:11 by Edenilson Fairchild DO) Chronic venous insufficiency Diabetes History of colon polyps NEDRA (obstructive sleep apnea) Coronary artery disease HTN (hypertension) Diabetes Peripheral neuropathy Asthma GERD (gastroesophageal reflux disease) Mart's palsy Surgical History History of incisional hernia repair (11/01/21) open with mesh History of esophagogastroduodenoscopy History of incisional hernia repair (05/06/21) With excision of abdominal wall mass Status post right inguinal hernia repair History of right hemicolectomy H/O colonoscopy (10/27/20) 5 years Family History Other CAD (coronary artery disease) Cancer Hypertension Denies family history of Anesthesia complication Bleeding disorder Social History Smoking and tobacco/nicotine status: never used tobacco/nicotine Alcohol intake: never Substance/Drug Use: never Additional social history: He wants full code as discussed with him and his mother Bianca on 01/16/2025 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 The he complains of vague chest pain which at the time of my exam has remitted spontaneously. Taking an extra dose of clonidine at home blood pressure has dropped to 180 systolic. EKG is reassuring and initial set of labs showed no evidence of acute abnormality. Repeat troponin will be taken at the 2-hour keyon and he was given 1.1 mg clonidine here. Pertinent details of the case will be shared with the oncoming emergency physician who will help us ultimate ultimate disposition based on repeat troponin and blood pressure response to medication. To his knowledge she has no underlying cardiac disease with the normal echocardiogram just several months ago showing 65% ejection fraction no gross wall motion abnormalities. Assuming blood pressure the is within reasonable range and symptoms are evaluated he would likely be safe for discharge home. Care assumed at change of shift. Second EKG shows sinus rhythm rate 73 occasional PVCs no acute ST changes no significant changes from initial EKG. Cardiac enzymes have trended negative. Patient is asymptomatic reevaluation is no focal neurologic deficits heart and lungs are clear. He has a trace edema lower extremities. His blood pressure is improved will discharge home and follow-up with his primary care doctor in 7 to 10 days as an outpatient. Lab Data 03/07/25 04:20 03/07/25 04:20 Radiology Impressions Chest X-Ray 03/07/25 03:47 IMPRESSION: 1. Lung hyperinflation with minimal linear scarring or atelectasis at the left costophrenic angle. Laboratory Results WBC 7.01 10^3/uL (3.29-11.43) 03/07/25 04:20 Corrected WBC Cancelled 03/07/25 04:00 RBC 4.33 10^6/uL (3.85-5.65) 03/07/25 04:20 Hgb 11.70 g/dL (11.27-16.99) 03/07/25 04:20 Hct 34.8 % (37-53) L 03/07/25 04:20 MCV 80.4 fl (82-101) L 03/07/25 04:20 MCH 27.0 pg (27-33) 03/07/25 04:20 MCHC 33.6 g/dL (30-55) 03/07/25 04:20 RDW 12.8 % (12.1-15.1) 03/07/25 04:20 Plt Count 182 10^3/cmm (157-399) 03/07/25 04:20 MPV 9.9 fL (7.4-10.4) 03/07/25 04:20 Gran % Cancelled 03/07/25 04:00 Neut % (Auto) 62.7 % 03/07/25 04:20 Lymph % (Auto) 23.8 % 03/07/25 04:20 [place] % (Auto) 7.7 % 03/07/25 04:20 Eos % (Auto) 4.3 % 03/07/25 04:20 Baso % (Auto) 0.9 % 03/07/25 04:20 Neut # (Auto) 4.40 10^3/uL (1.8-7.7) 03/07/25 04:20 Lymph # (Auto) 1.7 10^3/uL (0.8-4.8) 03/07/25 04:20 [place] # (Auto) 0.5 10^3/uL (0.2-0.9) 03/07/25 04:20 Eos # (Auto) 0.3 10^3/uL (0.0-0.8) 03/07/25 04:20 Baso # (Auto) 0.1 10^3/uL (0.0-0.1) 03/07/25 04:20 Absolute Gran (auto) Cancelled 03/07/25 04:00 Nucleated RBC % (auto) 0 % 03/07/25 04:20 Nucleated RBCs # 0.0 /100WBC 03/07/25 04:20 Sodium 137 mmol/L (136-145) 03/07/25 04:20 Potassium 3.9 mmol/L (3.5-5.1) 03/07/25 04:20 Chloride 99 mmol/L (98-107) 03/07/25 04:20 Carbon Dioxide 24 mmol/L (22-29) 03/07/25 04:20 Anion Gap 17.9 (5-19) 03/07/25 04:20 BUN 10 mg/dL (8-23) 03/07/25 04:20 Creatinine 0.5 mg/dL (0.7-1.2) L 03/07/25 04:20 GFR Calculation 166.4 mL/min (90-130) H 03/07/25 04:20 Glucose 246 mg/dL (65-115) H 03/07/25 04:20 Calculated Osmolality 291 mOsm/kg (285-295) 03/07/25 04:20 Calcium 8.4 mg/dL (8.5-10.5) L 03/07/25 04:20 Total Bilirubin 0.6 mg/dL (0.15-1.2) 03/07/25 04:20 AST 10 U/L (0-40) 03/07/25 04:20 ALT 10 U/L (0-41) 03/07/25 04:20 Alkaline Phosphatase 59 U/L (40-130) 03/07/25 04:20 Troponin T Baseline 14 ng/L (0-15) 03/07/25 04:20 Troponin T 120 Minute 13.05 ng/L (0-15) 03/07/25 06:28 Delta Troponin T -0.95 ABS# (0-10) L 03/07/25 06:28 Total Protein 6.0 g/dL (6.6-8.7) L 03/07/25 04:20 Albumin 3.8 g/dL (3.5-5.2) 03/07/25 04:20 Globulin 2.2 g/dL (1.3-4.6) 03/07/25 04:20 All radiology interpretation(s) finalized by discharge Discharge Plan Discharge Patient Disposition: Home Clinical Impression: Atypical chest pain, Hypertension Condition: Stable Prescriptions: No Action Morphine pain pump See Rx Instructions .ROUTE .COMPLEX Rx Instructions: via continuous intrathecal infusion as directed galantamine 4 mg tablet 4 mg PO BID Qty: 180 3RF Rx Instructions: 340B (DME) Diabetic shoes with CUSTOM Accomodative Insert See Rx Instructions .Route .MEDSUPPLY Qty: 1 0RF Rx Instructions: As directed by HOME ferrous sulfate 325 mg (65 mg iron) tablet 325 mg PO DAILY Qty: 30 12RF lisinopril 10 mg tablet 10 mg PO BID Qty: 180 2RF furosemide 20 mg tablet 20 mg PO BID Qty: 180 3RF (DME) FreeStyle Loyd 3 [place] Misc See Rx Instructions .ROUTE .COMPLEX Qty: 1 0RF Dose Instruction: USE DIRECTED Rx Instructions: USE DIRECTED (DME) FreeStyle Loyd 3 Plus Sensor Device See Rx Instructions .ROUTE .COMPLEX Qty: 6 0RF Dose Instruction: USE DIRECTED AND CHANGE EVERY 15 DAYS Rx Instructions: USE DIRECTED AND CHANGE EVERY 15 DAYS ProAir RespiClick 90 mcg/actuation aerosol powdr breath activated 1 - 2 inh inhalation Q4H PRN (Reason: Shortness Of Breath) multivitamin Tablet 1 tab PO DAILY hydroxyzine HCl 50 mg tablet 50 mg PO BID PRN (Reason: Anxiety) clopidogrel [Plavix] 75 mg tablet 75 mg PO BEDTIME insulin lispro [Humalog KwikPen Insulin] 100 unit/mL insulin pen See Rx Instructions .ROUTE .COMPLEX Rx Instructions: INJECT 20 UNITS 3 TIMES DAILY WITH MEALS PLUS LOW DOSE SLIDING SCALE MAX OF 87 UNITS PER DAY. Lantus Solostar U-100 Insulin 100 unit/mL (3 mL) insulin pen 57 unit SUBCUT BEDTIME Patient Comments: took 26units at 2000 Creon 36,000-114,000- 180,000 unit capsule,delayed release(DR/EC) 2 cap PO TID Qty: 90 3RF Rx Instructions: administer with meals. 1 cap if snacks pantoprazole 40 mg tablet,delayed release (DR/EC) 40 mg PO BID metformin 500 mg tablet extended release 24 hr 1,000 mg PO BID hydrocodone-acetaminophen 5-325 mg tablet 1 tab PO Q6H PRN (Reason: pain) Qty: 14 0RF isosorbide mononitrate 60 mg tablet extended release 24 hr 60 mg PO DAILY Emgality Pen 120 mg/mL pen injector 120 mg SUBCUT .Q30D Rx Instructions: on the 12th brimonidine-timolol [Combigan] 0.2-0.5 % drops 1 drp ophthalmic (eye) BID docusate sodium [Colace] 100 mg capsule 100 mg PO BID PRN (Reason: Constipation) sertraline 100 mg tablet 100 mg PO DAILY cyanocobalamin (vitamin B-12) [Vitamin B-12] 500 mcg Tablet 500 mcg PO DAILY promethazine 25 mg suppository 25 mg WI Q6H PRN (Reason: nausea and vomiting) Qty: 12 0RF ondansetron 8 mg tablet,disintegrating 8 mg PO Q6H Qty: 14 0RF Rx Instructions: Take 1/2-1 tab every 6 hours as needed for nausea and vomiting clonidine HCl 0.2 mg tablet See Rx Instructions .ROUTE .COMPLEX PRN (Reason: high blood pressure) 30 Days Qty: 60 0RF Rx Instructions: TAKE 1 TABLET BY MOUTH EVERY 12 HOURS NEEDED FOR SYSTOLIC BLOOD PRESSURE OVER 180 OR DIASTOLIC BLOOD PRESSURE OVER 95. Discharge Orders: Discharge ED (Routine); Ordered 03/07/25 Ordered By: Edenilson Fairchild Discharge Diet: Usual diet Discharge Activity: Increase activity as tolerated Patient Instructions: Opioid Safety, Pain Management, Patient Portal & Lorie Instructions Activity Restrictions/Additional Instructions: Thank you for choosing [facility] for your healthcare needs today. It is very important that you follow up as instructed or that you return to the Emergency Department should you have concerns or if your condition changes or worsens in any way. You are seen in the emergency room with complaints of chest pain and elevated blood pressure. Your blood pressure improved evaluation of your chest discomfort showed no signs of acute coronary syndrome and your EKG and your cardiac enzymes were normal. Your blood pressure should continually be monitored as an outpatient you should follow-up with your doctor within 10 to 14 days to reevaluate. Print Language: Malaysian Sign Out Sign Out Data: Patient Sign Out occurred on 03/07/25 at 07:00. Patient's care was discussed, and care was transferred from Guillermo Bennett MD to Edenilson Fairchild DO. Coding Level of Care Code ED Psychological Tests Sales Agent for Devonte Hamm
[2025-03-07 05:29] VITALS: BP 183/76
[2025-03-07] MEDS: LORazepam 1 MG/0.5 ML injection IVP (05:30)
[2025-03-07 05:32] VITALS: BP 175/66; PULSE 84; RESP 20; O2SAT 96
--- NOTE | 2025-03-07 05:48 | ECG_ITS ---
[facility] [employer] [facility] Test Date: 2025-03-07 Pat Name: Guanakito Longo Department: Room: Gender: Male [employer]: : 1960 Requested By: Guillermo Brown Order Number: [id number] Reading MD: SERA DURAND Measurements Intervals [place] Rate: 73 P: 40 [place]: 168 QRS: 56 QRSD: 120 T: 58 QT: 420 QTc: 463 Interpretive Statements SINUS RHYTHM WITH OCCASIONAL VENTRICULAR PREMATURE COMPLEXES POSSIBLE RIGHT VENTRICULAR CONDUCTION DELAY [RSR (QR) IN V1/V2] Compared to ECG 03/07/2025 03:50:30 Incomplete right bundle-branch block no longer present Electronically Signed On 03-08-2025 16:11:27 CDT by SERA DURAND [email or web address]
[2025-03-07 06:54] LABS: Troponin 5 2HR 13.05 ng/L (0-15)
[2025-03-07 07:06] LABS: Troponin 5 2HR Delta -0.95 ABS# (0-10)
--- NOTE | 2025-03-07 07:32 | PC.NURSE ---
this RN took over pt care at 0705 from DUNCAN Miranda
[2025-03-07 07:33] VITALS: BP 163/62; PULSE 78; RESP 19; O2SAT 96
== END 2025-03-07 07:35 | disposition home or self-care (01) ==
PROVIDERS: Student in an Organized Health Care Education/Training Program; Emergency Provider Family Medicine
DX: R07.89 Other chest pain (principal); I10 Essential (primary) hypertension; Z79.02 Long term (current) use of antithrombotics/antiplatelets; Z79.4 Long term (current) use of insulin; Z79.84 Long term (current) use of oral hypoglycemic drugs; E11.40 Type 2 diabetes mellitus with diabetic neuropathy, unspecified; I25.10 Atherosclerotic heart disease of native coronary artery without angina pectoris
CPT/HCPCS: 36415; 71045; 80053; 84484; 85025; 93005; 96374; 99285; J2060; J9999

== ENCOUNTER 2025-03-21 06:30 | Outpatient (RCR) | payer MEDICARE, SELFPAY | END 2025-04-20 23:59 | disposition home or self-care (01) | LOC: SST 06:30 | PROVIDERS: PCP Family Medicine; Visit Provider Family Medicine | DX: I63.9 Cerebral infarction, unspecified (principal) | CPT/HCPCS: 92507; 92526 ==

== ENCOUNTER 2025-03-26 10:57 | Outpatient (CLI) | payer MEDICARE, SELFPAY | END 2025-03-26 10:58 | disposition home or self-care (01) | PROVIDERS: PCP Family Medicine; Visit Provider Internal Medicine | DX: E11.9 Type 2 diabetes mellitus without complications (principal); G45.9 Transient cerebral ischemic attack, unspecified | CPT/HCPCS: 99214 ==

== ENCOUNTER 2025-04-21 05:00 | Outpatient (RCR) | payer MEDICARE, SELFPAY | END 2025-05-20 23:59 | disposition home or self-care (01) | LOC: SST 05:00 | PROVIDERS: PCP Family Medicine; Visit Provider Family Medicine | DX: I63.9 Cerebral infarction, unspecified (principal) | CPT/HCPCS: 92526 ==

== ENCOUNTER → 2025-05-20 12:44 | Outpatient (BNVA) | payer MEDICARE, SELFPAY | PROVIDERS: PCP Family Medicine; Visit Provider Podiatrist Foot & Ankle Surgery | DX: E11.42 Type 2 diabetes mellitus with diabetic polyneuropathy (principal); L60.3 Nail dystrophy; L84 Corns and callosities; I10 Essential (primary) hypertension; E11.8 Type 2 diabetes mellitus with unspecified complications; Z79.4 Long term (current) use of insulin; Z79.84 Long term (current) use of oral hypoglycemic drugs | CPT/HCPCS: 11055; 11721 ==

== ENCOUNTER 2025-05-21 05:00 | Outpatient (RCR) | payer MEDICARE, SELFPAY | END 2025-06-20 23:59 | disposition home or self-care (01) | LOC: SST 05:00 | PROVIDERS: PCP Family Medicine; Visit Provider Family Medicine | DX: I63.9 Cerebral infarction, unspecified (principal) | CPT/HCPCS: 92526 ==

== ENCOUNTER 2025-06-21 05:00 | Outpatient (RCR) | payer MEDICARE, SELFPAY | END 2025-07-20 23:59 | disposition home or self-care (01) | LOC: SST 05:00 | PROVIDERS: PCP Family Medicine; Visit Provider Family Medicine | DX: I63.9 Cerebral infarction, unspecified (principal) | CPT/HCPCS: 92526 ==

== ENCOUNTER → 2025-06-24 14:30 | Outpatient (BNVA) | payer MEDICARE, SELFPAY | PROVIDERS: PCP Family Medicine; Visit Provider Specialist | DX: R41.3 Other amnesia (principal); I63.9 Cerebral infarction, unspecified; I10 Essential (primary) hypertension; G43.711 Chronic migraine without aura, intractable, with status migrainosus; I65.23 Occlusion and stenosis of bilateral carotid arteries | CPT/HCPCS: G0463 ==

== ENCOUNTER → 2025-08-11 14:35 | Outpatient (BNVA) | payer MEDICARE, SELFPAY | PROVIDERS: PCP Family Medicine; Visit Provider Podiatrist Foot & Ankle Surgery | DX: E11.42 Type 2 diabetes mellitus with diabetic polyneuropathy (principal); L60.3 Nail dystrophy; L84 Corns and callosities; E11.8 Type 2 diabetes mellitus with unspecified complications; I10 Essential (primary) hypertension; Z79.4 Long term (current) use of insulin; Z79.84 Long term (current) use of oral hypoglycemic drugs | CPT/HCPCS: 11055; 11721 ==